=== PATIENT | female | born 1940 | race Caucasian/White ===

== ENCOUNTER 2018-08-09 01:42 | Outpatient (CLI) | payer MEDICARE, SELFPAY ==
--- NOTE | 2018-08-09 10:35 | DI.RAD_ITS ---
SYMPTOM/DIAGNOSIS: LT KNEE PAIN, M25.562, ? FX, DISLOCATION,SWELLING LEFT KNEE: Four views were obtained. There is narrowing of the medial tibiofemoral cartilaginous joint space. Mild hypertrophic spurring is noted at multiple sites involving the bones of the knee. No other focal bony abnormality is seen. No evidence of fracture. 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
== END 2018-08-09 02:02 ==
PROVIDERS: PCP Nurse Practitioner Family; Visit Provider Nurse Practitioner Family
DX: M25.562 Pain in left knee (principal); M17.12 Unilateral primary osteoarthritis, left knee
CPT/HCPCS: 73564

== ENCOUNTER 2019-09-04 13:58 | Outpatient (REF) | payer MEDICARE, SELFPAY | END 2019-09-04 14:18 | LOC: LBN 13:58 | PROVIDERS: PCP Nurse Practitioner Family; Visit Provider Family Medicine | DX: R30.0 Dysuria (principal) | CPT/HCPCS: 87086 ==

== ENCOUNTER 2019-10-31 15:31 | Outpatient (REF) | payer MEDICARE, SELFPAY | END 2019-10-31 15:51 | LOC: LBN 15:31 | PROVIDERS: PCP Nurse Practitioner Family; Visit Provider Family Medicine | DX: R30.0 Dysuria (principal) | CPT/HCPCS: 87086 ==

== ENCOUNTER 2020-08-08 03:14 | Outpatient (CLI) | payer MEDICARE, SELFPAY ==
[2020-08-08 09:53] LABS: ALT 22 U/L (14-59); AST 20 U/L (15-37); Albumin 3.7 g/dL (3.4-5.0); Alkaline Phosphatase 91 U/L (46-116); Anion Gap 5.8 mmol/L (3-11); BUN 20 mg/dL (7-18); Bilirubin, Total 0.4 mg/dL (0.2-1.0); CO2 31.2 mmol/L (21.0-32.0); CREATININE 0.8 mg/dL (0.55-1.02); Calcium 9.1 mg/dL (8.5-10.1); Chloride 107 mmol/L (98-107); Glucose 88 mg/dL (74-106); Potassium 4.3 mmol/L (3.5-5.1); Sodium 144 mmol/L (136-145); TSH (W/Ref FT4) 3.72 uIU/mL (0.36-3.74); Total Protein 6.9 g/dL (6.4-8.2)
== END 2020-08-08 03:15 | disposition home or self-care (01) ==
LOC: LBO 03:15
PROVIDERS: PCP Nurse Practitioner Family; Visit Provider Nurse Practitioner Family
DX: N18.9 Chronic kidney disease, unspecified (principal); Z13.1 Encounter for screening for diabetes mellitus; E03.9 Hypothyroidism, unspecified
CPT/HCPCS: 36415; 80053; 84443

== ENCOUNTER 2021-12-29 02:36 | Outpatient (CLI) | payer MEDICARE, SELFPAY ==
[2021-12-29 08:20] LABS: Anion Gap 6.3 mmol/L (3-11); BUN 26 mg/dL (7-18); CO2 28.7 mmol/L (21.0-32.0); CREATININE 0.7 mg/dL (0.55-1.02); Calcium 8.6 mg/dL (8.5-10.1); Chloride 107 mmol/L (98-107); Estimated GFR 86.83 (mL/min/1.73m2); Glucose 81 mg/dL (74-106); Potassium 3.9 mmol/L (3.5-5.1); Sodium 142 mmol/L (136-145); TSH (W/Ref FT4) 3.61 uIU/mL (0.36-3.74)
== END 2021-12-29 02:37 | disposition home or self-care (01) ==
LOC: LBO 02:36
PROVIDERS: Absent Provider Nurse Practitioner Family; PCP Nurse Practitioner Family; Visit Provider Nurse Practitioner Family
DX: E03.9 Hypothyroidism, unspecified (principal); E78.5 Hyperlipidemia, unspecified; Z13.1 Encounter for screening for diabetes mellitus; K21.9 Gastro-esophageal reflux disease without esophagitis
CPT/HCPCS: 36415; 80048; 84443

== ENCOUNTER 2022-07-30 12:36 | Outpatient (CLI) | payer MEDICARE, SELFPAY ==
[2022-07-30 12:38] LABS: Anion Gap 7.1 mmol/L (3-11); BUN 24 mg/dL (7-18); CO2 27.9 mmol/L (21.0-32.0); CREATININE 0.7 mg/dL (0.55-1.02); Calcium 8.8 mg/dL (8.5-10.1); Chloride 107 mmol/L (98-107); Estimated GFR 86.83 (mL/min/1.73m2); Glucose 148 mg/dL (74-106); Potassium 4.1 mmol/L (3.5-5.1); Sodium 142 mmol/L (136-145)
[2022-07-31 19:34] LABS: Lyme Ab w Rflx to Lyme Confirm Negative (Negative)
[2022-08-02 19:36] LABS: Anaplasma phagocytophilum Negative (Negative); B. miyamotoi PCR Negative (Negative); Babesia divergens/MO-1 Negative (Negative); Babesia duncani Negative (Negative); Babesia microti Negative (Negative); Ehrlichia chaffeensis Negative (Negative); Ehrlichia ewingii/canis Negative (Negative); Ehrlichia muris eauclairensis Negative (Negative)
== END 2022-07-30 12:37 | disposition home or self-care (01) ==
LOC: LBO 12:37
PROVIDERS: PCP Nurse Practitioner Family; Visit Provider Student in an Organized Health Care Education/Training Program
DX: A69.20 Lyme disease, unspecified (principal); E86.0 Dehydration; W57.XXXA Bitten or stung by nonvenomous insect and other nonvenomous arthropods, initial encounter
CPT/HCPCS: 36415; 80048; 87798; 86618

== ENCOUNTER 2022-09-23 11:00 | Outpatient (CLI) | payer MEDICARE, SELFPAY ==
--- NOTE | 2022-09-23 11:00 | RT.EKG_ITS ---
APPROVED REPORT Exam: Resting ECG Reason for Exam: LIMA x1 mo, new murmur Patient Location: O HR:75 bpm ECG Measurements Heart Rate 75 AXIS NH 168 P 50 QRSd 98 QRS -16 QT 398 T 49 QTc 445 Conclusion Sinus rhythm...normal P axis, V-rate 50- 99 Borderline left axis deviation...QRS axis (-15,-29) Low voltage, precordial leads...precordial leads <1.0mV Otherwise normal ECG
== END 2022-09-23 11:01 | disposition home or self-care (01) ==
LOC: DI.KIM 11:07
PROVIDERS: PCP Nurse Practitioner Family; Visit Provider Nurse Practitioner Family
DX: R06.09 Other forms of dyspnea (principal)
CPT/HCPCS: 93010

== ENCOUNTER 2022-09-23 12:54 | Outpatient (CLI) | payer MEDICARE, SELFPAY ==
[2022-09-23 12:25] LABS: Abs Immature Grans 0.01 10^3/uL (0.0-0.06); Absolute Basophil Count 0.06 10^3/uL (0.0-0.2); Absolute Eosinophil Count 0.26 10^3/uL (0.0-0.7); Absolute Lymphocyte Count 1.47 10^3/uL (1.2-3.4); Absolute Monocyte Count 0.48 10^3/uL (0.1-0.8); Absolute Neutrophil Count 3.92 10^3/uL (1.2-6.7); Eosinophils % 4.2; HCT 26.8 % (36.0-46.0); HGB 7.3 g/dL (11.2-15.7); Immature Grans % 0.2; Lymphocytes % 23.7; MCHC 27.2 % (32.0-36.0); MCV 66 fL (80-95); MPV 10.3 fL (8.0-11.0); Monocytes % 7.7; Neutrophils % 63.2; Platelet Count 389 10^3/uL (130-400); RBC 4.06 10^6/uL (3.93-5.22); RDW 16.7 % (11.7-14.6); RDW-SD 39.5 fL
[2022-09-23 13:05] LABS: Diff Comment RBC Morph Reviewed; Hypochromasia 2+; Microcytosis 2+
[2022-09-23 13:07] LABS: Ovalocytes 2+
[2022-09-23 13:34] LABS: ALT 23 U/L (14-59); AST 17 U/L (15-37); Albumin 3.7 g/dL (3.4-5.0); Alkaline Phosphatase 94 U/L (46-116); Anion Gap 7.2 mmol/L (3-11); BUN 22 mg/dL (7-18); Bilirubin, Total 0.3 mg/dL (0.2-1.0); CO2 27.8 mmol/L (21.0-32.0); CREATININE 0.7 mg/dL (0.55-1.02); Calcium 8.9 mg/dL (8.5-10.1); Chloride 107 mmol/L (98-107); Ferritin 3 ng/mL (8-252); Glucose 100 mg/dL (74-106); Potassium 4.5 mmol/L (3.5-5.1); Sodium 142 mmol/L (136-145); TSH (W/Ref FT4) 3.01 uIU/mL (0.36-3.74)
[2022-09-23 13:57] LABS: Iron 9 ug/dL (50-170); Total Iron Binding Capacity 488 ug/dL (250-450); Transferrin Sat 2 % (15-50)
== END 2022-09-23 12:55 | disposition home or self-care (01) ==
PROVIDERS: PCP Nurse Practitioner Family; Visit Provider Nurse Practitioner Family
DX: E61.1 Iron deficiency (principal); G25.81 Restless legs syndrome; E03.9 Hypothyroidism, unspecified; R06.00 Dyspnea, unspecified
CPT/HCPCS: 36415; 80053; 71046; 82728; 83540; 83550; 84443; 85025

== ENCOUNTER 2022-09-23 13:07 | Outpatient (CLI) | payer MEDICARE, SELFPAY ==
--- NOTE | 2022-09-23 12:30 | DI.RAD_ITS ---
Exam(s) XR CHEST 2V PA LATERAL EXAM: XR CHEST 2V PA LATERAL CLINICAL HISTORY: [id number] ON EXERTION TECHNIQUE: 2D digital imaging was performed. COMPARISON: CR CHEST 2 VIEWS PA,LAT from 02/01/2015 FINDINGS: HEART: Mildly enlarged.zzz Aorta: Tortuous PULMONARY VASCULATURE: Normal. LUNGS: Clear. PLEURAL SPACE: No pleural effusion or pneumothorax. BONE:Unremarkable for age. IMPRESSION: No acute abnormality. DATA REPOSITORY: RADIATION DOSE DELIVERED:
== END 2022-09-23 13:27 ==
LOC: DI 13:08
PROVIDERS: PCP Nurse Practitioner Family; Visit Provider Nurse Practitioner Family
DX: R06.09 Other forms of dyspnea (principal)
CPT/HCPCS: 71046

== ENCOUNTER 2022-09-25 13:19 | Emergency (ER) | payer MEDICARE, SELFPAY ==
[2022-09-25 13:25] VITALS: BP 129/70; PULSE 91; RESP 17; TEMP 36.6; O2SAT 100
[2022-09-25 13:58] LABS: Abs Immature Grans 0.03 10^3/uL (0.0-0.06); Absolute Basophil Count 0.06 10^3/uL (0.0-0.2); Absolute Eosinophil Count 0.18 10^3/uL (0.0-0.7); Absolute Neutrophil Count 5.04 10^3/uL (1.2-6.7); Basophils % 0.9; Eosinophils % 2.6; HCT 25.8 % (36.0-46.0); Immature Grans % 0.4; Lymphocytes % 17.4; MCH 17.8 pg (27.0-33.0); MCHC 27.1 % (32.0-36.0); MPV 10.2 fL (8.0-11.0); Monocytes % 5.8; Neutrophils % 72.9; Platelet Count 385 10^3/uL (130-400); RBC 3.94 10^6/uL (3.93-5.22); RDW 16.7 % (11.7-14.6); RDW-SD 38.6 fL; WBC 6.91 10^3/uL (4.4-10.8)
[2022-09-25 14:00] LABS: MCV 66 fL (80-95)
[2022-09-25 14:13] LABS: Anisocytosis 1+; Diff Comment RBC Morph Reviewed; Hypochromasia 2+; Microcytosis 2+
[2022-09-25 14:14] LABS: Poikilocytes 1+
[2022-09-25 14:16] LABS: ALT 19 U/L (14-59); AST 14 U/L (15-37); Albumin 3.4 g/dL (3.4-5.0); Alkaline Phosphatase 90 U/L (46-116); Anion Gap 5.1 mmol/L (3-11); BUN 20 mg/dL (7-18); Bilirubin, Total 0.2 mg/dL (0.2-1.0); CO2 27.9 mmol/L (21.0-32.0); CREATININE 0.7 mg/dL (0.55-1.02); Calcium 8.5 mg/dL (8.5-10.1); Chloride 108 mmol/L (98-107); Glucose 112 mg/dL (74-106); Magnesium 2.2 mg/dL (1.8-2.4); Potassium 3.9 mmol/L (3.5-5.1); Sodium 141 mmol/L (136-145); Total Protein 6.8 g/dL (6.4-8.2)
[2022-09-25 14:22] LABS: Bilirubin Negative (Negative); Blood Negative (Negative); Clarity Clear (Clear); Glucose Negative (Negative); Ketones Negative (Negative); Leukocyte Esterase Negative (Negative); Nitrite Negative (Negative); Specific Gravity 1.015 (1.005-1.025); Urobilinogen 0.2 mg/dL (Up to 0.2); pH 6.5 (5-8)
--- NOTE | 2022-09-25 15:06 | ED.GENADUL_ITS ---
Discharge Plan Disposition Patient Disposition: Home Discharge Details Clinical Impression: Anemia, GI bleed due to NSAIDs Primary Care Provider: Adeline Dee ED Provider: Aaron Oshea Home Meds and New Rx's Prescriptions: Continued loratadine [Claritin] 10 mg tablet 10 mg PO DAILY PRN acetaminophen 500 mg tablet 1,000 mg PO TID PRN pantoprazole 20 mg tablet,delayed release (DR/EC) 20 mg PO DAILY Qty: 90 0RF Rx Instructions: Take 20 mg daily once daily in the morning at least 30-60 minutes before first meal of the day Discharge Instructions Instructions: Gastrointestinal Bleeding (ED), Anemia (ED) Additional Instructions: At this time you do have severe anemia but you are right on the line of needing a blood transfusion. After our discussion we have decided to hold off on transfusing but we will have you return to the emergency department tomorrow for reassessment. Please return after 4 PM as I will be here and happy to reassess you and repeat blood work. In the meantime given that we are not transfusing you if you develop any chest pain, shortness of breath, lightheadedness or rapid heart rate return immediately to the emergency department. This also includes if you start having significant bloody or completely black stools. Referrals: Adeline Dee NP [Primary Care Provider] - 3 days Discharge Data Discharge Date/Time-TO BE ENTERED AT DEPARTURE: 09/25/22 16:39 Medical Decision Making Patient presenting to the emergency department for chief complaint of anemia and abnormal labs. Patient reports 1 month ago she was placed on Celebrex for her arthritis. Shortly thereafter she started having some mild shortness of breath with activity. Patient states that she is only noted some increased fatigue but denies any syncope, lightheadedness, chest pain, shortness of breath except with activity but has not stopped any of her normal activities and states that she is otherwise feeling fine. Did receive report from primary care provider in regards to this patient that they had noticed the anemia couple days ago and stopped her Celebrex and ordered a iron transfusion given some evidence of macrocytic anemia. Repeat hemoglobin was is 6.8 causing primary care provider to send patient to the emergency department. My assessment is unremarkable, patient has no tachycardia, no hypoxia, stable vital signs normal blood pressure. We will repeat labs and perform a type and screen. Reviewed patient's labs and hemoglobin is 7 otherwise shows similar findings as before. No thrombocytopenia is noted no leukocytosis. Chemistries show slightly elevated chloride, BUN of 20, glucose of 112 and AST of 14 otherwise nondiagnostic. Urine is negative. Patient is O+. Discussed findings with patient given that she is right on the line of needing blood transfusion with hemoglobin of 7. After discussion with patient she is hesitant to receiving blood products and states that she would prefer to see how well the iron transfusion helps given that she otherwise feels fine. Given that patient is mostly asymptomatic with stable vital signs I do feel that this is a region reasonable option. We will contact primary care provider to see if we can repeat hemoglobin in 24 to 48 hours with close follow-up on Wednesday. Spoke to primary care provider and attempted to have labs drawn tomorrow on an outpatient basis but I stated I would follow-up on given that I will be working tomorrow. Unfortunately labs were unable to be performed on an outpatient basis due to lab availability and being the weekend. Patient was agreeable to retu rning tomorrow when I am on shift for reassessment or returning emergently for any new or significant worsening of symptoms. Again patient is otherwise stable, no hypotension, no tachycardia no hypoxia and only symptoms with activity otherwise performing all activities without much other complaint. I do feel this is reasonable given that she has stopped her NSAID and started a PPI. After discussion of diagnosis and plan of care patient has no further needs, questions, or concerns and states clear understanding to return to the emergency department for any worsening symptoms. This documentation was generated using [employer] dictation system, please disregard any oddities of phrase or misspellings. Lab Data Lab results reviewed: Yes I reviewed the patient's lab results. HPI General Mode of arrival: ambulatory . Date/Time Provider Initiated Documentation: 09/25/22 13:39 . Limitations to Documentation: no limitations . Information obtained by: patient and RN notes reviewed . History of Present Illness 82 year old F presents to the emergency department with the chief complaint of Anemia, described as mild, Patient started experiencing this month(s) (1) Patient notes no other symptoms.. Patient did receive the following treatments prior to arrival, none Related Data Home Medications Medication Instructions Recorded Confirmed loratadine 10 mg tablet (Claritin) 10 mg PO DAILY PRN 03/12/21 09/26/22 acetaminophen 500 mg tablet 1,000 mg PO TID PRN 04/01/22 09/26/22 pantoprazole 20 mg tablet,delayed 20 mg PO DAILY #90 tab-caps 09/23/22 09/26/22 release Previous Rx's Medication Instructions Recorded pantoprazole 20 mg tablet,delayed 20 mg PO DAILY #90 tab-caps 09/23/22 release Allergies Allergy/AdvReac Type Severity Reaction Status Date / Time aspirin AdvReac ? Verified 09/25/22 13:27 INCREASED HR General Stated Complaint: GI Bleed DEDE: 2 Review of Systems Constitutional Constitutional: Denies chills, Reports fatigue (Only with activity), Denies fever(s), Denies malaise and Denies poor appetite Cardiovascular Cardiovascular: Denies chest pain, Denies syncope, Denies irregular heart rhythm, Denies leg edema, Denies lightheadedness, Denies palpitations, Denies dyspnea and Reports dyspnea on exertion Respiratory Respiratory: Denies cough, Denies dyspnea and Reports dyspnea on exertion Gastrointestinal Gastrointestinal: Reports as per HPI, Denies abdominal pain, Reports melena, Denies hematochezia, Denies change in bowel habits, Denies coffee ground emesis, Denies constipation, Denies fecal incontinence, Denies diarrhea, Denies nausea, Denies vomiting and Denies hematemesis Genitourinary Genitourinary: Denies hematuria, Denies urinary incontinence, Denies urinary hesitancy and Denies urinary urgency Integumentary/Breasts Skin/Breast: Denies rash Neurologic Neurologic: Denies syncope Endocrine Endocrine: Reports fatigue (Only with activity) and Denies palpitations PFSH All Active Problems (Updated 09/26/22 @ 17:32 by Aaron Oshea NP) Anemia (Chronic) GI bleed due to NSAIDs (Acute) Iron deficiency anemia (Acute) Heart murmur (Acute) Dyspnea on exertion (Acute) Restless leg syndrome (Acute) Generalized osteoarthritis (Acute) Erysipelas (Acute) Eczema (Chronic 02/16/13) Hands GERD (gastroesophageal reflux disease) (Chronic 05/07/14) Takes 2-week courses of omeprazole PRN with good relief for several months Other and unspecified hyperlipidemia (Chronic 03/05/15) Subclinical hypothyroidism (Chronic 02/04/11) Medical History BCC (basal cell carcinoma), face (06/11/16) and left medial ankle 10/2018 BPPV (benign paroxysmal positional vertigo) Erythema migrans (Lyme disease) 1 week post tick bite, short-term stay per pt report .. but Doxy x 10 days started, ik Lumbar radiculopathy, acute (06/12/14) Surgical History Biopsy of breast pt did not state date.HE Exc BBC rgt forehead (06/22/16) Open Carpal Tunnel release no date given by pt.HE Family History Father Alcohol abuse Social History Smoking/Tobacco Use Status: Never Smoking risk assessment performed?: Yes Alcohol Intake: current Alcohol Intake frequency: a few times a week Drug use: Never Substance use type: does not use Adopted: No Caregiver/Support person: No Foster care: No Household members: spouse Housing: house Number of Children: 0 number of grandchildren: 0 Communication Needs: Corrective Lenses Education Level: college 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 Pets and animals: No Sexually active: No Do you think of yourself as: straight/heterosexual Current gender identity: male What is your relationship status?: How often do you talk on the phone with friends or family?: three or more times per week How often do you get together with friends or relatives?: three or more times per week Do you belong to any clubs or organized social groups?: yes Panel score (0-1 are the most socially isolated patients): 3 What type of physical activity do you participate in: weight lifting and other Details: water aerobics Duration: < 15 minutes/day Frequency: 1-2 times per week Romi/Sabianism: Spiritism Special romi needs: No Seatbelt use: always Drive intox or ride w/intox 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 Do you feel safe at home: Yes Do you feel safe in your relationship?: Yes Exam Const General: cooperative Orientation: alert, awake and oriented x3 Resp Effort & Inspection: normal respiratory effort and able to speak in complete sentences Auscultation: clear to auscultation bilaterally Cardio Rate: regular rate Rhythm: regular rhythm Heart Sounds: S1 normal and S2 normal GI Inspection: normal to inspection Palpation: soft, not firm, no guarding, not rigid and nontender Auscultation: normal bowel sounds Rectal Exam - female: deferred Back/Spine/Pelvis Back: no CVA tenderness Neuro General: patient alert, patient awake, patient oriented x3, gait normal and moves all extremities Course Vital Signs Vital signs: Vital Signs Temperature 36.6 C 09/25/22 13:25 Pulse 91 H 09/25/22 13:25 Respiratory Rate 17 09/25/22 13:25 Blood Pressure 129/70 09/25/22 13:25 Pulse Oximetry 100 09/25/22 13:25 Temperature 36.6 C 09/25/22 13:25 Temperature Source Oral 09/25/22 13:25 Pulse 91 H 09/25/22 13:25 Respiratory Rate 17 09/25/22 13:25 Respiratory Effort Non-Labored 09/25/22 13:26 Blood Pressure 129/70 09/25/22 13:25 Blood Pressure Position Sitting 09/25/22 13:25 Pulse Oximetry 100 09/25/22 13:25 Oxygen Delivery Method Room Air 09/25/22 13:25 Oxygen Flow Rate 0 09/25/22 13:25 Pain Level 0 09/25/22 13:25 Lab/Test Results Lab/Test Results: Laboratory Tests Range/Units 09/25/22 09/25/22 09/25/22 13:45 13:45 13:45 WBC (4.4-10.8) 10^3/uL 6.91 RBC (3.93-5.22) 10^6/uL 3.94 Hgb (11.2-15.7) g/dL 7.0 L* Hct (36.0-46.0) % 25.8 L MCV (80-95) fL 66 L MCH (27.0-33.0) pg 17.8 L MCHC (32.0-36.0) % 27.1 L RDW (11.7-14.6) % 16.7 H Plt Count (130-400) 10^3/uL 385 MPV (8.0-11.0) fL 10.2 Immature Gran % 0.4 Neutrophils % 72.9 Lymphocytes % 17.4 Monocytes % 5.8 Eosinophils % 2.6 Basophils % 0.9 Nucleated RBC % (0.0-0.3) % 0.0 Absolute Neutrophils (1.2-6.7) 10^3/uL 5.04 Absolute Lymphocytes (1.2-3.4) 10^3/uL 1.20 Absolute Monocytes (0.1-0.8) 10^3/uL 0.40 Absolute Eosinophils (0.0-0.7) 10^3/uL 0.18 Absolute Basophils (0.0-0.2) 10^3/uL 0.06 RBC Morphology See Below Hypochromasia 2+ Poikilocytosis 1+ Anisocytosis 1+ Microcytosis 2+ Sodium (136-145) mmol/L 141 Potassium (3.5-5.1) mmol/L 3.9 Chloride (98-107) mmol/L 108 H Carbon Dioxide (21.0-32.0) mmol/L 27.9 Anion Gap (3-11) mmol/L 5.1 BUN (7-18) mg/dL 20 H Creatinine (0.55-1.02) mg/dL 0.7 Est GFR (CKD-EPI 2020) (mL/min/1.73m2) 86.30 Glucose (74-106) mg/dL 112 H Calcium (8.5-10.1) mg/dL 8.5 Magnesium (1.8-2.4) mg/dL 2.2 Total Bilirubin (0.2-1.0) mg/dL 0.2 AST (15-37) U/L 14 L ALT (14-59) U/L 19 Alkaline Phosphatase (46-116) U/L 90 Total Protein (6.4-8.2) g/dL 6.8 Albumin (3.4-5.0) g/dL 3.4 Urine Color (Yellow) Urine Clarity (Clear) Urine pH (5-8) Ur Specific [place] (1.005-1.025) Urine Protein (Negative) mg/dL Urine Ketones (Negative) mg/dL Urine Blood (Negative) Urine Nitrite (Negative) Urine Bilirubin (Negative) Urine Urobilinogen (Up to 0.2) mg/dL Ur Leukocyte Esterase (Negative) Urine Glucose (Negative) mg/dL Patient ABO/Rh O Positive Antibody Screen NEGATIVE Range/Units 09/25/22 14:11 WBC (4.4-10.8) 10^3/uL RBC (3.93-5.22) 10^6/uL Hgb (11.2-15.7) g/dL Hct (36.0-46.0) % MCV (80-95) fL MCH (27.0-33.0) pg MCHC (32.0-36.0) % RDW (11.7-14.6) % Plt Count (130-400) 10^3/uL MPV (8.0-11.0) fL Immature Gran % Neutrophils % Lymphocytes % Monocytes % Eosinophils % Basophils % Nucleated RBC % (0.0-0.3) % Absolute Neutrophils (1.2-6.7) 10^3/uL Absolute Lymphocytes (1.2-3.4) 10^3/uL Absolute Monocytes (0.1-0.8) 10^3/uL Absolute Eosinophils (0.0-0.7) 10^3/uL Absolute Basophils (0.0-0.2) 10^3/uL RBC Morphology Hypochromasia Poikilocytosis Anisocytosis Microcytosis Sodium (136-145) mmol/L Potassium (3.5-5.1) mmol/L Chloride (98-107) mmol/L Carbon Dioxide (21.0-32.0) mmol/L Anion Gap (3-11) mmol/L BUN (7-18) mg/dL Creatinine (0.55-1.02) mg/dL Est GFR (CKD-EPI 2020) (mL/min/1.73m2) Glucose (74-106) mg/dL Calcium (8.5-10.1) mg/dL Magnesium (1.8-2.4) mg/dL Total Bilirubin (0.2-1.0) mg/dL AST (15-37) U/L ALT (14-59) U/L Alkaline Phosphatase (46-116) U/L Total Protein (6.4-8.2) g/dL Albumin (3.4-5.0) g/dL Urine Color (Yellow) Yellow Urine Clarity (Clear) Clear Urine pH (5-8) 6.5 Ur Specific [place] (1.005-1.025) 1.015 Urine Protein (Negative) mg/dL Negative Urine Ketones (Negative) mg/dL Negative Urine Blood (Negative) Negative Urine Nitrite (Negative) Negative Urine Bilirubin (Negative) Negative Urine Urobilinogen (Up to 0.2) mg/dL 0.2 Ur Leukocyte Esterase (Negative) Negative Urine Glucose (Negative) mg/dL Negative Patient ABO/Rh Antibody Screen PAWSS Have you Been Recently Intoxicated or Drunk Within the Last 30 days?: No Have you Ever Experienced Previous Episodes of Alcohol Withdrawal?: No Have you ever Experienced Withdrawal Seizures?: No Have you ever Experienced Delirium Tremens(DT)s?: No Have you ever undergone Alcohol Rehabilitation Treatment (i.e, inpt ot outpatient treatment programs)?: No Have you ever Experienced Blackouts?: No Have you ever Combined Alcohol with other Downers within the last 90 days?: No Have you ever Combined Alcohol with any other Substance of Abuse during the last 90 days?: No Result: 0
--- NOTE | 2022-09-25 16:22 | NUR.NOTE ---
Nursing Note: PT needs follow up with PCP on Wednesday for Anemia. [facility], ED
[2022-09-25 16:31] VITALS: BP 139/45; PULSE 90; RESP 16; O2SAT 99
== END 2022-09-25 16:39 | disposition home or self-care (01) ==
PROVIDERS: Emergency Provider Nurse Practitioner Family; PCP Nurse Practitioner Family
DX: K92.2 Gastrointestinal hemorrhage, unspecified (principal); D50.0 Iron deficiency anemia secondary to blood loss (chronic)
CPT/HCPCS: 80053; 86850; 86900; 86901; 99283; 81003; 83735; 85025

== ENCOUNTER 2022-09-26 15:37 | Inpatient (IN) | payer MEDICARE, SELFPAY ==
[2022-09-26] VITALS (19 sets, daily range): BP systolic 128–151; BP diastolic 56–94; PULSE 67–99; RESP 13–24; TEMP 35.7–37.1; O2SAT 96–100
[2022-09-26 16:10] LABS: HCT 24.6 % (36.0-46.0)
[2022-09-26 16:12] LABS: HGB 6.6 g/dL (11.2-15.7)
[2022-09-26 16:56] LABS: Abs Immature Grans 0.09 10^3/uL (0.0-0.06); Absolute Basophil Count 0.07 10^3/uL (0.0-0.2); Absolute Lymphocyte Count 2.03 10^3/uL (1.2-3.4); Absolute Monocyte Count 0.49 10^3/uL (0.1-0.8); Absolute Neutrophil Count 4.24 10^3/uL (1.2-6.7); Eosinophils % 2.8; HCT 25.7 % (36.0-46.0); Immature Grans % 1.3; Lymphocytes % 28.5; MCHC 26.1 % (32.0-36.0); MCV 65 fL (80-95); MPV 10.2 fL (8.0-11.0); Monocytes % 6.9; Neutrophils % 59.5; Nucleated RBC 0.4 % (0.0-0.3); Platelet Count 399 10^3/uL (130-400); RBC 3.93 10^6/uL (3.93-5.22); RDW-SD 39.3 fL; WBC 7.12 10^3/uL (4.4-10.8)
[2022-09-26] MEDS: Sucralfate 1 GM TAB PO ×2 (16:59→20:25)
[2022-09-26] MEDS: Pantoprazole 40 MG VIAL 80 MG IVP (16:59)
[2022-09-26 17:09] LABS: PTT Activated 24.4 sec (21.5-31.9); Prothrombin Time 10.1 sec (9.3-11.0)
[2022-09-26 17:12] LABS: ALT 23 U/L (14-59); AST 18 U/L (15-37); Albumin 3.5 g/dL (3.4-5.0); Alkaline Phosphatase 88 U/L (46-116); Anion Gap 6.7 mmol/L (3-11); BUN 21 mg/dL (7-18); Bilirubin, Total 0.2 mg/dL (0.2-1.0); CO2 26.3 mmol/L (21.0-32.0); CREATININE 0.9 mg/dL (0.55-1.02); Calcium 8.8 mg/dL (8.5-10.1); Chloride 107 mmol/L (98-107); Estimated GFR 63.83 (mL/min/1.73m2); Glucose 93 mg/dL (74-106); Magnesium 2.2 mg/dL (1.8-2.4); Potassium 3.8 mmol/L (3.5-5.1); Sodium 140 mmol/L (136-145)
[2022-09-26 17:26] LABS: Anisocytosis 1+; Diff Comment RBC Morph Reviewed; HGB 6.7 g/dL (11.2-15.7)
[2022-09-26 17:27] LABS: Hypochromasia 2+; Microcytosis 2+; Poikilocytes 1+
--- NOTE | 2022-09-26 17:28 | ED.GENADUL_ITS ---
Discharge Plan Disposition Patient Disposition: Admit to [facility] Discharge Details Clinical Impression: GI bleed due to NSAIDs Admit Date/Time: 09/26/22 17:07 Admit Provider: Aydee Roblero Attending Provider: Aydee Roblero Primary Care Provider: Adeline Dee ED Provider: Aaron Oshea Discharge Data Discharge Date/Time-TO BE ENTERED AT DEPARTURE: 09/26/22 18:10 Medical Decision Making Patient presenting to the emergency department for chief complaint of recheck of GI bleed. Patient was seen by myself yesterday for GI bleed and had hemoglobin of 7. Patient had just received iron transfusion and shared decision-making was utilized and we decided for patient to go home monitor symptoms and return today for recheck of hemoglobin. Patient states actually today she feels more energetic and overall improved. Physical exam remains unremarkable with no hypotension, no tachycardia, no hypoxia and patient denying all other symptoms. We will recheck hemoglobin and establish plan of care after lab results Reviewed hemoglobin and report was received of following hemoglobin of 6.6. Given that this is continued to decline did discuss risk versus benefit of transfusion with patient and she was agreeable to receiving blood transfusion. Did also start Protonix IV push and octreotide. Contacted Dr. Roblero general surgeon for admission to further observe patient to ensure no acute or rapid decline of condition and for monitoring of hemoglobin. She agreed to admit patient. Lab Data Lab results reviewed: Yes I reviewed the patient's lab results. HPI General Mode of arrival: ambulatory . Date/Time Provider Initiated Documentation: 09/26/22 15:38 . Limitations to Documentation: no limitations . Information obtained by: patient and RN notes reviewed . History of Present Illness 82 year old F presents to the emergency department with the chief complaint of Recheck of GI bleed, described as mild, Patient started experiencing this month(s) (1) and it has been constant. Medication worsens symptoms (New medication of Celebrex) . Patient notes shortness of breath. Patient did receive the following treatments prior to arrival, other (Pantoprazole this morning) Related Data Home Medications Medication Instructions Recorded Confirmed loratadine 10 mg tablet (Claritin) 10 mg PO DAILY PRN 03/12/21 09/26/22 acetaminophen 500 mg tablet 1,000 mg PO TID PRN 04/01/22 09/26/22 pantoprazole 20 mg tablet,delayed 20 mg PO DAILY #90 tab-caps 09/23/22 09/26/22 release Previous Rx's Medication Instructions Recorded pantoprazole 20 mg tablet,delayed 20 mg PO DAILY #90 tab-caps 09/23/22 release Allergies Allergy/AdvReac Type Severity Reaction Status Date / Time aspirin AdvReac ? Verified 09/25/22 13:27 INCREASED HR General Stated Complaint: Recheck DEDE: 4 Review of Systems Constitutional Constitutional: Denies chills, Denies fatigue, Denies fever(s), Denies malaise and Denies poor appetite Cardiovascular Cardiovascular: Denies chest pain, Denies dyspnea and Reports dyspnea on exertion Respiratory Respiratory: Denies cough, Denies dyspnea and Reports dyspnea on exertion Gastrointestinal Gastrointestinal: Reports as per HPI, Denies abdominal pain, Reports melena (Intermittent), Denies change in bowel habits, Denies constipation, Denies diarrhea, Denies nausea and Denies vomiting Genitourinary Genitourinary: Denies hematuria Integumentary/Breasts Skin/Breast: Denies rash Endocrine Endocrine: Denies fatigue Hematologic/Lymphatic Hematologic/Lymphatic: Denies easy bruising PFSH All Active Problems (Updated 09/26/22 @ 17:32 by Aaron Oshea NP) Anemia (Chronic) GI bleed due to NSAIDs (Acute) Iron deficiency anemia (Acute) Heart murmur (Acute) Dyspnea on exertion (Acute) Restless leg syndrome (Acute) Generalized osteoarthritis (Acute) Erysipelas (Acute) Eczema (Chronic 02/16/13) Hands GERD (gastroesophageal reflux disease) (Chronic 05/07/14) Takes 2-week courses of omeprazole PRN with good relief for several months Other and unspecified hyperlipidemia (Chronic 03/05/15) Subclinical hypothyroidism (Chronic 02/04/11) Medical History BCC (basal cell carcinoma), face (06/11/16) and left medial ankle 10/2018 BPPV (benign paroxysmal positional vertigo) Erythema migrans (Lyme disease) 1 week post tick bite, short-term stay per pt report .. but Doxy x 10 days started, ik Lumbar radiculopathy, acute (06/12/14) Surgical History Biopsy of breast pt did not state date.HE Exc BBC rgt forehead (06/22/16) Open Carpal Tunnel release no date given by pt.HE Family History Father Alcohol abuse Social History Smoking/Tobacco Use Status: Never Smoking risk assessment performed?: Yes Alcohol Intake: current Alcohol Intake frequency: a few times a week Drug use: Never Substance use type: does not use Adopted: No Caregiver/Support person: No Foster care: No Household members: spouse Housing: house Number of Children: 0 number of grandchildren: 0 Communication Needs: Corrective Lenses Education Level: college 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 Pets and animals: No Sexually active: No Do you think of yourself as: straight/heterosexual Current gender identity: male What is your relationship status?: How often do you talk on the phone with friends or family?: three or more times per week How often do you get together with friends or relatives?: three or more times per week Do you belong to any clubs or organized social groups?: yes Panel score (0-1 are the most socially isolated patients): 3 What type of physical activity do you participate in: weight lifting and other Details: water aerobics Duration: < 15 minutes/day Frequency: 1-2 times per week Romi/Mandaeism: Evangelical Special romi needs: No Seatbelt use: always Drive intox or ride w/intox sprinkler driver: No Do you feel safe at home: Yes Do you feel safe in your relationship?: Yes Exam Const General: cooperative Orientation: alert, awake and oriented x3 Resp Effort & Inspection: normal respiratory effort and able to speak in complete sentences Auscultation: clear to auscultation bilaterally Cardio Rate: regular rate Rhythm: regular rhythm Heart Sounds: S1 normal and S2 normal GI Palpation: soft, no hepatosplenomegaly, not firm, no guarding, no masses, no pulsatile masses, not rigid, no splenomegaly and nontender Auscultation: normal bowel sounds Back/Spine/Pelvis Back: no CVA tenderness Neuro General: patient alert, patient awake, patient oriented x3, gait normal and moves all extremities Course Vital Signs Vital signs: Vital Signs Temperature 37.1 C 09/26/22 15:41 Pulse 85 09/26/22 15:41 Respiratory Rate 18 09/26/22 15:41 Blood Pressure 148/57 H 09/26/22 15:41 Pulse Oximetry 97 09/26/22 15:41 Temperature 37.1 C 09/26/22 15:41 Pulse 85 09/26/22 15:41 Respiratory Rate 18 09/26/22 15:41 Respiratory Effort Normal, Non-Labored 09/26/22 16:02 Blood Pressure 148/57 H 09/26/22 15:41 Blood Pressure Position Sitting 09/26/22 15:41 Pulse Oximetry 97 09/26/22 15:41 Oxygen Delivery Method Room Air 09/26/22 15:41 Oxygen Flow Rate 0 09/26/22 15:41 Lab/Test Results Lab/Test Results: Laboratory Tests Range/Units 09/26/22 09/26/22 09/26/22 16:01 16:47 16:47 WBC (4.4-10.8) 10^3/uL RBC (3.93-5.22) 10^6/uL Hgb (11.2-15.7) g/dL 6.6 L* Hct (36.0-46.0) % 24.6 L MCV (80-95) fL MCH (27.0-33.0) pg MCHC (32.0-36.0) % RDW (11.7-14.6) % Plt Count (130-400) 10^3/uL MPV (8.0-11.0) fL Immature Gran % Neutrophils % Lymphocytes % Monocytes % Eosinophils % Basophils % Nucleated RBC % (0.0-0.3) % Absolute Neutrophils (1.2-6.7) 10^3/uL Absolute Lymphocytes (1.2-3.4) 10^3/uL Absolute Monocytes (0.1-0.8) 10^3/uL Absolute Eosinophils (0.0-0.7) 10^3/uL Absolute Basophils (0.0-0.2) 10^3/uL RBC Morphology Hypochromasia Poikilocytosis Anisocytosis Microcytosis PT Cancelled INR Cancelled APTT (21.5-31.9) sec Sodium (136-145) mmol/L Potassium (3.5-5.1) mmol/L Chloride (98-107) mmol/L Carbon Dioxide (21.0-32.0) mmol/L Anion Gap (3-11) mmol/L BUN (7-18) mg/dL Creatinine (0.55-1.02) mg/dL Est GFR (CKD-EPI 2020) (mL/min/1.73m2) Glucose (74-106) mg/dL Calcium (8.5-10.1) mg/dL Magnesium (1.8-2.4) mg/dL Total Bilirubin (0.2-1.0) mg/dL AST (15-37) U/L ALT (14-59) U/L Alkaline Phosphatase (46-116) U/L Total Protein (6.4-8.2) g/dL Albumin (3.4-5.0) g/dL Crossmatch See Detail Range/Units 09/26/22 09/26/22 09/26/22 16:47 16:47 16:47 WBC (4.4-10.8) 10^3/uL 7.12 RBC (3.93-5.22) 10^6/uL 3.93 Hgb (11.2-15.7) g/dL 6.7 L* Hct (36.0-46.0) % 25.7 L MCV (80-95) fL 65 L MCH (27.0-33.0) pg 17.0 L MCHC (32.0-36.0) % 26.1 L RDW (11.7-14.6) % 17.0 H Plt Count (130-400) 10^3/uL 399 MPV (8.0-11.0) fL 10.2 Immature Gran % 1.3 Neutrophils % 59.5 Lymphocytes % 28.5 Monocytes % 6.9 Eosinophils % 2.8 Basophils % 1.0 Nucleated RBC % (0.0-0.3) % 0.4 H Absolute Neutrophils (1.2-6.7) 10^3/uL 4.24 Absolute Lymphocytes (1.2-3.4) 10^3/uL 2.03 Absolute Monocytes (0.1-0.8) 10^3/uL 0.49 Absolute Eosinophils (0.0-0.7) 10^3/uL 0.20 Absolute Basophils (0.0-0.2) 10^3/uL 0.07 RBC Morphology See Below Hypochromasia 2+ Poikilocytosis 1+ Anisocytosis 1+ Microcytosis 2+ PT 10.1 INR 1.0 APTT (21.5-31.9) sec 24.4 Sodium (136-145) mmol/L 140 Potassium (3.5-5.1) mmol/L 3.8 Chloride (98-107) mmol/L 107 Carbon Dioxide (21.0-32.0) mmol/L 26.3 Anion Gap (3-11) mmol/L 6.7 BUN (7-18) mg/dL 21 H Creatinine (0.55-1.02) mg/dL 0.9 Est GFR (CKD-EPI 2020) (mL/min/1.73m2) 63.83 Glucose (74-106) mg/dL 93 Calcium (8.5-10.1) mg/dL 8.8 Magnesium (1.8-2.4) mg/dL 2.2 Total Bilirubin (0.2-1.0) mg/dL 0.2 AST (15-37) U/L 18 ALT (14-59) U/L 23 Alkaline Phosphatase (46-116) U/L 88 Total Protein (6.4-8.2) g/dL 7.0 Albumin (3.4-5.0) g/dL 3.5 Crossmatch
[2022-09-26] MEDS: Pantoprazole 40 MG VIAL IVP (20:25)
[2022-09-27] MEDS: Sucralfate 1 GM TAB PO ×2 (05:41→10:54)
[2022-09-27 06:59] VITALS: PULSE 77
[2022-09-27] MEDS: Pantoprazole 40 MG VIAL IVP (07:36)
[2022-09-27 07:37] LABS: HCT 29.6 % (36.0-46.0); HGB 8.6 g/dL (11.2-15.7)
[2022-09-27] MEDS: Normal Saline Flush 10 ML SYR IVP (07:37)
[2022-09-27 08:22] LABS: Ferritin 158 ng/mL (8-252); Vitamin B12 502 pg/mL (193-986)
[2022-09-27 08:26] VITALS: BP 130/66; PULSE 70; RESP 18; TEMP 36.7; O2SAT 94
[2022-09-27 08:27] LABS: Folate > 20.0 ng/mL (8.6-20.0)
--- NOTE | 2022-09-27 10:50 | HPE_ITS ---
Date of service: 09/27/22 Time of Service: 10:50 Assessment and Plan Assessment and plan (1) Anemia: Status: Chronic Assessment and plan: Patient received 2 units of packed RBCs last night for symptomatic anemia of 6.6 No signs of active bleeding and hemodynamically stable She received IV PPI, As well as Carafate I discussed her options with her. Patient would prefer to have an EGD today. We discussed the procedure which she can expect during the procedure, post procedurally, recovery time and risks including but not limited to: Bleeding, infection, perforation, aspiration, other complications with anesthesia and other on for told complications. Disposition pending findings at the time of EGD. (2) GI bleed due to NSAIDs: Status: Acute (3) GERD (gastroesophageal reflux disease): Status: Chronic Qualifiers: Esophagitis presence: esophagitis presence not specified Qualified Code(s): K21.9 - Gastro-esophageal reflux disease without esophagitis (4) Subclinical hypothyroidism: Status: Chronic (5) Erysipelas: Status: Acute (6) Restless leg syndrome: Status: Acute History of Present Illness Narrative: ED NOtes 09/26 : atient presenting to the emergency department for chief complai nt of recheck of GI bleed.? Patient was seen by myself yesterday for GI bleed and had hemoglobin of 7.? Patient had just received iron transfusion and shared decision-making was utilized and we decided for patient to go home monitor symptoms and return today for recheck of hemoglobin.? Patient states actually today she feels more energetic and overall improved.? Physical exam remains unremarkable with no hypotension, no tachycardia, no hypoxia and patient denying all other symptoms.? Reviewed hemoglobin and report was received of following hemoglobin of 6.6.? Given that this is continued to decline did discuss risk versus benefit of transfusion with patient and she was agreeable to receiving blood transfusion.? Did also start Protonix IV push and octreotide.? .?History of Present Illness?82 year old? F presents to the emergency department with the chief complaint of Recheck of GI bleed,?described as mild,?Patient started experiencing this month(s) (1)?and it has been constant.?Medication worsens symptoms (New medication of Celebrex) .?Patient notes shortness of breath.?Patient did receive? the following treatments prior to arrival, other (Pantoprazole this morning) 09/27 Patient was admitted through the ED last night and received 2 units of blood. Today she feels good. She has no chest pain or shortness of breath. She has had no nausea or vomiting. She does feel cold. She has had no pain or difficulty swallowing. She is having no heartburn or indigestion. She did have a bowel movement this morning that was heme positive. She is hungry. She is having absolutely no abdominal pain. She has had no weight loss. She does have a history of GERD and has been on a PPI longstanding. She is currently on Protonix and Carafate. She had been on Celebrex. This was stopped several weeks ago. She is intolerant of aspirin as well. Repeat hemoglobin was 8.6 and then 9. She has not had any surgery other than a colonoscopy and had no problems with anesthesia. She is in excellent health for her age. Review of Systems All systems reviewed & are unremarkable except as noted in HPI and below PFSH All Active Problems Anemia (Chronic) GI bleed due to NSAIDs (Acute) Iron deficiency anemia (Acute) Heart murmur (Acute) Dyspnea on exertion (Acute) Restless leg syndrome (Acute) Generalized osteoarthritis (Acute) Erysipelas (Acute) Eczema (Chronic 02/16/13) Hands GERD (gastroesophageal reflux disease) (Chronic 05/07/14) Takes 2-week courses of omeprazole PRN with good relief for several months Other and unspecified hyperlipidemia (Chronic 03/05/15) Subclinical hypothyroidism (Chronic 02/04/11) Medical History BCC (basal cell carcinoma), face (06/11/16) and left medial ankle 10/2018 BPPV (benign paroxysmal positional vertigo) Erythema migrans (Lyme disease) 1 week post tick bite, short-term stay per pt report .. but Doxy x 10 days started, ik Lumbar radiculopathy, acute (06/12/14) Surgical History Biopsy of breast pt did not state date.HE Exc BBC rgt forehead (06/22/16) Open Carpal Tunnel release no date given by pt.HE Family History Father Alcohol abuse Social History Smoking/Tobacco Use Status: Never Smoking risk assessment performed?: Yes Alcohol Intake: current Alcohol Intake frequency: a few times a week Drug use: Never Substance use type: does not use Adopted: No Caregiver/Support person: No Foster care: No Household members: spouse Housing: house Number of Children: 0 number of grandchildren: 0 Communication Needs: Corrective Lenses Education Level: college 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 Pets and animals: No Sexually active: No Do you think of yourself as: straight/heterosexual Current gender identity: male What is your relationship status?: How often do you talk on the phone with friends or family?: three or more times per week How often do you get together with friends or relatives?: three or more times per week Do you belong to any clubs or organized social groups?: yes Panel score (0-1 are the most socially isolated patients): 3 What type of physical activity do you participate in: weight lifting and other Details: water aerobics Duration: < 15 minutes/day Frequency: 1-2 times per week Romi/Pentecostal: Protestant Special romi needs: No Seatbelt use: always Drive intox or ride w/intox oil transport driver: No Do you feel safe at home: Yes Do you feel safe in your relationship?: Yes Meds Allergies and Home Medications Allergies Allergy/AdvReac Type Severity Reaction Status Date / Time aspirin AdvReac ? Verified 09/25/22 13:27 INCREASED HR Home Medications Medication Instructions Recorded Confirmed Type loratadine 10 mg tablet (Claritin) 10 mg PO DAILY PRN 03/12/21 09/26/22 History acetaminophen 500 mg tablet 1,000 mg PO TID PRN 04/01/22 09/26/22 History pantoprazole 20 mg tablet,delayed 20 mg PO DAILY #90 tab-caps 09/23/22 09/26/22 Rx release Exam Const General: cooperative, healthy appearing, comfortable, no acute distress, well developed and well groomed Nutritional Appearance: average body habitus Orientation: alert, awake and oriented x3 Other: PHYSICAL EXAM GENERAL APPEARANCE: Alert, healthy appearance, oriented, x 3,? in no acute distress HYDRATION: Well hydrated HEAD, EYES, EARS, NECK, THROAT: Head is normocephalic, pupils equal, round, reactive to light and accommodation, ocular movement intact, sclera clear and no jaundice. ?Dentition intact. NECK: Neck supple.? No JVD LUNGS: normal respiration/normal chest excursion. ?Clear to auscultation bilaterally. ?No wheeze. ?HEART: Regular rate and rhythm. no murmurs EXTREMITY: No edema or cyanosis.? no leg pain, redness, swelling.? ABDOMEN: soft and non-tender to palpation.? Normal bowel sounds.? Results Labs 09/27/22 12:05 09/26/22 16:47 Labs: Laboratory Results - last 24 hr 09/26/22 09/26/22 09/26/22 16:01 16:47 16:47 WBC RBC Hgb 6.6 L* Hct 24.6 L MCV MCH MCHC RDW Plt Count MPV Immature Gran % Neutrophils % Lymphocytes % Monocytes % Eosinophils % Basophils % Nucleated RBC % Absolute Neutrophils Absolute Lymphocytes Absolute Monocytes Absolute Eosinophils Absolute Basophils RBC Morphology Hypochromasia Poikilocytosis Anisocytosis Microcytosis PT Cancelled INR Cancelled APTT Sodium Potassium Chloride Carbon Dioxide Anion Gap BUN Creatinine Est GFR (CKD-EPI 2020) Glucose Calcium Magnesium Ferritin Total Bilirubin AST ALT Alkaline Phosphatase Total Protein Albumin Vitamin B12 Folate Patient ABO/Rh O Positive Antibody Screen NEGATIVE Crossmatch See Detail 09/26/22 09/26/22 09/26/22 16:47 16:47 16:47 WBC 7.12 RBC 3.93 Hgb 6.7 L* Hct 25.7 L MCV 65 L MCH 17.0 L MCHC 26.1 L RDW 17.0 H Plt Count 399 MPV 10.2 Immature Gran % 1.3 Neutrophils % 59.5 Lymphocytes % 28.5 Monocytes % 6.9 Eosinophils % 2.8 Basophils % 1.0 Nucleated RBC % 0.4 H Absolute Neutrophils 4.24 Absolute Lymphocytes 2.03 Absolute Monocytes 0.49 Absolute Eosinophils 0.20 Absolute Basophils 0.07 RBC Morphology See Below Hypochromasia 2+ Poikilocytosis 1+ Anisocytosis 1+ Microcytosis 2+ PT 10.1 INR 1.0 APTT 24.4 Sodium 140 Potassium 3.8 Chloride 107 Carbon Dioxide 26.3 Anion Gap 6.7 BUN 21 H Creatinine 0.9 Est GFR (CKD-EPI 2020) 63.83 Glucose 93 Calcium 8.8 Magnesium 2.2 Ferritin Total Bilirubin 0.2 AST 18 ALT 23 Alkaline Phosphatase 88 Total Protein 7.0 Albumin 3.5 Vitamin B12 Folate Patient ABO/Rh Antibody Screen Crossmatch 09/27/22 09/27/22 06:37 07:00 WBC RBC Hgb 8.6 L Hct 29.6 L MCV MCH MCHC RDW Plt Count MPV Immature Gran % Neutrophils % Lymphocytes % Monocytes % Eosinophils % Basophils % Nucleated RBC % Absolute Neutrophils Absolute Lymphocytes Absolute Monocytes Absolute Eosinophils Absolute Basophils RBC Morphology Hypochromasia Poikilocytosis Anisocytosis Microcytosis PT INR APTT Sodium Potassium Chloride Carbon Dioxide Anion Gap BUN Creatinine Est GFR (CKD-EPI 2020) Glucose Calcium Magnesium Ferritin 158 Total Bilirubin AST ALT Alkaline Phosphatase Total Protein Albumin Vitamin B12 502 Folate > 20.0 H Patient ABO/Rh Antibody Screen Crossmatch Last Vital Signs Temp 36.7 C 09/27/22 08:26 Pulse 70 09/27/22 08:26 Resp 18 09/27/22 08:26 BP 130/66 09/27/22 08:26 Pulse Ox 94 09/27/22 08:26 Time Spent Time spent with Patient: 40-54 minutes Time was spent: preparing to see the patient(eg.review tests), obtaining and/or reviewing separately otained hiistory, ordering medications,tests, procedures, referring, communicating with other health attending ambulatory care, indepentently interpreting results, counseling the patient, care coordination and other
[2022-09-27 12:14] LABS: HCT 30.8 % (36.0-46.0)
[2022-09-27] MEDS: Lactated Ringers 1,000 ML 100 ML IV (12:48)
--- NOTE | 2022-09-27 13:03 | W.ANESPRE ---
General Info Date of Service Date Performed: 09/27/22 Height: 5 ft 2 in Weight: 67.6 kg Body Mass Index (BMI): 27.2 Surgical Procedure: Operation Date: 09/27/22 12:40 Proposed Procedure Side Surgeon p Gastroscopy Aydee Roblero DO Meds Allergies and Home Medications Allergies Allergy/AdvReac Type Severity Reaction Status Date / Time aspirin AdvReac ? Verified 09/25/22 13:27 INCREASED HR Home Medication Medication Instructions Recorded loratadine 10 mg tablet (Claritin) 10 mg PO DAILY PRN 03/12/21 acetaminophen 500 mg tablet 1,000 mg PO TID PRN 04/01/22 pantoprazole 20 mg tablet,delayed 20 mg PO DAILY #90 tab-caps 09/23/22 release Current Visit Medications: Current Medications Generic Name Dose Route Start Last Admin Trade Name Freq PRN Reason Stop Dose Admin Acetaminophen 650 mg 09/26/22 18:00 Acetaminophen 325 Mg Tab PO TODAY LYNDSEY Acetaminophen 1,000 mg 09/27/22 07:04 Acetaminophen 500 Mg Tab PO Q6H PRN PRN oa Diphenhydramine HCl 25 mg 09/26/22 17:15 Diphenhydramine 25 Mg Cap PO TODAY LYNDSEY Sodium Chloride 500 mls @ 0 mls/hr 09/26/22 17:06 Saline 500ml Bag IV PRN PRN As Directed Ringer's Solution 1,000 mls @ 100 mls/hr 09/27/22 12:45 09/27/22 12:48 IV 100 mls/hr INFUSION LYNDSEY Administration IV Miscellaneous Supplies 1 each 09/26/22 17:15 Iv Access IV DIRECTED LYNDSEY Morphine Sulfate 2 mg 09/26/22 17:06 Morphine 2 Mg/Ml Syr IVP Q1H PRN PRN Ondansetron HCl 4 mg 09/26/22 17:06 Ondansetron 4 Mg/2 Ml Vial IVP Q4H PRN PRN Pantoprazole Sodium 40 mg 09/26/22 17:15 09/27/22 07:36 Pantoprazole 40 Mg Vial IVP 40 mg BID LYNDSEY Administration Sodium Chloride 0 ml 09/26/22 17:13 09/27/22 07:37 Normal Saline Flush 10 Ml Syr IVP 10 ml PRN PRN Administration Sucralfate 1 gm 09/26/22 17:15 07/23/23 10:54 Sucralfate 1 Gm Tab PO 1 gm Q6H LYNDSEY Administration PFSH Active Problems Active Problems: Problem Status Onset Code Anemia D64.9 GI bleed due to NSAIDs K92.2, T39.395A Iron deficiency anemia D50.9 Heart murmur R01.1 Dyspnea on exertion R06.09 Restless leg syndrome G25.81 Generalized osteoarthritis M15.9 Erysipelas A46 Eczema 02/16/13 L30.9 GERD (gastroesophageal reflux disease) 05/07/14 K21.9 Other and unspecified hyperlipidemia 03/05/15 E78.5 Subclinical hypothyroidism 02/04/11 E03.9 Medical History Medical History BCC (basal cell carcinoma), face (06/11/16) and left medial ankle 10/2018 BPPV (benign paroxysmal positional vertigo) Erythema migrans (Lyme disease) 1 week post tick bite, short-term stay per pt report .. but Doxy x 10 days started, ik Lumbar radiculopathy, acute (06/12/14) Surgical History Surgical History Biopsy of breast pt did not state date.HE Exc BBC rgt forehead (06/22/16) Open Carpal Tunnel release no date given by pt.HE Tobacco Smoking/Tobacco Use Status: Never Alcohol Alcohol Intake: current Alcohol intake frequency: a few times a week Substance Use Substance use: Never Substance use type: does not use Vital Signs and Lab Results Vital Signs Most Recent Vital Signs in EMR: Most Recent Vital Signs Temp Pulse Resp BP Pulse Ox 36.7 C 70 18 130/66 94 09/27/22 08:26 09/27/22 08:26 09/27/22 08:26 09/27/22 08:26 09/27/22 08:26 Lab Results 09/27/22 12:05 09/26/22 16:47 Blood Type / Crossmatch: Patient ABO/Rh O Positive 09/26/22 Antibody Screen NEGATIVE 09/26/22 Crossmatch See Detail 09/26/22 Complete Blood Count: White Blood Count 7.12 10^3/uL (4.4-10.8) 09/26/22 16:47 Red Blood Count 3.93 10^6/uL (3.93-5.22) 09/26/22 16:47 Hemoglobin 9.0 g/dL (11.2-15.7) L 09/27/22 12:05 Hematocrit 30.8 % (36.0-46.0) L 09/27/22 12:05 Platelet Count 399 10^3/uL (130-400) 09/26/22 16:47 Complete Metabolic Panel: Sodium 140 mmol/L (136-145) 09/26/22 16:47 Potassium 3.8 mmol/L (3.5-5.1) 09/26/22 16:47 Chloride 107 mmol/L (98-107) 09/26/22 16:47 Carbon Dioxide 26.3 mmol/L (21.0-32.0) 09/26/22 16:47 BUN 21 mg/dL (7-18) H 09/26/22 16:47 Creatinine 0.9 mg/dL (0.55-1.02) 09/26/22 16:47 Est GFR (CKD-EPI 2020) 63.83 (mL/min/1.73m2) 09/26/22 16:47 Magnesium 2.2 mg/dL (1.8-2.4) 09/26/22 16:47 Calcium 8.8 mg/dL (8.5-10.1) 09/26/22 16:47 Albumin 3.5 g/dL (3.4-5.0) 09/26/22 16:47 Glucose 93 mg/dL (74-106) 09/26/22 16:47 Liver Function Panel: Alanine Aminotransferase (ALT/SGPT) 23 U/L (14-59) 09/26/22 16:47 Aspartate Amino Transf (AST/SGOT) 18 U/L (15-37) 09/26/22 16:47 Coagulation Panel: INR International Normalized Ratio 1.0 (0.9-1.1) 09/26/22 16:47 Prothrombin Time 10.1 sec (9.3-11.0) 09/26/22 16:47 Activated Partial Thromboplast Time 24.4 sec (21.5-31.9) 09/26/22 16:47 Cardiac Panel: No Data to Display Arterial Blood Gas: No Data to Display Venous Blood Gas: No Data to Display Pancreas Panel: No Data to Display Thyroid Panel: Thyroid Stimulating Hormone (TSH) 3.01 uIU/mL (0.36-3.74) 09/23/22 12:12 Infectious Disease: No Data to Display Blood Cultures: No Data to Display Toxicology Panel: No Data to Display Imaging and Studies Imaging and Studies Study information below may be from another EMR and interpreted by another provider. Please see original notes in EMR for more complete details. EKG Summary: Conclusion Sinus rhythm...normal P axis, V-rate 50- 99 Borderline left axis deviation...QRS axis (-15,-29) Low voltage, precordial leads...precordial leads <1.0mV Otherwise normal ECG 09/23/22 Stress Test Summary: Impressions: Normal study after maximal exercise. Summary: Stress: Exercise capacity is above normal for age. 02/22/15 Anesthesia Assessment and Plan Anesthesia History Personal History: No History of Anesthesia Complications Family History: No Family History of Anesthesia Complications Exercise Tolerance Exercise Tolerance: Metabolic Equivalents>4 Pertinent Negatives Pertinent Negatives: No Major Cardiovascular Symptoms or Complaints, No Major Pulmonary Symptoms or Complaints and No History of CVA/TIA Cardiac & Pulmonary Exam Cardiac Exam: Normal S1/S2 Heart Sounds Pulmonary Exam: Clear Bilateral Breath Sounds Implantable Cardiac Device Does patient have a Pacemaker or an ICD?: No Airway Exam Known Difficult Airway: No Mallampati Class: 3 Mouth Opening: Normal (> 3cm) Thyromental Distance: Less than 3 cm Neck Range of Motion: Full ROM Neck Circumference: Normal Teeth Condition: Normal Dentition ASA Classification ASA Score: ASA 2 Emergency Case?: Yes NPO Status NPO Status: NPO Clears >2 hours, Solids >8 hours Anesthesia Plan Resuscitation Status: Full Code Anesthesia Technique: General Anesthesia Airway Planned: Natural Airway Monitors Used: Standard Monitors
[2022-09-27 13:09] VITALS: BP 103/64; PULSE 85; TEMP 35.4; O2SAT 97
--- NOTE | 2022-09-27 13:29 | STOM_PTH ---
PATIENT: Elisha Chowdhury LOC: U#:[id number] AGE/SX: 82/F ROOM: RE09/26/[address]: Aydee Roblero : 1940 BED: A DIS: 09/27/2022 SPEC #: [id number] RECD: 09/28/22 12:13 STATUS: BLADIMIR RE #: [id number] ARTUR: 09/27/22 13:[address]: Aydee Roblero DEPT: Surgical Specimen RECD BY: Suellen Bee ENTERED: 09/28/22 12:15 SP TYPE: STOMACH OTHR DR: Adeline Dee, TOOL/DIE MAKER Tissues: 1 - BIOPSY BOWEL 2 - STOMACH BIOPSY 3 - ESOPHAGUS BIOPSY Procedures: GROSS AND MICRO LEVEL 4 IMMUNOPEROXIDASE STAIN Comments: [id number]
[2022-09-27 13:30] VITALS: BMI 27.2
--- NOTE | 2022-09-27 13:46 | W.ANESPOSTOP ---
Postoperative Evaluation Date, Time and Location Date Performed: 09/27/22 Time Performed: 13:46 Patient Location: Med/Surg Vital Signs Most Recent Imported Vital Signs: Most Recent Vital Signs Temp Pulse Resp BP Pulse Ox 35.4 C L 85 18 103/64 97 09/27/22 13:09 09/27/22 13:09 09/27/22 08:26 09/27/22 13:09 09/27/22 13:09 Pain Score Most Recent Pain Score: Most Recent Pain Score Pain Level 0 09/27/22 13:09 Assessment Mental Status: Awake (Alert & Oriented to Patient Baseline) Airway and Respiratory Function: Patent airway with normal (patient baseline) respiratory exam Cardiovascular Function: Hemodynamically Stable Hydration Status: Adequately Hydrated Nausea & Vomiting: No Nausea or Vomiting Pain: Pt. Denies Any Pain Peripheral Nerve Block: Patient did not receive a nerve block
--- NOTE | 2022-09-27 13:48 | ENDO_ITS ---
Date of service: 09/27/22 Time of Service: 13:48 Endoscopy Report DATE OF PROCEDURE: 09/27/22 PRE-OP DIAGNOSIS: Anemia/GI bleed POST-OP DIAGNOSIS: other (Mild esophagitis and gastritis/patulous hiatus) SURGEON: Aydee Roblero ANESTHESIA TYPE: General:No Airway ESTIMATED BLOOD LOSS: 1 PATHOLOGY: other COMPLICATIONS: None DISPOSITION: floor PROCEDURE DESCRIPTION: After informed consent was obtained the patient was take to the procedure room and placed in a supine position. Monitors were applied and a time out was done. The patients name, date of , procedure type, allergies to medications and metal in their body was reviewed. A bite block was placed and the patient was sedated. Once sedated and comfortable the gastroscope was advanced through the oropharynx which was grossly normal into the esophagus. The proximal and mid- esophagus were normal. The distal esophagus shows some mild esophagitis at the GE junction. There are no esophageal erosions/varices/diverticula/stricture apparent. The scope was passed into the body of the stomach and Through the pylorus. There is no signs of ulceration in the pylorus or the duodenal bulb. There is no signs of active or old bleeding within the stomach or the duodenum. The D1-D4 appear normal. Biopsy was taken of D1. There are no masses or lesions. There is some edema and swelling at the antrum. But there are no signs of any ulceration. There is some mild diffuse erythema the antrum and the lower one third of the stomach consistent with gastritis.. Biopsies taken of the antrum. Otherwise there is no signs of ulcers. The upper portion of the stomach appears normal. Diaphragmatic hiatus is patulous. But there is no signs of any hiatal hernia. The scope was retracted back into the esophagus and biopsies were done of the GE junction to rule out Hastings's. The Z line was regular. The GE junction was at 36 cm. The scope was removed and the patient was woken up and taken back to [facility] in stable condition.
[2022-09-27 13:52] VITALS: BP 110/64; PULSE 74; RESP 13; TEMP 36.5; O2SAT 95
--- NOTE | 2022-09-27 13:54 | W.PM.DS.N ---
Date of service: 09/27/22 Time of Service: 13:55 DS: Diagnosis Discharge Diagnosis (1) Anemia: Status: Chronic (2) GI bleed due to NSAIDs: Status: Acute (3) GERD (gastroesophageal reflux disease): Status: Chronic (4) Subclinical hypothyroidism: Status: Chronic (5) Erysipelas: Status: Acute (6) Restless leg syndrome: Status: Acute (7) Acute hemorrhagic gastritis: Status: Acute (8) Esophagitis: Status: Acute Discharge Plan Disposition Patient Disposition: Home Condition: Good Discharge Details Reason For Visit: Upper GI Bleed Admit Date/Time: 09/26/22 17:07 Admit Provider: Aydee Roblero Attending Provider: Aydee Roblero Primary Care Provider: Adeline Dee Hospital Course Hospital Course: Patient was admitted on admitted on 09/26 with a symptomatic anemia at 6.6. She was feeling fatigue & dyspnea on exertion. This is actually been going on for 2 to 3 weeks. She had been taking Celebrex for osteoarthritis pain. She has since stopped that and was started on a PPI. She received 2 units of blood on 09/26. Today her hemoglobin is 8.6. We did do an EGD which showed some mild edema and irritation at the antrum consistent with erosive gastritis that is in the process of healing. Patient tolerated the EGD well. We will continue her outpatient PPI and Carafate. She will receive Venofer today. She will follow-up in clinic next week. If she notices continuing black tarry stools/increased abdominal pain/vomiting blood/chest pain or shortness of breath return to the ER. Home Meds and New Rx's Prescriptions: New pantoprazole [Protonix] 40 mg tablet,delayed release (DR/EC) 40 mg PO DAILY Qty: 90 5RF sucralfate [Carafate] 1 gram tablet 1 g PO QACHS 42 Days Qty: 168 6RF Continued loratadine [Claritin] 10 mg tablet 10 mg PO DAILY PRN acetaminophen 500 mg tablet 1,000 mg PO TID PRN Discontinued pantoprazole 20 mg tablet,delayed release (DR/EC) 20 mg PO DAILY Qty: 90 0RF Rx Instructions: Take 20 mg daily once daily in the morning at least 30-60 minutes before first meal of the day Discharge Instructions Additional Instructions: Post EGD Instruction ?You had anesthesia for your EGD/stomach scope today.? For your safety, please do the following for the next twenty-four (24) hours: Do Not operate a motor vehicle (car, truck, motorcycle, etc.) Do Not drink alcoholic beverages or use any recreational drugs for the first 24 hours or while taking pain medications. The medications in your body may have a reaction that can be dangerous. Do Not make any important decisions or sign any important papers You have just had a gastroscopy (EGD) or upper GI tract examination. It is important for your smooth recovery that you carefully follow the recommendations below. Do not hesitate to call if any questions should arise about your anesthesia, condition, or care. -Symptoms you may experience during the next 24 hours: ?1. Mild abdominal pain or excessive gas or a bloated feeling which improves with rest, liquids, eating? slightly, and walking as tolerated. 2. Drowsiness and/or forgetfulness because of the medications you were given. ?3. Throat numbness for about 1 hour. 4. A sore throat which you can treat with throat lozenges or by gargling with salt water 4-5 times a day. 5. Redness at the site of your IV which you can treat with warm compresses. SPECIAL INSTRUCTIONS: 1. You may resume your previous diet in one hour. We recommend a light meal to start, then progress as tolerated. 2. Restart regular medications in one hour. 3. No aspirin or non-steroidal containing medication for three days. 4. No lifting over 20 pounds or strenuous activity for the first 24 hours after your procedure. After 24 hours there are no restrictions on your activity, but you may feel fatigued for a few days. Findings: mild gastritis Treatment: protonix 40mg daily x 12 weeks. You need to take this on an empty stomach and then eat within 30 to 60 minutes carafate 1gram take 30 minutes prior to meals and at bedtime. Do not take with other medications -[place] diet for 2 weeks. See below -Continue to follow lifestyle modifications: No alcohol, tobacco products, Aspirin or NSAID's (ibuprofen, Motrin, Naprosyn, aleve, etc).? Try to limit/avoid:? soda pop/any carbonated beverages, caffeine (including tea & chocolate), and acidic foods, (tomatoes, citrus, onions, peppermints) spicy or fried/fatty foods. Do not lie down for 30 minutes after eating, and do not eat 2 hours prior to bedtime. Avoid wearing tight fitting clothing/ belts. Follow up: With [facility] on Wednesday, as previously scheduled. And then follow-up with my office the week after. Call the office at [phone] (Office) or [phone] (Hospital), or go to the ER right away if you notice any of the followin. Vomiting blood and /or ?coffee ground? material. ?2. Worsening of abdominal pain or cramping. ?3. Trouble with breathing, cough, and/or fever (temperature above 101.5 F). 4. Increasing pain with swallowing. ?5. Chest pain. 6. Any new symptoms. 7. Worsening of the redness at the IV site Stand Alone Forms: Nursing Discharge Form Activity:: See above Equipment/Supplies:: No Equipment Needed Diet:: See above DS: Summary Time Spent with Patient providing and/or coordinating discharge services: Greater than 30 minutes Status at Discharge Functional status at discharge: independent ambulation Overall status at discharge: patient is progressing back to baseline Mental Status: mental status grossly normal Speech and Movement: speech and movement normal Mood: congruent mood Affect: normal affect Exam Psych Mental Status: mental status grossly normal Speech and Movement: speech and movement normal Mood: congruent mood Affect: normal affect DS: Data Vitals/I&O Vitals and I&O: Vital Signs Temperature 36.5 C 09/27/22 13:52 Temperature Source Tympanic 09/27/22 13:52 Pulse 74 09/27/22 13:52 Pulse Rhythm Regular 09/27/22 08:00 Pulse 80 09/26/22 17:50 Respiratory Rate 13 09/27/22 13:52 Respiratory Effort Normal, Non-Labored 09/27/22 08:00 Respiratory Depth Normal 09/27/22 08:00 Respiratory Pattern Normal 09/27/22 08:00 Blood Pressure 110/64 09/27/22 13:52 Blood Pressure Mean 72 09/26/22 17:48 Blood Pressure Position Sitting 09/26/22 15:41 Pulse Oximetry 95 09/27/22 13:52 Oxygen Delivery Method Room Air 09/27/22 13:52 Oxygen Flow Rate 0 09/27/22 13:52 Pain Level 0 09/27/22 13:52 Intake & Output 09/26/22 09/27/22 09/27/22 23:59 11:59 23:59 Intake Total 558 / 558 100 / 110 Output Total 450 / 450 Balance 108 / 108 100 / 110 Weight 67.6 kg 67.6 kg Intake: IV 100 / 110 Blood Product 558 / 558 Rbc Leuko Reduced Unit 275 / 275 [id number] Rbc Leuko Reduced Unit 283 / 283 [id number] Output: Urine 450 / 450 Other: Urine Color Yellow Yellow Urine Appearance Cloudy Clear Urine Odor Normal Normal Comment Pt voiding independently and frequently (baseline) in toilet. Hat removed; no measurement. Denies GI/ sx. Stool Occult Blood Positive Stool Size Moderate Stool Characteristics Soft Formed Brown Emesis Description None None Voiding Methods Toilet Toilet Data Completed and Pending Labs on day of discharge: Labs from last 24 hours 09/27/22 09/27/22 09/27/22 12:05 07:00 06:37 WBC RBC Hgb 9.0 L 8.6 L Hct 30.8 L 29.6 L MCV MCH MCHC RDW Plt Count MPV Immature Gran % Neutrophils % Lymphocytes % Monocytes % Eosinophils % Basophils % Nucleated RBC % Absolute Neutrophils Absolute Lymphocytes Absolute Monocytes Absolute Eosinophils Absolute Basophils RBC Morphology Hypochromasia Poikilocytosis Anisocytosis Microcytosis PT INR APTT Sodium Potassium Chloride Carbon Dioxide Anion Gap BUN Creatinine Est GFR (CKD-EPI 2020) Glucose Calcium Magnesium Ferritin 158 Total Bilirubin AST ALT Alkaline Phosphatase Total Protein Albumin Vitamin B12 502 Folate > 20.0 H Patient ABO/Rh Antibody Screen Crossmatch 09/26/22 09/26/22 09/26/22 16:47 16:47 16:47 WBC 7.12 RBC 3.93 Hgb 6.7 L* Hct 25.7 L MCV 65 L MCH 17.0 L MCHC 26.1 L RDW 17.0 H Plt Count 399 MPV 10.2 Immature Gran % 1.3 Neutrophils % 59.5 Lymphocytes % 28.5 Monocytes % 6.9 Eosinophils % 2.8 Basophils % 1.0 Nucleated RBC % 0.4 H Absolute Neutrophils 4.24 Absolute Lymphocytes 2.03 Absolute Monocytes 0.49 Absolute Eosinophils 0.20 Absolute Basophils 0.07 RBC Morphology See Below Hypochromasia 2+ Poikilocytosis 1+ Anisocytosis 1+ Microcytosis 2+ PT 10.1 INR 1.0 APTT 24.4 Sodium 140 Potassium 3.8 Chloride 107 Carbon Dioxide 26.3 Anion Gap 6.7 BUN 21 H Creatinine 0.9 Est GFR (CKD-EPI 2020) 63.83 Glucose 93 Calcium 8.8 Magnesium 2.2 Ferritin Total Bilirubin 0.2 AST 18 ALT 23 Alkaline Phosphatase 88 Total Protein 7.0 Albumin 3.5 Vitamin B12 Folate Patient ABO/Rh Antibody Screen Crossmatch 09/26/22 09/26/22 09/26/22 16:47 16:47 16:01 WBC RBC Hgb 6.6 L* Hct 24.6 L MCV MCH MCHC RDW Plt Count MPV Immature Gran % Neutrophils % Lymphocytes % Monocytes % Eosinophils % Basophils % Nucleated RBC % Absolute Neutrophils Absolute Lymphocytes Absolute Monocytes Absolute Eosinophils Absolute Basophils RBC Morphology Hypochromasia Poikilocytosis Anisocytosis Microcytosis PT Cancelled INR Cancelled APTT Sodium Potassium Chloride Carbon Dioxide Anion Gap BUN Creatinine Est GFR (CKD-EPI 2020) Glucose Calcium Magnesium Ferritin Total Bilirubin AST ALT Alkaline Phosphatase Total Protein Albumin Vitamin B12 Folate Patient ABO/Rh O Positive Antibody Screen NEGATIVE Crossmatch See Detail PFSH All Active Problems (Updated 09/27/22 @ 13:55 by Aydee Roblero DO) Esophagitis (Acute) Acute hemorrhagic gastritis (Acute) Anemia (Chronic) GI bleed due to NSAIDs (Acute) Iron deficiency anemia (Acute) Heart murmur (Acute) Dyspnea on exertion (Acute) Restless leg syndrome (Acute) Generalized osteoarthritis (Acute) Erysipelas (Acute) Eczema (Chronic 02/16/13) Hands GERD (gastroesophageal reflux disease) (Chronic 05/07/14) Takes 2-week courses of omeprazole PRN with good relief for several months Other and unspecified hyperlipidemia (Chronic 03/05/15) Subclinical hypothyroidism (Chronic 02/04/11) Medical History BCC (basal cell carcinoma), face (06/11/16) and left medial ankle 10/2018 BPPV (benign paroxysmal positional vertigo) Erythema migrans (Lyme disease) 1 week post tick bite, short-term stay per pt report .. but Doxy x 10 days started, ik Lumbar radiculopathy, acute (06/12/14) Surgical History Biopsy of breast pt did not state date.HE Exc BBC rgt forehead (06/22/16) Open Carpal Tunnel release no date given by pt.HE Family History Father Alcohol abuse Social History Smoking/Tobacco Use Status: Never Smoking risk assessment performed?: Yes Alcohol Intake: current Alcohol Intake frequency: a few times a week Drug use: Never Substance use type: does not use Adopted: No Caregiver/Support person: No Foster care: No Household members: spouse Housing: house Number of Children: 0 number of grandchildren: 0 Communication Needs: Corrective Lenses Education Level: college 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 Pets and animals: No Sexually active: No Do you think of yourself as: straight/heterosexual Current gender identity: male What is your relationship status?: How often do you talk on the phone with friends or family?: three or more times per week How often do you get together with friends or relatives?: three or more times per week Do you belong to any clubs or organized social groups?: yes Panel score (0-1 are the most socially isolated patients): 3 What type of physical activity do you participate in: weight lifting and other Details: water aerobics Duration: < 15 minutes/day Frequency: 1-2 times per week Romi/Samaritan: Gnosticist Special romi needs: No Seatbelt use: always Drive intox or ride w/intox otr company truck driver: No Do you feel safe at home: Yes Do you feel safe in your relationship?: Yes Time Spent with Patient Time Spent with Patient: <45 minutes Time was spent: preparing to see the patient(eg.review tests), obtaining and/or reviewing separately otained hiistory, ordering medications,tests, procedures, referring, communicating with other health manager medicare marketing, indepentently interpreting results, counseling the patient and care coordination
[2022-09-27] MEDS: IRON SUCROSE COMPLEX 200 MG in Normal Saline 100 ML 400 MG IVPB (14:51)
[2022-09-27] MEDS: Normal Saline 500 ML 100 ML IV (14:51)
[2022-09-27 15:00] VITALS: BP 128/70; PULSE 85; TEMP 36.1; O2SAT 95
--- NOTE | 2022-09-27 15:23 | PDOC.CMDIS ---
Date of service: 09/27/22 Time of Service: 15:23 LACE Index Scoring Tool Questions: Length of Stay (in days): 1 Was the patient admitted via the E.D.?: Yes E.D. Visits: 2 Answers: Total Score: 6 Risk of Readmission: Low Risk Care Management Discharge Plan Reason for Hospitalization: Upper GI Bleed Discharge Plan: Elisha is discharged home via private vehicle with family. Elisha will follow up with community providers and her discharge plan of care as instructed. No new services are ordered. She will follow up with her PCP on Wednesday, as previously scheduled and Surgical Office, as discussed. Patient/Family Education Needs: Review discharge instructions, limitations, medications and plan to follow up with community providers and discharge plan of care as instructed. Discuss ask me three.
== END 2022-09-27 15:46 | disposition home or self-care (01) | DRG 379 ==
LOC: ER 17:32 → MS 18:10
PROVIDERS: Admitting Provider Surgery; Emergency Provider Nurse Practitioner Family; PCP Nurse Practitioner Family; Visit Provider Surgery
PROC: 0DJ68ZZ Inspection of Stomach, Via Natural or Artificial Opening Endoscopic (ICD-10-PCS; CPT 43235; principal; 2022-09-27 12:40)
DX: K29.01 Acute gastritis with bleeding (principal); T39.395A Adverse effect of other nonsteroidal anti-inflammatory drugs [NSAID], initial encounter; K21.9 Gastro-esophageal reflux disease without esophagitis; E03.9 Hypothyroidism, unspecified; A46 Erysipelas; G25.81 Restless legs syndrome; D50.9 Iron deficiency anemia, unspecified; R01.1 Cardiac murmur, unspecified; R06.00 Dyspnea, unspecified; M15.9 Polyosteoarthritis, unspecified; L30.9 Dermatitis, unspecified; E78.5 Hyperlipidemia, unspecified; K29.70 Gastritis, unspecified, without bleeding; K22.89 Other specified disease of esophagus
CPT/HCPCS: 43239; 36415; 80053; 86850; 86900; 86901; 86920; 88305; 96374; 96375; 99222; 99285; 82607; 82728; 82746; 83735; 85014; 85018; 85025; 85610; 85730; 88361; J1756; J2001; J2354; J2405; J2704; P9016

== ENCOUNTER 2022-10-02 01:09 | Outpatient (RCR) | payer MEDICARE, SELFPAY ==
[2022-09-25] MEDS: IRON SUCROSE COMPLEX 300 MG in Normal Saline 250 ML 176.667 MG IVPB (11:31)
[2022-09-25 11:50] LABS: HGB 6.8 g/dL (11.2-15.7)
[2022-09-25] MEDS: Normal Saline Flush 10 ML SYR IVP (13:04)
[2022-10-02] MEDS: IRON SUCROSE COMPLEX 300 MG in Normal Saline 250 ML 176.667 MG IVPB (11:51)
== END 2022-10-05 23:59 | disposition home or self-care (01) ==
LOC: INF 01:09
PROVIDERS: PCP Nurse Practitioner Family; Visit Provider Nurse Practitioner Family
DX: D50.9 Iron deficiency anemia, unspecified (principal)
CPT/HCPCS: 36415; 80053; 86850; 86900; 86901; 96365; 96366; 99283; 81003; 83735; 85014; 85018; 85025; J1756

== ENCOUNTER → 2022-10-07 09:49 | Outpatient (BNVA) | payer MEDICARE, SELFPAY | PROVIDERS: PCP Nurse Practitioner Family; Referring Provider Nurse Practitioner Family; Visit Provider Surgery | DX: K29.70 Gastritis, unspecified, without bleeding (principal); T39.395A Adverse effect of other nonsteroidal anti-inflammatory drugs [NSAID], initial encounter; D50.9 Iron deficiency anemia, unspecified | CPT/HCPCS: 99213 ==

== ENCOUNTER 2022-10-09 01:00 | Outpatient (RCR) | payer MEDICARE, SELFPAY ==
[2022-10-09] MEDS: Normal Saline Flush 10 ML SYR IVP (11:28)
[2022-10-09] MEDS: IRON SUCROSE COMPLEX 200 MG in Normal Saline 100 ML 440 MG IVPB (11:45)
== END 2022-11-05 23:59 | disposition home or self-care (01) ==
LOC: INF 01:00
PROVIDERS: PCP Nurse Practitioner Family; Visit Provider Nurse Practitioner Family
DX: E61.1 Iron deficiency (principal); G25.81 Restless legs syndrome
CPT/HCPCS: J1756

== ENCOUNTER 2022-11-02 11:21 | Outpatient (REF) | payer MEDICARE, SELFPAY ==
[2022-11-02 22:28] LABS: Bilirubin Negative (Negative); Blood Negative (Negative); Clarity Clear (Clear); Glucose Negative (Negative); Ketones Negative (Negative); Leukocyte Esterase Negative (Negative); Nitrite Negative (Negative); Urobilinogen 0.2 mg/dL (Up to 0.2)
== END 2022-11-02 11:22 | disposition home or self-care (01) ==
LOC: LBN 11:21
PROVIDERS: PCP Nurse Practitioner Family; Visit Provider Nurse Practitioner Adult Health
DX: R30.0 Dysuria (principal)
CPT/HCPCS: 81003

== ENCOUNTER → 2022-11-18 09:48 | Outpatient (BNVA) | payer MEDICARE, SELFPAY | PROVIDERS: PCP Nurse Practitioner Family; Referring Provider Nurse Practitioner Family; Visit Provider Surgery | DX: K92.2 Gastrointestinal hemorrhage, unspecified (principal); T39.395A Adverse effect of other nonsteroidal anti-inflammatory drugs [NSAID], initial encounter | CPT/HCPCS: 99213 ==

== ENCOUNTER 2022-11-26 03:43 | Outpatient (CLI) | payer MEDICARE, SELFPAY | END 2022-11-26 03:44 | disposition home or self-care (01) | LOC: LBO 03:43 | PROVIDERS: PCP Nurse Practitioner Family; Visit Provider Surgery | DX: D50.9 Iron deficiency anemia, unspecified (principal); K92.2 Gastrointestinal hemorrhage, unspecified; T39.395A Adverse effect of other nonsteroidal anti-inflammatory drugs [NSAID], initial encounter; E03.9 Hypothyroidism, unspecified | CPT/HCPCS: 36415; 85018 ==

== ENCOUNTER 2022-12-20 08:47 | Emergency (ER) | payer MEDICARE, SELFPAY ==
[2022-12-20 08:56] VITALS: BP 166/77; PULSE 98; RESP 16; TEMP 36.6; O2SAT 96
--- NOTE | 2022-12-20 09:21 | W.ED.GENAD ---
Discharge Plan Disposition Patient Disposition: Home Condition: Good Discharge Details Clinical Impression: Anxiety, Rectal bleeding Primary Care Provider: Tiera Choudhury ED Provider: Paz Haynes Home Meds and New Rx's Prescriptions: Continued acetaminophen 650 mg tablet extended release 1,300 mg PO Q12H Discharge Instructions Instructions: Rectal Bleeding (ED) Additional Instructions: As we discussed, your blood counts are good today, no indication of anemia. You are overdue for a colonoscopy and a referral for this has been sent. This test will help determine the source of your bleeding. Please follow up with primary care in 2 weeks for reevaluation. If you develop increased bleeding, weakness, fevers/chills, abdominal pain or other new/worsening symptoms, please seek care urgently once again. Referrals: Tiera Choudhury, INSTRUCTOR WARPER [Primary Care Provider] - Medical Decision Making Patient is a 82 year old female, PMH signficant for recent GI bleed associated with NSAIDS use, BPPV, lumbar radiciulopathy, presenting today with c/c of bright red blood per rectum. States that she feels woozy like she did when she requiured a transfusion. She does state that this feels slightly better after eating breakfast this AM. States that yesterday she had a BM and noted blood in the stool, had another episode today. Just return from [place] where she had more frequent BM, unclear if blood at that time. Denies fevers/chills, no SOB/CP, no abdominal pain, no vaginal d/c. Denies easy bruising, bleeding gums, blood in urine. Has had not a colonoscopy in several years, last was 2008. No personal of familial hx of GI cancers although brother recently dx'ed with bladder cancer. No previous abdominal surgeries. Had EGD in September of this year. On exam, patient appears nontoxic, appears anxious. Slightly tachy, hypertensive. Lungs are clear, normal cardiac exam. Moist mucous membranes, conjunctiva slightly pale. Abdomen benign. Rectal exam preformed with nursing staff at bedside. She has non-thrombosed hemorrhoids without signs of active bleeding. Guiac positive. Small internal hemorrhoid palpated but no pain, no significant lesions noted. Stool was muddy red. Darci had noted right sided pain to nursing staff, none now. States that after long plan ride her chronic back pain along the right side had flared up but with movement, this has since subsided. Concerned for recurrent GI bleed, with color, thinking lower this time. Possibly bleeding diverticuli but no evidence of diverticulitis.Reviewed report from colonoscopy in 2008, no diverticuli but polyp was noted which was biopsied. This was benign, hyperplastic polyp. She does have hemorrhoids but bleeding is more brown than I would expect and I do not see evidence of bleeding or thrombosed hemorrhoid at this time. Considered GI malignancy, f/u with colonoscopy will be needed. Hgb 11.8. Discussed with patient. She states that she believes she had a panic attack this morning, associates with fatigue from travel as well as her brother's dx. She does need f/u colonoscopy but no inpatient admission or blood required at this time. As she has no pain, I do not see imaging being indicated at this visit. Remaining labs without signficant abnormality. Encouraged close f/u with PCP, referral for colonoscopy sent. Strict return precautions. All of her questions and concerns were addressed, she is in agreement with this plan. Vital improving. HPI General Date/Time Provider Initiated Documentation: 12/20/22 08:50. Limitations to Documentation: no limitations. Information obtained by: patient, RN notes reviewed and old records reviewed. History of Present Illness 82 year old F presents to the emergency department with the chief complaint of BRBPR, described as moderate, Quality is described as other (denies any pain), Patient started experiencing this day(s) (1) and it has been intermittent (once yesterday with otherwise normal BM, once this AM). No relieving factors improve symptom(s), No exacerbating factors reported . Patient notes no other symptoms.. Patient did receive the following treatments prior to arrival, none Related Data Home Medications Medication Instructions Recorded Confirmed acetaminophen 650 mg 1,300 mg PO Q12H 11/18/22 11/18/22 tablet,extended release Allergies Allergy/AdvReac Type Severity Reaction Status Date / Time NSAIDS (Non-Steroidal AdvReac Severe GI Bleeding Verified 11/18/22 09:51 Anti-Inflamma aspirin AdvReac ? Verified 11/18/22 09:51 INCREASED HR General Stated Complaint: GI Bleed DEDE: 3 Review of Systems Constitutional Constitutional: Reports as per HPI, Denies chills and Denies fever(s) Cardiovascular Cardiovascular: Reports as per HPI, Denies chest pain and Denies dyspnea Respiratory Respiratory: Reports as per HPI, Denies cough and Denies dyspnea Gastrointestinal Gastrointestinal: Reports as per HPI Musculoskeletal Musculoskeletal: Reports as per HPI and Denies back pain Integumentary/Breasts Skin/Breast: Reports as per HPI and Denies rash Neurologic Neurologic: Reports as per HPI Hematologic/Lymphatic Hematologic/Lymphatic: Denies easy bleeding and Denies easy bruising PFSH All Active Problems (Updated 12/20/22 @ 09:47 by JOAN Chavira) Rectal bleeding (Acute) Anxiety (Chronic) Esophagitis (Acute) Acute hemorrhagic gastritis (Acute) GI bleed due to NSAIDs (Acute) Iron deficiency anemia (Acute) Generalized osteoarthritis (Acute) Eczema (Chronic 02/16/13) Hands GERD (gastroesophageal reflux disease) (Chronic 05/07/14) Takes 2-week courses of omeprazole PRN with good relief for several months Other and unspecified hyperlipidemia (Chronic 03/05/15) Subclinical hypothyroidism (Chronic 02/04/11) Medical History BCC (basal cell carcinoma), face (06/11/16) and left medial ankle 10/2018 Right lower lateral neck - removed at 10/06/22 BPPV (benign paroxysmal positional vertigo) Erythema migrans (Lyme disease) 1 week post tick bite, short-term stay per pt report .. but Doxy x 10 days started, ik Lumbar radiculopathy, acute (06/12/14) Surgical History Biopsy of breast pt did not state date.HE Exc [facility] rgt forehead (06/22/16) Open Carpal Tunnel release no date given by pt.HE Family History Father Alcohol abuse Social History Smoking/Tobacco Use Status: Never Smoking risk assessment performed?: Yes Alcohol Intake: current Alcohol Intake frequency: a few times a week Drug use: Never Substance use type: does not use Adopted: No Caregiver/Support person: No Foster care: No Household members: spouse Housing: house Number of Children: 0 number of grandchildren: 0 Communication Needs: Corrective Lenses Education Level: college 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 Pets and animals: No Sexually active: No Do you think of yourself as: straight/heterosexual Current gender identity: male What is your relationship status?: How often do you talk on the phone with friends or family?: three or more times per week How often do you get together with friends or relatives?: three or more times per week Do you belong to any clubs or organized social groups?: yes Panel score (0-1 are the most socially isolated patients): 3 What type of physical activity do you participate in: weight lifting and other Details: water aerobics Duration: < 15 minutes/day Frequency: 1-2 times per week Romi/Jainism: Quaker Special romi needs: No Seatbelt use: always Drive intox or ride w/intox drivers' cash clerk: No Do you feel safe at home: Yes Do you feel safe in your relationship?: Yes Exam Const General: cooperative, healthy appearing, comfortable, no acute distress, well developed and anxious Nutritional Appearance: average body habitus and well nourished Orientation: alert and awake HENMT Head: normal to inspection Mouth: moist mucous membranes Eyes General: appearance normal, both eyes and all related structures Resp Effort & Inspection: normal respiratory effort, able to speak in complete sentences and no respiratory distress Auscultation: clear to auscultation bilaterally, no rales, no rhonchi and no wheezes Cardio Rate: regular rate Rhythm: regular rhythm Heart Sounds: S1 normal and S2 normal GI Inspection: normal to inspection Palpation: soft, no hepatosplenomegaly, no guarding, no hernias, no masses, no pulsatile masses, not rigid and nontender Percussion: normal to percussion Auscultation: normal bowel sounds Rectal Exam - female: normal sphincter tone, abnormal stool Rectal exam abnormal stool - female: maroon stool, heme positive stool and hemorrhoids Back/Spine/Pelvis Back: no CVA tenderness Skin General skin exam: no rashes or lesions noted Trauma: no lacerations or abrasions Neuro General: patient alert and patient awake Cognition: normal cognition Speech: speech normal Gait: normal gait Course Vital Signs Vital signs: Vital Signs Temperature 36.6 C 12/20/22 08:56 Pulse 98 H 12/20/22 08:56 Respiratory Rate 16 12/20/22 08:56 Blood Pressure 166/77 H 12/20/22 08:56 Pulse Oximetry 96 12/20/22 08:56 Temperature 36.6 C 12/20/22 08:56 Temperature Source Temporal Artery Scan 12/20/22 08:56 Pulse 98 H 12/20/22 08:56 Respiratory Rate 16 12/20/22 08:56 Respiratory Effort Normal 12/20/22 09:10 Blood Pressure 166/77 H 12/20/22 08:56 Pulse Oximetry 96 12/20/22 08:56 Oxygen Delivery Method Room Air 12/20/22 08:56 Oxygen Flow Rate 0 12/20/22 08:56 Pain Level 0 12/20/22 08:56
[2022-12-20 09:36] LABS: Abs Immature Grans 0.02 10^3/uL (0.0-0.06); Absolute Basophil Count 0.05 10^3/uL (0.0-0.2); Absolute Eosinophil Count 0.11 10^3/uL (0.0-0.7); Absolute Monocyte Count 0.31 10^3/uL (0.1-0.8); Absolute Neutrophil Count 4.22 10^3/uL (1.2-6.7); Basophils % 0.8; Eosinophils % 1.9; HCT 38.8 % (36.0-46.0); HGB 11.8 g/dL (11.2-15.7); Immature Grans % 0.3; Lymphocytes % 20.3; MCH 24.6 pg (27.0-33.0); MCHC 30.4 % (32.0-36.0); MCV 81 fL (80-95); MPV 9.8 fL (8.0-11.0); Monocytes % 5.2; Neutrophils % 71.5; Platelet Count 336 10^3/uL (130-400); RDW 14.6 % (11.7-14.6); RDW-SD 38.7 fL; WBC 5.91 10^3/uL (4.4-10.8)
--- NOTE | 2022-12-20 09:37 | NUR.NOTE ---
Nursing Note:general surgery- colonoscopy referral
[2022-12-20 09:50] LABS: ALT 20 U/L (14-59); AST 16 U/L (15-37); Albumin 3.5 g/dL (3.4-5.0); Alkaline Phosphatase 90 U/L (46-116); Anion Gap 8.4 mmol/L (3-11); BUN 17 mg/dL (7-18); Bilirubin, Total 0.3 mg/dL (0.2-1.0); CO2 26.6 mmol/L (21.0-32.0); CREATININE 0.8 mg/dL (0.55-1.02); Calcium 9.4 mg/dL (8.5-10.1); Chloride 104 mmol/L (98-107); Estimated GFR 73.52 (mL/min/1.73m2); Glucose 161 mg/dL (74-106); Magnesium 2.3 mg/dL (1.8-2.4); Sodium 139 mmol/L (136-145); Total Protein 7.5 g/dL (6.4-8.2)
[2022-12-20 09:51] VITALS: BP 143/58; PULSE 75; RESP 16; TEMP 36.8; O2SAT 95
== END 2022-12-20 10:24 | disposition home or self-care (01) ==
PROVIDERS: Emergency Provider Physician Assistant; PCP Nurse Practitioner Adult Health
DX: F41.9 Anxiety disorder, unspecified (principal); K62.5 Hemorrhage of anus and rectum; M25.551 Pain in right hip; R10.9 Unspecified abdominal pain
CPT/HCPCS: 36415; 80053; 99283; 83735; 85025

== ENCOUNTER 2023-03-04 00:58 | Outpatient (CLI) | payer MEDICARE, SELFPAY ==
[2023-03-04 08:25] LABS: HCT 32.4 % (36.0-46.0); HGB 9.3 g/dL (11.2-15.7); MCH 21.8 pg (27.0-33.0); MCHC 28.7 % (32.0-36.0); MCV 76 fL (80-95); Platelet Count 421 10^3/uL (130-400); RBC 4.27 10^6/uL (3.93-5.22); RDW 14.5 % (11.7-14.6); RDW-SD 39.3 fL; WBC 6.81 10^3/uL (4.4-10.8)
[2023-03-04 09:37] LABS: Ferritin 4 ng/mL (8-252)
[2023-03-04 09:52] LABS: Iron 11 ug/dL (50-170)
== END 2023-03-04 00:59 | disposition home or self-care (01) ==
LOC: LBO 00:58
PROVIDERS: Nurse Practitioner; Absent Provider Nurse Practitioner Adult Health; PCP Nurse Practitioner Adult Health; Referring Provider Nurse Practitioner Adult Health; Visit Provider Nurse Practitioner Adult Health
DX: D64.9 Anemia, unspecified (principal); G25.81 Restless legs syndrome
CPT/HCPCS: 36415; 85027; 82728; 83540

== ENCOUNTER → 2023-03-30 03:16 | Outpatient (CLI) | payer MEDICARE, SELFPAY ==
--- NOTE | 2023-03-30 07:15 | DI.RAD_ITS ---
Exam(s) XR CHEST 2V PA LATERAL EXAM: XR CHEST 2V PA LATERAL CLINICAL HISTORY: ? ACUTE PROCESS,EXPIRATORY WHEEZING,R06.2 TECHNIQUE: 2D digital imaging was performed of the chest. Two images were obtained. PA and lateral views were obtained. COMPARISON: CR XR CHEST 2V PA LATERAL from 09/23/2022 FINDINGS: MEDIASTINUM: Normal. HEART: Normal. PULMONARY VASCULATURE: Normal. LUNGS: Clear. PLEURAL SPACE: No pleural effusion or pneumothorax. BONE:Within normal limits for the patient's age. OTHER FINDINGS:Normal. IMPRESSION: No acute pulmonary findings. DATA REPOSITORY: RADIATION DOSE DELIVERED:
== END ==
PROVIDERS: PCP Nurse Practitioner Adult Health; Visit Provider Nurse Practitioner Adult Health
DX: R06.2 Wheezing (principal)
CPT/HCPCS: 71046

== ENCOUNTER → 2023-04-21 11:16 | Outpatient (BNVA) | payer MEDICARE, SELFPAY | PROVIDERS: PCP Nurse Practitioner Adult Health; Referring Provider Nurse Practitioner Adult Health; Visit Provider Surgery | DX: D50.9 Iron deficiency anemia, unspecified (principal) | CPT/HCPCS: 99214 ==

== ENCOUNTER 2023-04-21 14:06 | Outpatient (CLI) | payer MEDICARE, SELFPAY ==
[2023-04-21 13:14] LABS: Abs Immature Grans 0.03 10^3/uL (0.0-0.06); Absolute Basophil Count 0.05 10^3/uL (0.0-0.2); Absolute Eosinophil Count 0.11 10^3/uL (0.0-0.7); Absolute Lymphocyte Count 1.84 10^3/uL (1.2-3.4); Absolute Monocyte Count 0.51 10^3/uL (0.1-0.8); Absolute Neutrophil Count 6.56 10^3/uL (1.2-6.7); Basophils % 0.5; Eosinophils % 1.2; HCT 36.9 % (36.0-46.0); HGB 10.4 g/dL (11.2-15.7); Immature Grans % 0.3; Lymphocytes % 20.2; MCH 22.5 pg (27.0-33.0); MCHC 28.2 % (32.0-36.0); MCV 80 fL (80-95); MPV 10.5 fL (8.0-11.0); Monocytes % 5.6; Neutrophils % 72.2; Platelet Count 446 10^3/uL (130-400); RBC 4.62 10^6/uL (3.93-5.22); RDW 17.9 % (11.7-14.6); RDW-SD 51.9 fL
[2023-04-21 13:41] LABS: Ferritin 21 ng/mL (8-252)
[2023-04-21 13:53] LABS: Iron 66 ug/dL (50-170); Total Iron Binding Capacity 336 ug/dL (250-450)
== END 2023-04-21 14:07 | disposition home or self-care (01) ==
LOC: LBO 14:07
PROVIDERS: Absent Provider Nurse Practitioner Adult Health; PCP Nurse Practitioner Adult Health; Visit Provider Nurse Practitioner Adult Health
DX: D50.9 Iron deficiency anemia, unspecified (principal)
CPT/HCPCS: 36415; 99214; 82728; 83540; 83550; 85025

== ENCOUNTER 2023-04-29 06:07 | Day surgery (SDC) | payer MEDICARE, SELFPAY ==
--- NOTE | 2023-04-28 22:27 | PDOC.DSDIS_ITS ---
Date of service: 04/29/23 Time of Service: 09:00 Discharge Plan Disposition Patient Disposition: Home Discharge Details Reason For Visit: EGD and colonoscopy Attending Provider: Florentino Duenas Primary Care Provider: Tiera Choudhury Home Meds and New Rx's Prescriptions: Continued pantoprazole 40 mg tablet,delayed release (DR/EC) 40 mg PO DAILY Qty: 90 3RF ferrous sulfate 325 mg (65 mg iron) tablet 325 mg PO DAILY Qty: 90 3RF acetaminophen 650 mg tablet extended release 1,300 mg PO Q12H Discontinued polyethylene glycol 3350 17 gram/dose powder 238 g PO ONCE Qty: 238 0RF Rx Instructions: take per colonoscopy instructions bisacodyl [Dulcolax (bisacodyl)] 5 mg tablet,delayed release (DR/EC) 5 mg PO ONCE Qty: 4 0RF Rx Instructions: take per colonoscopy instructions Discharge Instructions Additional Instructions: Elisha, we were able to perform your upper and lower endoscopy today just like we talked about. The upper endoscopy was mostly normal, and I did not see anything concerning here. During your colonoscopy, I did find a large mass within the lining of the large intestine. I suspect this probably is a colon cancer. I did perform several biopsies of the area, and marked for future reference. I have taken the liberty of arranging a follow-up appointment in the office to discuss the results of the biopsies, and make a plan moving forward. If you have any questions in the meantime, please do not hesitate to call at any point. 1. If tolerated, consume a soft, low fiber diet for 1-2 days. [address] Do not drive, drink alcohol, operate machinery, make critical decisions, or do activities that require coordination or balance for 24 hours. 3. Because air was put into your colon during the procedure, expelling air from your rectum (passing gas or farting) is normal. 4. You may not have a bowel movement for 1-3 days because of the colonoscopy prep. This is normal. 5. You may experience a sore throat for 24 to 48 hours. You may use throat lozenges or gargle with warm salt water to relieve the discomfort. 6. Because air was put into your stomach during the procedure, you may experience some belching. 7. Go directly to the emergency room if you notice any of the following: Develop chills (warm to touch), or if you have a thermometer and your temperature is above 101 Difficulty breathing or difficultly swallowing Persistent vomiting Severe abdominal pain, other than gas cramps Severe chest pain Black, tarry stools Any bleeding ? exceeding one tablespoon 8. Call your physician if the site where your intravenous was started becomes red, swollen, painful, and warm to touch. 9. Your physician has reviewed your pre-procedure medications. Please continue to take those medications as previously ordered. You will be given specific information/education regarding any changes to your medications before leaving. Stand Alone Forms: Anesthesia Discharge Inst., Myesha Ramey ([facility]) Referrals: Florentino Duenas MD [ [facility] STAFF PHYSICIAN] - (May 11 at 11:15 AM) Activity:: Activity as Tolerated Diet:: As Tolerated Discharge Orders Discharge Orders: Discharge Order (Routine); Ordered 04/28/23 Ordered By: Florentino Duenas DS: Diagnosis Discharge Diagnosis (1) Iron deficiency anemia: Status: Acute Asessment and Plan: Outpatient follow-up for pathology review results
--- NOTE | 2023-04-28 22:28 | ENDO_ITS ---
Date of service: 04/29/23 Time of Service: 09:03 Endoscopy Report DATE OF PROCEDURE: 04/29/23 PRE-OP DIAGNOSIS: Iron deficiency anemia POST-OP DIAGNOSIS: other (Hiatal hernia, colon polyps, colon mass) PROCEDURE: EGD with biopsies and colonoscopy with polypectomy and biopsies SURGEON: Florentino Duenas ANESTHESIA TYPE: General:No Airway ESTIMATED BLOOD LOSS: 15 PATHOLOGY: other (Gastric polyp, random biopsies of gastric antrum and body; 0.5 cm colon polyp at 35 cm, 0.5 cm polyps at 75 cm x 4, colon mass at 110 cm from the anus) COMPLICATIONS: None DISPOSITION: same day INDICATIONS: Elisha is an 82-year-old woman with a previous history of hemorrhagic gastritis. She was treated with proton pump inhibitor therapy as well as sucralfate. She returns with ongoing anemia. PREP: Miralax/Dulcolax PROCEDURE START TIME: 07:43 PROCEDURE END TIME: 08:24 FINDINGS: Gastric fundic polyp, otherwise normal EGD with healthy appearing Z-line and GE junction at 35 cm from the incisors; 0.5 cm colon polyp at 35 cm from the anus, 0.5 cm polyps at 75 cm from the anus x 4, large mass at 110 cm from the anal verge around the area of the hepatic flexure. PROCEDURE DESCRIPTION: After the initiation of monitored anesthetic care, and with the assistance of a bite block, I advanced a standard gastroscope through the mouth past the hypopharynx and into the esophagus.? Z-line and GE junction were normal- appearing around 35 cm from the incisors. I advanced across the GE junction into the stomach. I insufflated the stomach. I performed retroflexion. There is a grade 3 hiatal hernia. I turned the camera back antegrade, I proceeded down along the greater curvature towards the incisura angularis. The distal portion of the gastric body was a 0.25 cm gastric polyp. This was removed with cold forceps without issue. I did not see any signs of active gastritis. The gastric antrum and pylorus were normal-appearing. I traversed the pylorus into the duodenum, which also appeared normal. Given the iron deficiency anemia, I did perform cold forceps biopsies of the duodenum, gastric antrum, gastric body. These were obtained with cold forceps without any issue. Next, I emptied the stomach and brought the camera back up to the GE junction before examining the esophagus 1 last time. Next, we assisted Elisha to the left lateral decubitus position. I began by performing an external anorectal exam.? Perineum and skin were normal, as was the anal verge.? There was evidence of external hemorrhoids.? Next, I performed a digital rectal exam.? I did not appreciate any abnormal findings.? Next, I advanced a colonoscope into the rectal vault.? I performed retroflexion.? This was normal.? Using insufflation, I then advanced the colonoscope beyond the rectal folds and into the sigmoid colon before advancing towards the cecum.? Around 110 cm from the anal verge was a partially occlusive fungating mass. Although I could see the lumen beyond it, I was not able to traverse it with the colonoscope. Clinical features were worrisome for cancer. I did perform multiple cold forcep biopsies of the area to confirm the tissue diagnosis. There was minimal bleeding. I then began withdrawing the colonoscope. Around 75 cm from the anus were 5 polyps. They were all quite flat. I would estimate the large of these to be about 0.75 cm. The other were about 0.5 cm. These were sampled with cold forceps. There was minimal bleeding here as well. I found another polyp at 35 cm from the anus. This was also about 0.5 cm and mostly flat. This was removed with cold forceps without any issue. Once the scope was withdrawn to the level of the rectum, great care was taken to examine portions of the rectal folds.? Finally, the scope was withdrawn and the patient was brought to the same-day surgery recovery unit as the anesthetic wore off. ?The findings and instructions were shared with the patient prior to discharge. Quality of the bowel prep was 3, 3, 3 from right to left.
[2023-04-29 06:32] VITALS: BP 134/65; PULSE 106; RESP 16; TEMP 36.6; O2SAT 98
[2023-04-29] MEDS: Lactated Ringers 1,000 ML 80 ML IV ×2 (06:34→08:25)
--- NOTE | 2023-04-29 07:04 | W.ANESPRE ---
General Info Date of Service Date Performed: 04/29/23 Height: 5 ft 2 in Weight: 63.503 kg Body Mass Index (BMI): 25.6 Surgical Procedure: Operation Date: 04/29/23 07:35 Proposed Procedure Side Surgeon p Colonoscopy/Gastroscopy Florentino Duenas MD Meds Allergies and Home Medications Allergies Allergy/AdvReac Type Severity Reaction Status Date / Time NSAIDS (Non-Steroidal AdvReac Severe GI Bleeding Verified 04/29/23 06:31 Anti-Inflamma aspirin AdvReac ? Verified 04/29/23 06:31 INCREASED HR Home Medication Medication Instructions Recorded acetaminophen 650 mg 1,300 mg PO Q12H 11/18/22 tablet,extended release ferrous sulfate 325 mg (65 mg 325 mg PO DAILY #90 tabs 03/25/23 iron) tablet pantoprazole 40 mg tablet,delayed 40 mg PO DAILY #90 tabs 03/25/23 release Current Visit Medications: Current Medications Generic Name Dose Route Start Last Admin Trade Name Freq PRN Reason Stop Dose Admin Hyoscyamine Sulfate 0.125 mg 04/28/23 22:29 Hyoscyamine 0.125 Mg Sl/Oral/Chew SL 05/28/23 22:28 DIRECTED PRN Ringer's Solution 1,000 mls @ 80 mls/hr 04/29/23 06:00 04/29/23 06:34 IV 04/29/23 23:59 80 mls/hr INFUSION LYNDSEY Administration IV Miscellaneous Supplies 1 each 04/29/23 06:00 Iv Access IV 04/29/23 23:59 DIRECTED LYNDSEY Ondansetron HCl 4 mg 04/28/23 22:29 Ondansetron 4 Mg/2 Ml Vial IVP 05/28/23 22:28 Q4H PRN PRN Nausea / Vomiting Sodium Chloride 0 ml 04/29/23 06:00 Normal Saline Flush 10 Ml Syr IV 04/29/23 23:59 PRN PRN Sodium Chloride 0 ml 04/29/23 06:00 Normal Saline 10 Ml Vial IJ 04/29/23 23:59 DIRECTED PRN Sterile Water 0 ml 04/29/23 06:00 Water,Injection,Sterile 10 Ml Vial IJ 04/29/23 23:59 DIRECTED PRN PFSH Active Problems Active Problems: Problem Status Onset Code Pre-diabetes ~03/2023 R73.03 Esophagitis K20.90 Acute hemorrhagic gastritis ~09/2022 K29.01 GI bleed due to NSAIDs ~09/2022 K92.2, T39.395A Iron deficiency anemia ~09/2022 D50.9 Generalized osteoarthritis M15.9 Subclinical hypothyroidism 02/04/11 E03.9 Lumbar radiculopathy, acute 06/12/14 M54.16 Other and unspecified hyperlipidemia 03/05/15 E78.5 GERD (gastroesophageal reflux disease) 05/07/14 K21.9 Eczema 02/16/13 L30.9 Medical History Medical History COVID Symptoms resolved 04/13/23 Erythema migrans (Lyme disease) 1 week post tick bite, short-term stay per pt report .. but Doxy x 10 days started, ik BPPV (benign paroxysmal positional vertigo) BCC (basal cell carcinoma), face (06/11/16) and left medial ankle 10/2018 Right lower lateral neck - removed at 10/06/22 Surgical History Surgical History Open Carpal Tunnel release no date given by pt.HE Exc [facility] rgt forehead (06/22/16) Biopsy of breast pt did not state date.HE Tobacco Smoking/Tobacco Use Status: Never Alcohol Alcohol Intake: current Alcohol intake frequency: a few times a week Substance Use Substance use: Never Substance use type: does not use Vital Signs and Lab Results Vital Signs Most Recent Vital Signs in EMR: Most Recent Vital Signs Temp Pulse Resp BP Pulse Ox 36.6 C 106 H 16 134/65 98 04/29/23 06:32 04/29/23 06:32 04/29/23 06:32 04/29/23 06:32 04/29/23 06:32 Lab Results Blood Type / Crossmatch: No Data to Display Complete Blood Count: White Blood Count 9.10 10^3/uL (4.4-10.8) 04/21/23 12:52 Red Blood Count 4.62 10^6/uL (3.93-5.22) 04/21/23 12:52 Hemoglobin 10.4 g/dL (11.2-15.7) L 04/21/23 12:52 Hematocrit 36.9 % (36.0-46.0) 04/21/23 12:52 Platelet Count 446 10^3/uL (130-400) H 04/21/23 12:52 Complete Metabolic Panel: No Data to Display Liver Function Panel: No Data to Display Coagulation Panel: No Data to Display Cardiac Panel: No Data to Display Arterial Blood Gas: No Data to Display Venous Blood Gas: No Data to Display Pancreas Panel: No Data to Display Thyroid Panel: No Data to Display Infectious Disease: No Data to Display Blood Cultures: No Data to Display Toxicology Panel: No Data to Display Imaging and Studies Imaging and Studies Study information below may be from another EMR and interpreted by another provider. Please see original notes in EMR for more complete details. EKG Summary: Conclusion Sinus rhythm...normal P axis, V-rate 50- 99 Borderline left axis deviation...QRS axis (-15,-29) Low voltage, precordial leads...precordial leads <1.0mV Otherwise normal ECG 09/23/22 Stress Test Summary: Impressions: Normal study after maximal exercise. Summary: Stress: Exercise capacity is above normal for age. 02/22/15 Anesthesia Assessment and Plan Anesthesia History Personal History: No History of Anesthesia Complications Family History: No Family History of Anesthesia Complications Exercise Tolerance Exercise Tolerance: Metabolic Equivalents>4 Pertinent Negatives Pertinent Negatives: No Symptoms of GERD Cardiac & Pulmonary Exam Cardiac Exam: Normal S1/S2 Heart Sounds Pulmonary Exam: Clear Bilateral Breath Sounds Implantable Cardiac Device Does patient have a Pacemaker or an ICD?: No Airway Exam Known Difficult Airway: No Mallampati Class: 3 Mouth Opening: Normal (> 3cm) Thyromental Distance: Less than 3 cm Neck Range of Motion: Full ROM Neck Circumference: Normal Teeth Condition: Normal Dentition ASA Classification ASA Score: ASA 2 Emergency Case?: No NPO Status NPO Status: NPO Clears >2 hours, Solids >8 hours Anesthesia Plan Resuscitation Status: Full Code Anesthesia Technique: General Anesthesia Airway Planned: Natural Airway Monitors Used: Standard Monitors
[2023-04-29 07:05] VITALS: BMI 25.6
[2023-04-29] MEDS: Endoscopic Tattoo 5 ML SYR IJ (08:12)
[2023-04-29 08:32] VITALS: BP 108/60; PULSE 73; RESP 16; TEMP 36.5; O2SAT 97
--- NOTE | 2023-04-29 08:39 | W.ANESPOSTOP ---
Postoperative Evaluation Date, Time and Location Date Performed: 04/29/23 Time Performed: 08:39 Patient Location: Day Surgery Unit Vital Signs Most Recent Imported Vital Signs: Most Recent Vital Signs Temp Pulse Resp BP Pulse Ox 36.5 C 73 16 108/60 97 04/29/23 08:32 04/29/23 08:32 04/29/23 08:32 04/29/23 08:32 04/29/23 08:32 Pain Score Most Recent Pain Score: Most Recent Pain Score Pain Level 0 04/29/23 08:32 Assessment Mental Status: Awake (Alert & Oriented to Patient Baseline) Airway and Respiratory Function: Patent airway with normal (patient baseline) respiratory exam Cardiovascular Function: Hemodynamically Stable Hydration Status: Adequately Hydrated Nausea & Vomiting: No Nausea or Vomiting Pain: Pt. Denies Any Pain Peripheral Nerve Block: Patient did not receive a nerve block
--- NOTE | 2023-04-29 08:46 | BOWEL_PTH ---
PATIENT: Elisha Chowdhury LOC: [facility] U#:[id number] AGE/SX: 82/F ROOM: RE04/29/[address]: Florentino Duenas MD : [id number] BED: DIS: 04/29/2023 SPEC #: [id number] RECD: 04/29/23 12:21 STATUS: [facility] #: [id number] ARTUR: 04/29/23 08:[address]: Florentino Duenas DEPT: Surgical Specimen RECD BY: Suellen Bee ENTERED: 04/29/23 12:25 SP TYPE: Bowel OTHR DR: Tiera Choudhury APRN Tissues: 1 - BIOPSY BOWEL 2 - STOMACH BIOPSY 3 - STOMACH BIOPSY 4 - STOMACH BIOPSY 5 - BIOPSY BOWEL 6 - BIOPSY BOWEL 7 - BIOPSY BOWEL Procedures: GROSS AND MICRO LEVEL 4 IMMUNOPEROXIDASE STAIN Comments: [id number]
[2023-04-29 09:02] VITALS: BP 133/61; PULSE 75; RESP 18; TEMP 36.6; O2SAT 98
== END 2023-04-29 09:30 | disposition home or self-care (01) ==
LOC: SUR 06:08
PROVIDERS: PCP Nurse Practitioner Adult Health; Visit Provider Surgery
PROC: (CPT 45380; principal; 2023-04-29 07:30)
DX: D50.9 Iron deficiency anemia, unspecified (principal); K21.9 Gastro-esophageal reflux disease without esophagitis; R73.03 Prediabetes; K44.9 Diaphragmatic hernia without obstruction or gangrene; D12.3 Benign neoplasm of transverse colon; K63.89 Other specified diseases of intestine; K31.7 Polyp of stomach and duodenum; D12.4 Benign neoplasm of descending colon; C18.4 Malignant neoplasm of transverse colon
CPT/HCPCS: 45380; 43239; 88305; 88361; J1100; J2001; J2250; J2405; J2704; J3010

== ENCOUNTER 2023-05-01 02:46 | Inpatient (IN) | payer MEDICARE, SELFPAY ==
[2023-05-01] VITALS (165 sets, daily range): BP systolic 106–176; BP diastolic 46–70; PULSE 79–116; RESP 11–33; TEMP 36.2–37.2; O2SAT 86–100; BMI 25.2
--- NOTE | 2023-05-01 | DI.RAD_ITS ---
Exam(s) XR PORTABLE CHEST AP EXAM: XR PORTABLE CHEST AP CLINICAL HISTORY: Central line placement. TECHNIQUE: 2D digital imaging was performed. COMPARISON: CR XR CHEST 2V PA LATERAL from 03/30/2023 FINDINGS: Single AP portable view. There is now an NG tube in the stomach and a right jugular central line in satisfactory position with distal tip at the lower SVC level. Heart size is upper normal. The mediastinum is not widened. There is now significant infiltrate in left lower lobe and small left pleural effusion. Right lung r emains relatively clear although there is possibly a small right pleural effusion. IMPRESSION: New left lower lobe infiltrate and small bilateral pleural effusions. Central line in good position. No pneumothorax evident. NG tube in stomach. DATA REPOSITORY: RADIATION DOSE DELIVERED:
--- NOTE | 2023-05-01 03:15 | DI.CT_ITS ---
Exam(s) CT ABDOMEN PELVIS W EXAM: CT ABDOMEN PELVIS W CLINICAL HISTORY: severe lower abdominal pain. TECHNIQUE: Imaging Protocol: Axial computed tomography images with coronal and sagittal reformatted images were created and reviewed CONTRAST MATERIAL: Intravenous: Omnipaque-350 100cc Oral: None COMPARISON: No exams were available for comparison FINDINGS: VISUALIZED LUNG BASES: Symmetrical fibrosis in the lung bases.. ABDOMEN: GI: There is inflammatory mass in the ascending colon a few cm above the cecum highly suspicious for perforated neoplasm or diverticulitis although there is minimal diverticular disease elsewhere in the colon, including the sigmoid. There are also some dilated and fecalized small bowel loops. The col on distal to this level is not collapsed. There is suspicion for perforation and abscess formation a t this region of the ascending colon. The appendix is seen and appears unremarkable. LIVER: There is some perihepatic ascites. There are 2 lesions in the right hepatic lobe which are pr obably defined on this study. The larger of these 2 measures approximately 1.5 x 1.5 cm. Suspicious for metastatic disease or abscess, or a combination there of. Minimally prominent intrahepatic duct s noted. GALLBLADDER/BILIARY: No obvious acute gallbladder pathology. CBD diameter upper normal. PANCREAS: No evidence of pancreatic mass nor dilatation of the pancreatic duct. SPLEEN: Spleen size normal. Calcified granuloma in the spleen noted. Splenic and portal veins are p atent. ADRENALS: There are no significant adrenal masses. KIDNEYS:No cysts evident. No solid renal masses. No calculi nor hydronephrosis.. ABDOMINAL AORTA: Abdominal aorta is not enlarged. LYMPH NODES:There are multiple calcified mesenteric lymph nodes. ABDOMINAL WALL: No evidence of significant anterior abdominal wall nor inguinal hernia. PELVIS: GI: No evidence of appendicitis.No evidence of sigmoid diverticulitis. LYMPH NODES: There are calcified lymph nodes in the central mesentery. REPRODUCTIVE: Uterus size age-appropriate. No ovarian masses seen. There is some free fluid in the dependent aspect of the pelvis which is most probably Atkinson/related to the above described right: Findings. URINARY BLADDER: Mildly distended. Otherwise unremarkable. OSSEOUS: No fractures and no significant osseous lesions. Mild degenerative anterolisthesis L4 upon L5. IMPRESSION: 1. There is a significant area of abnormal circumferential bowel wall thickening in the ascending rig ht colon with bowel wall edema and severe surrounding inflammatory change with adjacent right paracol ic abscess formation. There is adjacent free fluid as well as fluid in the right pericolic gutter, p erihepatic fluid, and fluid in the dependent aspect of the pelvis. Probably purulent related to the bowel perforation. 2. There are 2 ill-defined lesions within the liver which are either metastatic lesions or developing abscesses, or a combination thereof. 3. There are prominent diameter small bowel loops which are fecalized. Possible reactive I ileus. C annot exclude developing small-bowel obstruction related to the above pathology located in the ascend ing-right colon. 4. Bilateral lower lung field fibrosis incidentally noted. No pleural effusions. RADIATION DOSE DELIVERED: 704.11mGy.cm Total DLP DATA REPOSITORY: All CT scans at this facility are submitted to the National Radiology Data Registry (NRDR) Dose Index Registry (DIR) with the [employer] (ACR). RADIATION OPTIMIZATION: All CT scans at this facility use at least one of these dose optimization te chniques: automated exposure control; mA and/or kV adjustment per patient size (includes targeted exa ms where dose is matched to clinical indication); or iterative reconstruction.
[2023-05-01] MEDS: Normal Saline 1,000 ML 1000 ML IV (03:30)
[2023-05-01 03:41] LABS: Lactate 0.9 mmol/L (0.6-1.4)
[2023-05-01 03:43] LABS: Abs Immature Grans 0.04 10^3/uL (0.0-0.06); Absolute Basophil Count 0.04 10^3/uL (0.0-0.2); Absolute Eosinophil Count 0.14 10^3/uL (0.0-0.7); Absolute Lymphocyte Count 1.54 10^3/uL (1.2-3.4); Absolute Monocyte Count 0.57 10^3/uL (0.1-0.8); Absolute Neutrophil Count 7.48 10^3/uL (1.2-6.7); Basophils % 0.4; Eosinophils % 1.4; HGB 9.3 g/dL (11.2-15.7); Immature Grans % 0.4; Lymphocytes % 15.7; MCH 22.6 pg (27.0-33.0); MCHC 29.1 % (32.0-36.0); MCV 78 fL (80-95); MPV 9.6 fL (8.0-11.0); Monocytes % 5.8; Neutrophils % 76.3; Platelet Count 467 10^3/uL (130-400); RBC 4.12 10^6/uL (3.93-5.22); RDW 16.4 % (11.7-14.6); RDW-SD 46.8 fL; WBC 9.81 10^3/uL (4.4-10.8)
[2023-05-01] MEDS: MORPHine 4 MG/ML SYR IVP ×2 (03:46→06:30)
[2023-05-01] MEDS: Ondansetron 4 MG/2 ML VIAL IVP (03:46)
[2023-05-01 03:59] LABS: ALT 15 U/L (14-59); AST 12 U/L (15-37); Albumin 2.6 g/dL (3.4-5.0); Alkaline Phosphatase 93 U/L (46-116); Anion Gap 6.4 mmol/L (3-11); BUN 14 mg/dL (7-18); Bilirubin, Total 0.2 mg/dL (0.2-1.0); CO2 28.6 mmol/L (21.0-32.0); CREATININE 0.8 mg/dL (0.55-1.02); Chloride 104 mmol/L (98-107); Estimated GFR 73.52 (mL/min/1.73m2); Glucose 170 mg/dL (74-106); Lipase 24 U/L (16-77); Sodium 139 mmol/L (136-145); Total Protein 6.5 g/dL (6.4-8.2)
[2023-05-01] MEDS: Omnipaque 350 MG/ML 100 ML BTL IJ (04:35)
[2023-05-01] MEDS: Normal Saline Flush 10 ML SYR IVP ×2 (04:36→19:34)
[2023-05-01] MEDS: Normal Saline - Diluent 50 ML VIAL IJ (04:36)
--- NOTE | 2023-05-01 04:43 | W.ED.GENAD ---
Discharge Plan Discharge Details Chief Complaint: Abd Prob Clinical Impression: Paracolic abscess, Ileus, Bowel perforation, Malignancy Primary Care Provider: Tiera Choudhury ED Provider: Tuyet Merida Home Meds and New Rx's Prescriptions: No Action pantoprazole 40 mg tablet,delayed release (DR/EC) 40 mg PO DAILY Qty: 90 3RF ferrous sulfate 325 mg (65 mg iron) tablet 325 mg PO DAILY Qty: 90 3RF acetaminophen 650 mg tablet extended release 1,300 mg PO Q12H HPI General Mode of arrival: ambulatory. Date/Time Provider Initiated Documentation: 05/01/23 03:20. Limitations to Documentation: no limitations. Information obtained by: patient and old records reviewed. HPI Narrative: 82yo F with hx of GERD & gastritis, very recently diagnosed with colorectal cancer, presenting for persistent and worsening diffuse abdominal pain. Unclear onset of pain (weeks to months), had a colonsocopy for this earlier this week and was found to have colorectal cancer. No treatment plan yet, patient states next step is CT scan. Pain has continued and been worsening. Pain is diffuse, severe, non-radiating. Mild nausea, no vomiting, no constipation. Otherwise in her usual state of health with no fevers, chills, rash, dysuria, hematuria, chest pain, shortness of breath, or other concerns. Related Data Home Medications Medication Instructions Recorded Confirmed acetaminophen 650 mg 1,300 mg PO Q12H 11/18/22 05/01/23 tablet,extended release ferrous sulfate 325 mg (65 mg 325 mg PO DAILY #90 tabs 03/25/23 05/01/23 iron) tablet pantoprazole 40 mg tablet,delayed 40 mg PO DAILY #90 tabs 03/25/23 05/01/23 release Previous Rx's Medication Instructions Recorded ferrous sulfate 325 mg (65 mg 325 mg PO DAILY #90 tabs 03/25/23 iron) tablet pantoprazole 40 mg tablet,delayed 40 mg PO DAILY #90 tabs 03/25/23 release Allergies Allergy/AdvReac Type Severity Reaction Status Date / Time NSAIDS (Non-Steroidal AdvReac Severe GI Bleeding Verified 05/01/23 03:14 Anti-Inflamma aspirin AdvReac ? Verified 05/01/23 03:14 INCREASED HR General Stated Complaint: Abd Prob DEDE: 3 Review of Systems Narrative: see HPI Exam Narrative Exam Narrative: General: Alert, non-toxic, well nourished, in no acute distress. Head: Normocephalic, atraumatic Neck: Trachea midline, ?Neck supple. ENT: ?MMM.? Cardiac: ?RRR, no murmurs appreciated Resp: No respiratory distress. CTAB. Abd: ?Soft, non-distended, diffusely TTP, no guarding. : ?No suprapubic tenderness. . Extremities: ?No deformities.? No peripheral edema. Neurologic: GCS 15. ? Moves all extremities freely against gravity Course Vital Signs Vital signs: Vital Signs Temperature 36.2 C L 05/01/23 03:08 Pulse 88 05/01/23 03:08 Respiratory Rate 16 05/01/23 03:08 Pulse Oximetry 96 05/01/23 03:08 Temperature 36.8 C 05/01/23 04:41 Temperature Source Temporal Artery Scan 05/01/23 04:41 Pulse 104 H 05/01/23 04:41 Respiratory Rate 16 05/01/23 04:41 Respiratory Effort Normal 05/01/23 03:12 Blood Pressure 116/57 L 05/01/23 04:41 Pulse Oximetry 92 05/01/23 04:41 Oxygen Delivery Method Room Air 05/01/23 04:41 Oxygen Flow Rate 0 05/01/23 04:41 Pain Level 10 05/01/23 03:08 Lab/Test Results Lab/Test Results: Laboratory Tests Range/Units 05/01/23 03:38 WBC (4.4-10.8) 10^3/uL 9.81 RBC (3.93-5.22) 10^6/uL 4.12 Hgb (11.2-15.7) g/dL 9.3 L Hct (36.0-46.0) % 32.0 L MCV (80-95) fL 78 L MCH (27.0-33.0) pg 22.6 L MCHC (32.0-36.0) % 29.1 L RDW (11.7-14.6) % 16.4 H Plt Count (130-400) 10^3/uL 467 H MPV (8.0-11.0) fL 9.6 Immature Gran % 0.4 Neutrophils % 76.3 Lymphocytes % 15.7 Monocytes % 5.8 Eosinophils % 1.4 Basophils % 0.4 Nucleated RBC % (0.0-0.3) % 0.0 Absolute Neutrophils (1.2-6.7) 10^3/uL 7.48 H Absolute Lymphocytes (1.2-3.4) 10^3/uL 1.54 Absolute Monocytes (0.1-0.8) 10^3/uL 0.57 Absolute Eosinophils (0.0-0.7) 10^3/uL 0.14 Absolute Basophils (0.0-0.2) 10^3/uL 0.04 VBG Lactate (0.6-1.4) mmol/L 0.9 Sodium (136-145) mmol/L 139 Potassium (3.5-5.1) mmol/L 4.0 Chloride (98-107) mmol/L 104 Carbon Dioxide (21.0-32.0) mmol/L 28.6 Anion Gap (3-11) mmol/L 6.4 BUN (7-18) mg/dL 14 Creatinine (0.55-1.02) mg/dL 0.8 Est GFR (CKD-EPI 2020) (mL/min/1.73m2) 73.52 Glucose (74-106) mg/dL 170 H Calcium (8.5-10.1) mg/dL 9.0 Total Bilirubin (0.2-1.0) mg/dL 0.2 AST (15-37) U/L 12 L ALT (14-59) U/L 15 Alkaline Phosphatase (46-116) U/L 93 Total Protein (6.4-8.2) g/dL 6.5 Albumin (3.4-5.0) g/dL 2.6 L Lipase (16-77) U/L 24 Medical Decision Making 82yo F overall healthy previously, hx of GERD & gastritis, very recently diagnosed with colorectal cancer, presenting for persistent and worsening diffuse abdominal pain. [facility] records reviewed, colonoscopy on 04/28/23 showed partially occlusive fungating mass concerning for malignancy. Has not seen oncology yet, per pt next step is CT which has not been scheduled yet. Presents to the ED for worsening and persistent abdominal pain. Vital signs reassuring on arrival, diffuse abdominal tenderness on exam with no clear peritoneal signs. Not overtly septic. Labs reviewed as below, CBC with no leukocytosis, anemia to 9.3 (does have history of anemia on lab review at [facility]), CMP with no significant abnormalities, lipase not suggestive of pancreatitis, lactate reassuring at 0.9. Morphine & zofran for symptoms. CT abd/pelvis independently reviewed and discussed with [facility] radiologist, agree with radiology read below with right paracolic abscess, possible perforation, as well as likely ileus and hepatic lesions. Started on IV zosyn. Patient would likely benefit from oncology and colorectal surgery however would prefer to stay at [facility] for now if at all possible. Discussed with Dr. Ward from surgery who will review imaging, meet with patient. Signed out to oncoming physician, plan to followup surgery reccs, admit [facility] vs transfer to tertiary care. Medical Records Medical records reviewed: Yes I reviewed the patient's medical records. Imaging Data Radiologic Study: Imaging: CT Scan Radiologist's impression: IMPRESSION: 1. Short-segment circumferential colonic bowel wall thickening with severe surrounding inflammatory change, with associated right paracolic abscess formation. Suspicion of possible perforation within the right lateral aspect. No clear inflamed diverticula is noted, as such there is concern for underlying perforated neoplasm. Associated right para colonic, right hepatic, pelvic ascites. 2. Long segment prominent loops of small bowel, likely represents reactive/paralytic ileus. No sites of abrupt transition. 3. Ill-defined lesions within the liver, nonspecific and may represent additional sites of neoplasm versus evolving inflammatory collections. 4. Bilateral lower lung field fibrosis. Lab Data Lab results reviewed: Yes I reviewed the patient's lab results. Labs: Laboratory Tests Range/Units 05/01/23 03:38 WBC (4.4-10.8) 10^3/uL 9.81 RBC (3.93-5.22) 10^6/uL 4.12 Hgb (11.2-15.7) g/dL 9.3 L Hct (36.0-46.0) % 32.0 L MCV (80-95) fL 78 L MCH (27.0-33.0) pg 22.6 L MCHC (32.0-36.0) % 29.1 L RDW (11.7-14.6) % 16.4 H Plt Count (130-400) 10^3/uL 467 H MPV (8.0-11.0) fL 9.6 Immature Gran % 0.4 Neutrophils % 76.3 Lymphocytes % 15.7 Monocytes % 5.8 Eosinophils % 1.4 Basophils % 0.4 Nucleated RBC % (0.0-0.3) % 0.0 Absolute Neutrophils (1.2-6.7) 10^3/uL 7.48 H Absolute Lymphocytes (1.2-3.4) 10^3/uL 1.54 Absolute Monocytes (0.1-0.8) 10^3/uL 0.57 Absolute Eosinophils (0.0-0.7) 10^3/uL 0.14 Absolute Basophils (0.0-0.2) 10^3/uL 0.04 VBG Lactate (0.6-1.4) mmol/L 0.9 Sodium (136-145) mmol/L 139 Potassium (3.5-5.1) mmol/L 4.0 Chloride (98-107) mmol/L 104 Carbon Dioxide (21.0-32.0) mmol/L 28.6 Anion Gap (3-11) mmol/L 6.4 BUN (7-18) mg/dL 14 Creatinine (0.55-1.02) mg/dL 0.8 Est GFR (CKD-EPI 2020) (mL/min/1.73m2) 73.52 Glucose (74-106) mg/dL 170 H Calcium (8.5-10.1) mg/dL 9.0 Total Bilirubin (0.2-1.0) mg/dL 0.2 AST (15-37) U/L 12 L ALT (14-59) U/L 15 Alkaline Phosphatase (46-116) U/L 93 Total Protein (6.4-8.2) g/dL 6.5 Albumin (3.4-5.0) g/dL 2.6 L Lipase (16-77) U/L 24 Quality:SDOH Health Related Social Needs: No Data to Display PFSH All Active Problems (Updated 05/01/23 @ 07:23 by Tuyet Merida MD) Malignancy (Acute) Bowel perforation (Acute) Ileus (Acute) Paracolic abscess (Acute) Screen for colon cancer (Acute) Pre-diabetes (Acute ~03/2023) A1C 5.75% Esophagitis (Acute) Acute hemorrhagic gastritis (Acute ~09/2022) GI bleed due to NSAIDs (Acute ~09/2022) Iron deficiency anemia (Acute ~09/2022) Generalized osteoarthritis (Acute) Subclinical hypothyroidism (Chronic 02/04/11) Lumbar radiculopathy, acute (Acute 06/12/14) 12/2022 Other and unspecified hyperlipidemia (Chronic 03/05/15) GERD (gastroesophageal reflux disease) (Chronic 05/07/14) Takes 2-week courses of omeprazole PRN with good relief for several months Eczema (Chronic 02/16/13) Hands Medical History (Updated 05/01/23 @ 07:23 by Tuyet Merida MD) COVID Symptoms resolved 04/13/23 Erythema migrans (Lyme disease) 1 week post tick bite, short-term stay per pt report .. but Doxy x 10 days started, ik BPPV (benign paroxysmal positional vertigo) BCC (basal cell carcinoma), face (06/11/16) and left medial ankle 10/2018 Right lower lateral neck - removed at 10/06/22 Surgical History (Updated 04/29/23 @ 15:26 by Mackenzie Robert) History of colonoscopy (~04/2023) History of esophagogastroduodenoscopy (~04/2023) Open Carpal Tunnel release no date given by pt.HE Exc BBC rgt forehead (06/22/16) Biopsy of breast pt did not state date.HE Family History Father Alcohol abuse Brother Bladder cancer Social History Smoking/Tobacco Use Status: Never Smoking risk assessment performed?: Yes Alcohol Intake: current Alcohol Intake frequency: a few times a week Drug use: Never Substance use type: does not use Adopted: No Caregiver/Support person: No Foster care: No Household members: spouse Housing: house Number of Children: 0 number of grandchildren: 0 Communication Needs: Corrective Lenses Education Level: college 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 Pets and animals: No Sexually active: No Do you think of yourself as: straight/heterosexual Current gender identity: male What is your relationship status?: How often do you talk on the phone with friends or family?: three or more times per week How often do you get together with friends or relatives?: three or more times per week Do you belong to any clubs or organized social groups?: yes Panel score (0-1 are the most socially isolated patients): 3 What type of physical activity do you participate in: weight lifting and other Details: water aerobics Duration: < 15 minutes/day Frequency: 1-2 times per week Romi/Latter-Day: Voodoo Special romi needs: No Seatbelt use: always Drive intox or ride w/intox transport truck driver: No Do you feel safe at home: Yes Do you feel safe in your relationship?: Yes
--- NOTE | 2023-05-01 05:57 | DI.[facility]_ITS ---
Addendum created by Cesar Cadena DO on 05/01/2023 6:00:17 AM EST: The above findings and impression were discussed with Dr. Merida on 05/01/2023 at 5:00 a.m. Initial report created on 05/01/2023 5:56:56 AM EST: PROCEDURE INFORMATION: Exam: CT Abdomen And Pelvis With Contrast Exam date and time: 05/01/2023 4:24 AM Age: 82 years old Clinical indication: Other: Severe lower abdominal pain TECHNIQUE: Imaging protocol: Computed tomography of the abdomen and pelvis with contrast. Contrast material: OMNI 350; Contrast volume: 100 ml; Contrast route: INTRAVENOUS (IV); COMPARISON: CR XR CHEST 2V PA LATERAL 03/30/2023 10:06 AM FINDINGS: Lungs: See Pleural spaces finding. Pleural spaces: Prominent subpleural reticulation and architectural distortion of the bilateral costophrenic angles concerning for underlying fibrosis. Heart: Base of heart is unremarkable as visualized. Liver: Ill-defined hypodensity appreciated within the anterior right hepatic lobe (series 4, image 11) measures 11.2 x 14.2 mm. A similar-appearing lesion is appreciated within the superior posterior right hepatic lobe (series 4, image 12), measuring 9 x 9 mm. Prominence of the intrahepatic and extrahepatic biliary ductal collecting system Gallbladder and bile ducts: There is prominence of the intrahepatic and extrahepatic biliary ductal system. Extrahepatic common biliary duct measures up to 9 mm. Pancreas: Normal. No ductal dilation. Spleen: Splenic granulomas noted. Adrenal glands: Normal. No mass. Kidneys and ureters: See Liver finding. Stomach and bowel: There is short-segment colonic wall thickening with significant surrounding inflammatory change of the distal ascending colon, measuring a proximally 5.6 cm (series 6, image 39). There is an adjacent rim enhancing fluid collection in the right colonic gutter measuring a proximally 3.1 x 1.7 x 1.8 cm (series 4, image 39; series 6 image 44). There is suggestion of possible wall discontinuity best appreciated on series 6 image 44). There is long segment prominent loops of small bowel appreciated in the left lower quadrant and left upper quadrant without focal transition point, additional finding of fecalization of loops of small bowel. Small sliding-type hiatal hernia is present. Appendix: No evidence of appendicitis. Intraperitoneal space: Pelvic ascites is noted with simple water attenuation. Perihepatic and right paracolic gutter ascites is present. Multiple calcifications are present throughout the mesentery likely sequela of granulomatous disease given splenic finding. Vasculature: Moderate calcified atherosclerotic disease of the visualized aorta and its major branches. Lymph nodes: Unremarkable. No enlarged lymph nodes. Urinary bladder: Bladder is distended without focal wall abnormality. Reproductive: Unremarkable as visualized. Bones/joints: Diffuse degenerative changes of the visualized osseous structures, [id number]. Soft tissues: Unremarkable. IMPRESSION: 1. Short-segment circumferential colonic bowel wall thickening with severe surrounding inflammatory change, with associated right paracolic abscess formation. Suspicion of possible perforation within the right lateral aspect. No clear inflamed diverticula is noted, as such there is concern for underlying perforated neoplasm. Associated right para colonic, right hepatic, pelvic ascites. 2. Long segment prominent loops of small bowel, likely represents reactive/paralytic ileus. No sites of abrupt transition. 3. Ill-defined lesions within the liver, nonspecific and may represent additional sites of neoplasm versus evolving inflammatory collections. 4. Bilateral lower lung field fibrosis. Dictated and Authenticated by: Cesar Cadena MD. Ordering:JAIME Benz MD
[2023-05-01] MEDS: PIPERACILLIN/TAZO 3.375 GM in Normal Saline 50 ML IVPB (06:17)
--- NOTE | 2023-05-01 08:55 | ED.PROG_ITS ---
Date of service: 05/01/23 Time of Service: 08:55 Medical Decision Making I received signout on this 82-year-old female with concerns for colonic abscess status post new colonic mass diagnosis and 5 days status post colonoscopy. Patient has a negative lactate and has received piperacillin/tazobactam. General surgery has evaluated the patient. 9:07 AM I spoke with Dr. Ward from general surgery and she will take the patient to the OR. Quality:[facility] Health Related Social Needs: No Data to Display Sign Out Sign Out Data: Sign Out Comment: 82 F newly diagnosed colon cancer presenting with abdominal pain. Labs reassuring (anemia, Hg ~9), CT with perforation and paracolic abscess. Surgery to see. Admit here vs transfer. Last updated by Tuyet Merida MD at 05/01/23 08:13 Discharge Plan Disposition Patient Disposition: Admit to [facility] Discharge Details Chief Complaint: Abd Prob Clinical Impression: Paracolic abscess, Ileus, Bowel perforation, Malignancy Primary Care Provider: Tiera Choudhury ED Provider: Roger Alcantar [place] Meds and New Rx's Prescriptions: No Action pantoprazole 40 mg tablet,delayed release (DR/EC) 40 mg PO DAILY Qty: 90 3RF ferrous sulfate 325 mg (65 mg iron) tablet 325 mg PO DAILY Qty: 90 3RF acetaminophen 650 mg tablet extended release 1,300 mg PO Q12H
--- NOTE | 2023-05-01 09:32 | W.PM.HP.N ---
Date of service: 05/01/23 Time of Service: 09:32 Assessment and Plan Assessment and plan (1) Bowel perforation: Status: Acute Assessment and plan: the patient is hemodynamically stable. she is exquisitely tender on exam. I do not think she would be able to tolerate a bowel prep. The recommendation was made for exploratory laparotomy with right hemicolectomy for presumed right colon cancer with perforation. the risk and the benefits of the procedure were explained to the patient. the patient indicated that she understood. - to OR today - IVF resuscitation - Type and screen, PT, INR. discussed case with blood bank. - preop antibiotics - dvt prophylaxis - admit to ICU postop (2) Paracolic abscess: Status: Acute Assessment and plan: same as above History of Present Illness History of Present Illness Chief Complaint: abdominal pain Narrative: This patient is a pleasant 82 yo female present to the emergency department with complaints of acute onset of abdominal pain overnight. On 04/29/23 the patient had a colonoscopy which demonstrated a fungating mass in the ascending colon. In the emergency department the patient had a CT scan that demonstrated abscess in the right colon associated with right colon mass. There is also suspicion for liver metastasis. The patient was hemodynamically stable. On exam the patient was exquisitely tender. WBC 9.4K, hgb 9.3/32.0. Review of Systems All systems reviewed & are unremarkable except as noted in HPI and below PFSH All Active Problems (Updated 05/01/23 @ 07:23 by Tuyet Merida MD) Malignancy (Acute) Bowel perforation (Acute) Ileus (Acute) Paracolic abscess (Acute) Screen for colon cancer (Acute) Pre-diabetes (Acute ~03/2023) A1C 5.75% Esophagitis (Acute) Acute hemorrhagic gastritis (Acute ~09/2022) GI bleed due to NSAIDs (Acute ~09/2022) Iron deficiency anemia (Acute ~09/2022) Generalized osteoarthritis (Acute) Subclinical hypothyroidism (Chronic 02/04/11) Lumbar radiculopathy, acute (Acute 06/12/14) 12/2022 Other and unspecified hyperlipidemia (Chronic 03/05/15) GERD (gastroesophageal reflux disease) (Chronic 05/07/14) Takes 2-week courses of omeprazole PRN with good relief for several months Eczema (Chronic 02/16/13) Hands Medical History (Updated 05/01/23 @ 07:23 by Tuyet Merida MD) COVID Symptoms resolved 04/13/23 Erythema migrans (Lyme disease) 1 week post tick bite, short-term stay per pt report .. but Doxy x 10 days started, ik BPPV (benign paroxysmal positional vertigo) BCC (basal cell carcinoma), face (06/11/16) and left medial ankle 10/2018 Right lower lateral neck - removed at 10/06/22 Surgical History (Updated 04/29/23 @ 15:26 by Mackenzie Robert) History of colonoscopy (~04/2023) History of esophagogastroduodenoscopy (~04/2023) Open Carpal Tunnel release no date given by pt.HE Exc BBC rgt forehead (06/22/16) Biopsy of breast pt did not state date.HE Family History Father Alcohol abuse Brother Bladder cancer Social History Smoking/Tobacco Use Status: Never Smoking risk assessment performed?: Yes Alcohol Intake: current Alcohol Intake frequency: a few times a week Drug use: Never Substance use type: does not use Adopted: No Caregiver/Support person: No Foster care: No Household members: spouse Housing: house Number of Children: 0 number of grandchildren: 0 Communication Needs: Corrective Lenses Education Level: college 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 Pets and animals: No Sexually active: No Do you think of yourself as: straight/heterosexual Current gender identity: male What is your relationship status?: How often do you talk on the phone with friends or family?: three or more times per week How often do you get together with friends or relatives?: three or more times per week Do you belong to any clubs or organized social groups?: yes Panel score (0-1 are the most socially isolated patients): 3 What type of physical activity do you participate in: weight lifting and other Details: water aerobics Duration: < 15 minutes/day Frequency: 1-2 times per week Romi/Adventist: Jainism Special romi needs: No Seatbelt use: always Drive intox or ride w/intox public transit bus driver: No Do you feel safe at home: Yes Do you feel safe in your relationship?: Yes Meds Allergies and Home Medications Allergies Allergy/AdvReac Type Severity Reaction Status Date / Time NSAIDS (Non-Steroidal AdvReac Severe GI Bleeding Verified 05/01/23 03:14 Anti-Inflamma aspirin AdvReac ? Verified 05/01/23 03:14 INCREASED HR Home Medications Medication Instructions Recorded Confirmed Type acetaminophen 650 mg 1,300 mg PO Q12H 11/18/22 05/01/23 History tablet,extended release ferrous sulfate 325 mg (65 mg 325 mg PO DAILY #90 tabs 03/25/23 05/01/23 Rx iron) tablet pantoprazole 40 mg tablet,delayed 40 mg PO DAILY #90 tabs 03/25/23 05/01/23 Rx release Exam Eyes General: appearance normal, both eyes and all related structures Alignment and Position: alignment normal and position normal Sclera: sclerae normal Chest Chest: normal inspection of the chest Resp Effort & Inspection: normal respiratory effort and able to speak in complete sentences Auscultation: clear to auscultation bilaterally Cardio Jugular venous pressure: no JVD Rate: regular rate Rhythm: regular rhythm GI Inspection: normal to inspection Palpation: soft Other: abdomen rotound. exquisitely tender to rebound and percussion.no surgical scars Skin General skin exam: no rashes or lesions noted Lesions: no lesions Psych Appearance: grossly normal Speech and Movement: speech and movement normal Affect: normal affect Results Labs 05/01/23 03:38 05/01/23 03:38 Labs: Laboratory Results - last 24 hr 05/01/23 03:38 WBC 9.81 RBC 4.12 Hgb 9.3 L Hct 32.0 L MCV 78 L MCH 22.6 L MCHC 29.1 L RDW 16.4 H Plt Count 467 H MPV 9.6 Immature Gran % 0.4 Neutrophils % 76.3 Lymphocytes % 15.7 Monocytes % 5.8 Eosinophils % 1.4 Basophils % 0.4 Nucleated RBC % 0.0 Absolute Neutrophils 7.48 H Absolute Lymphocytes 1.54 Absolute Monocytes 0.57 Absolute Eosinophils 0.14 Absolute Basophils 0.04 VBG Lactate 0.9 Sodium 139 Potassium 4.0 Chloride 104 Carbon Dioxide 28.6 Anion Gap 6.4 BUN 14 Creatinine 0.8 Est GFR (CKD-EPI 2020) 73.52 Glucose 170 H Calcium 9.0 Total Bilirubin 0.2 AST 12 L ALT 15 Alkaline Phosphatase 93 Total Protein 6.5 Albumin 2.6 L Lipase 24 Last Vital Signs Temp 98.3 F 05/01/23 04:41 Pulse 100 H 05/01/23 07:16 Resp 16 05/01/23 04:41 BP 110/52 L 05/01/23 07:16 Pulse Ox 95 05/01/23 07:26 Time Spent Time spent with Patient: >75 minutes Time was spent: preparing to see the patient(eg.review tests), obtaining and/or reviewing separately otained hiistory, ordering medications,tests, procedures, referring, communicating with other health careers counsellor, indepentently interpreting results, counseling the patient and care coordination
[2023-05-01 09:33] LABS: INR 1.1 (0.9-1.1); Prothrombin Time 11.3 sec (9.1-11.1)
[2023-05-01] MEDS: Normal Saline 1,000 ML 75 ML IV (10:10)
[2023-05-01] MEDS: HYDROmorphone 2 MG/ML SYR 1 MG IVP ×2 (10:14→17:10)
--- NOTE | 2023-05-01 10:25 | ANES.PREOP_ITS ---
General Info Date of Service Date Performed: 05/01/23 Weight: 64.7 kg Surgical Procedure: Operation Date: 05/01/23 10:20 Proposed Procedure Side Surgeon p Exploratory Laparotomy Not Applicable Tiera Ward DO Meds Allergies and Home Medications Allergies Allergy/AdvReac Type Severity Reaction Status Date / Time NSAIDS (Non-Steroidal AdvReac Severe GI Bleeding Verified 05/01/23 03:14 Anti-Inflamma aspirin AdvReac ? Verified 05/01/23 03:14 INCREASED HR Home Medication Medication Instructions Recorded acetaminophen 650 mg 1,300 mg PO Q12H 11/18/22 tablet,extended release ferrous sulfate 325 mg (65 mg 325 mg PO DAILY #90 tabs 03/25/23 iron) tablet pantoprazole 40 mg tablet,delayed 40 mg PO DAILY #90 tabs 03/25/23 release Current Visit Medications: Current Medications Generic Name Dose Route Start Last Admin Trade Name Freq PRN Reason Stop Dose Admin Sodium Chloride 1,000 mls @ 75 mls/hr 05/01/23 09:30 05/01/23 10:10 Saline 1000ml Bag IV 75 mls/hr INFUSION LYNDSEY Administration Cefoxitin Sodium 2 gm/ Sodium 50 mls @ 100 mls/hr 05/01/23 10:00 Chloride IV PREOP LYNDSEY IV Miscellaneous Supplies 1 each 05/01/23 09:30 Iv Access IV DIRECTED LYNDSEY Iohexol 100 ml 05/01/23 04:45 05/01/23 04:35 Omnipaque 350 Mg/Ml 100 Ml Btl IJ 05/31/23 23:59 100 ml DIRECTED LYNDSEY Administration Morphine Sulfate 4 mg 05/01/23 06:23 05/01/23 06:30 Morphine 4 Mg/Ml Syr IVP 4 mg Q1H PRN PRN Administration Sodium Chloride 50 ml 05/01/23 04:45 05/01/23 04:36 Normal Saline - Diluent 50 Ml Vial IJ 50 ml .FOR DI USE LYNDSEY Administration Sodium Chloride 0 ml 05/01/23 04:36 05/01/23 04:36 Normal Saline Flush 10 Ml Syr IVP 10 ml PRN PRN Administration Sodium Chloride 0 ml 05/01/23 09:16 Normal Saline Flush 10 Ml Syr IVP PRN PRN Sodium Chloride 0 ml 05/01/23 20:00 Normal Saline Flush 10 Ml Syr IVP BID LYNDSEY Sodium Chloride 0 ml 05/01/23 09:16 Normal Saline 10 Ml Vial IJ DIRECTED PRN PFSH Active Problems Active Problems: Problem Status Onset Code Malignancy C80.1 Bowel perforation K63.1 Ileus K56.7 Paracolic abscess K63.0 Screen for colon cancer Z12.11 Pre-diabetes ~03/2023 R73.03 Esophagitis K20.90 Acute hemorrhagic gastritis ~09/2022 K29.01 GI bleed due to NSAIDs ~09/2022 K92.2, T39.395A Iron deficiency anemia ~09/2022 D50.9 Generalized osteoarthritis M15.9 Subclinical hypothyroidism 02/04/11 E03.9 Lumbar radiculopathy, acute 06/12/14 M54.16 Other and unspecified hyperlipidemia 03/05/15 E78.5 GERD (gastroesophageal reflux disease) 05/07/14 K21.9 Eczema 02/16/13 L30.9 Medical History Medical History (Updated 05/01/23 @ 07:23 by Tuyet Merida MD) COVID Symptoms resolved 04/13/23 Erythema migrans (Lyme disease) 1 week post tick bite, short-term stay per pt report .. but Doxy x 10 days started, ik BPPV (benign paroxysmal positional vertigo) BCC (basal cell carcinoma), face (06/11/16) and left medial ankle 10/2018 Right lower lateral neck - removed at 10/06/22 Surgical History Surgical History (Updated 04/29/23 @ 15:26 by Mackenzie Robert) History of colonoscopy (~04/2023) History of esophagogastroduodenoscopy (~04/2023) Open Carpal Tunnel release no date given by pt.HE Exc BBC rgt forehead (06/22/16) Biopsy of breast pt did not state date.HE Tobacco Smoking/Tobacco Use Status: Never Alcohol Alcohol Intake: current Alcohol intake frequency: a few times a week Substance Use Substance use: Never Substance use type: does not use Vital Signs and Lab Results Vital Signs Most Recent Vital Signs in EMR: Most Recent Vital Signs Temp Pulse Resp BP Pulse Ox 36.8 C 100 H 16 110/52 L 95 05/01/23 04:41 05/01/23 07:16 05/01/23 04:41 05/01/23 07:16 05/01/23 07:26 Lab Results 05/01/23 03:38 05/01/23 03:38 Blood Type / Crossmatch: 2 Patient ABO/Rh O Positive 05/01/23 Antibody Screen NEGATIVE 05/01/23 Complete Blood Count: 2 White Blood Count 9.81 10^3/uL (4.4-10.8) 05/01/23 03:38 Red Blood Count 4.12 10^6/uL (3.93-5.22) 05/01/23 03:38 Hemoglobin 9.3 g/dL (11.2-15.7) L 05/01/23 03:38 Hematocrit 32.0 % (36.0-46.0) L 05/01/23 03:38 Platelet Count 467 10^3/uL (130-400) H 05/01/23 03:38 Venous Blood Lactate 0.9 mmol/L (0.6-1.4) 05/01/23 03:38 Complete Metabolic Panel: 2 Sodium 139 mmol/L (136-145) 05/01/23 03:38 Potassium 4.0 mmol/L (3.5-5.1) 05/01/23 03:38 Chloride 104 mmol/L (98-107) 05/01/23 03:38 Carbon Dioxide 28.6 mmol/L (21.0-32.0) 05/01/23 03:38 BUN 14 mg/dL (7-18) 05/01/23 03:38 Creatinine 0.8 mg/dL (0.55-1.02) 05/01/23 03:38 Est GFR (CKD-EPI 2020) 73.52 (mL/min/1.73m2) 05/01/23 03:38 Calcium 9.0 mg/dL (8.5-10.1) 05/01/23 03:38 Albumin 2.6 g/dL (3.4-5.0) L 05/01/23 03:38 Glucose 170 mg/dL (74-106) H 05/01/23 03:38 Liver Function Panel: 2 Alanine Aminotransferase (ALT/SGPT) 15 U/L (14-59) 05/01/23 03: 38 Aspartate Amino Transf (AST/SGOT) 12 U/L (15-37) L 05/01/23 03: 38 Coagulation Panel: 2 INR International Normalized Ratio 1.1 (0.9-1.1) 05/01/23 09:1 5 Prothrombin Time 11.3 sec (9.1-11.1) H 05/01/23 09:15 Cardiac Panel: 2 No Data to Display Arterial Blood Gas: 2 No Data to Display Venous Blood Gas: 2 No Data to Display Pancreas Panel: 2 Lipase 24 U/L (16-77) 05/01/23 03:38 Thyroid Panel: 2 No Data to Display Infectious Disease: 2 No Data to Display Blood Cultures: 2 No Data to Display Toxicology Panel: 2 No Data to Display Imaging and Studies Imaging and Studies Study information below may be from another EMR and interpreted by another provider. Please see original notes in EMR for more complete details. EKG Summary: Conclusion Sinus rhythm...normal P axis, V-rate 50- 99 Borderline left axis deviation...QRS axis (-15,-29) Low voltage, precordial leads...precordial leads <1.0mV Otherwise normal ECG 09/23/22 Stress Test Summary: Impressions: Normal study after maximal exercise. Summary: Stress: Exercise capacity is above normal for age. 02/22/15 Anesthesia Assessment and Plan Anesthesia History Personal History: No History of Anesthesia Complications Family History: No Family History of Anesthesia Complications Exercise Tolerance Exercise Tolerance: Metabolic Equivalents>4 Implantable Cardiac Device Does patient have a Pacemaker or an ICD?: No Airway Exam Known Difficult Airway: No Mallampati Class: 3 Mouth Opening: Normal (> 3cm) Thyromental Distance: Less than 3 cm Neck Range of Motion: Full ROM Neck Circumference: Normal Teeth Condition: Normal Dentition
--- NOTE | 2023-05-01 10:40 | ANES.PREOP_ITS ---
General Info Date of Service Date Performed: 05/01/23 Height: 5 ft 3 in Weight: 64.7 kg Body Mass Index (BMI): 25.2 Surgical Procedure: Operation Date: 05/01/23 10:20 Proposed Procedure Side Surgeon p Exploratory Laparotomy Not Applicable Tiera Ward, Meds Allergies and Home Medications Allergies Allergy/AdvReac Type Severity Reaction Status Date / Time NSAIDS (Non-Steroidal AdvReac Severe GI Bleeding Verified 05/01/23 03:14 Anti-Inflamma aspirin AdvReac ? Verified 05/01/23 03:14 INCREASED HR Home Medication Medication Instructions Recorded acetaminophen 650 mg 1,300 mg PO Q12H 11/18/22 tablet,extended release ferrous sulfate 325 mg (65 mg 325 mg PO DAILY #90 tabs 03/25/23 iron) tablet pantoprazole 40 mg tablet,delayed 40 mg PO DAILY #90 tabs 03/25/23 release Current Visit Medications: Current Medications Generic Name Dose Route Start Last Admin Trade Name Freq PRN Reason Stop Dose Admin Sodium Chloride 1,000 mls @ 75 mls/hr 05/01/23 09:30 05/01/23 10:10 Saline 1000ml Bag IV 75 mls/hr INFUSION LYNDSEY Administration Cefoxitin Sodium 2 gm/ Sodium 50 mls @ 100 mls/hr 05/01/23 10:00 Chloride IV PREOP LYNDSEY IV Miscellaneous Supplies 1 each 05/01/23 09:30 Iv Access IV DIRECTED LYNDSEY Iohexol 100 ml 05/01/23 04:45 05/01/23 04:35 Omnipaque 350 Mg/Ml 100 Ml Btl IJ 05/31/23 23:59 100 ml DIRECTED LYNDSEY Administration Morphine Sulfate 4 mg 05/01/23 06:23 05/01/23 06:30 Morphine 4 Mg/Ml Syr IVP 4 mg Q1H PRN PRN Administration Sodium Chloride 50 ml 05/01/23 04:45 05/01/23 04:36 Normal Saline - Diluent 50 Ml Vial IJ 50 ml .FOR DI USE LYNDSEY Administration Sodium Chloride 0 ml 05/01/23 04:36 05/01/23 04:36 Normal Saline Flush 10 Ml Syr IVP 10 ml PRN PRN Administration Sodium Chloride 0 ml 05/01/23 09:16 Normal Saline Flush 10 Ml Syr IVP PRN PRN Sodium Chloride 0 ml 05/01/23 20:00 Normal Saline Flush 10 Ml Syr IVP BID LYNDSEY Sodium Chloride 0 ml 05/01/23 09:16 Normal Saline 10 Ml Vial IJ DIRECTED PRN PFSH Active Problems Active Problems: Problem Status Onset Code Malignancy C80.1 Bowel perforation K63.1 Ileus K56.7 Paracolic abscess K63.0 Screen for colon cancer Z12.11 Pre-diabetes ~03/2023 R73.03 Esophagitis K20.90 Acute hemorrhagic gastritis ~09/2022 K29.01 GI bleed due to NSAIDs ~09/2022 K92.2, T39.395A Iron deficiency anemia ~09/2022 D50.9 Generalized osteoarthritis M15.9 Subclinical hypothyroidism 02/04/11 E03.9 Lumbar radiculopathy, acute 06/12/14 M54.16 Other and unspecified hyperlipidemia 03/05/15 E78.5 GERD (gastroesophageal reflux disease) 05/07/14 K21.9 Eczema 02/16/13 L30.9 Medical History Medical History (Updated 05/01/23 @ 07:23 by Tuyet Merida MD) COVID Symptoms resolved 04/13/23 Erythema migrans (Lyme disease) 1 week post tick bite, short-term stay per pt report .. but Doxy x 10 days started, ik BPPV (benign paroxysmal positional vertigo) BCC (basal cell carcinoma), face (06/11/16) and left medial ankle 10/2018 Right lower lateral neck - removed at 10/06/22 Surgical History Surgical History (Updated 04/29/23 @ 15:26 by Mackenzie Robert) History of colonoscopy (~04/2023) History of esophagogastroduodenoscopy (~04/2023) Open Carpal Tunnel release no date given by pt.HE Exc BBC rgt forehead (06/22/16) Biopsy of breast pt did not state date.HE Tobacco Smoking/Tobacco Use Status: Never Alcohol Alcohol Intake: current Alcohol intake frequency: a few times a week Substance Use Substance use: Never Substance use type: does not use Vital Signs and Lab Results Vital Signs Most Recent Vital Signs in EMR: Most Recent Vital Signs Temp Pulse Resp BP Pulse Ox 36.8 C 115 H 32 H 128/54 L 97 05/01/23 04:41 05/01/23 10:31 05/01/23 10:31 05/01/23 10:31 05/01/23 10:31 Lab Results 05/01/23 03:38 05/01/23 03:38 Blood Type / Crossmatch: 2 Patient ABO/Rh O Positive 05/01/23 Antibody Screen NEGATIVE 05/01/23 Complete Blood Count: 2 White Blood Count 9.81 10^3/uL (4.4-10.8) 05/01/23 03:38 Red Blood Count 4.12 10^6/uL (3.93-5.22) 05/01/23 03:38 Hemoglobin 9.3 g/dL (11.2-15.7) L 05/01/23 03:38 Hematocrit 32.0 % (36.0-46.0) L 05/01/23 03:38 Platelet Count 467 10^3/uL (130-400) H 05/01/23 03:38 Venous Blood Lactate 0.9 mmol/L (0.6-1.4) 05/01/23 03:38 Complete Metabolic Panel: 2 Sodium 139 mmol/L (136-145) 05/01/23 03:38 Potassium 4.0 mmol/L (3.5-5.1) 05/01/23 03:38 Chloride 104 mmol/L (98-107) 05/01/23 03:38 Carbon Dioxide 28.6 mmol/L (21.0-32.0) 05/01/23 03:38 BUN 14 mg/dL (7-18) 05/01/23 03:38 Creatinine 0.8 mg/dL (0.55-1.02) 05/01/23 03:38 Est GFR (CKD-EPI 2020) 73.52 (mL/min/1.73m2) 05/01/23 03:38 Calcium 9.0 mg/dL (8.5-10.1) 05/01/23 03:38 Albumin 2.6 g/dL (3.4-5.0) L 05/01/23 03:38 Glucose 170 mg/dL (74-106) H 05/01/23 03:38 Liver Function Panel: 2 Alanine Aminotransferase (ALT/SGPT) 15 U/L (14-59) 05/01/23 03: 38 Aspartate Amino Transf (AST/SGOT) 12 U/L (15-37) L 05/01/23 03: 38 Coagulation Panel: 2 INR International Normalized Ratio 1.1 (0.9-1.1) 05/01/23 09:1 5 Prothrombin Time 11.3 sec (9.1-11.1) H 05/01/23 09:15 Cardiac Panel: 2 No Data to Display Arterial Blood Gas: 2 No Data to Display Venous Blood Gas: 2 No Data to Display Pancreas Panel: 2 Lipase 24 U/L (16-77) 05/01/23 03:38 Thyroid Panel: 2 No Data to Display Infectious Disease: 2 No Data to Display Blood Cultures: 2 No Data to Display Toxicology Panel: 2 No Data to Display Imaging and Studies Imaging and Studies Study information below may be from another EMR and interpreted by another provider. Please see original notes in EMR for more complete details. EKG Summary: Conclusion Sinus rhythm...normal P axis, V-rate 50- 99 Borderline left axis deviation...QRS axis (-15,-29) Low voltage, precordial leads...precordial leads <1.0mV Otherwise normal ECG 09/23/22 Stress Test Summary: Impressions: Normal study after maximal exercise. Summary: Stress: Exercise capacity is above normal for age. 02/22/15 Anesthesia Assessment and Plan Anesthesia History Personal History: No History of Anesthesia Complications Family History: No Family History of Anesthesia Complications Exercise Tolerance Exercise Tolerance: Metabolic Equivalents>4 Pertinent Negatives Pertinent Negatives: No Symptoms of GERD Cardiac & Pulmonary Exam Cardiac Exam: Normal S1/S2 Heart Sounds Pulmonary Exam: Clear Bilateral Breath Sounds Implantable Cardiac Device Does patient have a Pacemaker or an ICD?: No Airway Exam Known Difficult Airway: No Mallampati Class: 3 Mouth Opening: Normal (> 3cm) Thyromental Distance: Less than 3 cm Neck Range of Motion: Full ROM Neck Circumference: Normal Teeth Condition: Normal Dentition ASA Classification ASA Score: ASA 3 Emergency Case?: Yes NPO Status NPO Status: NPO Clears >2 hours, Solids >8 hours Anesthesia Plan Resuscitation Status: Full Code Anesthesia Technique: General Anesthesia Airway Planned: Endotracheal Tube Monitors Used: Standard Monitors, Arterial Line, Central Line and SedLine
[2023-05-01] MEDS: Lactated Ringers 1,000 ML 100 ML IV (11:48)
[2023-05-01] MEDS: cefOXitin 2 GM in Normal Saline 50 ML IV (11:48)
--- NOTE | 2023-05-01 13:23 | ANES.PREOP_ITS ---
General Info Date of Service Date Performed: 05/01/23 Height: 5 ft 3 in Weight: 64.7 kg Body Mass Index (BMI): 25.2 Surgical Procedure: Operation Date: 05/01/23 10:20 Proposed Procedure Side Surgeon p Exploratory Laparotomy Not Applicable Tiera Ward, Meds Allergies and Home Medications Allergies Allergy/AdvReac Type Severity Reaction Status Date / Time NSAIDS (Non-Steroidal AdvReac Severe GI Bleeding Verified 05/01/23 03:14 Anti-Inflamma aspirin AdvReac ? Verified 05/01/23 03:14 INCREASED HR Home Medication Medication Instructions Recorded acetaminophen 650 mg 1,300 mg PO Q12H 11/18/22 tablet,extended release ferrous sulfate 325 mg (65 mg 325 mg PO DAILY #90 tabs 03/25/23 iron) tablet pantoprazole 40 mg tablet,delayed 40 mg PO DAILY #90 tabs 03/25/23 release Current Visit Medications: Current Medications Generic Name Dose Route Start Last Admin Trade Name Freq PRN Reason Stop Dose Admin Sodium Chloride 1,000 mls @ 75 mls/hr 05/01/23 09:30 05/01/23 10:10 Saline 1000ml Bag IV 75 mls/hr INFUSION LYNDSEY Administration Cefoxitin Sodium 2 gm/ Sodium 50 mls @ 100 mls/hr 05/01/23 10:00 05/01/23 11:58 Chloride IV 100 mls/hr PREOP LYNDSEY Titration IV Miscellaneous Supplies 1 each 05/01/23 09:30 Iv Access IV DIRECTED LYNDSEY Morphine Sulfate 4 mg 05/01/23 06:23 05/01/23 06:30 Morphine 4 Mg/Ml Syr IVP 4 mg Q1H PRN PRN Administration Sodium Chloride 0 ml 05/01/23 09:16 Normal Saline Flush 10 Ml Syr IVP PRN PRN Sodium Chloride 0 ml 05/01/23 20:00 Normal Saline Flush 10 Ml Syr IVP BID LYNDSEY Sodium Chloride 0 ml 05/01/23 09:16 Normal Saline 10 Ml Vial IJ DIRECTED PRN PFSH Active Problems Active Problems: Problem Status Onset Code Malignancy C80.1 Bowel perforation K63.1 Ileus K56.7 Paracolic abscess K63.0 Screen for colon cancer Z12.11 Pre-diabetes ~03/2023 R73.03 Esophagitis K20.90 Acute hemorrhagic gastritis ~09/2022 K29.01 GI bleed due to NSAIDs ~09/2022 K92.2, T39.395A Iron deficiency anemia ~09/2022 D50.9 Generalized osteoarthritis M15.9 Subclinical hypothyroidism 02/04/11 E03.9 Lumbar radiculopathy, acute 06/12/14 M54.16 Other and unspecified hyperlipidemia 03/05/15 E78.5 GERD (gastroesophageal reflux disease) 05/07/14 K21.9 Eczema 02/16/13 L30.9 Medical History Medical History (Updated 05/01/23 @ 07:23 by Tuyet Merida MD) COVID Symptoms resolved 04/13/23 Erythema migrans (Lyme disease) 1 week post tick bite, short-term stay per pt report .. but Doxy x 10 days started, ik BPPV (benign paroxysmal positional vertigo) BCC (basal cell carcinoma), face (06/11/16) and left medial ankle 10/2018 Right lower lateral neck - removed at 10/06/22 Surgical History Surgical History (Updated 04/29/23 @ 15:26 by Mackenzie Robert) History of colonoscopy (~04/2023) History of esophagogastroduodenoscopy (~04/2023) Open Carpal Tunnel release no date given by pt.HE Exc BBC rgt forehead (06/22/16) Biopsy of breast pt did not state date.HE Tobacco Smoking/Tobacco Use Status: Never Alcohol Alcohol Intake: current Alcohol intake frequency: a few times a week Substance Use Substance use: Never Substance use type: does not use Vital Signs and Lab Results Vital Signs Most Recent Vital Signs in EMR: Most Recent Vital Signs Temp Pulse Resp BP Pulse Ox 37.2 C 115 H 24 128/54 L 97 05/01/23 10:57 05/01/23 10:57 05/01/23 10:57 05/01/23 10:57 05/01/23 10:57 Lab Results 05/01/23 03:38 05/01/23 03:38 Blood Type / Crossmatch: 2 Patient ABO/Rh O Positive 05/01/23 Antibody Screen NEGATIVE 05/01/23 Complete Blood Count: 2 White Blood Count 9.81 10^3/uL (4.4-10.8) 05/01/23 03:38 Red Blood Count 4.12 10^6/uL (3.93-5.22) 05/01/23 03:38 Hemoglobin 9.3 g/dL (11.2-15.7) L 05/01/23 03:38 Hematocrit 32.0 % (36.0-46.0) L 05/01/23 03:38 Platelet Count 467 10^3/uL (130-400) H 05/01/23 03:38 Venous Blood Lactate 0.9 mmol/L (0.6-1.4) 05/01/23 03:38 Complete Metabolic Panel: 2 Sodium 139 mmol/L (136-145) 05/01/23 03:38 Potassium 4.0 mmol/L (3.5-5.1) 05/01/23 03:38 Chloride 104 mmol/L (98-107) 05/01/23 03:38 Carbon Dioxide 28.6 mmol/L (21.0-32.0) 05/01/23 03:38 BUN 14 mg/dL (7-18) 05/01/23 03:38 Creatinine 0.8 mg/dL (0.55-1.02) 05/01/23 03:38 Est GFR (CKD-EPI 2020) 73.52 (mL/min/1.73m2) 05/01/23 03:38 Calcium 9.0 mg/dL (8.5-10.1) 05/01/23 03:38 Albumin 2.6 g/dL (3.4-5.0) L 05/01/23 03:38 Glucose 170 mg/dL (74-106) H 05/01/23 03:38 Liver Function Panel: 2 Alanine Aminotransferase (ALT/SGPT) 15 U/L (14-59) 05/01/23 03: 38 Aspartate Amino Transf (AST/SGOT) 12 U/L (15-37) L 05/01/23 03: 38 Coagulation Panel: 2 INR International Normalized Ratio 1.1 (0.9-1.1) 05/01/23 09:1 5 Prothrombin Time 11.3 sec (9.1-11.1) H 05/01/23 09:15 Cardiac Panel: 2 No Data to Display Arterial Blood Gas: 2 No Data to Display Venous Blood Gas: 2 No Data to Display Pancreas Panel: 2 Lipase 24 U/L (16-77) 05/01/23 03:38 Thyroid Panel: 2 No Data to Display Infectious Disease: 2 No Data to Display Blood Cultures: 2 No Data to Display Toxicology Panel: 2 No Data to Display Imaging and Studies Imaging and Studies Study information below may be from another EMR and interpreted by another provider. Please see original notes in EMR for more complete details. EKG Summary: Conclusion Sinus rhythm...normal P axis, V-rate 50- 99 Borderline left axis deviation...QRS axis (-15,-29) Low voltage, precordial leads...precordial leads <1.0mV Otherwise normal ECG 09/23/22 Stress Test Summary: Impressions: Normal study after maximal exercise. Summary: Stress: Exercise capacity is above normal for age. 02/22/15 Anesthesia Assessment and Plan Anesthesia History Personal History: No History of Anesthesia Complications Family History: No Family History of Anesthesia Complications Exercise Tolerance Exercise Tolerance: Metabolic Equivalents>4 Pertinent Negatives Pertinent Negatives: No Symptoms of GERD Cardiac & Pulmonary Exam Cardiac Exam: Normal S1/S2 Heart Sounds Pulmonary Exam: Clear Bilateral Breath Sounds Implantable Cardiac Device Does patient have a Pacemaker or an ICD?: No Airway Exam Known Difficult Airway: No Mallampati Class: 3 Mouth Opening: Normal (> 3cm) Thyromental Distance: Less than 3 cm Neck Range of Motion: Full ROM Neck Circumference: Normal Teeth Condition: Normal Dentition ASA Classification ASA Score: ASA 3 Emergency Case?: Yes NPO Status NPO Status: NPO Clears >2 hours, Solids >8 hours (Bowel perforation) Anesthesia Plan Resuscitation Status: Full Code Anesthesia Technique: General Anesthesia Airway Planned: Endotracheal Tube Monitors Used: Standard Monitors, Arterial Line, Central Line, SedLine and POCUS
--- NOTE | 2023-05-01 13:27 | W.ANESVAS ---
Arterial Line Placement Date Performed: 05/01/23 Procedure Time: 12:00 Procedure Location: Operating Room Requesting Provider: Tiera Ward Timeout Performed: Yes Sedation Given (Indicate Dose Given): Other: Medication/Route/Dose:: GA Patient Mental Status: Performed under general anesthesia Sterility: Hand Hygiene, Surgical Cap, Surgical Mask, Sterile Gloves, Sterile Drape/Sheet, Eye Protection and Chlorhexidine Laterality: Right Insertion Site: Radial Arterial Line Catheter: 20G Arrow Arterial Line Procedure: Vessel accessed with catheter over needle, Guidewire placed with ease, Catheter placed without resistance and Guidewire removed Dressing: Tegaderm Applied and Mastisol Used Ultrasound: Sterile probe cover and gel used Ultrasound Image Saved?: No Number of Attempts (See previous attempts in note section): 1 Procedure Tolerated: No Complications Procedure Outcome: Successful Performed By: Je Elena
--- NOTE | 2023-05-01 13:30 | W.ANESVAS ---
Central Venous Line Placement Date Performed: 05/01/23 Procedure Time: 12:50 Procedure Location: Operating Room Requesting Provider: Tiera Ward Standard Monitors Applied: ECG, Blood Pressure, SpO2 and ETCO2 Pt. Position: Supine Timeout Performed: Yes Sedation Given (Indicate Dose Given): Other: Medication/Route/Dose:: GA Patient Mental Status: Performed under general anesthesia Sterility: Hand Hygiene, Surgical Cap, Surgical Mask, Sterile Gloves, Sterile Drape/Sheet, Sterile Gown, Eye Protection and Chlorhexidine Laterality: Right Insertion Site: Internal Jugular (IJ) Central Line Type: Triple Lumen Catheter (20cm) Insertion Procedure: Vessel accessed with needle, Guidewire placed with ease, Extension tubing fills with blood, then empties easily with gravity, Dilator placed without resistance, Introducer/Catheter placed without resistance, Guidewire removed and Claves placed, blood withdrawn, ports flushed and clamped Dressing: Tegaderm Applied and BioPatch Catheter Depth at Skin (cm): 15 Placement Confirmation: Other (Ultrasound confirmation, will follow up with CXR post-op) Ultrasound: Sterile probe cover and gel used Ultrasound Image Saved?: No Number of Attempts (See previous attempts in note section): 1 Procedure Tolerated: No Complications and Patient tolerated well Procedure Outcome: Successful Performed By: Je Elena
[2023-05-01] MEDS: Bupivacaine 0.25% Pres-Free 30 ML VIAL (13:46)
--- NOTE | 2023-05-01 14:23 | W.ANESNERVE ---
Nerve Block Single Injection Procedure Date and Time Date Performed: 05/01/23 Procedure Start: 14:00 Location Where Procedure Performed Procedure Location: Operating Room Procedure Stop: 14:20 Reason Performed: Postoperative Analgesia Requesting Provider: Tiera Ward Timeout Performed Timeout Performed: Yes Monitoring Used ECG, Blood Pressure, SpO2, ETCO2 and See EMR for corresponding vital signs Sterility Sterility: Hand Hygiene, Surgical Cap, Surgical Mask, Sterile Gloves and Chlorhexidine Sedation Given During Procedure Sedation Given (Indicate Dose Given): Other: Medication/Route/Dose:: GA Patient Mental Status Patient Mental Status: Performed under general anesthesia Nerve Block 1st Nerve Block: Laterality: Bilateral Block Type: TAP Bilateral Ultrasound Image Saved?: Yes Needle / Catheter Used: 100mm SonoPlex II Local Anesthetic Bolus (Indicate Dose Given): Injected in 3-5ml increments after negative blood aspiration, Half of Total block solution given into each side, Bupivacaine 0.25% Dose:: 0.25%/30cc (75mg) and Exparel Dose:: 1.33%/10cc (133mg) Additives (Indicate Dose Given): None Ultrasound: Sterile probe cover and gel used Nerve Stimulator: Not Used Paresthesia: None Procedure Tolerated: No Complications and Patient tolerated well Procedure Outcome: Successful Performed By: Je Elena
--- NOTE | 2023-05-01 14:38 | ROE_ITS ---
Date of service: 05/01/23 Time of Service: 14:38 Operative Note Operative Note DATE OF PROCEDURE: 05/01/23 PRE-OP DIAGNOSIS: Right colon mass with abscess POST-OP DIAGNOSIS: same Perforated right colon mass with abscess and purulent peritonitis PROCEDURE: Exploratory laparotomy with right hemicolectomy with primary stapled anastomosis, peritoneal lavage SURGEON: Tiera Ward ANESTHESIA TYPE: MAC Refer to Anesthesia Record ESTIMATED BLOOD LOSS: 25 PATHOLOGY: other (1. Terminal ileum, right colon mid transverse colon 2. Portion of right colon wall with mass) Patient was transported to: ICU Patient's condition: stable Indications: This patient is a pleasant 82-year-old female with a history of iron deficiency anemia. She underwent colonoscopy on 04/29/2023 and was found to have a mass in the right colon. Plan was for outpatient workup. Patient presents emergency department with complaints of abdominal pain. CT scan of the abdomen d emonstrated right colon mass with abscess. On physical examination the patient's abdomen was exquisitely tender. The recommendation was made for exploratory laparotomy with right hemicolectomy possible ostomy. The risk and benefits of procedure were explained to the patient. Informed consent was obtained and placed on the chart. Findings: Perforated right colon mass in the region of the hepatic flexure. Apparently the colon mass extended outside the wall of the colon to the soft tissue. A portion of the colon mass that extended to the soft tissue was sharply resected and sent as a separate specimen from the colon. Procedure Description: The patient was brought to the operating room where she was placed on the operating room table in the supine position. After adequate general endotracheal anesthesia was administered by department of anesthesia preoperative antibiotics were administered, Lowry catheter was placed, and the abdomen was prepped and draped in standard sterile fashion. A timeout was performed to confirm site of surgery. A number 10. Blade scalpel was used to make a midline abdominal skin incision. Bovie electrocautery was used to dissect down to subcutaneous tissue. The fascia was entered in the superior portion of the incision using sharp dissection. Surgeons index finger was placed in the abdomen just underneath the fascia. The fascia was opened with Bovie electrocautery over the surgeon's finger. Immediately upon opening the fascia there was evidence of purulent peritonitis in the right upper quadrant of the abdomen and pelvis. Peritoneal cultures were obtained. The abdomen was then copiously irrigated with saline solution. The Bookwalter was then used to retract the abdominal wall and small bowel. Bovie electrocautery was then used to dissect along the white line of Toldt in the right paracolic gutter. In the region of the hepatic flexure dense adhesions were taken down. The colon mass was palpated. There was also evidence of ink from the recent colonoscopy. Upon mobilizing the colon it was evident that the mass was stuck down to soft tissue posteriorly. Care was used to visualize the stomach first and second portion of the duodenum. These were pushed down in the operative field to avoid injury. Blunt dissection was then used to carefully peel the colon and the mass off of the soft tissue. Upon doing this a small segment of the colon and tumor were left behind stuck to the soft tissue. Later in the procedure sharp dissection was used to resect the remnant of colon and tumor.. It was sent as a separate section. Finally the colon and tumor were dissected free from any surrounding tissue. The greater omentum was dissected off of the transverse colon. A EMMETT stapler was then used to divide the terminal ileum at least 10 cm proximal to the ileocolic junction. A segment in the mid transverse colon at least 10 cm proximal to the tumor was divided using EMMETT stapler. The hand-held LigaSure was then used to divide the mesentery. The blood supply to the transverse colon was preserved. The specimen was then passed off of the operative field. The abdomen was then copiously irrigated with 5 L of normal saline solution. The surface of the liver was palpated. There were no obvious metastasis visualized or palpated. The remainder of the small bowel and colon were inspected. There is no evidence of any additional masses. Care was taken to perform primary stapled anastomosis. The antimesenteric borde r of the small bowel and colon were lined up. There was no twisting of the bowel. A 3-0 Vicryl stitch was used to anchor the bowel segments. An enterotomy was made in the small bowel. A Samantha was used to grasp all layers of the small bowel. A small arm of the EMMETT stapler was placed into the lumen of the small bowel. An enterotomy was made into the colon. A Wiggins was placed on the colonic caceres and the large arm of the EMMETT stapler was placed into the lumen of the colon. The distal and proximal small portion of the bowel were brought in to apposition. The stapler was fired. There was a widely patent anastomosis created. The edges of the bowel were then grasped with Wiggins's. And a TA stapler was then used to close the anastomosis. The anastomosis was then oversewn with 3-0 Vicryl simple interrupted stitches. The mesentery defect was closed using 3-0 Vicryl with a running stitch. The abdomen was irrigated again. Excess irrigation was suctioned. A Orion- Levine drain was placed in the right upper quadrant of the abdomen and brought out through a right lower quadrant stab incision. The fascia was reapproximated with 2 sutures of looped 1 PDS. Subcutaneous tissue was irrigated. The skin edges were anesthetized with local anesthetic. The skin edges were reapproximated using skin mando. A drain stitch was placed using 2-0 nylon. The abdomen was then cleaned and dried. Sterile dressings were applied and the patient tolerated the procedure well. At the end of the procedure the needle sponge and instrument counts were all correct.
--- NOTE | 2023-05-01 15:15 | NUR.NOTE ---
Patient arrives in ICU at 14:50.Nursing Note:
--- NOTE | 2023-05-01 15:33 | NUR.NOTE ---
At 14:50 patient is placed on ICU telemetry monitoring. RN sets up low intermittent suction for NG tube. Anesthesiologist is present with PUBLIC SAFETY TEACHER. Anesthesiologist gives bedside report. Nursing Note:
--- NOTE | 2023-05-01 15:38 | NUR.NOTE ---
Chest x-ray is taken to check placement of NG tube and Right IJ triple lumen central line.Nursing Note:
--- NOTE | 2023-05-01 15:44 | DI.VRAD_ITS ---
PROCEDURE INFORMATION: Exam: XR Chest Exam date and time: 05/01/2023 3:28 PM Age: 82 years old Clinical indication: Device placement; Other: Central line placement TECHNIQUE: Imaging protocol: Radiologic exam of the chest. Views: 1 view. COMPARISON: CR XR CHEST 2V PA LATERAL 03/30/2023 10:06 AM FINDINGS: Tubes, catheters and devices: Right internal jugular central venous catheter with tip in the superior vena cava. Nasogastric tube tip courses off the bottom margin of the image. Lungs: Left retrocardiac consolidation. Pleural spaces: Blunting of the bilateral costophrenic angles. No pneumothorax Heart/Mediastinum: Unremarkable Vasculature: Calcifications of the aortic arch. Bones/joints: No significant abnormality IMPRESSION: 1. Tubes and lines as described. 2. Left retrocardiac consolidation and can be due to atelectasis versus pneumonia in the proper clinical setting. 3. Probable small bilateral pleural effusions Dictated and Authenticated by: Iban Bailey MD. Ordering:JAILENE Wooten MD
--- NOTE | 2023-05-01 15:49 | W.ANESPOSTOP ---
Postoperative Evaluation Date, Time and Location Date Performed: 05/01/23 Time Performed: 15:50 Patient Location: Intensive Care Unit Vital Signs Most Recent Imported Vital Signs: Most Recent Vital Signs Temp Pulse Resp BP Pulse Ox 36.4 C L 84 16 139/70 96 05/01/23 15:44 05/01/23 15:44 05/01/23 15:44 05/01/23 15:44 05/01/23 15:44 Pain Score Most Recent Pain Score: Most Recent Pain Score Pain Level 3 05/01/23 10:57 Assessment Mental Status: Arousable with meaningful communication Airway and Respiratory Function: Patent airway with normal (patient baseline) respiratory exam Cardiovascular Function: Hemodynamically Stable Hydration Status: Adequately Hydrated Nausea & Vomiting: No Nausea or Vomiting Pain: Pt. Denies Any Pain Peripheral Nerve Block: Regional nerve block not resolved at time of post operative discharge
--- NOTE | 2023-05-01 16:19 | W.PC.ACHO ---
Registration Status: ADM IN Primary Language: Preferred Language: Tamazight ED Information & Data Chief Complaint Abd Prob 05/01/23 04:43 Triage Note Pt arrives with abdominal 05/01/23 03:08 pain. [facility] and endo 2 days ago that showed a colon mass . Pain is the same ust worse Medical / Surgical History (Last Reviewed 04/29/23 @ 06:33 by Stefanie Irving RN) COVID Erythema migrans (Lyme disease) BPPV (benign paroxysmal positional vertigo) BCC (basal cell carcinoma), face (06/11/16) (Last Updated 04/29/23 @ 15:26 by Mackenzie Robert) History of colonoscopy (~04/2023) History of esophagogastroduodenoscopy (~04/2023) Open Carpal Tunnel release Exc BBC rgt forehead (06/22/16) Biopsy of breast Most Recent Vital Signs Temperature 36.4 C L 05/01/23 15:44 Temperature Source Tympanic 05/01/23 15:44 Pulse 84 05/01/23 15:44 Pulse 115 H 05/01/23 10:31 Respiratory Rate 16 05/01/23 15:44 Respiratory Effort Normal 05/01/23 03:12 Blood Pressure 139/70 05/01/23 15:44 Blood Pressure Mean 76 05/01/23 10:31 Pulse Oximetry 96 05/01/23 15:44 Oxygen Delivery Method Nasal Cannula 05/01/23 15:44 Oxygen Flow Rate 2 05/01/23 15:44 Pain Level 3 05/01/23 10:57 Comment 7 liters via face mask. 05/01/23 14:50 Allergies NSAIDS (Non-Steroidal Anti-Inflamma Adverse Reaction (Severe, Verified 05/01/23 03:14) GI Bleeding aspirin Adverse Reaction (Verified 05/01/23 03:14) ? INCREASED HR Active Medications Generic Name Dose Route Start Last Admin Trade Name Freq PRN Reason Stop Dose Admin Sodium Chloride 1,000 mls @ 75 mls/hr 05/01/23 09:30 05/01/23 13:52 Saline 1000ml Bag IV 75 mls/hr INFUSION LYNDSEY Infusion IV IV Catheter Type [Left Hand] Triple Lumen Subclavian IV Catheter Type [Left Peripheral IV Antecubital] IV Catheter Gauge [Right 20 Radial] IV Catheter Gauge [Left Hand] 18 IV Catheter Gauge [Left 20 Antecubital] Diagnostics 05/01/23 05/01/23 Range/Units 09:15 03:38 WBC 9.81 (4.4-10.8) 10^3/uL RBC 4.12 (3.93-5.22) 10^6/uL Hgb 9.3 L (11.2-15.7) g/dL Hct 32.0 L (36.0-46.0) % MCV 78 L (80-95) fL MCH 22.6 L (27.0-33.0) pg MCHC 29.1 L (32.0-36.0) % RDW 16.4 H (11.7-14.6) % Plt Count 467 H (130-400) 10^3/uL MPV 9.6 (8.0-11.0) fL Immature Gran % 0.4 Neutrophils % 76.3 Lymphocytes % 15.7 Monocytes % 5.8 Eosinophils % 1.4 Basophils % 0.4 Nucleated RBC % 0.0 (0.0-0.3) % Absolute Neutrophils 7.48 H (1.2-6.7) 10^3/uL Absolute Lymphocytes 1.54 (1.2-3.4) 10^3/uL Absolute Monocytes 0.57 (0.1-0.8) 10^3/uL Absolute Eosinophils 0.14 (0.0-0.7) 10^3/uL Absolute Basophils 0.04 (0.0-0.2) 10^3/uL PT 11.3 H (9.1-11.1) sec INR 1.1 (0.9-1.1) VBG Lactate 0.9 (0.6-1.4) mmol/L Sodium 139 (136-145) mmol/L Potassium 4.0 (3.5-5.1) mmol/L Chloride 104 (98-107) mmol/L Carbon Dioxide 28.6 (21.0-32.0) mmol/L Anion Gap 6.4 (3-11) mmol/L BUN 14 (7-18) mg/dL Creatinine 0.8 (0.55-1.02) mg/dL Est GFR (CKD-EPI 2020) 73.52 (mL/min/1.73m2) Glucose 170 H (74-106) mg/dL Calcium 9.0 (8.5-10.1) mg/dL Total Bilirubin 0.2 (0.2-1.0) mg/dL AST 12 L (15-37) U/L ALT 15 (14-59) U/L Alkaline Phosphatase 93 (46-116) U/L Total Protein 6.5 (6.4-8.2) g/dL Albumin 2.6 L (3.4-5.0) g/dL Lipase 24 (16-77) U/L Patient ABO/Rh O Positive Antibody Screen NEGATIVE 05/01/23 12:00 Surgical Culture - Pending Abdomen Gram Stain - Final 05/01/23 12:00 Anaerobic Culture - Pending Abdomen Intake and Output - 24 Hour Total 05/01/23 02:46 thru 05/01/23 13:59 Intake Total 1900 Output Total 225 Balance 1675 Weight 64.7 kg Intake: IV 1900 Output: Urine 200 Estimated Blood Loss 25 Other: Urine Color Pale Yellow Urine Appearance Clear Urinary Catheter Urinary Catheter Date of 05/01/23 Insertion [Uretheral (Lowry)] Time of insertion [Uretheral ( 11:30 Lowry)] Falls Risk Assessment History of Falls No History 05/01/23 03:12 Fall Total Score 0 05/01/23 03:12 Level of Risk Standard/Low Risk 05/01/23 03:12 Problems (Last Reviewed 04/29/23 @ 06:33 by Stefanie Irving RN) Malignancy (Acute) Bowel perforation (Acute) Ileus (Acute) Paracolic abscess (Acute) Notes 05/01/23 15:38 Nursing Notes by Roger Muniz Chest x-ray is taken to check placement of NG tube and Right IJ triple lumen central line.Nursing Note: Initialized on 05/01/23 15:38 - END OF NOTE 05/01/23 15:33 Nursing Notes by Roger Muniz At 14:50 patient is placed on ICU telemetry monitoring. RN sets up low intermittent suction for NG tube. Anesthesiologist is present with BOOKKEEPING CLERK. Anesthesiologist gives bedside report. Nursing Note: Initialized on 05/01/23 15:33 - END OF NOTE 05/01/23 15:15 Nursing Notes by Roger Muniz Patient arrives in ICU at 14:50.Nursing Note: Initialized on 05/01/23 15:15 - END OF NOTE v v v v v v v v v Sending and/or Receiving Nurses: Please use comment section below to note any information pertinent to the patient hand-off not included above. Information / Comments:Patient arrives in a stable condition on 7 liters of 02 via face mask. Report received from: Nelsy Martinez RN
--- NOTE | 2023-05-01 16:24 | MCONE_ITS ---
Date of service: 05/01/23 Time of Service: 18:06 Assessment and Plan Assessment and plan (1) Bowel perforation: Status: Acute Assessment and plan: s/p right hemicolectomy/primary anastomosis. Postop day 0. Has an NG tube. Does have evidence of purulent peritonitis, so she is on ertapenem. I did order blood cultures, and the cultures that were obtained intraoperatively will also be monitored. Continue IV fluids. She is on IV PPI while NPO. Defer postoperative management to the primary team (2) Purulent peritonitis: Status: Acute Assessment and plan: Continue ertapenem. (3) Colonic mass: Status: Acute Assessment and plan: As above. (4) Paracolic abscess: Status: Acute Assessment and plan: As above (5) Iron deficiency anemia: Status: Acute Assessment and plan: The patient did have recent iron studies and was supposed to be on oral iron, though the patient does not admit to actually taking it. I think it might be worth said to give her intravenous iron while she is in the hospital. I will recheck the iron studies tomorrow. Qualifiers: Iron deficiency anemia type: unspecified iron deficiency Qualified Code(s): D50.9 - Iron deficiency anemia, unspecified (6) Ileus: Status: Acute Assessment and plan: Seen on CT scan of the abdomen and pelvis, which questioned an ileus versus a small bowel obstruction due to the colonic findings. The patient has an NG tube. Defer management to primary team. (7) DVT prophylaxis: Status: Acute Assessment and plan: Subcutaneous enoxaparin Thank you for this consult. The hospitalist will continue to follow with you. History of Present Illness History of Present Illness Chief Complaint: Abdominal pain Narrative: Ms Chowdhury is an 82 year old female with no PMHx that the patient admits to, but per chart review GERD, prediabetes, iron deficiency anemia w/ h/o GI bleed due to NSAIDS, who had undergone an EGD and colonoscopy with polypectomy and biopsies on 04/29/[address] Duenas, who presented to [facility] ED with abdominal pain, was found to have a perforated right colon mass with evidence of purulent peritonitis. There were also two hepatic lesions which were either metastatic or abscesses, question of an ileus vs SBO, and incidentally found bilateral lower lung fibrosis. The patient went to the OR for exploratory laparotomy with right hemicolectomy with primary anastamosis and peritoneal lavage. The patient did well postoperatively and was transferred to the ICU. She is on ertapenem for an antibiotic, following one dose of zosyn in the ED. A hospitalist consultation was requested for help with general medical management. The patient is waking up in the ICU post-operatively. She states she does not have any medical conditions and does not take any medications at home. Her complaints at the time of my interview were a sore abdomen and an itchy nose. Review of Systems All systems reviewed & are unremarkable except as noted in HPI and below PFSH All Active Problems (Updated 05/01/23 @ 18:36 by Amber Bush MD) DVT prophylaxis (Acute) Purulent peritonitis (Acute) Colonic mass (Acute) Malignancy (Acute) Bowel perforation (Acute) Ileus (Acute) Paracolic abscess (Acute) Screen for colon cancer (Acute) Pre-diabetes (Acute ~03/2023) A1C 5.75% Esophagitis (Acute) Acute hemorrhagic gastritis (Acute ~09/2022) GI bleed due to NSAIDs (Acute ~09/2022) Iron deficiency anemia (Acute ~09/2022) Generalized osteoarthritis (Acute) Subclinical hypothyroidism (Chronic 02/04/11) Lumbar radiculopathy, acute (Acute 06/12/14) 12/2022 Other and unspecified hyperlipidemia (Chronic 03/05/15) GERD (gastroesophageal reflux disease) (Chronic 05/07/14) Takes 2-week courses of omeprazole PRN with good relief for several months Eczema (Chronic 02/16/13) Hands Medical History (Updated 05/01/23 @ 18:36 by Amber Bush MD) COVID Symptoms resolved 04/13/23 Erythema migrans (Lyme disease) 1 week post tick bite, short-term stay per pt report .. but Doxy x 10 days started, ik BPPV (benign paroxysmal positional vertigo) BCC (basal cell carcinoma), face (06/11/16) and left medial ankle 10/2018 Right lower lateral neck - removed at 10/06/22 Surgical History (Updated 04/29/23 @ 15:26 by Mackenzie Robert) History of colonoscopy (~04/2023) History of esophagogastroduodenoscopy (~04/2023) Open Carpal Tunnel release no date given by pt.HE Exc BBC rgt forehead (06/22/16) Biopsy of breast pt did not state date.HE Family History Father Alcohol abuse Brother Bladder cancer Social History Smoking/Tobacco Use Status: Never Smoking risk assessment performed?: Yes Alcohol Intake: current Alcohol Intake frequency: a few times a week Drug use: Never Substance use type: does not use Adopted: No Caregiver/Support person: No Foster care: No Household members: spouse Housing: house Number of Children: 0 number of grandchildren: 0 Communication Needs: Corrective Lenses Education Level: college 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 Pets and animals: No Sexually active: No Do you think of yourself as: straight/heterosexual Current gender identity: male What is your relationship status?: How often do you talk on the phone with friends or family?: three or more times per week How often do you get together with friends or relatives?: three or more times per week Do you belong to any clubs or organized social groups?: yes Panel score (0-1 are the most socially isolated patients): 3 What type of physical activity do you participate in: weight lifting and other Details: water aerobics Duration: < 15 minutes/day Frequency: 1-2 times per week Romi/Samaritan: Latter-Day Special romi needs: No Seatbelt use: always Drive intox or ride w/intox route driver salesperson: No Do you feel safe at home: Yes Do you feel safe in your relationship?: Yes Exam Narrative Exam Narrative: General: a pleasant elderly female who is resting comfortably in bed; NGT and R IJ CVL in place Neurological: A&Ox3, no focal deficits Psychiatric: Appropriate speech pattern/content Skin: Visible skin intact; midline abdominal incision is dressed - c/d/i HEENT: Atraumatic, normocephalic, EOMI, dry MM, clear oropharynx, has an NGT, no submandibular or cervical lymphadenopathy, no goiter or JVD, has a R IJ CVL Cardiovascular: RRR, no m/r/g Lungs: CTAB anteriorly Gastrointestinal: distended, midline incision is c/d/i Genitourinary: Extremities: no edema BLEs, wearing TEDs and SCDs Results Last Vital Signs Temp 36.4 C L 05/01/23 15:44 Pulse 84 05/01/23 15:44 Resp 16 05/01/23 15:44 BP 139/70 05/01/23 15:44 Pulse Ox 96 05/01/23 15:44 Labs 05/01/23 03:38 05/01/23 03:38 Labs: Laboratory Results - last 24 hr 05/01/23 05/01/23 03:38 09:15 WBC 9.81 RBC 4.12 Hgb 9.3 L Hct 32.0 L MCV 78 L MCH 22.6 L MCHC 29.1 L RDW 16.4 H Plt Count 467 H MPV 9.6 Immature Gran % 0.4 Neutrophils % 76.3 Lymphocytes % 15.7 Monocytes % 5.8 Eosinophils % 1.4 Basophils % 0.4 Nucleated RBC % 0.0 Absolute Neutrophils 7.48 H Absolute Lymphocytes 1.54 Absolute Monocytes 0.57 Absolute Eosinophils 0.14 Absolute Basophils 0.04 PT 11.3 H INR 1.1 VBG Lactate 0.9 Sodium 139 Potassium 4.0 Chloride 104 Carbon Dioxide 28.6 Anion Gap 6.4 BUN 14 Creatinine 0.8 Est GFR (CKD-EPI 2020) 73.52 Glucose 170 H Calcium 9.0 Total Bilirubin 0.2 AST 12 L ALT 15 Alkaline Phosphatase 93 Total Protein 6.5 Albumin 2.6 L Lipase 24 Patient ABO/Rh O Positive Antibody Screen NEGATIVE Imaging Additional studies: CXR: New left lower lobe infiltrate and small bilateral pleural effusions. Central line in good position. No pneumothorax evident. NG tube in stomach. CT abdomen/pelvis: 1. There is a significant area of abnormal circumferential bowel wall thickening in the ascending right colon with bowel wall edema and severe surrounding inflammatory change with adjacent right paracolic abscess formation. There is adjacent free fluid as well as fluid in the right pericolic gutter, perihepatic fluid, and fluid in the dependent aspect of the pelvis. Probably purulent related to the bowel perforation. 2. There are 2 ill-defined lesions within the liver which are either metastatic lesions or developing abscesses, or a combination thereof. 3. There are prominent diameter small bowel loops which are fecalized. Possible reactive I ileus. Cannot exclude developing small-bowel obstruction related to the above pathology located in the ascending-right colon. 4. Bilateral lower lung field fibrosis incidentally noted. No pleural effusions Procedures Abscess I/D Site: face
[2023-05-01] MEDS: Pantoprazole 40 MG VIAL IVP (16:35)
[2023-05-01] MEDS: Enoxaparin 40 MG/0.4 ML SYR SC (16:35)
[2023-05-01] MEDS: ERTAPENEM 1 GM in Normal Saline 50 ML IVPB (19:37)
[2023-05-01] MEDS: ACETAMINOPHEN 1,000 MG/100 ML BTL 400 MG IVPB (19:37)
[2023-05-02] VITALS (41 sets, daily range): BP systolic 115–139; BP diastolic 47–70; PULSE 79–108; RESP 12–26; TEMP 36.4–37.2; O2SAT 86–98
[2023-05-02 06:11] LABS: Abs Immature Grans 0.05 10^3/uL (0.0-0.06); Absolute Basophil Count 0.03 10^3/uL (0.0-0.2); Absolute Lymphocyte Count 0.83 10^3/uL (1.2-3.4); Absolute Neutrophil Count 13.39 10^3/uL (1.2-6.7); Basophils % 0.2; HCT 28.3 % (36.0-46.0); HGB 8.2 g/dL (11.2-15.7); Immature Grans % 0.3; Lymphocytes % 5.5; MCV 80 fL (80-95); MPV 10.4 fL (8.0-11.0); Monocytes % 5.3; Neutrophils % 88.7; Platelet Count 400 10^3/uL (130-400); RBC 3.56 10^6/uL (3.93-5.22); RDW 16.6 % (11.7-14.6); RDW-SD 47.8 fL
[2023-05-02] MEDS: Normal Saline 1,000 ML 75 ML IV ×2 (06:22→21:00)
[2023-05-02] MEDS: HYDROmorphone 2 MG/ML SYR 1 MG IVP ×3 (06:22→21:14)
[2023-05-02 06:37] LABS: Iron 5 ug/dL (50-170); Total Iron Binding Capacity 187 ug/dL (250-450); Transferrin Sat 3 % (15-50)
[2023-05-02 06:44] LABS: ALT 18 U/L (14-59); AST 18 U/L (15-37); Albumin 1.8 g/dL (3.4-5.0); Alkaline Phosphatase 69 U/L (46-116); Anion Gap 8.2 mmol/L (3-11); BUN 11 mg/dL (7-18); Bilirubin, Total 0.3 mg/dL (0.2-1.0); CO2 26.8 mmol/L (21.0-32.0); CREATININE 0.7 mg/dL (0.55-1.02); Calcium 8.6 mg/dL (8.5-10.1); Chloride 108 mmol/L (98-107); Ferritin 50 ng/mL (8-252); Glucose 123 mg/dL (74-106); Potassium 3.8 mmol/L (3.5-5.1); Sodium 143 mmol/L (136-145); Total Protein 5.3 g/dL (6.4-8.2)
[2023-05-02 07:02] LABS: Folate 19.4 ng/mL (8.6-20.0); Vitamin B12 1206 pg/mL (193-986)
[2023-05-02 07:12] LABS: Hemoglobin A1C 5.1 % (<5.7)
[2023-05-02] MEDS: IRON SUCROSE COMPLEX 200 MG in Normal Saline 100 ML 400 MG IVPB (08:58)
[2023-05-02] MEDS: Normal Saline Flush 10 ML SYR IVP ×4 (08:59→23:50)
--- NOTE | 2023-05-02 09:28 | W.PM.PROGNOT ---
Date of Service Date of service: 05/02/23 Time of Service: 09:28 Assessment and Plan Assessment and plan (1) Colonic mass: Status: Acute Assessment and plan: patient is doing well POD#1 s/p ex lap, right hemicolectomy - d/c merrill - d/c arterial line - maintain NGT - consult PT -continue IV invanz - await pathology - await return of bowel function (2) Bowel perforation: Status: Acute Assessment and plan: see above (3) Paracolic abscess: Status: Acute Assessment and plan: see above (4) Purulent peritonitis: Status: Acute Assessment and plan: see above Subjective Subjective Patient reports: no new complaints and feels better Interval history since last seen: patient sitting in the chair. states she feels better today just some soreness. no cp, sob, n/v. no acute events overnight Exam Const General: cooperative and comfortable Orientation: alert, awake and oriented x3 Resp Effort & Inspection: normal respiratory effort and able to speak in complete sentences Auscultation: clear to auscultation bilaterally GI Inspection: normal to inspection Palpation: soft Auscultation: absent bowel sounds Other: KVNG drain with seosanginous drainage Skin General skin exam: no rashes or lesions noted and ecchymosis (right forearm) Objective Last Vital Signs Temp 98.8 F 05/02/23 07:55 Pulse 90 05/02/23 07:55 Resp 21 05/02/23 07:55 BP 130/47 L 05/02/23 07:55 Pulse Ox 91 L 05/02/23 07:55 Laboratory Results - last 24 hr 05/01/23 05/02/23 09:15 05:31 WBC 15.10 H RBC 3.56 L Hgb 8.2 L Hct 28.3 L MCV 80 MCH 23.0 L MCHC 29.0 L RDW 16.6 H Plt Count 400 MPV 10.4 Immature Gran % 0.3 Neutrophils % 88.7 Lymphocytes % 5.5 Monocytes % 5.3 Eosinophils % 0.0 Basophils % 0.2 Nucleated RBC % 0.0 Absolute Neutrophils 13.39 H Absolute Lymphocytes 0.83 L Absolute Monocytes 0.80 Absolute Eosinophils 0.00 Absolute Basophils 0.03 PT 11.3 H INR 1.1 Sodium 143 Potassium 3.8 Chloride 108 H Carbon Dioxide 26.8 Anion Gap 8.2 BUN 11 Creatinine 0.7 Est GFR (CKD-EPI 2020) 86.30 Glucose 123 H Hemoglobin A1c 5.1 Calcium 8.6 Magnesium 2.0 Iron 5 L TIBC 187 L Transferrin % Sat 3 L Ferritin 50 Total Bilirubin 0.3 AST 18 ALT 18 Alkaline Phosphatase 69 Total Protein 5.3 L Albumin 1.8 L Vitamin B12 1206 H Folate 19.4 Patient ABO/Rh O Positive Antibody Screen NEGATIVE Time Spent with Patient Time Spent with Patient: 25-34 minutes Time was spent: preparing to see the patient(eg.review tests), obtaining and/or reviewing separately otained hiistory and ordering medications,tests, procedures
--- NOTE | 2023-05-02 09:55 | PDOC.CMIN ---
Date of service: 05/02/23 Time of Service: 09:55 Care Management Initial Assmt Initial Assessment REASON FOR HOSPITALIZATION:: Bowel perforation, abdominal pain PREVIOUS FUNCTIONAL STATUS/SOCIAL/FAMILY SUPPORTS:: Elisha resides in [facility] with her , Endy. She shares that the couple has been for 22 years, and they have five sons and thirteen grandchildren from Endy's previous marriage. She reports that Endy is becoming more forgetful especially with short term memory issues and his oldest son provided her a new cell phone to call with any needs. Elisha reports growing up in [place] and shares that she likes living in [place]. Elisha remains independent at baseline. CURRENT FUNCTIONAL STATUS:: Elisha is sitting up in her chair, NG tube in place-she notes that it is uncomfortable but manageable. Elisha shares that her pain is well managed and compliments her care. She reports anticipating remaining at [facility] for a least a few more days. ADVANCE DIRECTIVES:: COLST Has patient been provided with info about the portal/API?: Yes Did the patient sign up for the portal?: Yes CODE STATUS:: Full Code INSURANCE COVERAGE / FINANCIAL ISSUES:: MCR A&B CURRENT HOME/COMMUNITY SERVICES/EQUIPMENT:: None, currently. PRIMARY CARE PHYSICIAN:: Tiera Choudhury POTENTIAL DISCHARGE NEEDS:: Update AD per Elisha's request PATIENT/FAMILY EDUCATION NEEDS:: Review discharge instructions, discuss Ask Me Three. ANTICIPATED BARRIERS TO DISCHARGE:: None identified. TRANSPORTATION:: Via private vehicle with her . PLAN:: Anticipate Elisha will return home when ready per MD, she will be evaluated for additional needs prior to discharge. She will follow up with her PCP and plan of care as prescribed. Endy will transport Elisha home via private vehicle. [facility] All Active Problems (Updated 05/02/23 @ 12:35 by Amber Bush MD) Pulmonary fibrosis (Acute) DVT prophylaxis (Acute) Purulent peritonitis (Acute) Colonic mass (Acute) Malignancy (Acute) Bowel perforation (Acute) Ileus (Acute) Paracolic abscess (Acute) Screen for colon cancer (Acute) Pre-diabetes (Acute ~03/2023) A1C 5.75% Esophagitis (Acute) Acute hemorrhagic gastritis (Acute ~09/2022) GI bleed due to NSAIDs (Acute ~09/2022) Iron deficiency anemia (Acute ~09/2022) Generalized osteoarthritis (Acute) Subclinical hypothyroidism (Chronic 02/04/11) Lumbar radiculopathy, acute (Acute 06/12/14) 12/2022 Other and unspecified hyperlipidemia (Chronic 03/05/15) GERD (gastroesophageal reflux disease) (Chronic 05/07/14) Takes 2-week courses of omeprazole PRN with good relief for several months Eczema (Chronic 02/16/13) Hands Medical History (Updated 05/02/23 @ 12:35 by Amber Bush MD) COVID Symptoms resolved 04/13/23 Erythema migrans (Lyme disease) 1 week post tick bite, short-term stay per pt report .. but Doxy x 10 days started, ik BPPV (benign paroxysmal positional vertigo) BCC (basal cell carcinoma), face (06/11/16) and left medial ankle 10/2018 Right lower lateral neck - removed at 10/06/22 Surgical History (Updated 04/29/23 @ 15:26 by Mackenzie Robert) History of colonoscopy (~04/2023) History of esophagogastroduodenoscopy (~04/2023) Open Carpal Tunnel release no date given by pt.HE Exc BBC rgt forehead (06/22/16) Biopsy of breast pt did not state date.HE Family History Father Alcohol abuse Brother Bladder cancer Social History Smoking/Tobacco Use Status: Never Smoking risk assessment performed?: Yes Alcohol Intake: current Alcohol Intake frequency: a few times a week Drug use: Never Substance use type: does not use Adopted: No Caregiver/Support person: No Foster care: No Household members: spouse Housing: house Number of Children: 0 number of grandchildren: 0 Communication Needs: Corrective Lenses Education Level: college 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 Pets and animals: No Sexually active: No Do you think of yourself as: straight/heterosexual Current gender identity: male What is your relationship status?: How often do you talk on the phone with friends or family?: three or more times per week How often do you get together with friends or relatives?: three or more times per week Do you belong to any clubs or organized social groups?: yes Panel score (0-1 are the most socially isolated patients): 3 What type of physical activity do you participate in: weight lifting and other Details: water aerobics Duration: < 15 minutes/day Frequency: 1-2 times per week Romi/Religious: Jain Special romi needs: No Seatbelt use: always Drive intox or ride w/intox dedicated local truck driver: No Do you feel safe at home: Yes Do you feel safe in your relationship?: Yes SDOH(Care Management) Screening Will the Patient Participate in the Screening?: Yes Do you worry about having a steady place to live?: no In the past 12 months, have you had to go without electric, gas, oil or water in your home?: no Have you or anyone in your house had to go without enough food to eat?: no Has lack of transportation kept you from medical appointments or from doing things needed for daily living?: no Has anyone in your support network made you feel unsafe for any reason?: no
--- NOTE | 2023-05-02 12:25 | PGE_ITS ---
Date of Service Date of service: 05/02/23 Time of Service: 12:25 Assessment and Plan Assessment and plan (1) Bowel perforation: Status: Acute Assessment and plan: Perforated colon mass s/p right hemicolectomy/primary anastomosis. Pathology pending. Postop day 1. Has an NG tube. Continue ertapenem. Await intraoperative as well as blood cultures. Defer post-op care to the primary team. Encourage pulmonary toilet. (2) Purulent peritonitis: Status: Acute Assessment and plan: Continue ertapenem. Await cultures as above. (3) Colonic mass: Status: Acute Assessment and plan: As above. (4) Paracolic abscess: Status: Acute Assessment and plan: As above (5) Iron deficiency anemia: Status: Acute Assessment and plan: The patient did have recent iron studies and was supposed to be on oral iron, though the patient does not admit to actually taking it. S/p venofer today. H/H did drop from 9.3 yesterday to 8.2 today - this is likely dilutional, post- op, and due to blood draws. No evidence of active bleeding now. Continue monitoring H/H. Qualifiers: Iron deficiency anemia type: unspecified iron deficiency Qualified Code(s): D50.9 - Iron deficiency anemia, unspecified (6) Ileus: Status: Acute Assessment and plan: Seen on CT scan of the abdomen and pelvis, which questioned an ileus versus a small bowel obstruction due to the colonic findings. The patient has an NG tube. Defer management to primary team. (7) Pulmonary fibrosis: Status: Acute Assessment and plan: incidentally seen on CT abdomen/pelvis. This does not appear to be symptomatic at this time. Should be followed by PCP. (8) DVT prophylaxis: Status: Acute Assessment and plan: Subcutaneous enoxaparin Discussed briefly with Dr Ward. Subjective Subjective Interval history since last seen: Ms Chowdhury is doing well. Her pain is controlled at the time of my exam. She denies dizziness, CP, SOB, n/v. She still has an NGT, CVL, RUE Arterial line. She is receiving NS@ 75 cc/hr. No pressors. UOP 550 cc yesterday + 525 cc so far today. 250 cc out of NGT today so far. 125 cc out of the RLQ KVNG drain today so far. Exam Narrative Exam Narrative: General: a pleasant elderly female who is sitting up in a chair; A&Ox3, NGT and R IJ CVL in place as is a R radial A line. HEENT: Atraumatic, normocephalic, EOMI, MMM Cardiovascular: RRR, no m/r/g Lungs: Diminished at B bases. Gastrointestinal: distended, midline incision is c/d/i; RLQ KVNG drain with serosanguenous drainage Genitourinary: has a merrill Extremities: no edema BLEs Objective Last Vital Signs Temp 37.2 C 05/02/23 12:04 Pulse 96 H 05/02/23 11:38 Resp 18 05/02/23 11:38 BP 115/51 L 05/02/23 11:38 Pulse Ox 92 05/02/23 11:38 Laboratory Results - last 24 hr 05/02/23 05:31 WBC 15.10 H RBC 3.56 L Hgb 8.2 L Hct 28.3 L MCV 80 MCH 23.0 L MCHC 29.0 L RDW 16.6 H Plt Count 400 MPV 10.4 Immature Gran % 0.3 Neutrophils % 88.7 Lymphocytes % 5.5 Monocytes % 5.3 Eosinophils % 0.0 Basophils % 0.2 Nucleated RBC % 0.0 Absolute Neutrophils 13.39 H Absolute Lymphocytes 0.83 L Absolute Monocytes 0.80 Absolute Eosinophils 0.00 Absolute Basophils 0.03 Sodium 143 Potassium 3.8 Chloride 108 H Carbon Dioxide 26.8 Anion Gap 8.2 BUN 11 Creatinine 0.7 Est GFR (CKD-EPI 2020) 86.30 Glucose 123 H Hemoglobin A1c 5.1 Calcium 8.6 Magnesium 2.0 Iron 5 L TIBC 187 L Transferrin % Sat 3 L Ferritin 50 Total Bilirubin 0.3 AST 18 ALT 18 Alkaline Phosphatase 69 Total Protein 5.3 L Albumin 1.8 L Vitamin B12 1206 H Folate 19.4 Time Spent with Patient Time Spent with Patient: 35-49 minutes Time was spent: preparing to see the patient(eg.review tests), obtaining and/or reviewing separately otained hiistory, ordering medications,tests, procedures, referring, communicating with other health home care associate, indepentently interpreting results, counseling the patient and care coordination
[2023-05-02] MEDS: ACETAMINOPHEN 1,000 MG/100 ML BTL 400 MG IVPB ×2 (15:55→23:50)
[2023-05-02] MEDS: Enoxaparin 40 MG/0.4 ML SYR SC (16:00)
[2023-05-02] MEDS: Pantoprazole 40 MG VIAL IVP (16:24)
[2023-05-02] MEDS: ERTAPENEM 1 GM in Normal Saline 50 ML IVPB (18:10)
[2023-05-02] MEDS: Lactated Ringers 1,000 ML 1000 ML IV (22:34)
[2023-05-03] VITALS (32 sets, daily range): BP systolic 129–142; BP diastolic 54–69; PULSE 79–101; RESP 11–22; TEMP 36.6–37; O2SAT 90–96
[2023-05-03] MEDS: ACETAMINOPHEN 1,000 MG/100 ML BTL 400 MG IVPB ×3 (06:28→23:00)
[2023-05-03 07:58] LABS: Abs Immature Grans 0.08 10^3/uL (0.0-0.06); Absolute Basophil Count 0.04 10^3/uL (0.0-0.2); Absolute Eosinophil Count 0.13 10^3/uL (0.0-0.7); Absolute Lymphocyte Count 1.18 10^3/uL (1.2-3.4); Absolute Monocyte Count 0.66 10^3/uL (0.1-0.8); Absolute Neutrophil Count 10.05 10^3/uL (1.2-6.7); Basophils % 0.3; Eosinophils % 1.1; HCT 27.5 % (36.0-46.0); HGB 7.8 g/dL (11.2-15.7); Immature Grans % 0.7; Lymphocytes % 9.7; MCH 22.4 pg (27.0-33.0); MCHC 28.4 % (32.0-36.0); MCV 79 fL (80-95); MPV 10.1 fL (8.0-11.0); Monocytes % 5.4; Neutrophils % 82.8; Platelet Count 417 10^3/uL (130-400); RBC 3.48 10^6/uL (3.93-5.22); WBC 12.14 10^3/uL (4.4-10.8)
[2023-05-03 08:13] LABS: Anion Gap 7.1 mmol/L (3-11); BUN 12 mg/dL (7-18); CO2 26.9 mmol/L (21.0-32.0); CREATININE 0.6 mg/dL (0.55-1.02); Calcium 8.5 mg/dL (8.5-10.1); Chloride 107 mmol/L (98-107); Estimated GFR 89.56 (mL/min/1.73m2); Glucose 83 mg/dL (74-106); Potassium 3.4 mmol/L (3.5-5.1); Sodium 141 mmol/L (136-145)
[2023-05-03 09:55] LABS: Lab Add On Test DONE
[2023-05-03 10:05] LABS: Magnesium 2.1 mg/dL (1.8-2.4)
[2023-05-03] MEDS: Normal Saline Flush 10 ML SYR IVP ×2 (10:10→21:05)
[2023-05-03] MEDS: POTASSIUM CHLORIDE 10 MEQ/100 ML BAG 100 MEQ IVPB ×2 (10:10→11:43)
[2023-05-03] MEDS: Normal Saline 1,000 ML 75 ML IV ×2 (10:24→21:14)
--- NOTE | 2023-05-03 10:42 | PGE_ITS ---
Date of Service Date of service: 05/03/23 Time of Service: 09:00 Assessment and Plan Assessment and plan (1) Bowel perforation: Status: Acute Assessment and plan: POD#2 s/p EX Lap, right hemicolectomy - patient doing well - maintain NGT due to increase output and absent bowel sounds --- await return of bowel function - noted decrease in H/H --- most likely hemodilution. no evidence of active bleeding - marginal urine output --- give 500cc bolus of NSS - replace K+ - consult PT (2) Colonic mass: Status: Acute Assessment and plan: await path consult oncology (3) Purulent peritonitis: Status: Acute Assessment and plan: on IV invanz drains in place Subjective Subjective Patient reports: no new complaints, feels better, voiding w/o difficulty and no flatus; denies no bowel movement or shortness of breath Interval history since last seen: patient seen and examined. no new complaints. per nursing, patient received 1 liter fluid bolus overnight for marginal urine output. pain is controlled. patient denies CP, SOB, N/V Exam Const General: cooperative, comfortable and no acute distress Nutritional Appearance: average body habitus Orientation: alert, awake and oriented x3 Resp Effort & Inspection: normal respiratory effort and able to speak in complete sentences Auscultation: clear to auscultation bilaterally Cardio Rate: regular rate Rhythm: regular rhythm Heart Sounds: S1 normal and S2 normal GI Palpation: soft Other: incision with peco dressing intact. minimal drainage on dresssing. KVNG with serosanginous output Extrem General: no clubbing, cyanosis or edema and no pedal edema Objective Last Vital Signs Temp 98.6 F 05/03/23 10:00 Pulse 101 H 05/03/23 09:01 Resp 17 05/03/23 10:00 BP 135/63 05/03/23 09:01 Pulse Ox 93 05/03/23 10:00 Laboratory Results - last 24 hr 05/03/23 05/03/23 06:45 09:54 WBC 12.14 H RBC 3.48 L Hgb 7.8 L Hct 27.5 L MCV 79 L MCH 22.4 L MCHC 28.4 L RDW 17.0 H Plt Count 417 H MPV 10.1 Immature Gran % 0.7 Neutrophils % 82.8 Lymphocytes % 9.7 Monocytes % 5.4 Eosinophils % 1.1 Basophils % 0.3 Nucleated RBC % 0.0 Absolute Neutrophils 10.05 H Absolute Lymphocytes 1.18 L Absolute Monocytes 0.66 Absolute Eosinophils 0.13 Absolute Basophils 0.04 Sodium 141 Potassium 3.4 L Chloride 107 Carbon Dioxide 26.9 Anion Gap 7.1 BUN 12 Creatinine 0.6 Est GFR (CKD-EPI 2020) 89.56 Glucose 83 Calcium 8.5 Magnesium 2.1 Add-On Test Request DONE Time Spent with Patient Time Spent with Patient: 35-49 minutes Time was spent: preparing to see the patient(eg.review tests), obtaining and/or reviewing separately otained hiistory, ordering medications,tests, procedures, referring, communicating with other health career development facilitator, indepentently interpreting results and counseling the patient
--- NOTE | 2023-05-03 11:37 | PT.INIE ---
PT Notes Visit Reasons: Severe lower abd pain Inpatient Physical Therapy Evaluation Date: 05/03/23 Referring Doctor: Tiera Ward PT Orders: PT CONSULT: limited ability to ambulate Precautions: standard Patient Profile/Admitting Diagnosis: Patient admitted for medical management of bowel perforation. She is 2 days s/p exploratory laparotomy with right hemicolectomy. Social History/Home Situation: Elisha lives with her in a multi-level home in [facility]. 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 She ambulates without a device at baseline. Equipment Owned/DME: none Subjective: Elisha states that she is very tired, but looking forward to walking. She was able to walk a bit with nursing yesterday and felt that it went well. Objective: General Observation: Resting in chair at initiation of session. NG tube, telemetry, pulse oximetry, abdominal drain and IV in RUE all in place. Mental Status: A&Ox3. Very pleasant and cooperative. Pain: soreness Vital Signs: monitored throughout ROM: Right Upper Extremity: WFL Left Upper Extremity: WFL Right Lower Extremity: WFL Left Lower Extremity: WFL Strength: Right Upper Extremity: Shoulder flexion 3/5 or greater. Biceps and triceps 3/5 or greater. [employer] is strong and equal. Left Upper Extremity: Shoulder flexion 3/5 or greater. Biceps and triceps 3/5 or greater. Super[employer] is strong and equal. Right Lower Extremity: Hip flexion 3/5 or greater. Quads 4+/5. Ankle DF 5/5. Left Lower Extremity: Hip flexion 3/5 or greater. Quads 4+/5. Ankle DF 5/5. Bed Mobility/Transfers: sit-stand: supervision stand-sit: supervision Gait: Ambulates 250' with FWW, SBA and cues for pacing. Additional assistance from nursing for management of multiple lines. Balance: Static Sitting: normal Dynamic Sitting: normal Static Standing: good Dynamic Standing: fair 4-Position Balance Test: 3/4 Small OJ: 10 seconds Partial Tandem: 10 seconds Full Tandem: 10 seconds Single Leg Stance: unable Special Tests: Mobility Limitations Standardized Measure [facility] AM-PAC 6 clicks Basic Mobility Inpatient Short Form: Raw Score: 22 CMS Score: 21% impairment Informed Consent/Education: Patient instructed in purpose of PT consult and plan of care. Treatment: Initial Evaluation (89887) Therapeutic Exercise ([id number]): Ambulation for improved activity tolerance, ambulating 250' with FWW and SBA, cues for pacing Requires standing rest x 2 for recovery of LIMA and abdominal soreness sit-stand x 3, cues for technique to reduce abdominal strain Assessment: Patient is an 82 year old female referred to physical therapy services with the diagnosis of bowel perforation 2 days s/p exploratory laparotomy with right hemicolectomy. She presents with clinical signs and symptoms consistent with post-op status. She is normally very active and independent, and requires skilled PT intervention to allow for safe return home once medically stable. She demonstrates good static balance today, however, anticipate she will require FWW at discharge due to limitations in activity tolerance and pain associated with recent surgery. She currently demonstrates the following impairment level findings: 1. decreased activity tolerance 2. unable to ambulate without assistive device Impairments are contributing to the following functional limitations: 1. decreased activity tolerance 2. unable to ambulate household distances independently 3. post-operative pain Patient is assessed as Moderate 55881 complexity based on the following: History: as above. Complicating factor of acute post-op status and advanced age Examination: functional limitations as noted above Presentation: evolving Decision Making: moderate complexity Goals: Goals X1 week 1. Supine-Sit : independent 2. Sit-Supine : independent 3. Sit-Stand : independent 4. Stand-Sit : independent 5. Bed-Chair : independent with FWW 6. Chair-Bed : independent with FWW 7. Gait : supervision with FWW x 300' 8. Stairs : able to ascend and descend 3 steps with bilat UE support to rails Plan of Care/Treatment Plan: 1-2x/day, 7 days/week x 1 week. Plan of care has been reviewed with the MINING AND QUARRYING MACHINERY REPAIRER providing the service under Physical Therapy direction. Initiate Physical Therapy intervention for strengthening, bed mobility, transfers, gait, stairs, balance training, use of assistive device. DISCHARGE RECOMMENDATIONS: Home with no services TREATMENT CODE/TIME: 7116-0345 (97184, 18647) Randi Carpenter, PT, DPT [facility] Please sign an return this page within 30 days if you agree with the above POC. Thank you! Physician Signature Date [facility] All Active Problems (Updated 05/02/23 @ 12:35 by Amber Bush MD) Pulmonary fibrosis (Acute) DVT prophylaxis (Acute) Purulent peritonitis (Acute) Colonic mass (Acute) Malignancy (Acute) Bowel perforation (Acute) Ileus (Acute) Paracolic abscess (Acute) Screen for colon cancer (Acute) Pre-diabetes (Acute ~03/2023) A1C 5.75% Esophagitis (Acute) Acute hemorrhagic gastritis (Acute ~09/2022) GI bleed due to NSAIDs (Acute ~09/2022) Iron deficiency anemia (Acute ~09/2022) Generalized osteoarthritis (Acute) Subclinical hypothyroidism (Chronic 02/04/11) Lumbar radiculopathy, acute (Acute 06/12/14) 12/2022 Other and unspecified hyperlipidemia (Chronic 03/05/15) GERD (gastroesophageal reflux disease) (Chronic 05/07/14) Takes 2-week courses of omeprazole PRN with good relief for several months Eczema (Chronic 02/16/13) Hands Medical History (Updated 05/02/23 @ 12:35 by Amber Bush MD) COVID Symptoms resolved 04/13/23 Erythema migrans (Lyme disease) 1 week post tick bite, short-term stay per pt report .. but Doxy x 10 days started, ik BPPV (benign paroxysmal positional vertigo) BCC (basal cell carcinoma), face (06/11/16) and left medial ankle 10/2018 Right lower lateral neck - removed at 10/06/22 Surgical History (Updated 04/29/23 @ 15:26 by Mackenzie Robert) History of colonoscopy (~04/2023) History of esophagogastroduodenoscopy (~04/2023) Open Carpal Tunnel release no date given by pt.HE Exc BBC rgt forehead (06/22/16) Biopsy of breast pt did not state date.HE
[2023-05-03] MEDS: Normal Saline 250 ML 500 ML IV (11:54)
--- NOTE | 2023-05-03 12:32 | PGE_ITS ---
Date of Service Date of service: 05/03/23 Time of Service: 12:32 Assessment and Plan Assessment and plan (1) Bowel perforation: Status: Acute Assessment and plan: Perforated colon mass s/p right hemicolectomy/primary anastomosis. Pathology pending. Postop day 2. Has an NG tube, drained 450 mL yesterday, 150 mL so far today (as of noon) Continue ertapenem. Await intraoperative as well as blood cultures. Defer post-op care to the primary team. Encourage pulmonary toilet. (2) Purulent peritonitis: Status: Acute Assessment and plan: Continue ertapenem. Await cultures as above. (3) Colonic mass: Status: Acute Assessment and plan: As above. (4) Paracolic abscess: Status: Acute Assessment and plan: As above (5) Iron deficiency anemia: Status: Acute Assessment and plan: Hb 10.4 gm preop > 9.3>8.2> 7.8, no evidence of active bleeding, some of this is likely dilutional. patient remains on protonix; patient had prior iron studies w/ mixed picture w/ low serum iron, low normal ferritin, low TIBC and low transferrin saturation. She previously had been on oral iron supplements. I think this was a partially treated iron deficiency d/t her colon mass and chronic GI bleeding. She received venofer 200 mg yesterday, I will give her additional dose today and tomorrow for total of 1000 mg over three days. Qualifiers: Iron deficiency anemia type: unspecified iron deficiency Qualified Code(s): D50.9 - Iron deficiency anemia, unspecified (6) Ileus: Status: Acute Assessment and plan: Seen on CT scan of the abdomen and pelvis, which questioned an ileus versus a small bowel obstruction due to the colonic findings. The patient has an NG tube. Defer management to primary team. (7) Pulmonary fibrosis: Status: Acute Assessment and plan: incidentally seen on CT abdomen/pelvis. This does not appear to be symptomatic at this time. Should be followed by PCP. (8) DVT prophylaxis: Status: Acute Assessment and plan: Subcutaneous enoxaparin Subjective Subjective Interval history since last seen: Patient denies any dyspnea or CP but complains of diffuse abdominal pains. Tylenol helps but does not last long enough and the hydromorphone nocks her out such that she has to go back to bed. No flatus or BM yet. NG still in place, Exam Narrative Exam Narrative: Elderly white female sitting up in her chair no acute distress alert and orient x 3 Lungs are clear to auscultation Heart is regular rate and rhythm without murmur rub Abdomen soft but diffusely tender with hypoactive bowel sounds Extremities without peripheral cyanosis or edema Objective Last Vital Signs Temp 37.0 C 05/03/23 10:00 Pulse 101 H 05/03/23 09:01 Resp 17 05/03/23 10:00 BP 135/63 05/03/23 09:01 Pulse Ox 93 05/03/23 10:00 Laboratory Results - last 24 hr 05/03/23 05/03/23 06:45 09:54 WBC 12.14 H RBC 3.48 L Hgb 7.8 L Hct 27.5 L MCV 79 L MCH 22.4 L MCHC 28.4 L RDW 17.0 H Plt Count 417 H MPV 10.1 Immature Gran % 0.7 Neutrophils % 82.8 Lymphocytes % 9.7 Monocytes % 5.4 Eosinophils % 1.1 Basophils % 0.3 Nucleated RBC % 0.0 Absolute Neutrophils 10.05 H Absolute Lymphocytes 1.18 L Absolute Monocytes 0.66 Absolute Eosinophils 0.13 Absolute Basophils 0.04 Sodium 141 Potassium 3.4 L Chloride 107 Carbon Dioxide 26.9 Anion Gap 7.1 BUN 12 Creatinine 0.6 Est GFR (CKD-EPI 2020) 89.56 Glucose 83 Calcium 8.5 Magnesium 2.1 Add-On Test Request DONE Time Spent with Patient Time Spent with Patient: 35-49 minutes Time was spent: preparing to see the patient(eg.review tests), obtaining and/or reviewing separately otained hiistory, ordering medications,tests, procedures, referring, communicating with other health college and career counselor (ICU nursing staff, team meeting w/ CM, RT), indepentently interpreting results, counseling the patient and care coordination
[2023-05-03] MEDS: IRON SUCROSE COMPLEX 400 MG in Normal Saline 250 ML 100 MG IVPB (13:23)
[2023-05-03] MEDS: Ketorolac 15 MG/ML VIAL IVP (13:24)
--- NOTE | 2023-05-03 15:40 | PT.INNT ---
PT Notes Visit Reasons: Severe lower abd pain Attempted second session, but patient sleeping on attempt. Will resume PT in am.
--- NOTE | 2023-05-03 15:50 | PDOC.CMPRO ---
Date of service: 05/03/23 Time of Service: 15:50 Care Management Progress Note Progress Note Text Progress Note Text: S/O: Elisha was sitting up in her chair, NG tube remains in place, she remains pleasant in interaction and verbalizes understanding of treatment plan. CM following. A: 82 year old female admitted to [facility] 05/01/23 for lower abdominal pain, bowel perforation P: Anticipate Elisha will return home when ready per MD, she will be evaluated for additional needs prior to discharge though no new services are anticipated at this time. She will follow up with her PCP and plan of care as prescribed. Endy will transport Elisha home via private vehicle. SDOH(Care Management) Screening Will the Patient Participate in the Screening?: Yes Do you worry about having a steady place to live?: no In the past 12 months, have you had to go without electric, gas, oil or water in your home?: no Have you or anyone in your house had to go without enough food to eat?: no Has lack of transportation kept you from medical appointments or from doing things needed for daily living?: no Has anyone in your support network made you feel unsafe for any reason?: no
[2023-05-03] MEDS: Enoxaparin 40 MG/0.4 ML SYR SC (16:17)
[2023-05-03] MEDS: Pantoprazole 40 MG VIAL IVP (16:18)
[2023-05-03] MEDS: ERTAPENEM 1 GM in Normal Saline 50 ML IVPB (18:00)
--- NOTE | 2023-05-03 19:02 | W.PM.PROGNOT ---
Date of Service Date of service: 05/03/23 Time of Service: 19:02 Assessment and Plan Assessment and plan (1) Bowel perforation: Status: Acute Assessment and plan: I explained to Elisha that the pathology results from the colonoscopy came back today, and showed invasive moderately differentiated adenocarcinoma. I explained that the operation that she underwent the other night would be the appropriate next step for staging of the colon cancer to help inform prognosis and treatment recommendations. We talked a little bit about the natural history of this tumor and the role that the diagnostic colonoscopy may have played in the perforation of the tumor. I also spoke to her over the telephone. Endy asked if it is possible to estimate the age of this tumor, and for how long it has been present. I explained to him that it is impossible to say how long the tumor has been present. However, the size of the tumor and the clinical features of it during laparotomy suggest that it is most likely T4, but definitive staging will be more accurately characterized by the node status. I also explained that the CT scan that she had the other day raised concerns for liver metastases. For now, however, I explained the most important thing is to focus on her surgical recovery. Hopefully, we will be able to get the nasogastric tube out in the next day or 2 and probably downgrade her from the ICU. Endy has some concerns about the features of their house, and her ability to get up and down steps. I explained that she will be seen by physical therapy here, and will have a better sense of what she is capable of in the days to come. I left my cell phone number with Elisha if she has any questions in the days to follow. Subjective Subjective Interval history since last seen: I came to see Elisha just as soon as I could after hearing about her readmission and laparotomy. She is sleeping, but easily arousable. She says her pain is controlled. She tells me she was up out of bed and walking around a little bit today, and overall feels pretty good. Exam GI Other: Her abdomen is soft and nondistended. She is got appropriate tenderness after surgery. Objective Last Vital Signs Temp 98.6 F 05/03/23 10:00 Pulse 90 05/03/23 15:01 Resp 18 05/03/23 15:01 BP 133/67 05/03/23 15:01 Pulse Ox 93 05/03/23 15:01 Laboratory Results - last 24 hr 05/03/23 05/03/23 06:45 09:54 WBC 12.14 H RBC 3.48 L Hgb 7.8 L Hct 27.5 L MCV 79 L MCH 22.4 L MCHC 28.4 L RDW 17.0 H Plt Count 417 H MPV 10.1 Immature Gran % 0.7 Neutrophils % 82.8 Lymphocytes % 9.7 Monocytes % 5.4 Eosinophils % 1.1 Basophils % 0.3 Nucleated RBC % 0.0 Absolute Neutrophils 10.05 H Absolute Lymphocytes 1.18 L Absolute Monocytes 0.66 Absolute Eosinophils 0.13 Absolute Basophils 0.04 Sodium 141 Potassium 3.4 L Chloride 107 Carbon Dioxide 26.9 Anion Gap 7.1 BUN 12 Creatinine 0.6 Est GFR (CKD-EPI 2020) 89.56 Glucose 83 Calcium 8.5 Magnesium 2.1 Add-On Test Request DONE Time Spent with Patient Time Spent with Patient: 35-49 minutes Time was spent: preparing to see the patient(eg.review tests), referring, communicating with other health palliative care specialist, indepentently interpreting results and counseling the patient
[2023-05-04] VITALS (20 sets, daily range): BP systolic 120–149; BP diastolic 55–66; PULSE 70–107; RESP 15–25; TEMP 36.7; O2SAT 92–97
[2023-05-04] MEDS: ACETAMINOPHEN 1,000 MG/100 ML BTL 400 MG IVPB ×3 (06:19→22:17)
[2023-05-04 07:08] LABS: Abs Immature Grans 0.12 10^3/uL (0.0-0.06); Absolute Basophil Count 0.05 10^3/uL (0.0-0.2); Absolute Eosinophil Count 0.19 10^3/uL (0.0-0.7); Absolute Lymphocyte Count 1.32 10^3/uL (1.2-3.4); Absolute Monocyte Count 0.61 10^3/uL (0.1-0.8); Absolute Neutrophil Count 8.09 10^3/uL (1.2-6.7); Basophils % 0.5; Eosinophils % 1.8; HCT 29.3 % (36.0-46.0); HGB 8.5 g/dL (11.2-15.7); Immature Grans % 1.2; Lymphocytes % 12.7; MCH 22.8 pg (27.0-33.0); MCV 79 fL (80-95); MPV 10.1 fL (8.0-11.0); Monocytes % 5.9; Neutrophils % 77.9; Platelet Count 448 10^3/uL (130-400); RBC 3.73 10^6/uL (3.93-5.22); RDW 16.8 % (11.7-14.6); WBC 10.38 10^3/uL (4.4-10.8)
[2023-05-04 07:23] LABS: ALT 16 U/L (14-59); AST 17 U/L (15-37); Albumin 1.9 g/dL (3.4-5.0); Alkaline Phosphatase 78 U/L (46-116); Anion Gap 15.2 mmol/L (3-11); BUN 8 mg/dL (7-18); Bilirubin, Total 0.3 mg/dL (0.2-1.0); CO2 23.8 mmol/L (21.0-32.0); CREATININE 0.6 mg/dL (0.55-1.02); Chloride 107 mmol/L (98-107); Estimated GFR 89.56 (mL/min/1.73m2); Glucose 54 mg/dL (74-106); Potassium 3.1 mmol/L (3.5-5.1); Sodium 146 mmol/L (136-145); Total Protein 5.7 g/dL (6.4-8.2)
[2023-05-04] MEDS: Normal Saline Flush 10 ML SYR IVP ×2 (07:23→22:22)
[2023-05-04] MEDS: IRON SUCROSE COMPLEX 400 MG in Normal Saline 250 ML 100 MG IVPB (08:11)
[2023-05-04] MEDS: POTASSIUM CHLORIDE 10 MEQ/100 ML BAG 100 MEQ IVPB ×4 (08:11→13:16)
[2023-05-04] MEDS: POTASSIUM CHLORIDE/0.45% NACL 1,000 ML 75 MEQ IV (08:12)
--- NOTE | 2023-05-04 09:18 | PDOC.CMPRO ---
Date of service: 05/04/23 Time of Service: 09:18 Care Management Progress Note Progress Note Text Progress Note Text: S/O:Elisha was sitting up in a chair when CM met with her. She was very pleasant and engaged easily in conversation. Elisha shared that she is feeling much better than she had been. She explained that she is unsure what her treatment course will look like but anticipates that she may need chemotherapy. 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 Elisha met her later in life and she for the first time at age 60. Clinically, Elisha is doing well. She is afebrile, her vital signs are stable and her WBC has normalized. Elisha has been downgraded to med-surg status. A: Elisha is an 82 year old woman admitted on 05/01/23 with a bowel perforation. P:Anticipate Elisha will return home when ready per provider. She will follow up with her PCP and plan of care as prescribed. Endy will transport Elisha home via private vehicle. ELAINA will follow and continue to assess for discharge concerns. SDOH(Care Management) Screening Will the Patient Participate in the Screening?: Yes Do you worry about having a steady place to live?: no In the past 12 months, have you had to go without electric, gas, oil or water in your home?: no Have you or anyone in your house had to go without enough food to eat?: no Has lack of transportation kept you from medical appointments or from doing things needed for daily living?: no Has anyone in your support network made you feel unsafe for any reason?: no
--- NOTE | 2023-05-04 11:26 | W.PM.PROGNOT ---
Date of Service Date of service: 05/04/23 Time of Service: 11: Assessment and Plan Assessment and plan (1) Bowel perforation: Status: Acute Assessment and plan: Perforated colon mass s/p right hemicolectomy/primary anastomosis 05/01 Pathology pending. Postop day 3. Has an NG tube, drained 500 mL yesterday, 200 mL so far today (as of noon) Continue ertapenem. Await intraoperative as well as blood cultures. Defer post-op care to the primary team. Encourage pulmonary toilet. (2) Purulent peritonitis: Status: Acute Assessment and plan: Continue ertapenem. Blood cultures no growth to date. Peritoneal fluid with mixed anaerobic growth and gram-positive johana Await cultures as above. (3) Colonic mass: Status: Acute Assessment and plan: As above. (4) Paracolic abscess: Status: Acute Assessment and plan: As above (5) Iron deficiency anemia: Status: Acute Assessment and plan: Hb 10.4 gm preop > 9.3>8.2> 7.8 > 8.5, no evidence of active bleeding, some of this is likely dilutional. patient remains on protonix; patient had prior iron studies w/ mixed picture w/ low serum iron, low normal ferritin, low TIBC and low transferrin saturation. She previously had been on oral iron supplements. I think this was a partially treated iron deficiency d/t her colon mass and chronic GI bleeding. Continue Venofer Qualifiers: Iron deficiency anemia type: unspecified iron deficiency Qualified Code(s): D50.9 - Iron deficiency anemia, unspecified (6) Ileus: Status: Acute Assessment and plan: Seen on CT scan of the abdomen and pelvis, which questioned an ileus versus a small bowel obstruction due to the colonic findings. The patient has an NG tube. Defer management to primary team. (7) Pulmonary fibrosis: Status: Acute Assessment and plan: incidentally seen on CT abdomen/pelvis. This does not appear to be symptomatic at this time. Should be followed by PCP. (8) DVT prophylaxis: Status: Acute Assessment and plan: Subcutaneous enoxaparin Subjective Subjective Interval history since last seen: Patient states that she has passed a little flatus but no BM yet. NG still w/ significant drainage (500 mL yesterday and 200 mL since midnight). Abdominal pain is improved today, just a little sore. Exam Narrative Exam Narrative: Elderly white female sitting up in a chair no acute distress. NG still draining fair amount of greenish fluid. Patient denies any chest pain or pressure or dyspnea. Lungs are clear to auscultation Heart regular rate and rhythm Abdomen nondistended soft with a few faint distant bowel sounds Extremities without peripheral cyanosis or edema Objective Last Vital Signs Temp 36.7 C 05/04/23 06:05 Pulse 84 05/04/23 06:05 Resp 21 05/04/23 06:05 BP 131/60 05/04/23 06:05 Pulse Ox 95 05/04/23 06:05 Laboratory Results - last 24 hr 05/04/23 05/04/23 05:35 05:50 WBC 10.38 RBC 3.73 L Hgb 8.5 L Hct 29.3 L MCV 79 L MCH 22.8 L MCHC 29.0 L RDW 16.8 H Plt Count 448 H MPV 10.1 Immature Gran % 1.2 Neutrophils % 77.9 Lymphocytes % 12.7 Monocytes % 5.9 Eosinophils % 1.8 Basophils % 0.5 Nucleated RBC % 0.0 Absolute Neutrophils 8.09 H Absolute Lymphocytes 1.32 Absolute Monocytes 0.61 Absolute Eosinophils 0.19 Absolute Basophils 0.05 Sodium Cancelled 146 H Potassium Cancelled 3.1 L Chloride Cancelled 107 Carbon Dioxide Cancelled 23.8 Anion Gap Cancelled 15.2 H BUN Cancelled 8 Creatinine Cancelled 0.6 Est GFR (CKD-EPI 2020) Cancelled 89.56 Glucose Cancelled 54 L Calcium Cancelled 9.0 Total Bilirubin 0.3 AST 17 ALT 16 Alkaline Phosphatase 78 Total Protein 5.7 L Albumin 1.9 L Time Spent with Patient Time Spent with Patient: 25-34 minutes Time was spent: preparing to see the patient(eg.review tests), ordering medications,tests, procedures, referring, communicating with other health aged or disabled care worker, indepentently interpreting results, counseling the patient and care coordination
--- NOTE | 2023-05-04 12:57 | PTTR_ITS ---
Date of service: 05/04/23 Time of Service: 09:01 PT Notes Visit Reasons: Severe lower abd pain Inpatient Physical Therapy Treatment Note [facility] Date: 05/04/23 PRECAUTIONS: Fall, standard, activity as tolerated. SUBJECTIVE: Patient reports feeling marginally stronger today, very motivated to participate in therapy. Does not use AD at baseline. Reports feeling weak, unlike herself. AFTERNOON: Patient's NG tube has been clamped off as a trial before d/c, patient reports increased gut discomfort. Noticeable but tolerable, per patient report. States that it feels like a little step forward, which is good. OBJECTIVE: sitting up in bedside chair. NG tube, KVNG drain, telemetry, oximetry, and multiple IV lines all connected. Agreeable to therapy. AFTERNOON: Sitting up in bedside chair, eager to participate in therapy. NG tube in place but clamped. KVNG drain in place, to be d/ata today per provider. Telemetry, oximetry in place. IV in place, but MARILU Merino temporarily disconnects it for convenience during t herapy. ? PAIN: Patient reports feeling sore and uncomfortable throughout her abdomen. VITALS: WFL throughout therapy, continuously monitored via telemetry. ? BED MOBILITY/TRANSFERS? Rolling L/R: not assessed Supine-sit: not assessed ? Sit-supine: not assessed ? Sit-stand: SBA ? Stand-sit: SBA? Bed-Chair: SBA ? Chair-bed: SBA ? Therapeutic Exercises ([id number]): Direct one-on-one instruction in therapeutic exercises to develop strength, endurance, range of motion and flexibility. Ambulation ? Assistive Device: FWW ? Weight bearing: full Assist: SBA, wheelchair follow? Distance:? 250 feet, ascends and descends 2 six inch and 3 four inch stairs. AFTERNOON: 250 feet, rest, stairs & 250 additional feet before returning to sit in bedside chair. ? Deviation: Gait largely unremarkable. Patient reports that she does not use AD at baseline, but appreciates the support it gives at this moment in time. ? Provided skilled instruction in proper exercise performance Provided skilled manual cues to facilitate proper muscle recruitment and/or form. ASSESSMENT:? Patient tolerates therapy well, is exceptionally motivated to regain her strength. States that this is the worst health issue she has ever had in her life. PLAN: Continue global strengthening per plan of care until patient is medically cleared for discharge. TREATMENT CODE/TIME: 31 minutes beginning at 9:01 and 18 minutes beginning at 15:37 for a total of 49 minutes today.
[2023-05-04 14:48] LABS: Potassium 3.9 mmol/L (3.5-5.1)
--- NOTE | 2023-05-04 15:08 | PGE_ITS ---
Date of Service Date of service: 05/04/23 Time of Service: 15:08 Assessment and Plan Assessment and plan (1) Bowel perforation: Status: Acute Assessment and plan: POD#3 s/p Ex Lap, Right hemicolectomy for perforated colon mass patient clinically improving - urine output is good. - leukocytosis has resolved - will clamp NGT and see if patient tolerates - transfer to [facility] surg floor - await surgical pathology report Subjective Subjective Patient reports: no new complaints and feels better Interval history since last seen: patient sitting in chair today. passed small flatus. no new complaints. no acute events overnight Exam Resp Effort & Inspection: normal respiratory effort and able to speak in complete sentences Auscultation: clear to auscultation bilaterally Cardio Rate: regular rate Rhythm: regular rhythm Heart Sounds: S1 normal and S2 normal GI Inspection: normal to inspection Other: incision intake with pecos in place. KVNG drain with serous drainage. few hypoactive bowel sounds Skin General skin exam: no rashes or lesions noted Objective Last Vital Signs Temp 98.1 F 05/04/23 06:05 Pulse 82 05/04/23 14:01 Resp 21 05/04/23 14:01 BP 149/65 H 05/04/23 14:01 Pulse Ox 96 05/04/23 14:01 Laboratory Results - last 24 hr 05/04/23 05/04/23 05/04/23 05:35 05:50 14:30 WBC 10.38 RBC 3.73 L Hgb 8.5 L Hct 29.3 L MCV 79 L MCH 22.8 L MCHC 29.0 L RDW 16.8 H Plt Count 448 H MPV 10.1 Immature Gran % 1.2 Neutrophils % 77.9 Lymphocytes % 12.7 Monocytes % 5.9 Eosinophils % 1.8 Basophils % 0.5 Nucleated RBC % 0.0 Absolute Neutrophils 8.09 H Absolute Lymphocytes 1.32 Absolute Monocytes 0.61 Absolute Eosinophils 0.19 Absolute Basophils 0.05 Sodium Cancelled 146 H Potassium Cancelled 3.1 L 3.9 Chloride Cancelled 107 Carbon Dioxide Cancelled 23.8 Anion Gap Cancelled 15.2 H BUN Cancelled 8 Creatinine Cancelled 0.6 Est GFR (CKD-EPI 2020) Cancelled 89.56 Glucose Cancelled 54 L Calcium Cancelled 9.0 Total Bilirubin 0.3 AST 17 ALT 16 Alkaline Phosphatase 78 Total Protein 5.7 L Albumin 1.9 L Time Spent with Patient Time Spent with Patient: 25-34 minutes Time was spent: preparing to see the patient(eg.review tests), obtaining and/or reviewing separately otained hiistory and counseling the patient
--- NOTE | 2023-05-04 15:23 | CHAPLAIN ---
Elisha and I know each other from the community. She is an active member of [facility] and her home fire alarm installer, Rev. Lolita Aguilar, has been visiting. This morning Elisha was waiting to meet with someone from Palliative Care, and hoping that her would arrive to be here for the meeting. She shared some personal history telling me about her move from [place] to [place] as a young girls to work for a [employer]. She moved from there to [place], met her , and moved back to [place] with him. Her has five sons from a previous marriage. Elisha said she was tired from PT and hoping to rest before the Palliative Care consult so I didn't stay a lot longer. She said she was given some very good information last night from Laurita Barrios RN, her night nurse about palliative care. Although she has an NG tube, Elisha said she is relatively comfortable. She's been staying in touch with friend through Facebook. I will continue to visit.
--- NOTE | 2023-05-04 16:09 | W.PALLCONSUL ---
Date of service: 05/04/23 Time of Service: 16:09 History of Present Illness Narrative: Mrs. Chowdhury is an 82-year-old woman from [facility] who was diagnosed with colon cancer on colonoscopy within the last 2 weeks. Then she developed large bowel obstruction with perforation and needed emergent right hemicolectomy 3 days ago. Patient requested to meet with palliative care team to discuss goals of care and advance care planning based on the new diagnosis of colon cancer. Patient has had iron deficiency anemia since September 2022. Initial workup with EGD last summer revealed erosive gastritis and this was felt to be source of GI bleeding. However iron deficiency has persisted and she underwent colonoscopy within the last 2 weeks. Also of note, she was noted to have 2 liver masses, larger one 1.56 x 1.5 cm. Care Team: Primary Care physician:Tiera Wade NP Surgeon: Florentino Duenas Social HX: Born in [place] Marital Status: First marriage age 60. to Endy (mild cognitive impairment) for last 22 years. She has noted memory issues over the last year, trouble remembering things. He is still driving safely, not getting lost. 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 Children: five step-sons and thirteen grandchildren from Endy's previous marriage. Aishwarya ([facility], Blanca ( [place], [place]), Ernesto ([facility]) Hobbies: Water Aerobics, Voice and piano for restorationist. 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 Two half brothers ( and [place]) Additional Services: None Impression of currents health status: Feel like I am in good shape for my age. Need to heal incision. What bothers you the most: Answers with I am worried about... See below What worries you the most: Worried about how things are going to go when she gets home (she handles everything (cooking and cleaning, etc.) at home except firewood). She will not be able to do heavy lifting. And she volunteers that she expects to need chemo. 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 Current information preferences: Function: Ambulation: No aids ADLs:Totally independent iADLs: Independent, she pays the bills. Hearing: Pretty good , no hearing aids. Vision: Good Cognition: No concerns Falls: None Driving: Yes. Palliative Performance Scale % Ambulation Activity and Evidence of Disease Self Care Intake Level of Consciousness 100 Full Normal activity, no evidence of disease Full Normal Full 90 Full Normal activity, some evidence of disease Full Normal Full 80 Full Normal activity with effort, some evidence of disease Full Normal or reduced Full 70 Reduced Unable to do normal work, some evidence of disease Full Normal or reduced Full 60 Reduced Unable to do hobby or some housework, significant disease Occasional assist necessary Normal or reduced Full or confusion 50 Mainly sit/lie Unable to do any work, extensive disease Considerable assistance required Normal or reduced Full or confusion 40 Mainly in bed Unable to do any work, extensive disease Mainly assistance Normal or reduced Full, drowsy, or confusion 30 Totally bed bound Unable to do any work, extensive disease Total care Reduced Full, drowsy, or confusion 20 Totally bed bound Unable to do any work, extensive disease Total care Minimal sips Full, drowsy, or confusion 10 Totally bed bound Unable to do any work, extensive disease Total care Mouth care only Drowsy or coma 0 - - - - Patient Score: 90 prior to admission Spiritual history: [employer] restorationist [facility]. Prayer very important Palliative review of systems: Pain:POst-op Dyspnea: GI symptoms: See HPI Appetite: NPO Depression: No Anxiety: None Emotional Distress: Dewnies Spiritual/Existential Distress: Advanced Care Planning: Advanced Directive: Health Care Agent: Endy, alternate is Aishwarya Chowdhury,, 2nd alternate is Ernesto Chowdhury. She would like to change to Aishwarya as HCA and son Blanca as alternate, and Ernesto and Endy to participate in decisions. SHe wishes to talk with them all about this first before completing form. COLST: 2020 COLST: DNR/DNI: +transfer, +treat Limitations: Assessment and Plan Assessment and plan (1) Palliative care patient: Status: Acute Assessment and plan: Mrs. Chowdhury is an 82-year-old previously quite healthy woman with a history of iron deficiency anemia felt to be secondary to erosive gastritis who just in the last 2 weeks had colonoscopy because of persistent iron deficiency and was found to have colonic mass, found to be adenocarcinoma of the colon. She then emergently presented with bowel obstruction and perforation with peritonitis and several days ago underwent emergency right hemicolectomy. She is also noticed to have 2 suspicious lesions in her liver. She does have calcified lymph nodes in the abdominal region. Pathology from tumor resection is pending and no further staging workup done. This is today at the request of patient to discuss advance care planning. #CODE STATUS: We reviewed her COLST from 2020. We discussed the procedure of CPaR, actual mechanical process, rate of success in restoring heartbeat, short and long-term side effects in survivors (including likely decreased physical and cognitive functioning). Questions were answered. Patient is very clear that she would not normally want CPR or to be intubated in the situation of cardiac arrest. However she would be willing to consider a temporary reversal to full CODE STATUS if required to undergo additional surgery or procedure. She would be willing to add this statement to her revised COLST form. Reviewing further her delineation, she checked that she would want to be transferred, treated, receive IV antibiotics. However she checked off that she would not want IV hydration or parenteral nutrition. She is happy that she is getting IV fluids and would like to continue to get them if indicated. She would be willing to get short-term parenteral nutrition if needed during this hospitalizatio (i.e. if she has prolonged ileus and parenteral nutrition is recommended by surgeon/hospitalist). In summary: Patient wishes to be DNR/DNI overall but is willing to entertain temporary reversal of no CODE STATUS in the perioperative period. I have updated her CODE STATUS to DNR/DNI at this time. Of note, she declines to sign revised COLST form at this time. She tells me she is too tired and really wants her to be present when she signs anything. #Healthcare agent: Patient reports that someone in the hospital advised her that her advanced directive needed to be updated. Regarding healthcare agent, her Endy is listed as healthcare agent with meet Means being alternate and meet Orozco being second alternate. Elisha is concerned that her has become quite forgetful in the last year and feels he no longer is the best person to be her healthcare agent. She would like meet Chowdhury to be her healthcare agent with meet Chowdhury being first alternate and meet Orozco being second alternate. However she feels she cannot fill out and sign updated healthcare agent form today. She wants to talk it over with both her and her stepson's. I documented her wishes here. I also suggested that we add her 's name to list of people who can be involved in medical decisions and the updated form. # New diagnosis colon cancer: Patient seems to have realistic view of what is ahead of her. We can discuss this further at future visits as she is very tired today. We will schedule follow-up visit with her present in 2 days. (2) Advanced care planning/counseling discussion: Status: Acute (3) Adenocarcinoma, colon: Status: Acute (4) Bowel perforation: Status: Acute (5) Purulent peritonitis: Status: Acute (6) DNR (do not resuscitate): Status: Acute PFSH All Active Problems (Updated 05/04/23 @ 17:18 by Leonora Hillman MD) DNR (do not resuscitate) (Acute) 2020 COLST: DNR/DNI,+ transfer, +treat with IV fluids and abx. Confirmed, see 05/04/23 Palliative Care Note. Adenocarcinoma, colon (Acute) Advanced care planning/counseling discussion (Acute) Palliative care patient (Acute) Pulmonary fibrosis (Acute) DVT prophylaxis (Acute) Purulent peritonitis (Acute) Colonic mass (Acute) Malignancy (Acute) Bowel perforation (Acute) Ileus (Acute) Paracolic abscess (Acute) Screen for colon cancer (Acute) Pre-diabetes (Acute ~03/2023) A1C 5.75% Esophagitis (Acute) Acute hemorrhagic gastritis (Acute ~09/2022) GI bleed due to NSAIDs (Acute ~09/2022) Iron deficiency anemia (Acute ~09/2022) Generalized osteoarthritis (Acute) Subclinical hypothyroidism (Chronic 02/04/11) Lumbar radiculopathy, acute (Acute 06/12/14) 12/2022 Other and unspecified hyperlipidemia (Chronic 03/05/15) GERD (gastroesophageal reflux disease) (Chronic 05/07/14) Takes 2-week courses of omeprazole PRN with good relief for several months Eczema (Chronic 02/16/13) Hands Medical History (Updated 05/04/23 @ 17:18 by Leonora Hillman MD) COVID Symptoms resolved 04/13/23 Erythema migrans (Lyme disease) 1 week post tick bite, short-term stay per pt report .. but Doxy x 10 days started, ik BPPV (benign paroxysmal positional vertigo) BCC (basal cell carcinoma), face (06/11/16) and left medial ankle 10/2018 Right lower lateral neck - removed at 10/06/22 Surgical History (Updated 04/29/23 @ 15:26 by Mackenzie Robert) History of colonoscopy (~04/2023) History of esophagogastroduodenoscopy (~04/2023) Open Carpal Tunnel release no date given by pt.HE Exc BBC rgt forehead (06/22/16) Biopsy of breast pt did not state date.HE Family History Father Alcohol abuse Brother Bladder cancer Social History Smoking/Tobacco Use Status: Never Smoking risk assessment performed?: Yes Alcohol Intake: current Alcohol Intake frequency: a few times a week Drug use: Never Substance use type: does not use Adopted: No Caregiver/Support person: No Foster care: No Household members: spouse Housing: house Number of Children: 0 number of grandchildren: 0 Communication Needs: Corrective Lenses Education Level: college 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 Pets and animals: No Sexually active: No Do you think of yourself as: straight/heterosexual Current gender identity: male What is your relationship status?: How often do you talk on the phone with friends or family?: three or more times per week How often do you get together with friends or relatives?: three or more times per week Do you belong to any clubs or organized social groups?: yes Panel score (0-1 are the most socially isolated patients): 3 What type of physical activity do you participate in: weight lifting and other Details: water aerobics Duration: < 15 minutes/day Frequency: 1-2 times per week Romi/Sabianist: Presybeterian Special romi needs: No Seatbelt use: always Drive intox or ride w/intox 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 Color is good. Does not appear to be in any distress. In fact, so comfortable I forget she has an NG tube coming out of her nose. Results Last Vital Signs Temp 36.7 C 05/04/23 06:05 Pulse 82 05/04/23 14:01 Resp 21 05/04/23 14:01 BP 149/65 H 05/04/23 14:01 Pulse Ox 96 05/04/23 14:01 Labs 05/04/23 05:50 05/04/23 14:30 Labs: Laboratory Results - last 24 hr 05/04/23 05/04/23 05/04/23 05:35 05:50 14:30 WBC 10.38 RBC 3.73 L Hgb 8.5 L Hct 29.3 L MCV 79 L MCH 22.8 L MCHC 29.0 L RDW 16.8 H Plt Count 448 H MPV 10.1 Immature Gran % 1.2 Neutrophils % 77.9 Lymphocytes % 12.7 Monocytes % 5.9 Eosinophils % 1.8 Basophils % 0.5 Nucleated RBC % 0.0 Absolute Neutrophils 8.09 H Absolute Lymphocytes 1.32 Absolute Monocytes 0.61 Absolute Eosinophils 0.19 Absolute Basophils 0.05 Sodium Cancelled 146 H Potassium Cancelled 3.1 L 3.9 Chloride Cancelled 107 Carbon Dioxide Cancelled 23.8 Anion Gap Cancelled 15.2 H BUN Cancelled 8 Creatinine Cancelled 0.6 Est GFR (CKD-EPI 2020) Cancelled 89.56 Glucose Cancelled 54 L Calcium Cancelled 9.0 Total Bilirubin 0.3 AST 17 ALT 16 Alkaline Phosphatase 78 Total Protein 5.7 L Albumin 1.9 L
[2023-05-04] MEDS: Enoxaparin 40 MG/0.4 ML SYR SC (16:33)
[2023-05-04] MEDS: Pantoprazole 40 MG VIAL IVP (16:34)
[2023-05-04] MEDS: ERTAPENEM 1 GM in Normal Saline 50 ML IVPB (18:39)
[2023-05-05] VITALS (21 sets, daily range): BP systolic 124–156; BP diastolic 50–81; PULSE 61–103; RESP 13–23; TEMP 36.2–36.6; O2SAT 91–97
[2023-05-05] MEDS: Normal Saline Flush 10 ML SYR IVP ×6 (05:22→22:37)
[2023-05-05] MEDS: ACETAMINOPHEN 1,000 MG/100 ML BTL 400 MG IVPB ×3 (05:23→22:36)
[2023-05-05 05:41] LABS: Abs Immature Grans 0.29 10^3/uL (0.0-0.06); Absolute Basophil Count 0.04 10^3/uL (0.0-0.2); Absolute Eosinophil Count 0.26 10^3/uL (0.0-0.7); Absolute Lymphocyte Count 1.47 10^3/uL (1.2-3.4); Absolute Monocyte Count 0.63 10^3/uL (0.1-0.8); Absolute Neutrophil Count 4.85 10^3/uL (1.2-6.7); Basophils % 0.5; Eosinophils % 3.4; HCT 26.9 % (36.0-46.0); HGB 7.9 g/dL (11.2-15.7); Immature Grans % 3.8; Lymphocytes % 19.5; MCH 22.6 pg (27.0-33.0); MCHC 29.4 % (32.0-36.0); MCV 77 fL (80-95); MPV 9.5 fL (8.0-11.0); Monocytes % 8.4; Neutrophils % 64.4; Nucleated RBC 0.4 % (0.0-0.3); Platelet Count 438 10^3/uL (130-400); RBC 3.49 10^6/uL (3.93-5.22); RDW 16.8 % (11.7-14.6); RDW-SD 46.4 fL; WBC 7.54 10^3/uL (4.4-10.8)
[2023-05-05 06:04] LABS: ALT 17 U/L (14-59); AST 15 U/L (15-37); Albumin 1.7 g/dL (3.4-5.0); Alkaline Phosphatase 67 U/L (46-116); Anion Gap 9.1 mmol/L (3-11); BUN 5 mg/dL (7-18); Bilirubin, Total 0.3 mg/dL (0.2-1.0); CO2 26.9 mmol/L (21.0-32.0); CREATININE 0.6 mg/dL (0.55-1.02); Calcium 8.6 mg/dL (8.5-10.1); Chloride 104 mmol/L (98-107); Estimated GFR 89.56 (mL/min/1.73m2); Glucose 107 mg/dL (74-106); Potassium 3.2 mmol/L (3.5-5.1); Sodium 140 mmol/L (136-145); Total Protein 5.1 g/dL (6.4-8.2)
--- NOTE | 2023-05-05 09:20 | PDOC.CMPRO ---
Date of service: 05/05/23 Time of Service: 09:20 Care Management Progress Note Progress Note Text Progress Note Text: S/O: Elisha was sitting up in a chair when CM met with her. She was very pleasant and engaged easily in conversation. Elisha shared that she is feeling much better than she had been. She explained that she is unsure what her treatment course will look like but anticipates that she may need chemotherapy. Elisha met with Palliative care yesterday, Dr. Hillman. Please refer to documentation. A: Elisha is an 82 year old woman admitted on 05/01/23 with a bowel perforation. P:Anticipate Elisha will return home when ready per provider. She will follow up with her PCP and plan of care as prescribed. Endy will transport Elisha home via private vehicle. CM will follow and continue to assess for discharge concerns. SDOH(Care Management) Screening Will the Patient Participate in the Screening?: Yes Do you worry about having a steady place to live?: no In the past 12 months, have you had to go without electric, gas, oil or water in your home?: no Have you or anyone in your house had to go without enough food to eat?: no Has lack of transportation kept you from medical appointments or from doing things needed for daily living?: no Has anyone in your support network made you feel unsafe for any reason?: no
--- NOTE | 2023-05-05 10:03 | PTTR_ITS ---
PT Notes Visit Reasons: Severe lower abd pain Inpatient Physical Therapy Treatment Note [facility] Date: 05/05/23 PRECAUTIONS: Fall. Standard. Activity as tolerated. SUBJECTIVE: Surgical incision soreness diminished compared to yesterday. Needed intermittent rests to minimize fatigue and surgical incision soreness. Did not feel much discomfort walking without her FWW for about 250 feet. OBJECTIVE: Was trying to use bedside commode when PT came in. Telemetry monitorin in place. ? PAIN: As above VITALS: No value deviation beyond normal limits throughout session ? ? ? BED MOBILITY/TRANSFERS: Minimal cueing provided for use of B hands as needed for support, movement sequence, AD management, and posture to reduce fall risk and minimize pain report?Sit-stand: stand by assist with walker ? Stand-sit: stand by assist with walker ? Bed-Chair: stand by assist with walker ? Chair-bed: stand by assist with walker ? GAIT: ? Assistive Device: FWW and without AD? Weight bearing: FWB Assist: stand by assist without wheelchair follow? Distance:? 350 feet with FWW; 300 without AD ? Deviation: Cheryl decreased without AD, otherwise gait is unremarkable THERA EX: Facilitated safe and correct performance of exercises below. HEP provided. Access Code: [email or web address] URL: [email or web address] Date: 05/05/2023 Prepared by: Mar Woodruff Exercises - Seated March - 1 x daily - 7 x weekly - 1 sets - 10 reps - 5 hold - Seated Long Arc Quad - 1 x daily - 7 x weekly - 1 sets - 10 reps - 5 hold - Seated Toe Raise - 1 x daily - 7 x weekly - 1 sets - 10 reps - 5 hold - Seated Heel Raise - 1 x daily - 7 x weekly - 1 sets - 10 reps - 5 hold? ASSESSMENT:? Pain tolerance improving. Activity tolerance increasing. Has good ability to execute HEP after training. Patient will continue to benefit from services to progress functional mobility level and facilitate postoperative recovery. PLAN: Facilitate achievement of highest mobility and strength levels in anticipation of discharge to home when medically cleared. HH PT upon discharge for continued rehabilitation. TREATMENT CODE/TIME: 18970 x 20 minutes for 1 unit, 68557 x 11 minutes for 1 unit (10:07-10:38)
--- NOTE | 2023-05-05 12:01 | W.PM.PROGNOT ---
Date of Service Date of service: 05/05/23 Time of Service: 12:30 Assessment and Plan Assessment and plan (1) Adenocarcinoma, colon: Status: Acute Assessment and plan: 82-year-old woman postop day 4 from exploratory laparotomy and right hemicolectomy for perforated right colon cancer. She had an ileus that seems to be resolving. She is hemodynamically stable and has a benign abdominal exam. She is having good bowel function at this point and I removed her NG tube. She is not nauseated. Her lab work is grossly unremarkable except for a low potassium That is secondary to GI losses from the NG tube most likely. Overall plan: Clear liquid diet Remove central line (I asked the ICU nurse at the bedside to remove it after confirming good peripheral IV) Out of bed and ambulate Nonnarcotic analgesia only Maintenance IV fluid with 40 of potassium for 24 hours. DVT prophylaxis Out of ICU - should be able to be discharged home in the next day or 2. Subjective Subjective Interval history since last seen: Patient has no complaints at the bedside. Her NG tube has not put out very much overnight. We clamped this morning for 4 hours. We put it back to suction and there was almost no output. She has passed gas and had a small bowel movement this morning. She has no significant abdominal pain. Exam Narrative Exam Narrative: General: Nontoxic, comfortable and interactive Neuro: Alert and oriented x 3 Psych: Good mood and affect, good insight and understanding into her condition Chest: Nonlabored breathing Heart: Regular Abdomen: Soft, nondistended and not tender. Her negative suction dressing is intact. There is no erythema visible. The KVNG drain has 15-20 cc of serous output in it. Nothing is purulent. NG tube at the bedside has scant bilious output in the canister but when placed back to suction has 10-15 cc of gastric output only. Objective Last Vital Signs Temp 97.2 F L 05/05/23 09:30 Pulse 75 05/05/23 09:26 Resp 13 05/05/23 09:26 BP 138/61 05/05/23 09:26 Pulse Ox 94 05/05/23 09:26 Laboratory Results - last 24 hr 05/04/23 05/05/23 14:30 05:29 WBC 7.54 RBC 3.49 L Hgb 7.9 L Hct 26.9 L MCV 77 L MCH 22.6 L MCHC 29.4 L RDW 16.8 H Plt Count 438 H MPV 9.5 Immature Gran % 3.8 Neutrophils % 64.4 Lymphocytes % 19.5 Monocytes % 8.4 Eosinophils % 3.4 Basophils % 0.5 Nucleated RBC % 0.4 H Absolute Neutrophils 4.85 Absolute Lymphocytes 1.47 Absolute Monocytes 0.63 Absolute Eosinophils 0.26 Absolute Basophils 0.04 Sodium 140 Potassium 3.9 3.2 L Chloride 104 Carbon Dioxide 26.9 Anion Gap 9.1 BUN 5 L Creatinine 0.6 Est GFR (CKD-EPI 2020) 89.56 Glucose 107 H Calcium 8.6 Total Bilirubin 0.3 AST 15 ALT 17 Alkaline Phosphatase 67 Total Protein 5.1 L Albumin 1.7 L Time Spent with Patient Time Spent with Patient: <25 minutes Time was spent: ordering medications,tests, procedures, indepentently interpreting results, counseling the patient and care coordination
--- NOTE | 2023-05-05 13:19 | PHA.REVIEW2 ---
Pharmacy Admission Review Admission Clinical Review Admission Pharmacy Review: DNR (do not resuscitate) (Acute) Adenocarcinoma, colon (Acute) Advanced care planning/counseling discussion (Acute) Palliative care patient (Acute) Pulmonary fibrosis (Acute) DVT prophylaxis (Acute) Purulent peritonitis (Acute) Colonic mass (Acute) Malignancy (Acute) Bowel perforation (Acute) Ileus (Acute) Paracolic abscess (Acute) Iron deficiency anemia (Acute ~09/2022) NSAIDS (Non-Steroidal Anti-Inflamma Adverse Reaction (Severe, Verified 05/01/23 03:14) GI Bleeding aspirin Adverse Reaction (Verified 05/01/23 03:14) ? INCREASED HR Resuscitation Status DNR/DNI Height 5 ft 3 in Weight 65.6 kg Comments Comments/Follow Ups: POD#4 Pharmacy Admission Review Renal Dosing Renal Dosing: BUN 5 mg/dL (7-18) L 05/05/23 05:29 Creatinine 0.6 mg/dL (0.55-1.02) 05/05/23 05:29 Medications needing adjustments: Reviewed (CrCl 39.49 mL/min) List of meds needing interventions: Current medications okay Anticoagulation Anticoagulation: Hgb 7.9 g/dL (11.2-15.7) L 05/05/23 05:29 Hct 26.9 % (36.0-46.0) L 05/05/23 05:29 Plt Count 438 10^3/uL (130-400) H 05/05/23 05:29 INR 1.1 (0.9-1.1) 05/01/23 09:15 Creatinine 0.6 mg/dL (0.55-1.02) 05/05/23 05:29 DVT Prophylaxis: Reviewed Medications: Enoxaparin (40mg q24h) Relevant Labs Relevant Labs: Sodium 140 mmol/L (136-145) 05/05/23 05:29 Potassium 3.2 mmol/L (3.5-5.1) L 05/05/23 05:29 Chloride 104 mmol/L (98-107) 05/05/23 05:29 Magnesium 2.1 mg/dL (1.8-2.4) 05/03/23 06:45 Electrolytes, C-Reactive P, ESR: Reviewed (K 3.2 - has potassium infusion, Hgb decreased from 8.5 to 7.9) Cardiac Review BP, HR, EF%: Reviewed (HR/BP WNL) QTc Review QTc: Reviewed (Last EKG was from 09/27 and QTc was 445) IV to PO Switch IV Medications: Reviewed (IV acetaminophen and pantoprazole) Home Meds Home Med List reviewed: Reviewed Relevent Home Meds Not ordered & why?: Ferrous sulfate Current Meds Current Medication Order Review: Reviewed Pharmacy Antibiotic Review Pharmacy Antibiotic Activity: C/S review and Reviewed, no change Comments: Patient continues on ertapenem 1g q24h, day 5 (tonight's dose). Blood cultures showing no growth at 72 hours, abdomen culture grew gram positive johana Comments Comments/Follow Ups: POD#4
--- NOTE | 2023-05-05 13:34 | PT.INTREAT ---
Date of service: 05/05/23 Time of Service: 13:02 PT Notes Visit Reasons: Severe lower abd pain Inpatient Physical Therapy Treatment Note [facility] Date: 05/05/23 PRECAUTIONS: Fall, standard, activity as tolerated. SUBJECTIVE: Per conversation with DPT Maralan Woodruff, patient walked this morining without AD, does not use AD at [facility], therefore OK to walk without AD between now and discharge. Patient reports progress generally - NG tube out, was able to move bowels this morning. Feels one the mend. This afternoon reports feeling more tired than she was this morning. OBJECTIVE: Sitting up in bedside chair. Telemetry and oximetry in place. Agreeable to therapy. ? PAIN: reports discomfort, feels sore. VITALS: closely and continuously monitored by nursing staff via telemetry. ? BED MOBILITY/TRANSFERS? Rolling L/R: not assessed Supine-sit: not assessed? Sit-supine: not assessed ? Sit-stand: SBA ? Stand-sit: SBA? Therapeutic Exercises ([id number]): Direct one-on-one instruction in therapeutic exercises to develop strength, endurance, range of motion and flexibility. Ambulation ? Assistive Device: Wishes to use FWW initially, as she reports feeling a little unsteady. Discontinues use of walker after ~75 feet, continues without AD?Weight bearing: Full Assist: Wheelchair follow? Distance:? 250 feet? Deviation: Patient drifts from side to side within the hallway, unable to walk a straight line. Reports that this morning she was able to walk a straight line, however she feels her fatigue has increased significantly. No LOB. Diminished arm swing. ? Provided skilled instruction in proper exercise performance Provided skilled manual cues to facilitate proper muscle recruitment and/or form. ASSESSMENT:? Patient tolerates therapy well, vitals stay well within normal limits. Reports fatigue, and feeling like that was enough. PLAN: Continue global strengthening per plan of care until patient is medically cleared for discahrge. TREATMENT CODE/TIME: 27 minutes beginning at 13:02
[2023-05-05] MEDS: POTASSIUM CHLORIDE/D5-0.45NACL 1,000 ML 100 MEQ IV (13:52)
[2023-05-05] MEDS: Enoxaparin 40 MG/0.4 ML SYR SC (16:40)
[2023-05-05] MEDS: Normal Saline 10 ML VIAL IJ (16:40)
[2023-05-05] MEDS: Pantoprazole 40 MG VIAL IVP (16:41)
[2023-05-05] MEDS: ERTAPENEM 1 GM in Normal Saline 50 ML IVPB (18:19)
--- NOTE | 2023-05-05 21:06 | W.PM.PROGNOT ---
Date of Service Date of service: 05/05/23 Time of Service: 21:06 Assessment and Plan Assessment and plan (1) Adenocarcinoma, colon: Status: Acute Assessment and plan: Perforated colon mass s/p right hemicolectomy/primary anastomosis 05/01 Pathology pending. Postop day 4. remains on ertapenem, much improved having bowel movements now and NG has been removed and she is tolerating clear liquid diet; still w/ low potassium problems but getting iv replacement. At this point the hospital service will sign off her case but remain available if any acute medical needs arise which surgeon would like addressed. Case discussed w/ Dr. Jose Enrique Rios. Subjective Subjective Interval history since last seen: Patient's NG has removed and she is now tolerating a diet. She denies any nausea or abdominal pain. I told her and her that I will be signing off her case per my discussion with Dr. Jose Enrique Rios as his surgeon has been handling her case and did not need my medical assistance at this point. She and her thanked me for visiting them. I told him that I would remain available if the surgeon needs my assistance. Objective Last Vital Signs Temp 36.2 C L 05/05/23 09:30 Pulse 86 05/05/23 19:13 Resp 23 05/05/23 14:02 BP 147/81 H 05/05/23 19:13 Pulse Ox 97 05/05/23 19:13 Laboratory Results - last 24 hr 05/05/23 05:29 WBC 7.54 RBC 3.49 L Hgb 7.9 L Hct 26.9 L MCV 77 L MCH 22.6 L MCHC 29.4 L RDW 16.8 H Plt Count 438 H MPV 9.5 Immature Gran % 3.8 Neutrophils % 64.4 Lymphocytes % 19.5 Monocytes % 8.4 Eosinophils % 3.4 Basophils % 0.5 Nucleated RBC % 0.4 H Absolute Neutrophils 4.85 Absolute Lymphocytes 1.47 Absolute Monocytes 0.63 Absolute Eosinophils 0.26 Absolute Basophils 0.04 Sodium 140 Potassium 3.2 L Chloride 104 Carbon Dioxide 26.9 Anion Gap 9.1 BUN 5 L Creatinine 0.6 Est GFR (CKD-EPI 2020) 89.56 Glucose 107 H Calcium 8.6 Total Bilirubin 0.3 AST 15 ALT 17 Alkaline Phosphatase 67 Total Protein 5.1 L Albumin 1.7 L Time Spent with Patient Time Spent with Patient: <25 minutes Time was spent: referring, communicating with other health day care teacher and counseling the patient
[2023-05-06] MEDS: POTASSIUM CHLORIDE/D5-0.45NACL 1,000 ML 100 MEQ IV (00:57)
[2023-05-06] MEDS: ACETAMINOPHEN 1,000 MG/100 ML BTL 400 MG IVPB (06:20)
[2023-05-06 07:44] VITALS: BP 127/64; PULSE 75; RESP 18; TEMP 36; O2SAT 96
--- NOTE | 2023-05-06 10:08 | W.PM.PROGNOT ---
Date of Service Date of service: 05/06/23 Time of Service: 10:08 Assessment and Plan Assessment and plan (1) Adenocarcinoma, colon: Status: Acute Assessment and plan: 82-year-old woman postop from a right hemicolectomy for a perforated colon tumor. She is postop day 5 and doing great. Having excellent bowel function, her abdominal exam is benign, her incision looks perfect. She is hemodynamically stable and ready for discharge home. I removed the drain. The incision does not need to be covered. Overall plan: Regular diet Discharge home Stop antibiotics Outpatient/office follow-up in a week for staple removal Subjective Subjective Interval history since last seen: No complaints or events overnight. The patient says she feels fantastic and is ready to go home. She has had a couple of bowel movements. She is tolerating diet. She feels great and has no complaints at all. She has no pain. Exam Narrative Exam Narrative: General: Nontoxic, comfortable and interactive Neuro: Alert and oriented x 3 Psych: Good mood and affect, good insight and understanding into her condition Chest: Nonlabored breathing Heart: Regular Abdomen: Soft, nondistended and grossly nontender anywhere. Her incision looks perfect. The mando are intact. I removed her drain which had scant serous output in it. Objective Last Vital Signs Temp 96.8 F L 05/06/23 07:44 Pulse 75 05/06/23 07:44 Resp 18 05/06/23 07:44 BP 127/64 05/06/23 07:44 Pulse Ox 96 05/06/23 07:44 Time Spent with Patient Time Spent with Patient: <25 minutes Time was spent: preparing to see the patient(eg.review tests), ordering medications,tests, procedures, counseling the patient and care coordination
--- NOTE | 2023-05-06 10:10 | PTTR_ITS ---
Date of service: 05/06/23 Time of Service: 09:35 PT Notes Visit Reasons: Severe lower abd pain Inpatient Physical Therapy Treatment Note [facility] Date: 05/06/23 PRECAUTIONS: Fall, standard, activity as tolerated SUBJECTIVE: Patient reports feeling much better today. Surgical drain was removed yesterday. Surgical dressing was removed, incision is exposed in all its glory. Patient reports that she will be going home this afternoon, is very excited. Does report that her legs feel weird, heavy, and like they don't belong to me. OBJECTIVE: Sitting up in bedside chair, agreeable to therapy. ? PAIN: none reported. VITALS: monitored by nursing staff? ? BED MOBILITY/TRANSFERS? Rolling L/R: not assessed Supine-sit: not assessed ? Sit-supine: not assessed ? Sit-stand: SBA ? Stand-sit: SBA ? Gait Training ([id number]): Direct one-on-one instruction and skilled i nstruction in: [x] employing an assistive device [] modified weight-bearing status [x] movement sequencing [x] turning and movement with proper form [x] Provided verbal cues for equipment management and technique [x] Provided instruction in gait pattern [x] Patient education regarding pacing and breathing techniques to maximize activity tolerance? GAIT? Assistive Device: none, SPC ? Weight bearing: full Assist: SBA to min assist ? Distance:? 200 feet, rest, 400 feet without AD, 100 feet with SPC ? Deviation: Patient continues to drift side to side in hallway without AD, expresses frustration that she cannot make herself maintain a straight trajectory. LOB x1 where this clinician had to assist patient to regain balance. Reports that her legs feel disconnected. After conversation with DPT Mar Woodruff, this clinician trials patient with SPC. Verbal cues for gait sequence, cornering with AD. Patient immediately reports increased comfort, increased confidence. Demonstrates ability to maintain straight trajectory with no LOB. ? Neuromuscular Re-education ([id number]): Activities that facilitate re-education of movement balance, posture, coordination, and proprioception or kinesthetic sense, requiring skilled tactile and verbal cues ? Exercises/techniques: * static standing balance challenges including normal OJ, narrow OJ. Narrow stance proves challenging for patient. Patient reports that at baseline under 1 year ago she was able to maintain SLS for 30 seconds. * Dynamic standing balance challenges including side stepping, stepping backwards. ASSESSMENT:? Patient tolerates therapy well, no report of pain nor dyspnea PLAN: Patient would like to pursue, and would benefit from, outpatient therapy for continued strengthening, balance training, functional activity tolerance. TREATMENT CODE/TIME: 40 minutes beginning at 9:35
--- NOTE | 2023-05-06 12:10 | W.PM.DSUDISC ---
Date of service: 05/06/23 Time of Service: 12:10 Discharge Plan Disposition Patient Disposition: Home Condition: Improving Discharge Details Reason For Visit: Severe lower abd pain Admit Date/Time: 05/01/23 09:19 Admit Provider: Tiera Ward Attending Provider: Tiera Ward Primary Care Provider: Tiera Choudhury Hospital Course Hospital Course: Patient is an 82-year-old woman who presented with perforated colon mass. She was taken emergently for a open right hemicolectomy. She did well but had an expected ileus for a few days after the surgery. Finally, on postoperative day 4, she started having bowel function and her distention went away and her NG tube stopped having significant output. She was put on a clear diet and on postoperative day 5 she was tolerating her diet, having regular/normal bowel function, having no abdominal pain and asking to go home. Her KVNG drain was removed and she will have follow-up in the office next week to have her mando removed. During the office visit we will go over pathology results and next steps in staging and other referrals and adjuvant care as needed. Home Meds and New Rx's Prescriptions: No Action pantoprazole 40 mg tablet,delayed release (DR/EC) 40 mg PO DAILY Qty: 90 3RF ferrous sulfate 325 mg (65 mg iron) tablet 325 mg PO DAILY Qty: 90 3RF acetaminophen 650 mg tablet extended release 1,300 mg PO Q12H Discharge Instructions Additional Instructions: Incision: Keep clean and dry but they do not need to be covered. It is okay to shower but no tub bathing for 1 week. Mando will get removed next week. Activity: As tolerated. There are no restrictions. Return to work, as tolerated in the next few days. If you need a work note call the surgery office. Diet: Regular diet as tolerated Medications: Resume all of your usual/regular home medications Follow-up: Call and schedule follow-up appointment to be seen in the middle or end of next week for staple removal and to go over pathology results in the next steps. Pain control: Take Tylenol, 1000 mg, every 6 hours on a schedule for the next 3 days. You can use ibuprofen in addition to Tylenol and use the narcotic medication only as necessary for pain preventing you from sleeping. Overall: Symptoms should not be worsening. If you have any difficulty breathing or you have return of symptoms of brought you to the hospital or your pain is otherwise worsening each day and you should call the doctor's office or come into the hospital to be checked out. Activity:: Activity as Tolerated Equipment/Supplies:: No Equipment Needed Diet:: As Tolerated DS: Diagnosis Discharge Diagnosis (1) Adenocarcinoma, colon: Status: Acute Asessment and Plan: Patient is stable, having good bowel function and having no abdominal pain. She is ready to be discharged home.
--- NOTE | 2023-05-06 13:53 | CHAPLAIN ---
Elisha was happy to tell me that she is being discharged today. She looks, and feels much better. She said she will work to be careful not to do much when she gets home and focus on healing, resting and PT. Elisha lives with her , Endy, who has some memory issues. Elisha is very involved in the [facility] [employer] and her potable water treatment operator, Rev. Lolita Aguilar has been visiting her here.
--- NOTE | 2023-05-06 17:02 | PDOC.CMDIS ---
Date of service: 05/06/23 Time of Service: 17:02 LACE Index Scoring Tool Questions: Length of Stay (in days): 4 - 6 Was the patient admitted via the E.D.?: Yes Comorbidities: Any Tumor E.D. Visits: 1 Answers: Total Score: 10 Risk of Readmission: High Risk Care Management Discharge Plan Reason for Hospitalization: Bowel perforation, abdominal pain Discharge Plan: Elisha will return home when ready per MD, no additional services needed for discharge. She will follow up with her Surgical services, her PCP, Palliative Care and her plan of care as prescribed. Endy will transport Elisha home via private vehicle. Patient/Family Education Needs: Review discharge instructions, discuss Ask Me Three. SDOH Health Related Social Needs: No Data to Display
--- NOTE | 2023-05-12 08:46 | W.PM.DS.N ---
Date of service: 05/12/23 Time of Service: 08:46 DS: Diagnosis Discharge Diagnosis (1) Adenocarcinoma, colon: Status: Acute Discharge Plan Disposition Patient Disposition: Home Condition: Improving Discharge Details Reason For Visit: Severe lower abd pain Admit Date/Time: 05/01/23 09:19 Admit Provider: Tiera Ward Attending Provider: Tiera Ward Primary Care Provider: Tiera Choudhury Hospital Course Hospital Course: Patient is an 82-year-old woman who presented with perforated colon mass. She was taken emergently for a open right hemicolectomy. She did well but had an expected ileus for a few days after the surgery. Finally, on postoperative day 4, she started having bowel function and her distention went away and her NG tube stopped having significant output. She was put on a clear diet and on postoperative day 5 she was tolerating her diet, having regular/normal bowel function, having no abdominal pain and asking to go home. Her KVNG drain was removed and she will have follow-up in the office next week to have her mando removed. During the office visit we will go over pathology results and next steps in staging and other referrals and adjuvant care as needed. Home Meds and New Rx's Prescriptions: No Action pantoprazole 40 mg tablet,delayed release (DR/EC) 40 mg PO DAILY Qty: 90 3RF ferrous sulfate 325 mg (65 mg iron) tablet 325 mg PO DAILY Qty: 90 3RF acetaminophen 650 mg tablet extended release 1,300 mg PO Q12H Discharge Instructions Additional Instructions: Incision: Keep clean and dry but they do not need to be covered. It is okay to shower but no tub bathing for 1 week. [place] will get removed next week. Activity: As tolerated. There are no restrictions. Return to work, as tolerated in the next few days. If you need a work note call the surgery office. Diet: Regular diet as tolerated Medications: Resume all of your usual/regular home medications Follow-up: Call and schedule follow-up appointment to be seen in the middle or end of next week for staple removal and to go over pathology results in the next steps. Pain control: Take Tylenol, 1000 mg, every 6 hours on a schedule for the next 3 days. You can use ibuprofen in addition to Tylenol and use the narcotic medication only as necessary for pain preventing you from sleeping. Overall: Symptoms should not be worsening. If you have any difficulty breathing or you have return of symptoms of brought you to the hospital or your pain is otherwise worsening each day and you should call the doctor's office or come into the hospital to be checked out. Stand Alone Forms: Nursing Discharge Form Referrals: Tiera Choudhury NP [Primary Care Provider] - 05/12/23 2:30 pm Tiera Ward DO [MD CONSULTING PHYSICIAN] - 05/12/23 8:15 am Activity:: Activity as Tolerated Equipment/Supplies:: No Equipment Needed Diet:: As Tolerated Discharge Orders Discharge Orders: Discharge Order (Routine); Ordered 05/06/23 Ordered By: Yuri Rios Discharge Data Discharge Date/Time-TO BE ENTERED AT DEPARTURE: 05/06/23 14:58 DS: Summary Time Spent with Patient providing and/or coordinating discharge services: Less than 30 minutes Status at Discharge Functional status at discharge: independent ambulation Overall status at discharge: patient is progressing back to baseline Mental Status: mental status grossly normal Speech and Movement: speech and movement normal Mood: congruent mood Affect: normal affect Quality:SDOH Health Related Social Needs: No Data to Display Exam Psych Mental Status: mental status grossly normal Speech and Movement: speech and movement normal Mood: congruent mood Affect: normal affect DS: Data Vitals/I&O Vitals and I&O: Vital Signs Temperature 96.8 F L 05/06/23 07:44 Temperature Source Tympanic 05/06/23 07:44 Pulse 75 05/06/23 07:44 Pulse Rhythm Regular 05/06/23 08:15 Pulse 82 05/05/23 14:02 Respiratory Rate 18 05/06/23 07:44 Respiratory Effort Normal 05/06/23 08:15 Respiratory Depth Normal 05/06/23 08:15 Respiratory Pattern Normal 05/06/23 08:15 Blood Pressure 127/64 05/06/23 07:44 Blood Pressure Mean 98 05/05/23 19:13 Blood Pressure Position Sitting 05/04/23 13:00 Pulse Oximetry 96 05/06/23 07:44 Oxygen Delivery Method Room Air 05/06/23 07:44 Oxygen Flow Rate 0 05/06/23 07:44 Pain Level 0 05/06/23 14:21 Comment 7 liters via face mask. 05/01/23 14:50 Comment ra 05/03/23 20:01 Arterial Systolic 73 05/02/23 10:00 Arterial Diastolic 44 05/02/23 10:00 Arterial Mean 60 05/02/23 10:00 PFSH All Active Problems (Updated 05/07/23 @ 00:02 by DANI CHÁVEZ) DNR (do not resuscitate) (Acute) 2020 COLST: DNR/DNI,+ transfer, +treat with IV fluids and abx. Confirmed, see 05/04/23 Palliative Care Note. Adenocarcinoma, colon (Acute) Advanced care planning/counseling discussion (Acute) Palliative care patient (Acute) Pulmonary fibrosis (Acute) DVT prophylaxis (Acute) Colonic mass (Acute) Malignancy (Acute) Ileus (Acute) Paracolic abscess (Acute) Screen for colon cancer (Acute) Pre-diabetes (Acute ~03/2023) A1C 5.75% Esophagitis (Acute) Acute hemorrhagic gastritis (Acute ~09/2022) GI bleed due to NSAIDs (Acute ~09/2022) Iron deficiency anemia (Acute ~09/2022) Generalized osteoarthritis (Acute) Subclinical hypothyroidism (Chronic 02/04/11) Lumbar radiculopathy, acute (Acute 06/12/14) 12/2022 Other and unspecified hyperlipidemia (Chronic 03/05/15) GERD (gastroesophageal reflux disease) (Chronic 05/07/14) Takes 2-week courses of omeprazole PRN with good relief for several months Eczema (Chronic 02/16/13) Hands Medical History (Updated 05/07/23 @ 00:02 by DANI CHÁVEZ) COVID Symptoms resolved 04/13/23 Erythema migrans (Lyme disease) 1 week post tick bite, short-term stay per pt report .. but Doxy x 10 days started, ik BPPV (benign paroxysmal positional vertigo) BCC (basal cell carcinoma), face (06/11/16) and left medial ankle 10/2018 Right lower lateral neck - removed at 10/06/22 Surgical History (Updated 05/07/23 @ 15:59 by Sharda Cadet RN) H/O right hemicolectomy (05/01/23) perforated colon mass History of colonoscopy (~04/2023) History of esophagogastroduodenoscopy (~04/2023) Open Carpal Tunnel release no date given by pt.HE Exc BBC rgt forehead (06/22/16) Biopsy of breast pt did not state date.HE Family History Father Alcohol abuse Brother Bladder cancer Social History Smoking/Tobacco Use Status: Never Smoking risk assessment performed?: Yes Alcohol Intake: current Alcohol Intake frequency: a few times a week Drug use: Never Substance use type: does not use Adopted: No Caregiver/Support person: No Foster care: No Household members: spouse Housing: house Number of Children: 0 number of grandchildren: 0 Communication Needs: Corrective Lenses Education Level: college 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 Pets and animals: No Sexually active: No Do you think of yourself as: straight/heterosexual Current gender identity: male What is your relationship status?: How often do you talk on the phone with friends or family?: three or more times per week How often do you get together with friends or relatives?: three or more times per week Do you belong to any clubs or organized social groups?: yes Panel score (0-1 are the most socially isolated patients): 3 What type of physical activity do you participate in: weight lifting and other Details: water aerobics Duration: < 15 minutes/day Frequency: 1-2 times per week Romi/Yazdanism: Sabianism Special romi needs: No Seatbelt use: always Drive intox or ride w/intox pick up and delivery driver: No Do you feel safe at home: Yes Do you feel safe in your relationship?: Yes Time Spent with Patient Time Spent with Patient: <45 minutes Time was spent: counseling the patient and care coordination
== END 2023-05-06 14:58 | disposition home or self-care (01) | DRG 329 ==
LOC: ER 09:07 → SUR 10:53 → ICU 15:03 → MS 05-06 11:18 → ICU 05-06 11:20
PROVIDERS: Emergency Medicine; Internal Medicine; Student in an Organized Health Care Education/Training Program; Admitting Provider Surgery; Emergency Provider Emergency Medicine; PCP Nurse Practitioner Adult Health; Visit Provider Surgery
PROC: 0DTF0ZZ Resection of Right Large Intestine, Open Approach (ICD-10-PCS; CPT 49000; principal; 2023-05-01 10:20)
DX: C18.3 Malignant neoplasm of hepatic flexure (principal); K63.1 Perforation of intestine (nontraumatic); K65.0 Generalized (acute) peritonitis; K56.7 Ileus, unspecified; K63.0 Abscess of intestine; D50.9 Iron deficiency anemia, unspecified; J84.10 Pulmonary fibrosis, unspecified; Z66 Do not resuscitate; R73.03 Prediabetes; M15.9 Polyosteoarthritis, unspecified; E03.9 Hypothyroidism, unspecified; K21.00 Gastro-esophageal reflux disease with esophagitis, without bleeding; E78.5 Hyperlipidemia, unspecified; M54.16 Radiculopathy, lumbar region; H81.10 Benign paroxysmal vertigo, unspecified ear
CPT/HCPCS: 44140; 00123; 36415; 36556; 36592; 80048; 80053; 83690; 86850; 86900; 86901; 87040; 87077; 88305; 96361; 96365; 96375; 96376; 97110; 97112; 97116; 97162; 97530; 99223; 99285; J1650; 71045; 74177; 82607; 82728; 82746; 83036; 83540; 83550; 83605; 83735; 84132; 85025; 85610; 87070; 87075; 87186; 87205; 88307; 88309; 88311; 94760; 99232; C9290; J0131; J0665; J1170; J1335; J1756; J1885; J2270; J2405; J2470; J2543; J3480; J3490

== ENCOUNTER → 2023-05-12 11:02 | Outpatient (BNVA) | payer MEDICARE, SELFPAY | PROVIDERS: PCP Nurse Practitioner Adult Health; Referring Provider Nurse Practitioner Adult Health; Visit Provider Surgery | DX: Z48.815 Encounter for surgical aftercare following surgery on the digestive system (principal) ==

== ENCOUNTER → 2023-05-19 11:18 | Outpatient (BNVA) | payer MEDICARE, SELFPAY | PROVIDERS: PCP Nurse Practitioner Adult Health; Visit Provider Surgery | DX: Z48.815 Encounter for surgical aftercare following surgery on the digestive system (principal); C18.9 Malignant neoplasm of colon, unspecified ==

== ENCOUNTER 2023-05-20 03:15 | Outpatient (CLI) | payer MEDICARE, SELFPAY ==
[2023-05-20 12:19] LABS: ALT 18 U/L (14-59); AST 27 U/L (15-37); Alkaline Phosphatase 125 U/L (46-116); Anion Gap 9.4 mmol/L (3-11); BUN 19 mg/dL (7-18); Bilirubin, Total 0.2 mg/dL (0.2-1.0); CO2 25.6 mmol/L (21.0-32.0); CREATININE 0.7 mg/dL (0.55-1.02); Calcium 9.7 mg/dL (8.5-10.1); Chloride 105 mmol/L (98-107); Glucose 72 mg/dL (74-106); Potassium 4.1 mmol/L (3.5-5.1); Sodium 140 mmol/L (136-145); Total Protein 7.2 g/dL (6.4-8.2)
[2023-05-20 19:10] LABS: CEA 1.4 ng/mL (See Note)
== END 2023-05-20 03:16 | disposition home or self-care (01) ==
LOC: LBO 03:16
PROVIDERS: PCP Nurse Practitioner Adult Health; Visit Provider Surgery
DX: C18.9 Malignant neoplasm of colon, unspecified (principal)
CPT/HCPCS: 36415; 80053; 82378

== ENCOUNTER → 2023-05-24 04:15 | Outpatient (CLI) | payer MEDICARE, SELFPAY ==
--- NOTE | 2023-05-24 06:30 | DI.CT_ITS ---
Exam(s) CT CHEST/ABD/PEL W EXAM: CT CHEST/ABD/PEL W CLINICAL HISTORY: colon cancer staging,c18.9. TECHNIQUE: Imaging Protocol: Axial computed tomography images with coronal and sagittal reformatted images were created and reviewed CONTRAST MATERIAL: Intravenous: Omnipaque 350 Contrast volume:100 ml Oral: Yes. Oral contrast was also administered for bowel opacification COMPARISON: CR XR CHEST 2V PA LATERAL from 03/30/[address] ABDOMEN PELVIS W from 05/01/2023 FINDINGS: CHEST: LUNGS: There is a 2-3 millimeter nodule in the right upper lobe. No other pulmonary nodules identifi ed. No confluent infiltrates nor pleural effusions. No findings in the trachea and mainstem bronchi .. MEDIASTINUM: There is no hilar nor mediastinal adenopathy. Visualized thyroid unremarkable. CARDIAC: Heart size is normal. There is no pericardial effusion.Caliber of the thoracic aorta is wit hin normal limits. OSSEOUS: No significant osseous lesions.No fractures.. ABDOMEN: There has been interval sub total colectomy. There is no evidence of bowel obstruction, free air, no r abscess. No free fluid. LIVER: In the right hepatic lobe there is again noted two unchanged appearing hypodense lesions, 1 me asuring approximately 1.7 x 1.2 cm and the other measuring approximately 1.0 x 1.0 cm. These lesions are poorly defined by this single run study but appear unchanged from the prior 05/01/2023 study. T here are not simple cysts and may represent metastatic lesions but possibility of these representing benign hemangiomas is also a consideration but would require further imaging for differentiation. Th ere are no dilated intrahepatic ducts. GALLBLADDER/BILIARY: No calcified gallstones. There is some mild streaking around the gallbladder no jarod, similar to previous. The CBD is not dilated. PANCREAS: No evidence of pancreatic mass nor dilatation of the pancreatic duct. SPLEEN: Spleen is not enlarged. There are no intrasplenic lesions. Splenic and portal veins are valdez nt. ADRENALS: There are no significant adrenal masses. KIDNEYS: No calculi nor hydronephrosis. No solid renal masses. No cysts evident. ABDOMINAL AORTA: Abdominal aorta is not enlarged. LYMPH NODES: There is no retroperitoneal nor paraaortic adenopathy. ABDOMINAL WALL: No evidence of significant anterior abdominal wall nor inguinal hernia. GI: There is no evidence of bowel obstruction.Mild increased markings in the anterior mesentery are m ost probably postsurgical. PELVIS: LYMPH NODES: There is no intrapelvic nor inguinal adenopathy. GI: No evidence of appendicitis.No evidence of sigmoid diverticulitis. URINARY BLADDER: No calculi nor masses evident REPRODUCTIVE: Uterus and adnexal regions are age-appropriate. OSSEOUS: No significant osseous lesions. No fractures. IMPRESSION: 1. Compared to prior CT scan of 05/01/2023 there has been interval right angelo- colectomy with removal of the previously described large right-sided colon mass. There is presently no mass at this locati on and there is no abnormality evident at the small bowel-large bowel anastomosis which is relatively midline. There is no evidence of small-bowel obstruction, free air, nor abscess. 2. There are 2 lesions again noted in the right hepatic lobe which appear unchanged from previous. T hese are not simple cysts. However it is difficult to differentiate these as metastatic lesions from hemangiomas and this would require further imaging. There is a possibly that this could be differen tiated with ultrasound although MRI would probably be more specific. 3. There is no obvious lymphadenopathy evident. No significant ascites. The previously present asci denilson seen on the CT scan of 05/01/2023 has resolved. 4. Solitary small 3 millimeter nodule in the right lung which is probably benign. No pleural effusio ns, infiltrates, nor intrathoracic adenopathy. 5. There are no lytic nor blastic appearing bone lesions. RADIATION DOSE DELIVERED: Total DLP DATA REPOSITORY: All CT scans at this facility are submitted to the National Radiology Data Registry (NRDR) Dose Index Registry (DIR) with the [employer] (ACR). RADIATION OPTIMIZATION: All CT scans at this facility use at least one of these dose optimization te chniques: automated exposure control; mA and/or kV adjustment per patient size (includes targeted exa ms where dose is matched to clinical indication); or iterative reconstruction.
[2023-05-24] MEDS: Omnipaque 350 MG/ML 50 ML BTL PO (07:17)
[2023-05-24] MEDS: Breeza Beverage 473 ML BTL PO ×2 (07:17→07:18)
[2023-05-24] MEDS: Omnipaque 350 MG/ML 100 ML BTL IJ (09:21)
[2023-05-24] MEDS: Normal Saline - Diluent 50 ML VIAL IJ (09:22)
== END ==
PROVIDERS: PCP Nurse Practitioner Adult Health; Visit Provider Surgery
DX: C18.9 Malignant neoplasm of colon, unspecified (principal); R91.1 Solitary pulmonary nodule; K76.89 Other specified diseases of liver
CPT/HCPCS: 74177; 71260; J3490; Q9967

== ENCOUNTER → 2023-05-26 10:02 | Outpatient (BNVA) | payer MEDICARE, SELFPAY | PROVIDERS: PCP Nurse Practitioner Adult Health; Referring Provider Nurse Practitioner Adult Health; Visit Provider Physical Therapy Assistant | DX: Z48.815 Encounter for surgical aftercare following surgery on the digestive system (principal); K91.872 Postprocedural seroma of a digestive system organ or structure following a digestive system procedure ==

== ENCOUNTER → 2023-06-02 08:01 | Outpatient (BNVA) | payer MEDICARE, SELFPAY | PROVIDERS: PCP Nurse Practitioner Adult Health; Referring Provider Nurse Practitioner Adult Health; Visit Provider Surgery | DX: Z48.815 Encounter for surgical aftercare following surgery on the digestive system (principal); K91.872 Postprocedural seroma of a digestive system organ or structure following a digestive system procedure ==

== ENCOUNTER 2023-06-04 07:34 | Day surgery (SDC) | payer MEDICARE, SELFPAY ==
--- NOTE | 2023-06-03 18:44 | W.PM.DSUDISC ---
Date of service: 06/04/23 Time of Service: 10:46 Discharge Plan Disposition Patient Disposition: Home Condition: Good Discharge Details Reason For Visit: Mediport Placement Attending Provider: Florentino Duenas Primary Care Provider: Tiera Choudhury Home Meds and New Rx's Prescriptions: Continued pantoprazole 40 mg tablet,delayed release (DR/EC) 40 mg PO DAILY Qty: 90 3RF ferrous sulfate 325 mg (65 mg iron) tablet 325 mg PO DAILY Qty: 90 3RF Discharge Instructions Instructions: Implanted Venous Access Port (DC) Additional Instructions: Elisha, we were able to insert the Mediport catheter for your chemotherapy today without any difficulty. Like we talked about beforehand, you have some skin glue over the incision sites. You will notice that there are actually 2 spots. One is a line across the upper portion of your breast. This is where the port itself is implanted. There is a small hole just above this which was used to access the blood vessel. The skin glue over these incisions will turn slightly purple, and eventually will flake off over the next few weeks. Please feel free to take a shower just as you normally would within the next 24 hours. You may notice that the area will bruise a bit. That is extremely common and nothing to be worried about. If the skin starts turning red, or becoming increasingly painful, please let me know. Technically, the port could be used within the next 48 hours. It is flushed with a medication called heparin to help make sure that it stays open until the time that you needed. Ports are usually flushed every 4 weeks if not actively being used. Obviously, I will be seeing you in the office to check on your abdominal wound, and I look forward to seeing you then. 1. Resume all of your medications. 2. Use heating pads and ice packs to help with pain. 3. Okay to use tylenol and ibuprofen over the counter as needed. 4. Call the office (or go directly to the emergency room after hours) if you notice any of the following: Develop chills (warm to touch), or if you have a thermometer and your temperature is above 101 Difficulty breathing or difficultly swallowing Persistent vomiting Any bleeding ? exceeding one tablespoon 5. Call your physician if the site where your intravenous was started becomes red, swollen, painful, and warm to touch. Activity:: Activity as Tolerated Shower/Bathe:: 24 hours Diet:: As Tolerated Discharge Orders Discharge Orders: Discharge Order (Routine); Ordered 06/03/23 Ordered By: Florentino Duenas DS: Diagnosis Discharge Diagnosis (1) Colon cancer: Status: Chronic Asessment and Plan: Uncomplicated insertion of left subclavian Mediport catheter. Okay to use in the next 24 hours
--- NOTE | 2023-06-03 18:46 | W.PM.OP ---
Date of service: 06/04/23 Time of Service: 10:49 Operative Note Operative Note DATE OF PROCEDURE: 06/04/23 PRE-OP DIAGNOSIS: Colon cancer POST-OP DIAGNOSIS: same PROCEDURE: Insertion of left subclavian Mediport SURGEON: Florentino Duenas ANESTHESIA TYPE: Local By Surgeon and MAC Refer to Anesthesia Record ESTIMATED BLOOD LOSS: 5 PATHOLOGY: none sent COMPLICATIONS: None Patient was transported to: same day Patient's condition: stable Implants: Bard 6 Citizen [place] subcutaneous PowerPort Indications: Elisha is an 82-year-old woman with a new diagnosis of colon cancer who needs chemotherapy. Procedure Description: After the induction of monitored anesthetic care, I prepped and draped the left chest wall and neck in the usual fashion. Next, I established a generous field block using local anesthetic. Then, under real-time ultrasound guidance, I cannulated the left subclavian vein at the axilla subclavian junction. The guidewire was advanced in appropriate position was confirmed with fluoroscopy. Next, a few centimeters below the access site, I made a longitudinal incision and developed a subcutaneous pocket. I then advanced the catheter using a tunneling device from the pocket up to the guidewire site. Then, over the guidewire I advanced the peel-away introducer sheath. I removed to the tunneling device from the catheter, and estimated the appropriate catheter length. I advanced the catheter through the peel-away pack into towards the atriocaval junction. Once this was complete, I cut the catheter and attached the subcutaneous port. I then accessed the port with a Staley needle. Blood drawl was less than ideal. Fluoroscopy was used to analyze the length of the catheter. It was obvious at that point that the catheter was actually too far. I then backed it out to about 28 cm at the pocket site. Fluoroscopy was used to confirm the appropriate position of the catheter at the atriocaval junction the catheter was then trimmed again, and attached back to the port. It was laid within the pocket. It was accessed with a Staley needle and withdrew blood easily. Catheter was flushed with injectable saline. Was then affixed to the subcutaneous tissues, and withdrawn and flushed once again. Finally, the port and catheter were flushed with heparin. The skin was then closed with interrupted Monocryl stitches, and skin affix was used on the top layer. Elisha was then allowed awaken from the anesthetic, and transferred back to the day surgery unit.
[2023-06-04 07:50] VITALS: BP 156/64; PULSE 75; RESP 16; TEMP 36.5; O2SAT 98
--- NOTE | 2023-06-04 08:36 | ANES.PREOP_ITS ---
General Info Date of Service Date Performed: 06/04/23 Height: 5 ft 2 in Weight: 62.1 kg Body Mass Index (BMI): 25.0 Surgical Procedure: Operation Date: 06/04/23 09:25 Proposed Procedure Side Surgeon p Port-A-Cath Placement Florentino Duenas MD Meds Allergies and Home Medications Allergies Allergy/AdvReac Type Severity Reaction Status Date / Time NSAIDS (Non-Steroidal AdvReac Severe GI Bleeding Verified 06/04/23 07:47 Anti-Inflamma aspirin AdvReac ? Verified 06/04/23 07:47 INCREASED HR Home Medication Medication Instructions Recorded ferrous sulfate 325 mg (65 mg 325 mg PO DAILY #90 tabs 03/25/23 iron) tablet pantoprazole 40 mg tablet,delayed 40 mg PO DAILY #90 tabs 03/25/23 release Current Visit Medications: Current Medications Generic Name Dose Route Start Last Admin Trade Name Freq PRN Reason Stop Dose Admin Ringer's Solution 1,000 mls @ 80 mls/hr 06/04/23 06:00 IV 06/04/23 23:59 INFUSION LYNDSEY Cefazolin Sodium/Dextrose 2 gm in 50 mls @ 100 mls/hr 06/04/23 06:00 Ancef Duplex IVPB 06/04/23 23:59 PREOP LYNDSEY IV Miscellaneous Supplies 1 each 06/04/23 06:00 Iv Access IV 06/04/23 23:59 DIRECTED LYNDSEY Sodium Chloride 0 ml 06/04/23 06:00 Normal Saline Flush 10 Ml Syr IV 06/04/23 23:59 PRN PRN Sodium Chloride 0 ml 06/04/23 06:00 Normal Saline 10 Ml Vial IJ 06/04/23 23:59 DIRECTED PRN Sterile Water 0 ml 06/04/23 06:00 Water,Injection,Sterile 10 Ml Vial IJ 06/04/23 23:59 DIRECTED PRN Tramadol HCl 50 mg 06/03/23 18:47 Tramadol 50 Mg Tab PO 07/03/23 18:46 Q6H PRN PRN Pain PFSH Active Problems Active Problems: Problem Status Onset Code Colon cancer C18.9 Liver lesion ~04/2023 K76.9 Postoperative seroma involving digestive system after digestive system procedure K91.872 DNR (do not resuscitate) Z66 Adenocarcinoma, colon C18.9 Advanced care planning/counseling discussion Z71.89 Pulmonary fibrosis J84.10 DVT prophylaxis Z29.9 Malignancy C80.1 Ileus K56.7 Pre-diabetes ~03/2023 R73.03 Esophagitis K20.90 Acute hemorrhagic gastritis ~09/2022 K29.01 GI bleed due to NSAIDs ~09/2022 K92.2, T39.395A Iron deficiency anemia ~09/2022 D50.9 Generalized osteoarthritis M15.9 Subclinical hypothyroidism 02/04/11 E03.9 Lumbar radiculopathy, acute 06/12/14 M54.16 Other and unspecified hyperlipidemia 03/05/15 E78.5 GERD (gastroesophageal reflux disease) 05/07/14 K21.9 Eczema 02/16/13 L30.9 Medical History Medical History (Updated 06/03/23 @ 18:44 by Florentino Duenas MD) Palliative care patient Colonic mass Paracolic abscess COVID Symptoms resolved 04/13/23 Erythema migrans (Lyme disease) 1 week post tick bite, short-term stay per pt report .. but Doxy x 10 days started, ik BPPV (benign paroxysmal positional vertigo) BCC (basal cell carcinoma), face (06/11/16) and left medial ankle 10/2018 Right lower lateral neck - removed at 10/06/22 Surgical History Surgical History H/O right hemicolectomy (05/01/23) perforated colon mass History of colonoscopy (~04/2023) History of esophagogastroduodenoscopy (~04/2023) Open Carpal Tunnel release no date given by pt.HE Exc BBC rgt forehead (06/22/16) Biopsy of breast pt did not state date.HE Tobacco Smoking/Tobacco Use Status: Never Alcohol Alcohol Intake: current Alcohol intake frequency: 0-2 drinks per day Substance Use Substance use: Never Substance use type: does not use Vital Signs and Lab Results Vital Signs Most Recent Vital Signs in EMR: Most Recent Vital Signs Temp Pulse Resp BP Pulse Ox 36.5 C 75 16 156/64 H 98 06/04/23 07:50 06/04/23 07:50 06/04/23 07:50 06/04/23 07:50 06/04/23 07:50 Lab Results Blood Type / Crossmatch: No Data to Display Complete Blood Count: No Data to Display Complete Metabolic Panel: Sodium 140 mmol/L (136-145) 05/20/23 11:15 Potassium 4.1 mmol/L (3.5-5.1) 05/20/23 11:15 Chloride 105 mmol/L (98-107) 05/20/23 11:15 Carbon Dioxide 25.6 mmol/L (21.0-32.0) 05/20/23 11:15 BUN 19 mg/dL (7-18) H 05/20/23 11:15 Creatinine 0.7 mg/dL (0.55-1.02) 05/20/23 11:15 Est GFR (CKD-EPI 2020) 86.30 (mL/min/1.73m2) 05/20/23 11:15 Calcium 9.7 mg/dL (8.5-10.1) 05/20/23 11:15 Albumin 3.0 g/dL (3.4-5.0) L 05/20/23 11:15 Glucose 72 mg/dL (74-106) L 05/20/23 11:15 Liver Function Panel: Alanine Aminotransferase (ALT/SGPT) 18 U/L (14-59) 05/20/23 11: 15 Aspartate Amino Transf (AST/SGOT) 27 U/L (15-37) 05/20/23 11:15 Coagulation Panel: No Data to Display Cardiac Panel: No Data to Display Arterial Blood Gas: No Data to Display Venous Blood Gas: No Data to Display Pancreas Panel: No Data to Display Thyroid Panel: No Data to Display Infectious Disease: No Data to Display Blood Cultures: No Data to Display Toxicology Panel: No Data to Display Imaging and Studies Imaging and Studies Study information below may be from another EMR and interpreted by another provider. Please see original notes in EMR for more complete details. EKG Summary: Conclusion Sinus rhythm...normal P axis, V-rate 50- 99 Borderline left axis deviation...QRS axis (-15,-29) Low voltage, precordial leads...precordial leads <1.0mV Otherwise normal ECG 09/23/22 Stress Test Summary: Impressions: Normal study after maximal exercise. Summary: Stress: Exercise capacity is above normal for age. 02/22/15 Anesthesia Assessment and Plan Anesthesia History Personal History: No History of Anesthesia Complications Family History: No Family History of Anesthesia Complications Exercise Tolerance Exercise Tolerance: Metabolic Equivalents>4 Pertinent Negatives Pertinent Negatives: No Major Cardiovascular Symptoms or Complaints Cardiac & Pulmonary Exam Cardiac Exam: Normal S1/S2 Heart Sounds Pulmonary Exam: Clear Bilateral Breath Sounds Implantable Cardiac Device Does patient have a Pacemaker or an ICD?: No Airway Exam Known Difficult Airway: No Mallampati Class: 3 Mouth Opening: Normal (> 3cm) Thyromental Distance: Less than 3 cm Neck Range of Motion: Full ROM Neck Circumference: Normal Teeth Condition: Normal Dentition ASA Classification ASA Score: ASA 3 Emergency Case?: No NPO Status NPO Status: NPO Clears >2 hours, Solids >8 hours Anesthesia Plan Resuscitation Status: Full Code Anesthesia Technique: General Anesthesia Airway Planned: Natural Airway Monitors Used: Standard Monitors
[2023-06-04] MEDS: Lactated Ringers 1,000 ML 80 ML IV (08:40)
[2023-06-04 09:16] VITALS: BMI 25.0
--- NOTE | 2023-06-04 09:21 | HPE_ITS ---
Date of service: 06/04/23 Time of Service: 09:21 Assessment and Plan Assessment and plan (1) Colon cancer: Status: Chronic Assessment and plan: We reviewed the plan for implantation of a left-sided port in the subclavicular position. I explained the risks and the benefits of the procedure, and what to expect in terms of recovery and long-term maintenance. I think she has a very good understanding of all this. She was able to provide consent today, and we can proceed to the operating room as planned. History of Present Illness History of Present Illness Chief Complaint: Colon cancer Narrative: Elisha is 82 years old, was recently diagnosed with colon adenocarcinoma involving the lymph nodes. She is planning for chemotherapy. She needs implantation of a Mediport for those treatments. Since her last visit, she is had no other significant interval changes with regards to the history or physical exam. PFSH All Active Problems (Updated 06/03/23 @ 18:44 by Florentino Duenas MD) Colon cancer (Chronic) Liver lesion (Acute ~04/2023) 06/02/23 Hem/Onc Postoperative seroma involving digestive system after digestive system procedure (Acute) DNR (do not resuscitate) (Acute) 2020 COLST: DNR/DNI,+ transfer, +treat with IV fluids and abx. Confirmed, see 05/04/23 Palliative Care Note. Adenocarcinoma, colon (Acute) metastatic 05/04/23 Hem/Onc Advanced care planning/counseling discussion (Acute) Pulmonary fibrosis (Acute) DVT prophylaxis (Acute) Malignancy (Acute) Ileus (Acute) Pre-diabetes (Acute ~03/2023) A1C 5.75% Esophagitis (Acute) Acute hemorrhagic gastritis (Acute ~09/2022) GI bleed due to NSAIDs (Acute ~09/2022) Iron deficiency anemia (Acute ~09/2022) Generalized osteoarthritis (Acute) Subclinical hypothyroidism (Chronic 02/04/11) Lumbar radiculopathy, acute (Acute 06/12/14) 12/2022 Other and unspecified hyperlipidemia (Chronic 03/05/15) GERD (gastroesophageal reflux disease) (Chronic 05/07/14) Takes 2-week courses of omeprazole PRN with good relief for several months Eczema (Chronic 02/16/13) Hands Medical History (Updated 06/03/23 @ 18:44 by Florentino Duenas MD) Palliative care patient Colonic mass Paracolic abscess COVID Symptoms resolved 04/13/23 Erythema migrans (Lyme disease) 1 week post tick bite, short-term stay per pt report .. but Doxy x 10 days started, ik BPPV (benign paroxysmal positional vertigo) BCC (basal cell carcinoma), face (06/11/16) and left medial ankle 10/2018 Right lower lateral neck - removed at 10/06/22 Surgical History H/O right hemicolectomy (05/01/23) perforated colon mass History of colonoscopy (~04/2023) History of esophagogastroduodenoscopy (~04/2023) Open Carpal Tunnel release no date given by pt.HE Exc BBC rgt forehead (06/22/16) Biopsy of breast pt did not state date.HE Family History Father Alcohol abuse Brother Bladder cancer Social History Smoking/Tobacco Use Status: Never Smoking risk assessment performed?: Yes Alcohol Intake: current Alcohol Intake frequency: 0-2 drinks per day Drug use: Never Substance use type: does not use Adopted: No Caregiver/Support person: No Foster care: No Household members: spouse Housing: house Number of Children: 0 number of grandchildren: 0 Communication Needs: Corrective Lenses Education Level: college 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 Pets and animals: No Sexually active: No Do you think of yourself as: straight/heterosexual Current gender identity: male What is your relationship status?: How often do you talk on the phone with friends or family?: three or more times per week How often do you get together with friends or relatives?: three or more times per week Do you belong to any clubs or organized social groups?: yes Panel score (0-1 are the most socially isolated patients): 3 What type of physical activity do you participate in: weight lifting and other Details: water aerobics Duration: < 15 minutes/day Frequency: 1-2 times per week Romi/Lutheran: Holiness Special romi needs: No Seatbelt use: always Drive intox or ride w/intox lease purchase driver: No Do you feel safe at home: Yes Do you feel safe in your relationship?: Yes Meds Allergies and Home Medications Allergies Allergy/AdvReac Type Severity Reaction Status Date / Time NSAIDS (Non-Steroidal AdvReac Severe GI Bleeding Verified 06/04/23 07:47 Anti-Inflamma aspirin AdvReac ? Verified 06/04/23 07:47 INCREASED HR Home Medications Medication Instructions Recorded Confirmed Type ferrous sulfate 325 mg (65 mg 325 mg PO DAILY #90 tabs 03/25/23 06/04/23 Rx iron) tablet pantoprazole 40 mg tablet,delayed 40 mg PO DAILY #90 tabs 03/25/23 06/04/23 Rx release Exam Const General: cooperative, healthy appearing and not in acute distress Neck Neck: normal visual inspection, no lymphadenopathy and supple Resp Effort & Inspection: normal respiratory effort Auscultation: clear to auscultation bilaterally Cardio Jugular venous pressure: no JVD Rate: regular rate Rhythm: regular rhythm Heart Sounds: S1 normal and S2 normal GI Inspection: normal to inspection Palpation: soft, no guarding, no hernias and nontender Percussion: normal to percussion Auscultation: normal bowel sounds Other: Mild skin dehiscence of her surgical incision. It is clean with no active signs of infection. Neuro General: patient alert, patient awake and patient oriented x3 Psych Appearance: grossly normal Results Last Vital Signs Temp 97.7 F 06/04/23 07:50 Pulse 75 06/04/23 07:50 Resp 16 06/04/23 07:50 BP 156/64 H 06/04/23 07:50 Pulse Ox 98 06/04/23 07:50 Time Spent Time spent with Patient: 40-54 minutes Time was spent: counseling the patient
[2023-06-04] MEDS: ceFAZolin 2 GM/50 ML BAG IVPB (09:58)
[2023-06-04] MEDS: Normal Saline 50 ML 7 ML (10:31)
[2023-06-04] MEDS: Heparin 500 UNITS/5 ML SYRINGE (10:33)
--- NOTE | 2023-06-04 10:39 | DI.RAD_ITS ---
Exam(s) XR FLOURO OR C-ARM <1 HR EXAM: XR FLOURO OR C-ARM <1 HR CLINICAL HISTORY: ADENOCARCINOMA COLON. TECHNIQUE: 2D and realtime digital imaging was performed. CONTRAST MATERIAL: None COMPARISON: No exams were available for comparison FINDINGS: Fluoroscopy was provided for Dr. Duenas for guidance with placing a port. A port is seen over the left chest via the left subclavian. The tip is not well seen appears to be i n the right atrium. Plain see procedure note for details. RADIATION DOSE DELIVERED: tomas Smalls=0.65 mGy
[2023-06-04 10:43] VITALS: BP 140/53; PULSE 74; RESP 16; TEMP 36.7; O2SAT 97
[2023-06-04 11:17] VITALS: BP 147/60; PULSE 66; RESP 16; TEMP 36.5; O2SAT 98
--- NOTE | 2023-06-04 11:26 | W.ANESPOSTOP ---
Postoperative Evaluation Date, Time and Location Date Performed: 06/04/23 Time Performed: 11:26 Patient Location: Day Surgery Unit Vital Signs Most Recent Imported Vital Signs: Most Recent Vital Signs Temp Pulse Resp BP Pulse Ox 36.5 C 66 16 147/60 H 98 06/04/23 11:17 06/04/23 11:17 06/04/23 11:17 06/04/23 11:17 06/04/23 11:17 Pain Score Most Recent Pain Score: Most Recent Pain Score Pain Level 0 06/04/23 11:17 Assessment Mental Status: Awake (Alert & Oriented to Patient Baseline) Airway and Respiratory Function: Patent airway with normal (patient baseline) respiratory exam Cardiovascular Function: Hemodynamically Stable Hydration Status: Adequately Hydrated Nausea & Vomiting: No Nausea or Vomiting Pain: Pt. Denies Any Pain Peripheral Nerve Block: Patient did not receive a nerve block
== END 2023-06-04 11:39 | disposition home or self-care (01) ==
LOC: SUR 07:35
PROVIDERS: PCP Nurse Practitioner Adult Health; Visit Provider Surgery
PROC: (CPT 36561; principal; 2023-06-04 09:15)
DX: C18.9 Malignant neoplasm of colon, unspecified (principal)
CPT/HCPCS: 36561; 76000; 76937; 77001; C1788; J0690; J1100; J1642; J1885; J2001; J2371; J2405; J2704

== ENCOUNTER → 2023-06-09 12:53 | Outpatient (BNVA) | payer MEDICARE, SELFPAY | PROVIDERS: PCP Nurse Practitioner Adult Health; Referring Provider Nurse Practitioner Adult Health; Visit Provider Physical Therapy Assistant | DX: Z51.89 Encounter for other specified aftercare (principal) ==

== ENCOUNTER → 2023-06-16 10:04 | Outpatient (BNVA) | payer MEDICARE, SELFPAY | PROVIDERS: PCP Nurse Practitioner Adult Health; Visit Provider Surgery | DX: Z48.815 Encounter for surgical aftercare following surgery on the digestive system (principal) ==

== ENCOUNTER → 2023-06-17 04:28 | Outpatient (CLI) | payer MEDICARE, SELFPAY ==
--- NOTE | 2023-06-17 | DI.MRI_ITS ---
Exam(s) MR ABDOMEN WO/W EXAM: MR ABDOMEN WO/W CLINICAL HISTORY: ASCENDING COLON CA,C18.2,LIVER LESION,K76.9,S/P RESECTION,F/U ABNL CT TECHNIQUE: Multiplanar multisequence MRI of the Abdomen was performed. CONTRAST MATERIAL: IV Contrast: 12 mL of Dotarem contrast administered. COMPARISON: CT CT ABDOMEN PELVIS W from 05/01/[address] CHEST/ABD/PEL W from 05/24/2023 FINDINGS: The examination is limited due to patient motion artifact. Liver: There are 5 hepatic lesions. The largest is in the right lobe measures 2.0 x 1.5 cm (series 5 001, image 12). There is a lesion in the left lobe which measures 1.9 x 1.7 cm. (Series 5001 image 10). There is a 1.4 cm lesion in the right lobe ( series 5001, image 11). There is a 7 mm lesion in the periphery of the right lobe of the liver (series 5001, image 14). There is a lesion in the caud al liver which measures 1.0 cm (series 5001, image 26). There are hyperintense on T2 weighted images and hypointense on T1 weighted images. They all show enhancement following contrast administration. The findings are most suspicious for hepatic metastases. Pancreas: Unremarkable. Gallbladder and Bile Ducts: The gallbladder is contracted but no stones are seen. No biliary ductal dilatation is present. Adrenals: Unremarkable. Kidneys: Unremarkable. Spleen: Unremarkable. Bowel: No evidence of bowel obstruction. Aorta: Unremarkable. Soft Tissues: Unremarkable. Bone: Unremarkable. Lymph Nodes: Unremarkable. IMPRESSION: 1. Multiple hepatic enhancing lesions suspicious for metastatic disease. 2. Otherwise unremarkable abdominal MRI. DATA REPOSITORY:
[2023-06-17] MEDS: Normal Saline - Diluent 50 ML VIAL 25 ML IJ (08:45)
[2023-06-17] MEDS: Gadoterate meglumine 20 ML VIAL 12 ML IVP (08:45)
== END ==
PROVIDERS: PCP Nurse Practitioner Adult Health; Visit Provider Internal Medicine Hematology & Oncology
DX: C18.2 Malignant neoplasm of ascending colon (principal); K76.89 Other specified diseases of liver
CPT/HCPCS: 36591; 74183; 80053; 82378; 85025

== ENCOUNTER 2023-06-26 | Outpatient (RCR) | payer MEDICARE, SELFPAY ==
[2023-06-17 08:01] LABS: Abs Immature Grans 0.01 10^3/uL (0.0-0.06); Absolute Basophil Count 0.06 10^3/uL (0.0-0.2); Absolute Eosinophil Count 0.22 10^3/uL (0.0-0.7); Absolute Monocyte Count 0.37 10^3/uL (0.1-0.8); Absolute Neutrophil Count 3.35 10^3/uL (1.2-6.7); Eosinophils % 3.7; HCT 43.1 % (36.0-46.0); HGB 13.4 g/dL (11.2-15.7); Immature Grans % 0.2; Lymphocytes % 32.1; MCH 26.7 pg (27.0-33.0); MCHC 31.1 % (32.0-36.0); MCV 86 fL (80-95); MPV 10.2 fL (8.0-11.0); Monocytes % 6.3; Neutrophils % 56.7; Platelet Count 298 10^3/uL (130-400); RBC 5.02 10^6/uL (3.93-5.22); RDW 19.1 % (11.7-14.6); RDW-SD 60.3 fL; WBC 5.91 10^3/uL (4.4-10.8)
[2023-06-17 08:21] LABS: ALT 24 U/L (14-59); AST 22 U/L (15-37); Albumin 3.4 g/dL (3.4-5.0); Alkaline Phosphatase 127 U/L (46-116); BUN 21 mg/dL (7-18); Bilirubin, Total 0.2 mg/dL (0.2-1.0); CREATININE 0.7 mg/dL (0.55-1.02); Calcium 9.4 mg/dL (8.5-10.1); Chloride 106 mmol/L (98-107); Glucose 103 mg/dL (74-106); Potassium 3.9 mmol/L (3.5-5.1); Sodium 142 mmol/L (136-145); Total Protein 7.1 g/dL (6.4-8.2)
[2023-06-17 18:27] LABS: CEA 1.1 ng/mL (See Note)
[2023-06-24] MEDS: Normal Saline Flush 10 ML SYR IVP (07:29)
[2023-06-24 08:10] LABS: Abs Immature Grans 0.01 10^3/uL (0.0-0.06); Absolute Basophil Count 0.05 10^3/uL (0.0-0.2); Absolute Eosinophil Count 0.19 10^3/uL (0.0-0.7); Absolute Lymphocyte Count 1.89 10^3/uL (1.2-3.4); Absolute Monocyte Count 0.36 10^3/uL (0.1-0.8); Absolute Neutrophil Count 3.51 10^3/uL (1.2-6.7); Basophils % 0.8; Eosinophils % 3.2; HCT 43.6 % (36.0-46.0); HGB 13.7 g/dL (11.2-15.7); Immature Grans % 0.2; Lymphocytes % 31.4; MCH 26.7 pg (27.0-33.0); MCHC 31.4 % (32.0-36.0); MCV 85 fL (80-95); MPV 10.9 fL (8.0-11.0); Neutrophils % 58.4; Platelet Count 307 10^3/uL (130-400); RBC 5.13 10^6/uL (3.93-5.22); RDW 17.8 % (11.7-14.6); RDW-SD 54.9 fL; WBC 6.01 10^3/uL (4.4-10.8)
[2023-06-24 08:28] LABS: ALT 25 U/L (14-59); AST 18 U/L (15-37); Albumin 3.3 g/dL (3.4-5.0); Alkaline Phosphatase 123 U/L (46-116); Anion Gap 8.9 mmol/L (3-11); BUN 18 mg/dL (7-18); Bilirubin, Total 0.3 mg/dL (0.2-1.0); CO2 28.1 mmol/L (21.0-32.0); CREATININE 0.7 mg/dL (0.55-1.02); Calcium 9.3 mg/dL (8.5-10.1); Chloride 106 mmol/L (98-107); Glucose 152 mg/dL (74-106); Potassium 3.9 mmol/L (3.5-5.1); Sodium 143 mmol/L (136-145)
[2023-06-24 19:12] LABS: CEA 1.1 ng/mL (See Note)
[2023-06-26 10:06] VITALS: BP 114/72; PULSE 86; RESP 14; TEMP 36.6; O2SAT 99
[2023-06-26] MEDS: Normal Saline Flush 10 ML SYR IVP (10:08)
== END 2023-07-06 23:59 | disposition home or self-care (01) ==
LOC: INF
PROVIDERS: PCP Nurse Practitioner Adult Health; Visit Provider Internal Medicine Hematology & Oncology
DX: C18.2 Malignant neoplasm of ascending colon (principal); Z45.2 Encounter for adjustment and management of vascular access device
CPT/HCPCS: 36591; 80053; 96523; 82378; 85025

== ENCOUNTER 2023-08-06 00:32 | Outpatient (RCR) | payer MEDICARE, SELFPAY ==
[2023-07-07 00:18] VITALS: BP 114/72; PULSE 86; RESP 14; TEMP 36.6
[2023-07-09] MEDS: Normal Saline Flush 10 ML SYR IVP (08:15)
[2023-07-09 08:27] LABS: Bilirubin Negative (Negative); Blood Negative (Negative); Clarity Clear (Clear); Glucose Negative (Negative); Ketones Negative (Negative); Leukocyte Esterase Trace (Negative); Nitrite Negative (Negative); Specific Gravity 1.025 (1.005-1.025); Urobilinogen 0.2 mg/dL (Up to 0.2)
[2023-07-09 08:27] LABS: Abs Immature Grans 0.02 10^3/uL (0.0-0.06); Absolute Basophil Count 0.04 10^3/uL (0.0-0.2); Absolute Eosinophil Count 0.17 10^3/uL (0.0-0.7); Absolute Lymphocyte Count 1.44 10^3/uL (1.2-3.4); Absolute Monocyte Count 0.31 10^3/uL (0.1-0.8); Basophils % 1.3 %; Eosinophils % 5.5 %; HCT 40.9 % (36.0-46.0); HGB 13.2 g/dL (11.2-15.7); Immature Grans % 0.6 %; Lymphocytes % 46.8 %; MCH 27.3 pg (27.0-33.0); MCHC 32.3 % (32.0-36.0); MCV 85 fL (80-95); MPV 10.8 fL (8.0-11.0); Monocytes % 10.1 %; Neutrophils % 35.7 %; Platelet Count 216 10^3/uL (130-400); RBC 4.84 10^6/uL (3.93-5.22); RDW 16.9 % (11.7-14.6); RDW-SD 52.1 fL; WBC 3.08 10^3/uL (4.4-10.8)
[2023-07-09 08:34] LABS: ALT 21 U/L (14-59); AST 16 U/L (15-37); Albumin 3.3 g/dL (3.4-5.0); Alkaline Phosphatase 103 U/L (46-116); BUN 25 mg/dL (7-18); Bilirubin, Total 0.3 mg/dL (0.2-1.0); CREATININE 0.7 mg/dL (0.55-1.02); Calcium 9.1 mg/dL (8.5-10.1); Chloride 107 mmol/L (98-107); Glucose 116 mg/dL (74-106); Sodium 143 mmol/L (136-145); Total Protein 6.7 g/dL (6.4-8.2)
[2023-07-09 19:09] LABS: CEA 1.6 ng/mL (See Note)
[2023-07-23] MEDS: Normal Saline Flush 10 ML SYR IVP (07:10)
[2023-07-23 07:50] LABS: Absolute Basophil Count 0.04 10^3/uL (0.0-0.2); Absolute Eosinophil Count 0.19 10^3/uL (0.0-0.7); Absolute Lymphocyte Count 1.54 10^3/uL (1.2-3.4); Absolute Monocyte Count 0.39 10^3/uL (0.1-0.8); Absolute Neutrophil Count 1.43 10^3/uL (1.2-6.7); Basophils % 1.1 %; Eosinophils % 5.3 %; HCT 42.4 % (36.0-46.0); HGB 13.5 g/dL (11.2-15.7); Lymphocytes % 42.9 %; MCH 27.6 pg (27.0-33.0); MCHC 31.8 % (32.0-36.0); MCV 87 fL (80-95); MPV 10.4 fL (8.0-11.0); Monocytes % 10.9 %; Neutrophils % 39.8 %; Platelet Count 161 10^3/uL (130-400); RDW 17.9 % (11.7-14.6); RDW-SD 56.2 fL; WBC 3.59 10^3/uL (4.4-10.8)
[2023-07-23 07:53] LABS: Bilirubin Negative (Negative); Blood Negative (Negative); Clarity Clear (Clear); Glucose Negative (Negative); Ketones Negative (Negative); Leukocyte Esterase Moderate (Negative); Nitrite Negative (Negative); Specific Gravity 1.015 (1.005-1.025); Urobilinogen 0.2 mg/dL (Up to 0.2)
[2023-07-23 08:05] LABS: ALT 23 U/L (14-59); AST 14 U/L (15-37); Albumin 3.2 g/dL (3.4-5.0); Alkaline Phosphatase 105 U/L (46-116); Anion Gap 7.3 mmol/L (3-11); BUN 23 mg/dL (7-18); Bilirubin, Total 0.3 mg/dL (0.2-1.0); CO2 28.7 mmol/L (21.0-32.0); CREATININE 0.7 mg/dL (0.55-1.02); Calcium 8.7 mg/dL (8.5-10.1); Chloride 106 mmol/L (98-107); Glucose 117 mg/dL (74-106); Potassium 3.9 mmol/L (3.5-5.1); Sodium 142 mmol/L (136-145); Total Protein 6.4 g/dL (6.4-8.2)
[2023-07-25 09:26] VITALS: BP 128/74; PULSE 73; RESP 16; TEMP 36.8; O2SAT 99
[2023-07-25] MEDS: Normal Saline Flush 10 ML SYR IVP (09:28)
[2023-08-06] MEDS: Normal Saline Flush 10 ML SYR IVP (07:50)
[2023-08-06 08:18] LABS: Absolute Basophil Count 0.06 10^3/uL (0.0-0.2); Absolute Eosinophil Count 0.17 10^3/uL (0.0-0.7); Absolute Monocyte Count 0.41 10^3/uL (0.1-0.8); Absolute Neutrophil Count 2.07 10^3/uL (1.2-6.7); Basophils % 1.5 %; Eosinophils % 4.1 %; HCT 42.5 % (36.0-46.0); HGB 14.1 g/dL (11.2-15.7); Lymphocytes % 34.1 %; MCH 28.4 pg (27.0-33.0); MCHC 33.2 % (32.0-36.0); MCV 86 fL (80-95); Neutrophils % 50.3 %; Platelet Count 165 10^3/uL (130-400); RBC 4.97 10^6/uL (3.93-5.22); RDW 18.2 % (11.7-14.6); RDW-SD 56.1 fL; WBC 4.11 10^3/uL (4.4-10.8)
[2023-08-06 08:21] LABS: Bilirubin Negative (Negative); Blood Negative (Negative); Clarity Clear (Clear); Glucose Negative (Negative); Ketones Negative (Negative); Leukocyte Esterase Small (Negative); Nitrite Negative (Negative); Specific Gravity 1.015 (1.005-1.025); Urobilinogen 0.2 mg/dL (Up to 0.2)
[2023-08-06 08:39] LABS: ALT 23 U/L (14-59); AST 17 U/L (15-37); Albumin 3.4 g/dL (3.4-5.0); Alkaline Phosphatase 98 U/L (46-116); Anion Gap 7.2 mmol/L (3-11); BUN 15 mg/dL (7-18); Bilirubin, Total 0.4 mg/dL (0.2-1.0); CO2 28.8 mmol/L (21.0-32.0); CREATININE 0.8 mg/dL (0.55-1.02); Calcium 9.1 mg/dL (8.5-10.1); Chloride 107 mmol/L (98-107); Estimated GFR 73.52 (mL/min/1.73m2); Glucose 119 mg/dL (74-106); Potassium 3.9 mmol/L (3.5-5.1); Sodium 143 mmol/L (136-145); Total Protein 6.8 g/dL (6.4-8.2)
[2023-08-06 18:27] LABS: CEA 1.6 ng/mL (See Note)
== END 2023-08-06 23:59 | disposition home or self-care (01) ==
LOC: INF 00:32
PROVIDERS: PCP Nurse Practitioner Adult Health; Visit Provider Internal Medicine Hematology & Oncology
DX: C18.2 Malignant neoplasm of ascending colon (principal); C78.7 Secondary malignant neoplasm of liver and intrahepatic bile duct; D50.9 Iron deficiency anemia, unspecified; Z45.2 Encounter for adjustment and management of vascular access device
CPT/HCPCS: 36591; 80053; 96523; 81003; 82378; 85025

== ENCOUNTER → 2023-08-19 00:08 | Outpatient (CLI) | payer MEDICARE, SELFPAY ==
[2023-08-19] MEDS: Omnipaque 350 MG/ML 100 ML BTL 70 ML IJ (14:38)
[2023-08-19] MEDS: Normal Saline - Diluent 50 ML VIAL IJ (14:39)
--- NOTE | 2023-08-19 14:39 | DI.CT_ITS ---
Exam(s) CT CHEST W EXAM: CT CHEST W CLINICAL HISTORY: COLON CANCER METS TO LIVER C18.9 C79.7 TECHNIQUE: Imaging Protocol: Axial computed tomography images with coronal and sagittal reformatted images were created and reviewed CONTRAST MATERIAL: Intravenous: Omnipaque 350Contrast volume:70 mL. COMPARISON: CT CT ABDOMEN PELVIS W from 05/01/[address] CHEST/ABD/PEL W from 05/24/2023 FINDINGS: Tracheobronchial tree: Patent where visualized. Pulmonary parenchyma: There is a stable 3 mm nodule in the anterolateral aspect of the right upper lo be (series 3, image 279). No new pulmonary nodules are present. No focal consolidating infiltrates are seen. Atelectatic changes are seen in the lung bases. Mediastinum and Elizabeth: No dominant adenopathy or fluid collection. The esophagus is unremarkable. Thyroid gland: Unremarkable. Pleura: No effusion or pneumothorax. Heart: Cardiomegaly. Coronary artery calcifications are present. No pericardial effusion. Aorta: Thoracic aorta non-dilated. Atherosclerotic calcifications are present. Pulmonary arteries: Due to the timing of the bolus, the pulmonary arteries are not adequately opacifi ed for evaluation of pulmonary emboli. Upper abdomen: There again seen 2 hypodense lesions in the right lobe of the liver. Lymph nodes: Within normal limits. Bones: Within normal limits for the patient's age. Soft tissues: There is a left-sided power port. The patient is status post abdominal surgery with sc arring in the midline of the anterior abdominal wall. IMPRESSION: 1. Stable 3 mm nonspecific nodule in the right upper lobe. No new pulmonary nodules. 2. No acute pulmonary process. RADIATION DOSE DELIVERED: Total DLP DATA REPOSITORY: All CT scans at this facility are submitted to the National Radiology Data Registry (NRDR) Dose Index Registry (DIR) with the [employer] (ACR). RADIATION OPTIMIZATION: All CT scans at this facility use at least one of these dose optimization te chniques: automated exposure control; mA and/or kV adjustment per patient size (includes targeted exa ms where dose is matched to clinical indication); or iterative reconstruction.
== END ==
PROVIDERS: PCP Nurse Practitioner Adult Health; Visit Provider Internal Medicine Hematology & Oncology
DX: C18.9 Malignant neoplasm of colon, unspecified (principal); C79.71 Secondary malignant neoplasm of right adrenal gland; R91.8 Other nonspecific abnormal finding of lung field
CPT/HCPCS: 36591; 80053; 71260; 82378; 85025; J3490

== ENCOUNTER → 2023-08-25 03:27 | Outpatient (CLI) | payer MEDICARE, SELFPAY ==
[2023-08-25] MEDS: Gadoterate meglumine 20 ML VIAL 12 ML IVP (10:03)
--- NOTE | 2023-08-25 10:20 | DI.MRI_ITS ---
Exam(s) MR ABDOMEN WO/W EXAM: MR ABDOMEN WO/W CLINICAL HISTORY: Colon CA, mets to liver, C18.9, C78.7 TECHNIQUE: Multiplanar multisequence MRI of the Abdomen was performed. CONTRAST MATERIAL: IV Contrast: 12 mL of Dotarem contrast administered. COMPARISON: MR MR ABDOMEN WO/W from 06/17/[address] CHEST W from 08/19/2023 FINDINGS: Exam limited Liver: Normal size. Significant interval decrease in size of previously noted metastatic lesions, no w barely perceptible and unable to be discrete measured. A tiny focus of restricted diffusion in the is visible in the most inferior lesion in the right lobe. Pancreas: Unremarkable. Gallbladder and Bile Ducts: Unremarkable. Adrenals: Unremarkable. Kidneys: Unremarkable. Spleen: Unremarkable. Aorta: Unremarkable. Soft Tissues: Unremarkable. Bone: Unremarkable. Lymph Nodes: Unremarkable. IMPRESSION: Significant decrease in the size of liver metastases, now barely perceptible. DATA REPOSITORY:
== END ==
PROVIDERS: PCP Nurse Practitioner Adult Health; Visit Provider Internal Medicine Hematology & Oncology
DX: C78.7 Secondary malignant neoplasm of liver and intrahepatic bile duct (principal); C18.9 Malignant neoplasm of colon, unspecified
CPT/HCPCS: 74183; 96523

== ENCOUNTER 2023-09-05 01:13 | Outpatient (RCR) | payer MEDICARE, SELFPAY ==
[2023-08-07 00:24] VITALS: BP 114/72; PULSE 86; RESP 14; TEMP 36.6
[2023-08-08] MEDS: Normal Saline Flush 10 ML SYR IVP (12:26)
[2023-08-08 13:01] VITALS: BP 178/78; PULSE 106; RESP 18; O2SAT 95
[2023-08-19] MEDS: Normal Saline Flush 10 ML SYR IVP (13:30)
[2023-08-19 14:11] LABS: Abs Immature Grans 0.01 10^3/uL (0.0-0.06); Absolute Basophil Count 0.05 10^3/uL (0.0-0.2); Absolute Eosinophil Count 0.15 10^3/uL (0.0-0.7); Absolute Lymphocyte Count 1.68 10^3/uL (1.2-3.4); Absolute Monocyte Count 0.42 10^3/uL (0.1-0.8); Absolute Neutrophil Count 2.99 10^3/uL (1.2-6.7); Basophils % 0.9 %; Eosinophils % 2.8 %; HCT 41.5 % (36.0-46.0); Immature Grans % 0.2 %; Lymphocytes % 31.7 %; MCH 29.1 pg (27.0-33.0); MCHC 33.7 % (32.0-36.0); MCV 86 fL (80-95); MPV 9.6 fL (8.0-11.0); Monocytes % 7.9 %; Neutrophils % 56.5 %; Platelet Count 182 10^3/uL (130-400); RBC 4.81 10^6/uL (3.93-5.22); RDW 18.4 % (11.7-14.6); RDW-SD 56.8 fL
[2023-08-19 14:27] LABS: ALT 22 U/L (14-59); AST 18 U/L (15-37); Albumin 3.5 g/dL (3.4-5.0); Alkaline Phosphatase 101 U/L (46-116); Anion Gap 9.4 mmol/L (3-11); BUN 18 mg/dL (7-18); Bilirubin, Total 0.3 mg/dL (0.2-1.0); CO2 28.6 mmol/L (21.0-32.0); CREATININE 0.7 mg/dL (0.55-1.02); Calcium 9.5 mg/dL (8.5-10.1); Chloride 105 mmol/L (98-107); Glucose 101 mg/dL (74-106); Potassium 3.9 mmol/L (3.5-5.1); Sodium 143 mmol/L (136-145)
[2023-08-19 16:20] VITALS: BP 178/78; PULSE 106; RESP 18; O2SAT 95
[2023-08-19 22:53] LABS: CEA 1.9 ng/mL (See Note)
[2023-08-25] MEDS: Normal Saline Flush 10 ML SYR IVP (10:20)
[2023-09-03] MEDS: Normal Saline Flush 10 ML SYR IVP (07:12)
[2023-09-03 07:30] LABS: Abs Immature Grans 0.01 10^3/uL (0.0-0.06); Absolute Basophil Count 0.06 10^3/uL (0.0-0.2); Absolute Eosinophil Count 0.34 10^3/uL (0.0-0.7); Absolute Lymphocyte Count 1.44 10^3/uL (1.2-3.4); Absolute Monocyte Count 0.46 10^3/uL (0.1-0.8); Absolute Neutrophil Count 2.63 10^3/uL (1.2-6.7); Basophils % 1.2 %; Eosinophils % 6.9 %; HCT 41.1 % (36.0-46.0); HGB 13.9 g/dL (11.2-15.7); Immature Grans % 0.2 %; Lymphocytes % 29.1 %; MCH 30.3 pg (27.0-33.0); MCHC 33.8 % (32.0-36.0); MCV 90 fL (80-95); MPV 10.2 fL (8.0-11.0); Monocytes % 9.3 %; Neutrophils % 53.3 %; Platelet Count 144 10^3/uL (130-400); RBC 4.58 10^6/uL (3.93-5.22); RDW 18.7 % (11.7-14.6); RDW-SD 59.1 fL; WBC 4.94 10^3/uL (4.4-10.8)
[2023-09-03 07:47] LABS: ALT 24 U/L (14-59); AST 22 U/L (15-37); Albumin 3.3 g/dL (3.4-5.0); Alkaline Phosphatase 101 U/L (46-116); Anion Gap 7.1 mmol/L (3-11); BUN 22 mg/dL (7-18); Bilirubin, Total 0.44 mg/dL (0.2-1.0); CO2 26.9 mmol/L (21.0-32.0); CREATININE 0.7 mg/dL (0.55-1.02); Calcium 9.1 mg/dL (8.5-10.1); Chloride 107 mmol/L (98-107); Estimated GFR 85.76 (mL/min/1.73m2); Glucose 134 mg/dL (74-106); Potassium 3.8 mmol/L (3.5-5.1); Sodium 141 mmol/L (136-145); Total Protein 6.9 g/dL (6.4-8.2)
[2023-09-03 08:00] LABS: Bilirubin Negative (Negative); Blood Small (Negative); Clarity Sl Cloudy (Clear); Glucose Negative (Negative); Ketones Negative (Negative); Leukocyte Esterase Small (Negative); Nitrite Negative (Negative); Urobilinogen 0.2 mg/dL (Up to 0.2); pH 5.5 (5-8)
[2023-09-03 19:42] LABS: CEA 1.8 ng/mL (See Note)
[2023-09-05] MEDS: Normal Saline Flush 10 ML SYR IVP (09:16)
== END 2023-09-05 23:59 | disposition home or self-care (01) ==
LOC: INF 01:13
PROVIDERS: PCP Nurse Practitioner Adult Health; Visit Provider Internal Medicine Hematology & Oncology
DX: C18.2 Malignant neoplasm of ascending colon (principal); C78.7 Secondary malignant neoplasm of liver and intrahepatic bile duct; Z45.2 Encounter for adjustment and management of vascular access device
CPT/HCPCS: 36591; 80053; 96523; 81003; 82378; 85025

== ENCOUNTER 2023-10-01 00:41 | Outpatient (RCR) | payer MEDICARE, SELFPAY ==
[2023-09-06 00:08] VITALS: BP 114/72; PULSE 86; RESP 14; TEMP 36.6
[2023-09-17 07:31] LABS: Absolute Basophil Count 0.05 10^3/uL (0.0-0.2); Absolute Eosinophil Count 0.21 10^3/uL (0.0-0.7); Absolute Monocyte Count 0.43 10^3/uL (0.1-0.8); Absolute Neutrophil Count 2.49 10^3/uL (1.2-6.7); Basophils % 1.1 %; Eosinophils % 4.6 %; HCT 41.3 % (36.0-46.0); HGB 13.8 g/dL (11.2-15.7); Lymphocytes % 30.6 %; MCH 30.8 pg (27.0-33.0); MCHC 33.4 % (32.0-36.0); MCV 92 fL (80-95); MPV 10.2 fL (8.0-11.0); Monocytes % 9.4 %; Neutrophils % 54.3 %; Platelet Count 163 10^3/uL (130-400); RBC 4.48 10^6/uL (3.93-5.22); RDW 19.2 % (11.7-14.6); RDW-SD 63.9 fL; WBC 4.58 10^3/uL (4.4-10.8)
[2023-09-17 07:38] LABS: Bilirubin Negative (Negative); Blood Negative (Negative); Clarity Clear (Clear); Glucose Negative (Negative); Ketones Negative (Negative); Leukocyte Esterase Trace (Negative); Nitrite Negative (Negative); Specific Gravity 1.015 (1.005-1.025); Urobilinogen 0.2 mg/dL (Up to 0.2); pH 5.5 (5-8)
[2023-09-17 07:44] LABS: ALT 22 U/L (14-59); AST 19 U/L (15-37); Albumin 3.3 g/dL (3.4-5.0); Alkaline Phosphatase 100 U/L (46-116); BUN 16 mg/dL (7-18); Bilirubin, Total 0.59 mg/dL (0.2-1.0); CREATININE 0.7 mg/dL (0.55-1.02); Calcium 9.2 mg/dL (8.5-10.1); Chloride 107 mmol/L (98-107); Estimated GFR 85.76 (mL/min/1.73m2); Glucose 133 mg/dL (74-106); Sodium 143 mmol/L (136-145); Total Protein 6.7 g/dL (6.4-8.2)
[2023-09-17 08:03] LABS: C & S Indicated? No; Epithelial Cells Few HPF (Negative); Mucus Trace (Negative)
[2023-09-17] MEDS: Normal Saline Flush 10 ML SYR IVP (08:50)
[2023-09-17 20:40] LABS: CEA 1.8 ng/mL (See Note)
== END 2023-10-06 23:59 | disposition home or self-care (01) ==
LOC: INF 00:41
PROVIDERS: PCP Nurse Practitioner Adult Health; Visit Provider Internal Medicine Hematology & Oncology
DX: C18.2 Malignant neoplasm of ascending colon (principal); Z45.2 Encounter for adjustment and management of vascular access device
CPT/HCPCS: 36591; 80053; 96523; 81003; 81015; 82378; 85025

== ENCOUNTER 2023-10-01 01:59 | Outpatient (CLI) | payer MEDICARE, SELFPAY ==
[2023-10-01 13:13] LABS: HGB 13.6 g/dL (11.2-15.7)
[2023-10-01 13:23] LABS: Anion Gap 6.8 mmol/L (3-11); BUN 25 mg/dL (7-18); CO2 28.2 mmol/L (21.0-32.0); Calcium 9.3 mg/dL (8.5-10.1); Chloride 105 mmol/L (98-107); Glucose 118 mg/dL (74-106); Magnesium 2.3 mg/dL (1.8-2.4); Potassium 3.9 mmol/L (3.5-5.1); Sodium 140 mmol/L (136-145)
[2023-10-01 15:34] LABS: Hemoglobin A1C 5.4 % (<5.7)
== END 2023-10-01 02:00 | disposition home or self-care (01) ==
LOC: LBO 01:59
PROVIDERS: PCP Nurse Practitioner Adult Health; Visit Provider Student in an Organized Health Care Education/Training Program
DX: Z91.89 Other specified personal risk factors, not elsewhere classified (principal); B34.9 Viral infection, unspecified; R73.09 Other abnormal glucose; E86.0 Dehydration
CPT/HCPCS: 36415; 80048; 83036; 83735; 85018

== ENCOUNTER 2023-10-20 01:41 | Outpatient (CLI) | payer MEDICARE, SELFPAY ==
--- NOTE | 2023-10-20 | DI.MRI_ITS ---
Exam(s) MR ABDOMEN WO/W EXAM: MR ABDOMEN WO/W CLINICAL HISTORY: Colon CA metastasized to liver, C18.9, C78.7 TECHNIQUE: Multiplanar multisequence MRI was performed with both pre and post contrast infused seque nces. Contrast injected sequences were performed following IV injection of 12 cc of Dotarem. COMPARISON: MR MR ABDOMEN WO/W from 06/17/[address] CHEST W from 08/19/2023 MR MR ABDOMEN WO/W from 08/25/2023 FINDINGS: VISUALIZED LUNG BASES: No pleural effusions evident. There is no ascites evident. LIVER: Liver size is normal. There are again no truly discernible lesions in the left hepatic lobe. In the right lobe there is a small focus of restricted diffusion in the inferior aspect of the right lobe again noted and higher up in the right hepatic lobe there is a small subcapsular focus restrict ed diffusion evident which was not evident on the 08/25/2023 scan. Contrast infused sequences are somewhat blurred by respiratory motion artifact. However, there do no t appear to be enhancing lesions following contrast injection out to 15 minutes BILIARY: There is no obvious gallbladder pathology. The CBD is not dilated. PANCREAS: There is no evidence of pancreatic mass nor dilatation of the pancreatic duct. SPLEEN: Spleen is not enlarged and there are no significant intrasplenic lesions.Splenic and portal v eins are patent ADRENALS: There are no significant adrenal masses. KIDNEYS: No solid renal masses. No hydronephrosis.No cysts evident. ABDOMINAL AORTA: Not enlarged and there is no significant para-aortic adenopathy. ANTERIOR ABDOMINAL WALL/GI: There is no evidence of significant anterior abdominal wall hernia in the field of view of this study.Is no evidence of obvious bowel obstruction. OSSEOUS: There are no lytic osseous lesions in the field of view of this study. IMPRESSION: 1. There is continued significant improvement when compared to the MRI scan of 06/17/2023. There are no remaining T1 hypointense/T2 hyperintense nor obvious enhancing lesions. There is again noted and unchanged small focus of restricted diffusion in the inferior aspect of the right hepatic lobe which is unchanged from the study of 08/25/2023 and was the site of prior larger lesion on 06/17/2023. The re is also a small focus of subcapsular restricted diffusion slightly higher up in the right hepatic lobe which was not previously evident. Continued follow-up recommended 2. No other findings in the upper abdomen. Also no ascites and no pleural effusions. DATA REPOSITORY:
[2023-10-20] MEDS: Normal Saline - Diluent 50 ML VIAL 25 ML IJ (14:30)
[2023-10-20] MEDS: Gadoterate meglumine 20 ML VIAL 12 ML IVP (14:31)
== END 2023-10-20 02:01 ==
LOC: DI 01:42
PROVIDERS: PCP Nurse Practitioner Adult Health; Visit Provider Internal Medicine Hematology & Oncology
DX: C78.7 Secondary malignant neoplasm of liver and intrahepatic bile duct (principal); D12.4 Benign neoplasm of descending colon
CPT/HCPCS: 74183; 96523

== ENCOUNTER 2023-10-28 02:45 | Outpatient (CLI) | payer MEDICARE, SELFPAY ==
[2023-10-28] MEDS: Omnipaque 350 MG/ML 100 ML BTL 70 ML IJ (11:11)
[2023-10-28] MEDS: Normal Saline - Diluent 50 ML VIAL IJ (11:20)
--- NOTE | 2023-10-28 11:20 | DI.CT_ITS ---
Exam(s) CT CHEST W EXAM: CT CHEST W CLINICAL HISTORY: COLON CA METS TO LIVER, C18.9, C78.7, ON CHEMO, RESTAGING TECHNIQUE: Imaging Protocol: Axial computed tomography images with coronal and sagittal reformatted images were created and reviewed CONTRAST MATERIAL: Intravenous: Omnipaque 350 Contrast volume:100 ml. COMPARISON: CT CT CHEST W from 08/19/2023 FINDINGS: Pulmonary parenchyma: No consolidation. No dominant measurable mass. Stable tiny nodule anterior rig ht upper lobe. Tracheobronchial tree: No bronchiectasis or mucous plugging. Mediastinum and Elizabeth: No dominant adenopathy or fluid collection. Pleura: No effusion. No pneumothorax. Heart: The heart is not dilated. Mild coronary artery calcifications are seen. Mitral annular calci fications. Aorta: Thoracic aorta non-dilated. Mild atherosclerotic changes. Pulmonary arteries: No gross evidence of emboli. Upper abdomen: No acute findings. Bones: Degenerative changes in the spine. Soft tissues: Port over left upper chest. IMPRESSION: Stable tiny nodule right upper lobe. No new findings. RADIATION DOSE DELIVERED: Total DLP DATA REPOSITORY: All CT scans at this facility are submitted to the National Radiology Data Registry (NRDR) Dose Index Registry (DIR) with the [employer] (ACR). RADIATION OPTIMIZATION: All CT scans at this facility use at least one of these dose optimization te chniques: automated exposure control; mA and/or kV adjustment per patient size (includes targeted exa ms where dose is matched to clinical indication); or iterative reconstruction.
== END 2023-10-28 03:05 ==
LOC: DI 02:46
PROVIDERS: PCP Nurse Practitioner Adult Health; Visit Provider Internal Medicine Hematology & Oncology
DX: C18.9 Malignant neoplasm of colon, unspecified (principal); C78.7 Secondary malignant neoplasm of liver and intrahepatic bile duct; R91.8 Other nonspecific abnormal finding of lung field
CPT/HCPCS: 36591; 80053; 71260; 82378; 85025; J3490

== ENCOUNTER 2023-10-28 03:22 | Outpatient (RCR) | payer MEDICARE, SELFPAY ==
[2023-10-07 00:27] VITALS: BP 114/72; PULSE 86; RESP 14; TEMP 36.6
[2023-10-15] MEDS: Normal Saline Flush 10 ML SYR IVP (07:10)
[2023-10-15 08:15] LABS: Abs Immature Grans 0.01 10^3/uL (0.0-0.06); Absolute Basophil Count 0.07 10^3/uL (0.0-0.2); Absolute Eosinophil Count 0.13 10^3/uL (0.0-0.7); Absolute Lymphocyte Count 1.84 10^3/uL (1.2-3.4); Absolute Monocyte Count 0.46 10^3/uL (0.1-0.8); Absolute Neutrophil Count 3.03 10^3/uL (1.2-6.7); Basophils % 1.3 %; Eosinophils % 2.3 %; HCT 41.6 % (36.0-46.0); HGB 13.5 g/dL (11.2-15.7); Immature Grans % 0.2 %; Lymphocytes % 33.2 %; MCH 31.7 pg (27.0-33.0); MCHC 32.5 % (32.0-36.0); MCV 98 fL (80-95); MPV 10.7 fL (8.0-11.0); Monocytes % 8.3 %; Neutrophils % 54.7 %; Platelet Count 240 10^3/uL (130-400); RBC 4.26 10^6/uL (3.93-5.22); RDW 15.7 % (11.7-14.6); RDW-SD 56.3 fL; WBC 5.54 10^3/uL (4.4-10.8)
[2023-10-15 08:18] LABS: Bilirubin Negative (Negative); Blood Negative (Negative); Clarity Clear (Clear); Glucose Negative (Negative); Ketones Negative (Negative); Leukocyte Esterase Small (Negative); Nitrite Negative (Negative); Specific Gravity 1.015 (1.005-1.025); Urobilinogen 0.2 mg/dL (Up to 0.2)
[2023-10-15 08:35] LABS: ALT 23 U/L (14-59); AST 22 U/L (15-37); Albumin 3.2 g/dL (3.4-5.0); Alkaline Phosphatase 98 U/L (46-116); Anion Gap 5.7 mmol/L (3-11); BUN 22 mg/dL (7-18); Bilirubin, Total 0.39 mg/dL (0.2-1.0); CO2 29.3 mmol/L (21.0-32.0); CREATININE 0.7 mg/dL (0.55-1.02); Calcium 9.5 mg/dL (8.5-10.1); Chloride 106 mmol/L (98-107); Estimated GFR 85.76 (mL/min/1.73m2); Glucose 122 mg/dL (74-106); Potassium 3.8 mmol/L (3.5-5.1); Sodium 141 mmol/L (136-145)
[2023-10-15 18:51] LABS: CEA 1.1 ng/mL (See Note)
[2023-10-17] MEDS: Normal Saline Flush 10 ML SYR IVP (09:06)
[2023-10-20] MEDS: Normal Saline Flush 10 ML SYR IVP (13:51)
[2023-10-28 10:03] VITALS: BP 114/72; PULSE 86; RESP 14; TEMP 36.6
[2023-10-28] MEDS: Normal Saline Flush 10 ML SYR IVP (10:05)
[2023-10-28 10:18] LABS: HCT 40.9 % (36.0-46.0); HGB 13.7 g/dL (11.2-15.7); MCH 31.9 pg (27.0-33.0); MCHC 33.5 % (32.0-36.0); MCV 95 fL (80-95); Platelet Count 190 10^3/uL (130-400); RBC 4.29 10^6/uL (3.93-5.22); RDW 14.8 % (11.7-14.6); RDW-SD 51.6 fL; WBC 4.81 10^3/uL (4.4-10.8)
[2023-10-28 10:32] LABS: ALT 42 U/L (14-59); AST 27 U/L (15-37); Albumin 3.5 g/dL (3.4-5.0); Alkaline Phosphatase 102 U/L (46-116); Anion Gap 7.8 mmol/L (3-11); BUN 18 mg/dL (7-18); Bilirubin, Total 0.47 mg/dL (0.2-1.0); CO2 27.2 mmol/L (21.0-32.0); CREATININE 0.8 mg/dL (0.55-1.02); Calcium 9.7 mg/dL (8.5-10.1); Chloride 105 mmol/L (98-107); Estimated GFR 73.06 (mL/min/1.73m2); Glucose 105 mg/dL (74-106); Potassium 4.4 mmol/L (3.5-5.1); Sodium 140 mmol/L (136-145); Total Protein 7.2 g/dL (6.4-8.2)
[2023-10-28 11:16] LABS: Absolute Basophil Count 0.05 10^3/uL (0.0-0.2); Absolute Eosinophil Count 0.29 10^3/uL (0.0-0.7); Absolute Lymphocyte Count 2.02 10^3/uL (1.2-3.4); Absolute Monocyte Count 0.34 10^3/uL (0.1-0.8); Absolute Neutrophil Count 2.12 10^3/uL (1.2-6.7); Atypical Lymphocytes % 1 %
[2023-10-28 11:17] LABS: Diff Comment Manual Differential; RBC Morphology Normal
[2023-10-28 20:35] LABS: CEA 1.4 ng/mL (See Note)
== END 2023-11-06 23:59 | disposition home or self-care (01) ==
LOC: INF 03:22
PROVIDERS: PCP Nurse Practitioner Adult Health; Visit Provider Internal Medicine Hematology & Oncology
DX: C18.2 Malignant neoplasm of ascending colon (principal); K76.9 Liver disease, unspecified; C78.7 Secondary malignant neoplasm of liver and intrahepatic bile duct; Z45.2 Encounter for adjustment and management of vascular access device
CPT/HCPCS: 36591; 80053; 96523; 81003; 82378; 85025

== ENCOUNTER 2023-12-05 00:21 | Outpatient (RCR) | payer MEDICARE, SELFPAY ==
[2023-11-07 00:28] VITALS: BP 114/72; PULSE 86; RESP 14; TEMP 36.6
[2023-11-11] MEDS: Normal Saline Flush 10 ML SYR IVP (07:11)
[2023-11-11 07:34] LABS: HCT 42.7 % (36.0-46.0); Lymphocytes % 43.8 %; MCH 32.2 pg (27.0-33.0); MCHC 32.8 % (32.0-36.0); MCV 98 fL (80-95); MPV 10.5 fL (8.0-11.0); Monocytes % 7.6 %; Neutrophils % 44.5 %; Platelet Count 219 10^3/uL (130-400); RBC 4.35 10^6/uL (3.93-5.22); RDW 13.2 % (11.7-14.6); RDW-SD 47.5 fL; WBC 4.89 10^3/uL (4.4-10.8)
[2023-11-11 07:35] LABS: Abs Immature Grans 0.01 10^3/uL (0.0-0.06); Absolute Basophil Count 0.05 10^3/uL (0.0-0.2); Absolute Eosinophil Count 0.14 10^3/uL (0.0-0.7); Absolute Lymphocyte Count 2.14 10^3/uL (1.2-3.4); Absolute Monocyte Count 0.37 10^3/uL (0.1-0.8); Absolute Neutrophil Count 2.18 10^3/uL (1.2-6.7); Eosinophils % 2.9 %; Immature Grans % 0.2 %
[2023-11-11 07:58] LABS: ALT 41 U/L (14-59); AST 34 U/L (15-37); Albumin 3.4 g/dL (3.4-5.0); Alkaline Phosphatase 110 U/L (46-116); Anion Gap 8.2 mmol/L (3-11); BUN 26 mg/dL (7-18); CO2 27.8 mmol/L (21.0-32.0); CREATININE 0.9 mg/dL (0.55-1.02); Calcium 9.3 mg/dL (8.5-10.1); Chloride 102 mmol/L (98-107); Estimated GFR 63.43 (mL/min/1.73m2); Glucose 131 mg/dL (74-106); Potassium 4.2 mmol/L (3.5-5.1); Sodium 138 mmol/L (136-145); Total Protein 7.1 g/dL (6.4-8.2)
[2023-11-11 22:06] LABS: CEA 1.2 ng/mL (See Note)
[2023-11-13] MEDS: Normal Saline Flush 10 ML SYR IVP (08:00)
[2023-12-03] MEDS: Normal Saline Flush 10 ML SYR IVP (07:27)
[2023-12-03 08:24] LABS: Absolute Basophil Count 0.04 10^3/uL (0.0-0.2); Absolute Eosinophil Count 0.25 10^3/uL (0.0-0.7); Absolute Lymphocyte Count 1.79 10^3/uL (1.2-3.4); Absolute Monocyte Count 0.38 10^3/uL (0.1-0.8); Absolute Neutrophil Count 1.22 10^3/uL (1.2-6.7); Basophils % 1.1 %; Eosinophils % 6.8 %; HCT 45.1 % (36.0-46.0); HGB 14.7 g/dL (11.2-15.7); Lymphocytes % 48.6 %; MCH 31.5 pg (27.0-33.0); MCHC 32.6 % (32.0-36.0); MCV 97 fL (80-95); MPV 10.4 fL (8.0-11.0); Monocytes % 10.3 %; Neutrophils % 33.2 %; Platelet Count 276 10^3/uL (130-400); RBC 4.67 10^6/uL (3.93-5.22); RDW 12.9 % (11.7-14.6); RDW-SD 45.9 fL; WBC 3.68 10^3/uL (4.4-10.8)
[2023-12-03 08:30] LABS: Bilirubin Negative (Negative); Blood Negative (Negative); Clarity Clear (Clear); Glucose Negative (Negative); Ketones Negative (Negative); Leukocyte Esterase Trace (Negative); Nitrite Negative (Negative); Specific Gravity 1.015 (1.005-1.025); Urobilinogen 0.2 mg/dL (Up to 0.2)
[2023-12-03 08:41] LABS: ALT 22 U/L (14-59); AST 21 U/L (15-37); Albumin 3.5 g/dL (3.4-5.0); Alkaline Phosphatase 92 U/L (46-116); Anion Gap 7.5 mmol/L (3-11); BUN 20 mg/dL (7-18); CO2 27.5 mmol/L (21.0-32.0); CREATININE 0.8 mg/dL (0.55-1.02); Calcium 9.5 mg/dL (8.5-10.1); Chloride 106 mmol/L (98-107); Estimated GFR 73.06 (mL/min/1.73m2); Glucose 102 mg/dL (74-106); Sodium 141 mmol/L (136-145); Total Protein 7.3 g/dL (6.4-8.2)
[2023-12-05] MEDS: Normal Saline Flush 10 ML SYR IVP (11:51)
== END 2023-12-06 23:59 | disposition home or self-care (01) ==
LOC: INF 00:21
PROVIDERS: PCP Nurse Practitioner Adult Health; Visit Provider Internal Medicine Hematology & Oncology
DX: C78.7 Secondary malignant neoplasm of liver and intrahepatic bile duct; K76.9 Liver disease, unspecified; C18.2 Malignant neoplasm of ascending colon
CPT/HCPCS: 36415; 36591; 80053; 96523; 81003; 82378; 85025

== ENCOUNTER 2024-01-05 00:51 | Outpatient (CLI) | payer MEDICARE, SELFPAY ==
--- NOTE | 2024-01-05 | DI.CT_ITS ---
Exam(s) CT CHEST W EXAM: CT CHEST W CLINICAL HISTORY: COLON CA METS TO LIVER,C18.9,C78.7,C18.2,RESTAGING EXAM TECHNIQUE: Imaging Protocol: Axial computed tomography images with coronal and sagittal reformatted images were created and reviewed. Computer aided detection (CAD) was utilized. CONTRAST MATERIAL: Intravenous: Omnipaque 350 Contrast volume:70 ml. COMPARISON: CT CT CHEST W from 10/28/2023 FINDINGS: Pulmonary parenchyma: No consolidation. No dominant measurable mass. Stable tiny nodule noted righ t upper lobe. Stable small nodule right lower lobe. Scattered calcified granulomas. No suspicious pulmonary nodules. Tracheobronchial tree: No bronchiectasis or mucous plugging. Mediastinum and Elizabeth: No dominant adenopathy or fluid collection. Pleura: No effusion. No pneumothorax. Heart: The heart is not dilated. Mild coronary artery calcifications are seen. Mitral annular calci fications. Aorta: Thoracic aorta non-dilated. Mild atherosclerotic changes. Pulmonary arteries: No gross evidence of emboli. Upper abdomen: No acute findings. Bones: Degenerative changes in the spine. Soft tissues: Port again noted over left upper chest. IMPRESSION: Stable small pulmonary nodules. No new abnormalities. RADIATION DOSE DELIVERED: 84.96mGy.cm Total DLP DATA REPOSITORY: All CT scans at this facility are submitted to the National Radiology Data Registry (NRDR) Dose Index Registry (DIR) with the [employer] (ACR). RADIATION OPTIMIZATION: All CT scans at this facility use at least one of these dose optimization te chniques: automated exposure control; mA and/or kV adjustment per patient size (includes targeted exa ms where dose is matched to clinical indication); or iterative reconstruction.
[2024-01-05] MEDS: Gadoterate meglumine 20 ML VIAL 13 ML IVP (08:16)
[2024-01-05] MEDS: Omnipaque 350 MG/ML 100 ML BTL 70 ML IJ (08:44)
--- NOTE | 2024-01-05 08:45 | DI.MRI_ITS ---
Exam(s) MR ABDOMEN WO/W EXAM: MR ABDOMEN WO/W CLINICAL HISTORY: COLON CA WITH LIVER METS,C18.2,C78.7,C18.9 TECHNIQUE: Multiplanar multisequence MRI of the Abdomen was performed. CONTRAST MATERIAL: IV Contrast: 13 mL of Dotarem contrast administered. COMPARISON: MR MR ABDOMEN WO/W from 10/20/2023 FINDINGS: The exam is mildly limited by motion. Lung bases: Clear. Liver: Tiny focus of restricted diffusion is again noted in the inferior right lobe of the liver whic h appears smaller than on the prior exam. Tiny subcapsular lesion seen posteriorly on the prior exam is not visible on today's study. The lesion is not discretely full on the other sequences in part due to small size. Pancreas: Unremarkable. Gallbladder and Bile Ducts: Unremarkable. Adrenals: Unremarkable. Kidneys: Unremarkable. Spleen: Unremarkable. Aorta: Unremarkable. Soft Tissues: Unremarkable. Bone: Unremarkable. Lymph Nodes: Unremarkable. Stomach and bowel: Unremarkable. Peritoneal cavity: Unremarkable. No evidence of ascites. IMPRESSION: Interval decrease in conspicuity of the tiny area of restricted diffusion at the inferior right lobe of the liver. Previously noted focal subcapsular focus the posterior right lobe is not visible on tod ay's exam. No new abnormalities. DATA REPOSITORY:
== END 2024-01-05 01:11 ==
LOC: DI 00:51
PROVIDERS: PCP Nurse Practitioner Adult Health; Visit Provider Nurse Practitioner Family
DX: C18.2 Malignant neoplasm of ascending colon (principal); R91.1 Solitary pulmonary nodule; R93.2 Abnormal findings on diagnostic imaging of liver and biliary tract
CPT/HCPCS: 74183; 96523; 71260; J3490

== ENCOUNTER 2024-01-05 01:10 | Outpatient (RCR) | payer MEDICARE, SELFPAY ==
[2023-12-07 00:13] VITALS: BP 114/72; PULSE 86; RESP 14; TEMP 36.6
[2023-12-17] MEDS: Normal Saline Flush 10 ML SYR IVP (07:19)
[2023-12-17 07:22] LABS: Bilirubin Negative (Negative); Blood Negative (Negative); Clarity Clear (Clear); Glucose Negative (Negative); Ketones Negative (Negative); Leukocyte Esterase Trace (Negative); Nitrite Negative (Negative); Specific Gravity 1.025 (1.005-1.025); Urobilinogen 0.2 mg/dL (Up to 0.2)
[2023-12-17 07:23] LABS: Abs Immature Grans 0.01 10^3/uL (0.0-0.06); Absolute Basophil Count 0.04 10^3/uL (0.0-0.2); Absolute Eosinophil Count 0.28 10^3/uL (0.0-0.7); Absolute Lymphocyte Count 1.55 10^3/uL (1.2-3.4); Absolute Monocyte Count 0.35 10^3/uL (0.1-0.8); Absolute Neutrophil Count 2.61 10^3/uL (1.2-6.7); Basophils % 0.8 %; Eosinophils % 5.8 %; HCT 42.6 % (36.0-46.0); Immature Grans % 0.2 %; MCH 31.7 pg (27.0-33.0); MCHC 32.9 % (32.0-36.0); MCV 97 fL (80-95); MPV 10.2 fL (8.0-11.0); Monocytes % 7.2 %; Platelet Count 160 10^3/uL (130-400); RBC 4.41 10^6/uL (3.93-5.22); RDW 13.1 % (11.7-14.6); WBC 4.84 10^3/uL (4.4-10.8)
[2023-12-17 07:46] LABS: ALT 21 U/L (14-59); AST 20 U/L (15-37); Albumin 3.3 g/dL (3.4-5.0); Alkaline Phosphatase 107 U/L (46-116); Anion Gap 9.6 mmol/L (3-11); BUN 25 mg/dL (7-18); Bilirubin, Total 0.36 mg/dL (0.2-1.0); CO2 26.4 mmol/L (21.0-32.0); CREATININE 0.7 mg/dL (0.55-1.02); Calcium 9.1 mg/dL (8.5-10.1); Chloride 110 mmol/L (98-107); Estimated GFR 85.76 (mL/min/1.73m2); Glucose 128 mg/dL (74-106); Sodium 146 mmol/L (136-145); Total Protein 6.8 g/dL (6.4-8.2)
[2023-12-17 19:04] LABS: CEA 1.3 ng/mL (See Note)
[2023-12-19] MEDS: Normal Saline Flush 10 ML SYR IVP (08:11)
[2023-12-31] MEDS: Normal Saline Flush 10 ML SYR IVP (08:06)
[2023-12-31 08:38] LABS: Abs Immature Grans 0.01 10^3/uL (0.0-0.06); Absolute Basophil Count 0.05 10^3/uL (0.0-0.2); Absolute Eosinophil Count 0.19 10^3/uL (0.0-0.7); Absolute Lymphocyte Count 1.43 10^3/uL (1.2-3.4); Absolute Monocyte Count 0.42 10^3/uL (0.1-0.8); Absolute Neutrophil Count 2.72 10^3/uL (1.2-6.7); Eosinophils % 3.9 %; HCT 44.6 % (36.0-46.0); HGB 14.8 g/dL (11.2-15.7); Immature Grans % 0.2 %; Lymphocytes % 29.7 %; MCH 31.5 pg (27.0-33.0); MCHC 33.2 % (32.0-36.0); MCV 95 fL (80-95); Monocytes % 8.7 %; Neutrophils % 56.5 %; Platelet Count 189 10^3/uL (130-400); RDW 13.9 % (11.7-14.6); RDW-SD 47.8 fL; WBC 4.82 10^3/uL (4.4-10.8)
[2023-12-31 08:40] LABS: Bilirubin Negative (Negative); Blood Negative (Negative); Clarity Clear (Clear); Glucose Negative (Negative); Ketones Negative (Negative); Leukocyte Esterase Small (Negative); Nitrite Negative (Negative); Specific Gravity 1.025 (1.005-1.025); Urobilinogen 0.2 mg/dL (Up to 0.2); pH 5.5 (5-8)
[2023-12-31 08:49] LABS: Bacteria Rare HPF (Negative); C & S Indicated? No; Casts Negative LPF (Negative); Crystals Negative HPF (Negative); Epithelial Cells Few HPF (Negative); Mucus Trace (Negative); RBC 0-2 HPF (0-2)
[2023-12-31 09:00] LABS: ALT 19 U/L (14-59); AST 22 U/L (15-37); Albumin 3.6 g/dL (3.4-5.0); Alkaline Phosphatase 103 U/L (46-116); Anion Gap 7.2 mmol/L (3-11); BUN 26 mg/dL (7-18); Bilirubin, Total 0.41 mg/dL (0.2-1.0); CO2 28.8 mmol/L (21.0-32.0); CREATININE 0.7 mg/dL (0.55-1.02); Calcium 9.6 mg/dL (8.5-10.1); Chloride 109 mmol/L (98-107); Estimated GFR 85.76 (mL/min/1.73m2); Glucose 95 mg/dL (74-106); Potassium 4.3 mmol/L (3.5-5.1); Sodium 145 mmol/L (136-145); Total Protein 7.3 g/dL (6.4-8.2)
[2023-12-31 17:54] LABS: CEA 1.8 ng/mL (See Note)
[2024-01-02] MEDS: Normal Saline Flush 10 ML SYR IVP (09:01)
[2024-01-05] MEDS: Normal Saline Flush 10 ML SYR IVP (07:17)
== END 2024-01-06 23:59 | disposition home or self-care (01) ==
LOC: INF 01:10
PROVIDERS: PCP Nurse Practitioner Adult Health; Visit Provider Internal Medicine Hematology & Oncology
DX: C18.2 Malignant neoplasm of ascending colon (principal); K76.9 Liver disease, unspecified; C78.7 Secondary malignant neoplasm of liver and intrahepatic bile duct; Z45.2 Encounter for adjustment and management of vascular access device
CPT/HCPCS: 36415; 36591; 80053; 96523; 81003; 81015; 82378; 85025

== ENCOUNTER 2024-01-29 00:01 | Outpatient (RCR) | payer MEDICARE, SELFPAY ==
[2024-01-07 00:09] VITALS: BP 114/72; PULSE 86; RESP 14; TEMP 36.6
[2024-01-13] MEDS: Normal Saline Flush 10 ML SYR IVP (07:24)
[2024-01-13 07:27] LABS: Abs Immature Grans 0.01 10^3/uL (0.0-0.06); Absolute Basophil Count 0.05 10^3/uL (0.0-0.2); Absolute Eosinophil Count 0.29 10^3/uL (0.0-0.7); Absolute Lymphocyte Count 1.41 10^3/uL (1.2-3.4); Absolute Monocyte Count 0.51 10^3/uL (0.1-0.8); Absolute Neutrophil Count 2.81 10^3/uL (1.2-6.7); Eosinophils % 5.7 %; HCT 42.1 % (36.0-46.0); HGB 14.1 g/dL (11.2-15.7); Immature Grans % 0.2 %; Lymphocytes % 27.8 %; MCH 31.7 pg (27.0-33.0); MCHC 33.5 % (32.0-36.0); MCV 95 fL (80-95); MPV 9.7 fL (8.0-11.0); Neutrophils % 55.3 %; Platelet Count 182 10^3/uL (130-400); RBC 4.45 10^6/uL (3.93-5.22); RDW 14.4 % (11.7-14.6); WBC 5.08 10^3/uL (4.4-10.8)
[2024-01-13 07:30] LABS: Bilirubin Negative (Negative); Blood Negative (Negative); Clarity Clear (Clear); Glucose Negative (Negative); Ketones Negative (Negative); Leukocyte Esterase Trace (Negative); Nitrite Negative (Negative); Urobilinogen 0.2 mg/dL (Up to 0.2)
[2024-01-13 07:48] LABS: ALT 23 U/L (14-59); AST 17 U/L (15-37); Albumin 3.2 g/dL (3.4-5.0); Alkaline Phosphatase 102 U/L (46-116); Anion Gap 8.2 mmol/L (3-11); BUN 21 mg/dL (7-18); Bilirubin, Total 0.36 mg/dL (0.2-1.0); CO2 27.8 mmol/L (21.0-32.0); CREATININE 0.9 mg/dL (0.55-1.02); Calcium 9.3 mg/dL (8.5-10.1); Chloride 108 mmol/L (98-107); Estimated GFR 63.43 (mL/min/1.73m2); Glucose 144 mg/dL (74-106); Potassium 4.1 mmol/L (3.5-5.1); Sodium 144 mmol/L (136-145); Total Protein 6.7 g/dL (6.4-8.2)
[2024-01-13 19:54] LABS: CEA 1.4 ng/mL (See Note)
[2024-01-15] MEDS: Normal Saline Flush 10 ML SYR IVP (08:06)
[2024-01-27] MEDS: Normal Saline Flush 10 ML SYR IVP (07:10)
[2024-01-27 07:29] LABS: Bilirubin Negative (Negative); Blood Negative (Negative); Clarity Clear (Clear); Glucose Negative (Negative); Ketones Negative (Negative); Leukocyte Esterase Trace (Negative); Nitrite Negative (Negative); Specific Gravity 1.025 (1.005-1.025); Urobilinogen 0.2 mg/dL (Up to 0.2); pH 5.5 (5-8)
[2024-01-27 07:33] LABS: Abs Immature Grans 0.01 10^3/uL (0.0-0.06); Absolute Basophil Count 0.05 10^3/uL (0.0-0.2); Absolute Eosinophil Count 0.27 10^3/uL (0.0-0.7); Absolute Lymphocyte Count 1.17 10^3/uL (1.2-3.4); Absolute Monocyte Count 0.48 10^3/uL (0.1-0.8); Absolute Neutrophil Count 2.39 10^3/uL (1.2-6.7); Basophils % 1.1 %; Eosinophils % 6.2 %; HCT 41.4 % (36.0-46.0); HGB 14.2 g/dL (11.2-15.7); Immature Grans % 0.2 %; Lymphocytes % 26.8 %; MCH 31.8 pg (27.0-33.0); MCHC 34.3 % (32.0-36.0); MCV 93 fL (80-95); MPV 10.2 fL (8.0-11.0); Neutrophils % 54.7 %; Platelet Count 157 10^3/uL (130-400); RBC 4.46 10^6/uL (3.93-5.22); RDW 15.2 % (11.7-14.6); RDW-SD 51.2 fL; WBC 4.37 10^3/uL (4.4-10.8)
[2024-01-27 07:37] LABS: Bacteria Rare HPF (Negative); C & S Indicated? No; Casts 0-2 Hyaline LPF (Negative); Crystals Negative HPF (Negative); Epithelial Cells Few HPF (Negative); Mucus Trace (Negative); RBC Negative HPF (0-2)
[2024-01-27 07:44] LABS: ALT 20 U/L (14-59); AST 14 U/L (15-37); Albumin 3.3 g/dL (3.4-5.0); Alkaline Phosphatase 104 U/L (46-116); BUN 21 mg/dL (7-18); Bilirubin, Total 0.38 mg/dL (0.2-1.0); CREATININE 0.8 mg/dL (0.55-1.02); Calcium 8.9 mg/dL (8.5-10.1); Chloride 109 mmol/L (98-107); Estimated GFR 73.06 (mL/min/1.73m2); Glucose 128 mg/dL (74-106); Potassium 3.9 mmol/L (3.5-5.1); Sodium 143 mmol/L (136-145); Total Protein 6.8 g/dL (6.4-8.2)
[2024-01-27 17:52] LABS: CEA 1.4 ng/mL (See Note)
[2024-01-29 12:55] VITALS: BP 148/75; PULSE 69; RESP 16; TEMP 35.8; O2SAT 98
[2024-01-29] MEDS: Normal Saline Flush 10 ML SYR IVP (13:19)
== END 2024-02-05 23:59 | disposition home or self-care (01) ==
LOC: INF 00:01
PROVIDERS: PCP Nurse Practitioner Adult Health; Visit Provider Internal Medicine Hematology & Oncology
DX: C18.2 Malignant neoplasm of ascending colon (principal); K76.9 Liver disease, unspecified; C78.7 Secondary malignant neoplasm of liver and intrahepatic bile duct; E61.1 Iron deficiency; Z45.2 Encounter for adjustment and management of vascular access device
CPT/HCPCS: 36591; 80053; 96523; 81003; 81015; 82378; 85025

== ENCOUNTER 2024-02-18 00:19 | Outpatient (CLI) | payer MEDICARE, SELFPAY ==
--- NOTE | 2024-02-18 | DI.MRI_ITS ---
Exam(s) MR ABDOMEN WO/W EXAM: MR ABDOMEN WO/W CLINICAL HISTORY: COLON CANCER METS TO LIVER C18.9 C78.7 RESTAGING TECHNIQUE: Multiplanar multisequence MRI of the Abdomen was performed. CONTRAST MATERIAL: IV Contrast: 12 mL of Dotarem contrast administered. COMPARISON: CT CT CHEST/ABD/PEL W from 05/24/2023 XA XR FLOURO OR C-ARM <1 HR from 06/04/2023 MR MR ABDOMEN WO/W from 06/17/2023 MR MR ABDOMEN WO/W from 10/20/[address] CHEST W from 10/28/2023 MR MR ABDOMEN WO/W from 01/05/2024 FINDINGS: Lung bases: Unremarkable. Liver: No discrete liver lesions are visible on the current exam. The exam is mildly limited by motio n. No abnormal enhancing lesions. Pancreas: Unremarkable. Gallbladder and Bile Ducts: Unremarkable. Adrenals: Unremarkable. Kidneys: Unremarkable. Spleen: Unremarkable. Aorta: Unremarkable. Soft Tissues: Unremarkable. Bone: Degenerative changes and mild scoliosis in the spine. Lymph Nodes: Unremarkable. Stomach and bowel: Unremarkable. Peritoneal cavity: Unremarkable. No evidence of ascites. IMPRESSION: No liver lesions are visible on the current examination. No new findings. DATA REPOSITORY:
[2024-02-18] MEDS: Normal Saline - Diluent 50 ML VIAL 25 ML IJ ×2 (08:44→08:49)
[2024-02-18] MEDS: Gadoterate meglumine 20 ML VIAL 12 ML IVP (08:45)
[2024-02-18] MEDS: Omnipaque 350 MG/ML 100 ML BTL 70 ML IJ (08:50)
--- NOTE | 2024-02-18 09:00 | DI.CT_ITS ---
Exam(s) CT CHEST W EXAM: CT CHEST W CLINICAL HISTORY: COLON CANCER METS TO LIVER C18.9 C78.7 RESTAGING. TECHNIQUE: Multi planar reconstructions were performed. CONTRAST MATERIAL: Omnipaque 350; 75 cc COMPARISON: CT CT ABDOMEN PELVIS W from 05/01/[address] CHEST/ABD/PEL W from 05/24/[address] CHEST W from 08/19/[address] CHEST W from 01/05/2024 FINDINGS: CHEST: LUNGS: There 2 small sub cm nodules again noted, 1 in the inferior lingular segment of the left lung the other in the lateral basal segment of the right lower lobe just above the hemidiaphragm, both unc hanged from the CT scan August 2023 and both measuring 4 mm. There is also an unchanged 2-3 mm benign- appearing nodule in the lateral aspect of the right middle lobe. There are no new pulmonary nodules nor pleural effusions nor new infiltrates. No new findings in the trachea and mainstem bronchi. MEDIASTINUM: There is no hilar nor mediastinal adenopathy. Visualized thyroid unremarkable.Distal tip of the Port-A-Cath is at the SVC-RA junction. CARDIAC: Heart size upper normal. No pericardial effusion.Caliber of the thoracic aorta is within no rmal limits. No dissection. VISUALIZED UPPER ABDOMEN:There are no significant adrenal masses. OSSEOUS: No significant osseous lesions.No fractures. Schmorl's node invaginations in upper lumbar and lower thoracic vertebral endplates again noted.. IMPRESSION: 1. Continued stable appearance of the previously described small bilateral sub cm size lung nodules. There are no new lung nodules, infiltrates, nor pleural effusions. 2. There is no intrathoracic adenopathy. RADIATION DOSE DELIVERED: 87.54mGy.cm Total DLP DATA REPOSITORY: All CT scans at this facility are submitted to the National Radiology Data Registry (NRDR) Dose Index Registry (DIR) with the [employer] (ACR). RADIATION OPTIMIZATION: All CT scans at this facility use at least one of these dose optimization te chniques: automated exposure control; mA and/or kV adjustment per patient size (includes targeted exa ms where dose is matched to clinical indication); or iterative reconstruction.
== END 2024-02-18 00:39 ==
LOC: DI 00:19
PROVIDERS: PCP Nurse Practitioner Adult Health; Visit Provider Internal Medicine Hematology & Oncology
DX: C18.9 Malignant neoplasm of colon, unspecified (principal); C78.7 Secondary malignant neoplasm of liver and intrahepatic bile duct
CPT/HCPCS: 74183; 96523; 71260; J3490

== ENCOUNTER 2024-02-26 00:19 | Outpatient (RCR) | payer MEDICARE, SELFPAY ==
[2024-02-06 00:05] VITALS: BP 114/72; PULSE 86; RESP 14; TEMP 36.6
[2024-02-10] MEDS: Normal Saline Flush 10 ML SYR IVP (07:23)
[2024-02-10 07:29] LABS: Abs Immature Grans 0.01 10^3/uL (0.0-0.06); Absolute Basophil Count 0.04 10^3/uL (0.0-0.2); Absolute Eosinophil Count 0.29 10^3/uL (0.0-0.7); Absolute Monocyte Count 0.58 10^3/uL (0.1-0.8); Basophils % 0.9 %; Eosinophils % 6.4 %; HCT 42.5 % (36.0-46.0); HGB 14.3 g/dL (11.2-15.7); Immature Grans % 0.2 %; Lymphocytes % 28.8 %; MCH 31.8 pg (27.0-33.0); MCHC 33.6 % (32.0-36.0); MCV 94 fL (80-95); MPV 9.7 fL (8.0-11.0); Monocytes % 12.8 %; Neutrophils % 50.9 %; Platelet Count 173 10^3/uL (130-400); RDW 15.3 % (11.7-14.6); RDW-SD 53.1 fL; WBC 4.52 10^3/uL (4.4-10.8)
[2024-02-10 07:32] LABS: Bilirubin Negative (Negative); Blood Negative (Negative); Clarity Sl Cloudy (Clear); Glucose Negative (Negative); Ketones Negative (Negative); Leukocyte Esterase Small (Negative); Nitrite Negative (Negative); Specific Gravity 1.015 (1.005-1.025); Urobilinogen 0.2 mg/dL (Up to 0.2); pH 5.5 (5-8)
[2024-02-10 07:48] LABS: ALT 24 U/L (14-59); AST 19 U/L (15-37); Albumin 3.4 g/dL (3.4-5.0); Alkaline Phosphatase 123 U/L (46-116); Anion Gap 6.3 mmol/L (3-11); BUN 20 mg/dL (7-18); Bilirubin, Total 0.49 mg/dL (0.2-1.0); CO2 29.7 mmol/L (21.0-32.0); CREATININE 0.8 mg/dL (0.55-1.02); Calcium 9.3 mg/dL (8.5-10.1); Chloride 107 mmol/L (98-107); Estimated GFR 73.06 (mL/min/1.73m2); Glucose 108 mg/dL (74-106); Potassium 3.9 mmol/L (3.5-5.1); Sodium 143 mmol/L (136-145); Total Protein 6.9 g/dL (6.4-8.2)
[2024-02-10 19:22] LABS: CEA 1.6 ng/mL (See Note)
[2024-02-18] MEDS: Normal Saline Flush 10 ML SYR IVP (07:12)
[2024-02-24] MEDS: Normal Saline Flush 10 ML SYR IVP (07:17)
[2024-02-24 07:39] LABS: Abs Immature Grans 0.03 10^3/uL (0.0-0.06); Absolute Basophil Count 0.06 10^3/uL (0.0-0.2); Absolute Eosinophil Count 0.24 10^3/uL (0.0-0.7); Absolute Lymphocyte Count 1.69 10^3/uL (1.2-3.4); Absolute Neutrophil Count 2.96 10^3/uL (1.2-6.7); Basophils % 1.1 %; Eosinophils % 4.4 %; HCT 43.8 % (36.0-46.0); HGB 14.3 g/dL (11.2-15.7); Immature Grans % 0.5 %; Lymphocytes % 30.8 %; MCH 31.3 pg (27.0-33.0); MCHC 32.6 % (32.0-36.0); MCV 96 fL (80-95); MPV 10.2 fL (8.0-11.0); Monocytes % 9.1 %; Neutrophils % 54.1 %; Platelet Count 231 10^3/uL (130-400); RBC 4.57 10^6/uL (3.93-5.22); RDW 14.4 % (11.7-14.6); RDW-SD 50.5 fL; WBC 5.48 10^3/uL (4.4-10.8)
[2024-02-24 07:40] LABS: Bilirubin Negative (Negative); Blood Negative (Negative); Clarity Clear (Clear); Glucose Negative (Negative); Ketones Negative (Negative); Leukocyte Esterase Trace (Negative); Nitrite Negative (Negative); Specific Gravity 1.015 (1.005-1.025); Urobilinogen 0.2 mg/dL (Up to 0.2)
[2024-02-24 07:57] LABS: ALT 20 U/L (14-59); AST 18 U/L (15-37); Albumin 3.3 g/dL (3.4-5.0); Alkaline Phosphatase 98 U/L (46-116); Anion Gap 8.3 mmol/L (3-11); BUN 25 mg/dL (7-18); Bilirubin, Total 0.32 mg/dL (0.2-1.0); CO2 28.7 mmol/L (21.0-32.0); CREATININE 0.8 mg/dL (0.55-1.02); Calcium 9.2 mg/dL (8.5-10.1); Chloride 107 mmol/L (98-107); Estimated GFR 73.06 (mL/min/1.73m2); Glucose 98 mg/dL (74-106); Potassium 4.2 mmol/L (3.5-5.1); Sodium 144 mmol/L (136-145); Total Protein 6.8 g/dL (6.4-8.2)
[2024-02-24 09:15] LABS: Iron 67 ug/dL (50-170); Total Iron Binding Capacity 318 ug/dL (250-450); Transferrin Sat 21 % (15-50)
[2024-02-24 09:29] LABS: Ferritin 92 ng/mL (8-252)
[2024-02-24 18:10] LABS: CEA 1.8 ng/mL (See Note)
[2024-02-26] MEDS: Normal Saline Flush 10 ML SYR IVP ×2 (08:50→08:51)
--- NOTE | 2024-02-26 09:10 | NUR.NOTE ---
Nursing Note: Noted heparin flush order exists for this patient with [facility] but no directions could be found. This facility has instruction not to use heparin flushes for [facility] patients, and this order is unclear. Patient stated she does not get heparin flushes and declined the heparin anyway; however, this RN recommended patient reach out to her oncologist as soon as possible to notify them. Patient agreed and stated she will do so. Flushed with two 10mL Normal Saline as per standard procedure.
== END 2024-03-07 23:59 | disposition home or self-care (01) ==
LOC: INF 00:19
PROVIDERS: PCP Nurse Practitioner Adult Health; Visit Provider Internal Medicine Hematology & Oncology
DX: C18.2 Malignant neoplasm of ascending colon (principal); C78.7 Secondary malignant neoplasm of liver and intrahepatic bile duct; E61.1 Iron deficiency; Z45.2 Encounter for adjustment and management of vascular access device; K76.9 Liver disease, unspecified
CPT/HCPCS: 36591; 80053; 96523; 81003; 82378; 82728; 83540; 83550; 85025

== ENCOUNTER → 2024-03-15 13:10 | Outpatient (BNVA) | payer MEDICARE, SELFPAY | PROVIDERS: PCP Nurse Practitioner Adult Health; Referring Provider Nurse Practitioner Adult Health; Visit Provider Podiatrist | DX: L60.0 Ingrowing nail (principal); M79.672 Pain in left foot | CPT/HCPCS: 11750; 99214 ==

== ENCOUNTER → 2024-04-05 13:05 | Outpatient (BNVA) | payer MEDICARE, SELFPAY | PROVIDERS: PCP Nurse Practitioner Adult Health; Referring Provider Nurse Practitioner Adult Health; Visit Provider Podiatrist | DX: L60.0 Ingrowing nail (principal); M79.672 Pain in left foot | CPT/HCPCS: 99213 ==

== ENCOUNTER 2024-04-06 03:24 | Outpatient (RCR) | payer MEDICARE, SELFPAY ==
[2024-03-08 00:04] VITALS: BP 114/72; PULSE 86; RESP 14; TEMP 36.6
[2024-03-23] MEDS: Normal Saline Flush 10 ML SYR IVP (07:26)
[2024-03-23 07:51] LABS: Abs Immature Grans 0.01 10^3/uL (0.0-0.06); Absolute Basophil Count 0.04 10^3/uL (0.0-0.2); Absolute Eosinophil Count 0.26 10^3/uL (0.0-0.7); Absolute Monocyte Count 0.46 10^3/uL (0.1-0.8); Absolute Neutrophil Count 3.33 10^3/uL (1.2-6.7); Basophils % 0.7 %; Eosinophils % 4.6 %; HCT 44.6 % (36.0-46.0); HGB 14.7 g/dL (11.2-15.7); Immature Grans % 0.2 %; Lymphocytes % 28.1 %; MCH 31.4 pg (27.0-33.0); MCV 95 fL (80-95); MPV 10.7 fL (8.0-11.0); Monocytes % 8.1 %; Neutrophils % 58.3 %; Platelet Count 234 10^3/uL (130-400); RBC 4.68 10^6/uL (3.93-5.22); RDW 13.2 % (11.7-14.6); RDW-SD 45.8 fL
[2024-03-23 07:52] LABS: Bilirubin Negative (Negative); Blood Negative (Negative); Clarity Clear (Clear); Glucose 100 mg/dL (Negative); Ketones Negative (Negative); Leukocyte Esterase Small (Negative); Nitrite Negative (Negative); Urobilinogen 0.2 mg/dL (Up to 0.2); pH 5.5 (5-8)
[2024-03-23 08:06] LABS: ALT 20 U/L (14-59); AST 17 U/L (15-37); Albumin 3.4 g/dL (3.4-5.0); Alkaline Phosphatase 99 U/L (46-116); Anion Gap 1.6 mmol/L (3-11); BUN 18 mg/dL (7-18); Bilirubin, Total 0.35 mg/dL (0.2-1.0); CO2 33.4 mmol/L (21.0-32.0); CREATININE 0.7 mg/dL (0.55-1.02); Calcium 9.5 mg/dL (8.5-10.1); Chloride 109 mmol/L (98-107); Estimated GFR 85.76 (mL/min/1.73m2); Glucose 99 mg/dL (74-106); Potassium 3.8 mmol/L (3.5-5.1); Sodium 144 mmol/L (136-145)
[2024-03-23 19:04] LABS: CEA 1.2 ng/mL (See Note)
[2024-03-25] MEDS: Normal Saline Flush 10 ML SYR IVP (13:21)
[2024-04-06] MEDS: Normal Saline Flush 10 ML SYR IVP (07:20)
[2024-04-06 07:35] LABS: Abs Immature Grans 0.01 10^3/uL (0.0-0.06); Absolute Basophil Count 0.04 10^3/uL (0.0-0.2); Absolute Eosinophil Count 0.19 10^3/uL (0.0-0.7); Absolute Lymphocyte Count 1.55 10^3/uL (1.2-3.4); Absolute Monocyte Count 0.38 10^3/uL (0.1-0.8); Absolute Neutrophil Count 2.61 10^3/uL (1.2-6.7); Basophils % 0.8 %; HCT 45.8 % (36.0-46.0); HGB 15.1 g/dL (11.2-15.7); Immature Grans % 0.2 %; Lymphocytes % 32.4 %; MCH 31.8 pg (27.0-33.0); MCV 96 fL (80-95); MPV 10.1 fL (8.0-11.0); Monocytes % 7.9 %; Neutrophils % 54.7 %; Platelet Count 209 10^3/uL (130-400); RBC 4.75 10^6/uL (3.93-5.22); RDW 13.3 % (11.7-14.6); RDW-SD 46.9 fL; WBC 4.78 10^3/uL (4.4-10.8)
[2024-04-06 07:39] LABS: Bilirubin Negative (Negative); Blood Negative (Negative); Clarity Sl Cloudy (Clear); Glucose Negative (Negative); Ketones Negative (Negative); Leukocyte Esterase Small (Negative); Nitrite Negative (Negative); Urobilinogen 0.2 mg/dL (Up to 0.2); pH 5.5 (5-8)
[2024-04-06 07:43] LABS: Bacteria Rare HPF (Negative); Crystals Negative HPF (Negative); Epithelial Cells Few HPF (Negative); RBC 0-2 HPF (0-2)
[2024-04-06 07:44] LABS: C & S Indicated? No; Casts Negative LPF (Negative); Mucus Negative (Negative)
[2024-04-06 07:52] LABS: ALT 24 U/L (14-59); AST 19 U/L (15-37); Albumin 3.3 g/dL (3.4-5.0); Alkaline Phosphatase 93 U/L (46-116); Anion Gap 5.9 mmol/L (3-11); BUN 15 mg/dL (7-18); Bilirubin, Total 0.45 mg/dL (0.2-1.0); CO2 30.1 mmol/L (21.0-32.0); CREATININE 0.8 mg/dL (0.55-1.02); Calcium 9.2 mg/dL (8.5-10.1); Chloride 108 mmol/L (98-107); Estimated GFR 73.06 (mL/min/1.73m2); Glucose 122 mg/dL (74-106); Sodium 144 mmol/L (136-145); Total Protein 7.1 g/dL (6.4-8.2)
[2024-04-06 21:23] LABS: CEA 1.4 ng/mL (See Note)
== END 2024-04-07 23:59 | disposition home or self-care (01) ==
LOC: INF 03:24
PROVIDERS: PCP Nurse Practitioner Adult Health; Visit Provider Internal Medicine Hematology & Oncology
DX: C18.2 Malignant neoplasm of ascending colon (principal); K76.9 Liver disease, unspecified; C78.7 Secondary malignant neoplasm of liver and intrahepatic bile duct
CPT/HCPCS: 36415; 36591; 80053; 96523; 81003; 81015; 82378; 85025

== ENCOUNTER 2024-04-20 02:40 | Outpatient (CLI) | payer MEDICARE, SELFPAY ==
--- NOTE | 2024-04-20 | DI.MRI_ITS ---
Exam(s) MR ABDOMEN WO/W EXAM: MR ABDOMEN WO/W CLINICAL HISTORY: COLON CA METS TO LIVER, C18.9, C78.7 TECHNIQUE: Multiplanar multisequence MRI was performed with both pre and post contrast infused seque nces. Contrast injected sequences were performed following IV injection of 12 cc of Dotarem. COMPARISON: CT CT CHEST/ABD/PEL W from 05/24/2023 MR MR ABDOMEN WO/W from 10/20/2023 MR MR ABDOMEN WO/W from 01/05/[address] CHEST W from 02/18/2024 MR MR ABDOMEN WO/W from 02/18/2024 FINDINGS: VISUALIZED LUNG BASES: No pleural effusions evident. There is no ascites evident. LIVER: Liver size is normal. Mild motion artifact. There are no obvious enhancing lesions in the li claudio. No new areas of intrahepatic restricted diffusion. BILIARY: Gallbladder is contracted. The CBD is not dilated. PANCREAS: There is no evidence of pancreatic mass nor dilatation of the pancreatic duct. SPLEEN: Spleen is not enlarged and there are no intrasplenic lesions.Splenic and portal veins are pat ent ADRENALS: There are no significant adrenal masses. KIDNEYS: No solid renal masses. No hydronephrosis.No significant cysts ABDOMINAL AORTA: Not enlarged and there is no significant para-aortic adenopathy. ANTERIOR ABDOMINAL WALL/GI: There is no evidence of significant anterior abdominal wall hernia in the field of view of this study.Is no evidence of obvious bowel obstruction. OSSEOUS: There are no lytic osseous lesions in the field of view of this study. IMPRESSION: Stable findings with no evidence of new liver lesions. No ascites nor new mesenteric masses. DATA REPOSITORY:
--- NOTE | 2024-04-20 | DI.CT_ITS ---
Exam(s) CT CHEST W EXAM: CT CHEST W CLINICAL HISTORY: COLON CA METS TO LIVER, C18.9, C78.7. TECHNIQUE: Multi planar reconstructions were performed. CONTRAST MATERIAL: Omnipaque 350; 70 cc COMPARISON: CT CT CHEST W from 02/18/2024 FINDINGS: CHEST: LUNGS: There are no confluent infiltrates nor pleural effusions. No new ominous pulmonary nodules. There is a small 3 mm nodular density in the inferior lingular segment of the left lung adjacent to t he pericardiac fat, unchanged. Another similar size small nodule is seen in the right lung base late ral basal segment just above the hemidiaphragm, also unchanged. No new nodules evident. MEDIASTINUM: There is no hilar nor mediastinal adenopathy. Visualized thyroid unremarkable. CARDIAC: Heart size is upper normal. There is no pericardial effusion.Caliber of the thoracic aorta is within normal limits. Distal tip of the Port-A-Cath is in the lower SVC. VISUALIZED UPPER ABDOMEN:There are no significant adrenal masses. Possible concern here is appearanc e of the GE junction which appears slightly thickened. OSSEOUS: No significant osseous lesions.No fractures.. IMPRESSION: 1. Compared to prior CT scan of February 2024 there is continued stable appearance and size of the pr eviously described small bilateral sub cm lung nodules. There are no new pulmonary nodules, infiltra denilson, nor pleural effusions and there is no intrathoracic adenopathy. 2. A possible concern is the appearance of the GE junction which appears slightly thickened. Conside r endoscopy to rule out neoplasm at this level. RADIATION DOSE DELIVERED: 102.23mGy.cm Total DLP DATA REPOSITORY: All CT scans at this facility are submitted to the National Radiology Data Registry (NRDR) Dose Index Registry (DIR) with the [employer] (ACR). RADIATION OPTIMIZATION: All CT scans at this facility use at least one of these dose optimization te chniques: automated exposure control; mA and/or kV adjustment per patient size (includes targeted exa ms where dose is matched to clinical indication); or iterative reconstruction.
[2024-04-20] MEDS: Gadoterate meglumine 20 ML VIAL 12 ML IVP (11:49)
[2024-04-20] MEDS: Normal Saline - Diluent 50 ML VIAL 25 ML IJ ×2 (11:50→13:01)
[2024-04-20] MEDS: Omnipaque 350 MG/ML 100 ML BTL IJ (13:06)
== END 2024-04-20 03:00 ==
LOC: DI 02:40
PROVIDERS: PCP Nurse Practitioner Adult Health; Visit Provider Internal Medicine Hematology & Oncology
DX: C18.9 Malignant neoplasm of colon, unspecified (principal); C78.7 Secondary malignant neoplasm of liver and intrahepatic bile duct
CPT/HCPCS: 36591; 74183; 80053; 71260; 82378; 85025; J3490

== ENCOUNTER 2024-04-29 00:04 | Outpatient (RCR) | payer MEDICARE, SELFPAY ==
[2024-04-08] MEDS: Normal Saline Flush 10 ML SYR IVP (12:15)
[2024-04-20] MEDS: Normal Saline Flush 10 ML SYR IVP (10:35)
[2024-04-20 11:03] LABS: Abs Immature Grans 0.01 10^3/uL (0.0-0.06); Absolute Basophil Count 0.05 10^3/uL (0.0-0.2); Absolute Eosinophil Count 0.18 10^3/uL (0.0-0.7); Absolute Lymphocyte Count 1.48 10^3/uL (1.2-3.4); Absolute Monocyte Count 0.51 10^3/uL (0.1-0.8); Absolute Neutrophil Count 3.22 10^3/uL (1.2-6.7); Basophils % 0.9 %; Eosinophils % 3.3 %; HCT 45.6 % (36.0-46.0); Immature Grans % 0.2 %; Lymphocytes % 27.2 %; MCH 31.6 pg (27.0-33.0); MCHC 32.9 % (32.0-36.0); MCV 96 fL (80-95); MPV 10.3 fL (8.0-11.0); Monocytes % 9.4 %; Platelet Count 191 10^3/uL (130-400); RBC 4.75 10^6/uL (3.93-5.22); RDW 13.4 % (11.7-14.6); RDW-SD 47.5 fL; WBC 5.45 10^3/uL (4.4-10.8)
[2024-04-20 11:20] LABS: ALT 25 U/L (14-59); AST 17 U/L (15-37); Albumin 3.6 g/dL (3.4-5.0); Alkaline Phosphatase 92 U/L (46-116); Anion Gap 5.2 mmol/L (3-11); BUN 17 mg/dL (7-18); Bilirubin, Total 0.43 mg/dL (0.2-1.0); CO2 29.8 mmol/L (21.0-32.0); CREATININE 0.7 mg/dL (0.55-1.02); Calcium 9.6 mg/dL (8.5-10.1); Chloride 108 mmol/L (98-107); Estimated GFR 85.76 (mL/min/1.73m2); Glucose 96 mg/dL (74-106); Potassium 4.2 mmol/L (3.5-5.1); Sodium 143 mmol/L (136-145); Total Protein 7.1 g/dL (6.4-8.2)
[2024-04-20 22:03] LABS: CEA 1.3 ng/mL (See Note)
[2024-04-27] MEDS: Normal Saline Flush 10 ML SYR IVP (07:22)
[2024-04-27 07:31] LABS: Abs Immature Grans 0.01 10^3/uL (0.0-0.06); Absolute Basophil Count 0.05 10^3/uL (0.0-0.2); Absolute Eosinophil Count 0.22 10^3/uL (0.0-0.7); Absolute Lymphocyte Count 1.84 10^3/uL (1.2-3.4); Absolute Monocyte Count 0.53 10^3/uL (0.1-0.8); Eosinophils % 4.5 %; HCT 44.3 % (36.0-46.0); HGB 14.4 g/dL (11.2-15.7); Immature Grans % 0.2 %; Lymphocytes % 37.9 %; MCH 31.2 pg (27.0-33.0); MCHC 32.5 % (32.0-36.0); MCV 96 fL (80-95); MPV 10.5 fL (8.0-11.0); Monocytes % 10.9 %; Neutrophils % 45.5 %; Platelet Count 223 10^3/uL (130-400); RBC 4.61 10^6/uL (3.93-5.22); RDW 13.4 % (11.7-14.6); RDW-SD 47.2 fL; WBC 4.85 10^3/uL (4.4-10.8)
[2024-04-27 07:32] LABS: Bilirubin Negative (Negative); Blood Negative (Negative); Clarity Clear (Clear); Glucose Negative (Negative); Ketones Negative (Negative); Leukocyte Esterase Small (Negative); Nitrite Negative (Negative); Urobilinogen 0.2 mg/dL (Up to 0.2)
[2024-04-27 07:47] LABS: ALT 18 U/L (14-59); AST 18 U/L (15-37); Albumin 3.4 g/dL (3.4-5.0); Alkaline Phosphatase 93 U/L (46-116); Anion Gap 7.5 mmol/L (3-11); BUN 25 mg/dL (7-18); Bilirubin, Total 0.33 mg/dL (0.2-1.0); CO2 28.5 mmol/L (21.0-32.0); CREATININE 0.8 mg/dL (0.55-1.02); Calcium 9.3 mg/dL (8.5-10.1); Chloride 107 mmol/L (98-107); Estimated GFR 73.06 (mL/min/1.73m2); Glucose 94 mg/dL (74-106); Potassium 4.2 mmol/L (3.5-5.1); Sodium 143 mmol/L (136-145); Total Protein 6.8 g/dL (6.4-8.2)
[2024-04-27 18:23] LABS: CEA 1.2 ng/mL (See Note)
[2024-04-29 08:08] VITALS: TEMP 36.8
[2024-04-29] MEDS: Normal Saline Flush 10 ML SYR IVP ×2 (08:12→08:13)
== END 2024-05-05 23:59 | disposition home or self-care (01) ==
LOC: INF 00:04
PROVIDERS: PCP Nurse Practitioner Adult Health; Visit Provider Internal Medicine Hematology & Oncology
DX: C18.2 Malignant neoplasm of ascending colon (principal); K76.9 Liver disease, unspecified; C78.7 Secondary malignant neoplasm of liver and intrahepatic bile duct; E61.1 Iron deficiency
CPT/HCPCS: 36591; 80053; 96523; 81003; 82378; 85025

== ENCOUNTER → 2024-05-10 12:47 | Outpatient (BNVA) | payer MEDICARE, SELFPAY | PROVIDERS: PCP Nurse Practitioner Adult Health; Referring Provider Nurse Practitioner Adult Health; Visit Provider Surgery | DX: K31.89 Other diseases of stomach and duodenum (principal) | CPT/HCPCS: 99214 ==

== ENCOUNTER 2024-05-18 02:01 | Outpatient (RCR) | payer MEDICARE, SELFPAY ==
[2024-05-18] MEDS: Normal Saline Flush 10 ML SYR IVP (07:29)
[2024-05-18 07:34] LABS: Abs Immature Grans 0.01 10^3/uL (0.0-0.06); Absolute Basophil Count 0.06 10^3/uL (0.0-0.2); Absolute Eosinophil Count 0.25 10^3/uL (0.0-0.7); Absolute Lymphocyte Count 1.49 10^3/uL (1.2-3.4); Absolute Monocyte Count 0.36 10^3/uL (0.1-0.8); Absolute Neutrophil Count 1.85 10^3/uL (1.2-6.7); Basophils % 1.5 %; Eosinophils % 6.2 %; HCT 45.4 % (36.0-46.0); HGB 14.9 g/dL (11.2-15.7); Immature Grans % 0.2 %; Lymphocytes % 37.1 %; MCH 31.2 pg (27.0-33.0); MCHC 32.8 % (32.0-36.0); MCV 95 fL (80-95); MPV 10.5 fL (8.0-11.0); Platelet Count 234 10^3/uL (130-400); RBC 4.78 10^6/uL (3.93-5.22); RDW 13.6 % (11.7-14.6); RDW-SD 47.4 fL; WBC 4.02 10^3/uL (4.4-10.8)
[2024-05-18 07:38] LABS: Bilirubin Negative (Negative); Blood Negative (Negative); Clarity Clear (Clear); Glucose Negative (Negative); Ketones Negative (Negative); Leukocyte Esterase Moderate (Negative); Nitrite Negative (Negative); Specific Gravity 1.015 (1.005-1.025); Urobilinogen 0.2 mg/dL (Up to 0.2); pH 5.5 (5-8)
[2024-05-18 08:02] LABS: ALT 20 U/L (14-59); AST 19 U/L (15-37); Albumin 3.5 g/dL (3.4-5.0); Alkaline Phosphatase 85 U/L (46-116); Anion Gap 8.9 mmol/L (3-11); BUN 22 mg/dL (7-18); Bilirubin, Total 0.5 mg/dL (0.2-1.0); CO2 28.1 mmol/L (21.0-32.0); CREATININE 0.8 mg/dL (0.55-1.02); Calcium 9.3 mg/dL (8.5-10.1); Chloride 108 mmol/L (98-107); Estimated GFR 73.06 (mL/min/1.73m2); Glucose 117 mg/dL (74-106); Potassium 3.8 mmol/L (3.5-5.1); Sodium 145 mmol/L (136-145); Total Protein 6.8 g/dL (6.4-8.2)
[2024-05-18 17:49] LABS: CEA 1.4 ng/mL (See Note)
== END 2024-06-05 23:59 | disposition home or self-care (01) ==
LOC: INF 02:01
PROVIDERS: PCP Nurse Practitioner Adult Health; Visit Provider Internal Medicine Hematology & Oncology
DX: C18.2 Malignant neoplasm of ascending colon (principal); K76.9 Liver disease, unspecified; C78.7 Secondary malignant neoplasm of liver and intrahepatic bile duct
CPT/HCPCS: 36415; 80053; 96523; 81003; 82378; 85025

== ENCOUNTER 2024-06-07 02:12 | Outpatient (CLI) | payer MEDICARE, SELFPAY ==
--- NOTE | 2024-06-07 | DI.CT_ITS ---
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 Computer aided detection (CAD) was utilized. CONTRAST MATERIAL: Intravenous: Omnipaque 350Contrast volume:70 mL. COMPARISON: CT CT CHEST W from 04/20/2024 FINDINGS: Tracheobronchial tree: Patent where visualized. No evidence of bronchiectasis. Pulmonary parenchyma: No consolidation or dominant measurable mass. The nodule in the left lingula ba se is unchanged (series 8, image 102). There is also stable nodule in the right lung base just above the hemidiaphragm (series 8, image 121). The small 3 mm nodule in the lateral aspect of the right u pper lobe is stable (series 8, image 70). No new pulmonary nodules are present. Mediastinum and Elizabeth: No dominant adenopathy or fluid collection. The esophagus is unchanged in appea ines. Thyroid gland: Unremarkable. Pleura: No effusion or pneumothorax. Heart: The heart is not dilated. Coronary artery calcifications are present. No pericardial effusion. Aorta: Thoracic aorta non-dilated. Atherosclerotic calcification is present. No evidence of dissectio n. Pulmonary arteries: No pulmonary emboli are identified. Upper abdomen: There is a calcified granuloma in the spleen. Lymph nodes: Within normal limits. Bones: Within normal limits for the patient's age. No aggressive osseous lesions are identified. Tubes, Catheters, and Lines: There is a left-sided port in place. Soft tissues: Unremarkable. IMPRESSION: 1. Stable appearance of the chest. No new pulmonary nodules are present. 2. Stable appearance of the esophagus at the GE junction. RADIATION DOSE DELIVERED: 109.84mGy.cm Total DLP DATA REPOSITORY: All CT scans at this facility are submitted to the National Radiology Data Registry (NRDR) Dose Index Registry (DIR) with the [employer] (ACR). RADIATION OPTIMIZATION: All CT scans at this facility use at least one of these dose optimization te chniques: automated exposure control; mA and/or kV adjustment per patient size (includes targeted exa ms where dose is matched to clinical indication); or iterative reconstruction.
--- NOTE | 2024-06-07 | DI.MRI_ITS ---
Exam(s) MR ABDOMEN WO/W EXAM: MR ABDOMEN WO/W CLINICAL HISTORY: Stage IV colon CA with liver mets, C18.9, C78.7, on chemotherapy, restaging TECHNIQUE: Multiplanar multisequence MRI of the Abdomen was performed. CONTRAST MATERIAL: IV Contrast: 12 mL of Dotarem contrast administered. COMPARISON: MR MR ABDOMEN WO/W from 02/18/2024 MR MR ABDOMEN WO/W from 04/20/2024 FINDINGS: Lung bases: Unremarkable. Liver: No evidence of a hepatic mass. Pancreas: Unremarkable. No evidence of a pancreatic mass or peripancreatic fluid collection. Gallbladder and Bile Ducts: No evidence of cholelithiasis or biliary ductal dilatation. Adrenals: No evidence of an adrenal mass. Kidneys: Unremarkable. No evidence of a renal mass or obstruction. Spleen: Unremarkable. Bowel: No evidence of bowel wall thickening or obstruction. Aorta: No evidence of an aortic aneurysm. Soft Tissues: Unremarkable. Bone: There is a left-sided disc herniation at L1-L2. There is also a small left-sided disc herniati on at L3-L4. Lymph Nodes: Unremarkable. IMPRESSION: No evidence of a hepatic mass. DATA REPOSITORY:
[2024-06-07] MEDS: Gadoterate meglumine 20 ML VIAL 12 ML IVP (08:29)
[2024-06-07] MEDS: Normal Saline - Diluent 50 ML VIAL IJ ×2 (08:30→09:51)
[2024-06-07] MEDS: Omnipaque 350 MG/ML 100 ML BTL IJ (09:52)
== END 2024-06-07 02:32 ==
LOC: DI 02:12
PROVIDERS: PCP Nurse Practitioner Adult Health; Visit Provider Internal Medicine Hematology & Oncology
DX: C18.9 Malignant neoplasm of colon, unspecified (principal); C78.7 Secondary malignant neoplasm of liver and intrahepatic bile duct
CPT/HCPCS: 36591; 74183; 80053; 71260; 81003; 81015; 82378; 85025; J3490

== ENCOUNTER 2024-06-07 02:37 | Outpatient (RCR) | payer MEDICARE, SELFPAY ==
[2024-06-07] MEDS: Normal Saline Flush 10 ML SYR IVP (07:43)
[2024-06-07 08:04] LABS: Abs Immature Grans 0.02 10^3/uL (0.0-0.06); Absolute Basophil Count 0.04 10^3/uL (0.0-0.2); Absolute Eosinophil Count 0.35 10^3/uL (0.0-0.7); Absolute Lymphocyte Count 2.06 10^3/uL (1.2-3.4); Basophils % 0.7 %; HCT 44.1 % (36.0-46.0); HGB 14.7 g/dL (11.2-15.7); Immature Grans % 0.3 %; Lymphocytes % 35.1 %; MCHC 33.3 % (32.0-36.0); MCV 93 fL (80-95); MPV 11.3 fL (8.0-11.0); Monocytes % 6.8 %; Neutrophils % 51.1 %; Platelet Count 197 10^3/uL (130-400); RBC 4.74 10^6/uL (3.93-5.22); RDW 13.2 % (11.7-14.6); RDW-SD 45.4 fL; WBC 5.87 10^3/uL (4.4-10.8)
[2024-06-07 08:07] LABS: Bilirubin Negative (Negative); Blood Negative (Negative); Clarity Clear (Clear); Glucose Negative (Negative); Ketones Negative (Negative); Leukocyte Esterase Moderate (Negative); Nitrite Negative (Negative); Specific Gravity 1.015 (1.005-1.025); Urobilinogen 0.2 mg/dL (Up to 0.2)
[2024-06-07 08:14] LABS: Bacteria Negative HPF (Negative); C & S Indicated? No; Casts Negative LPF (Negative); Crystals Negative HPF (Negative); Epithelial Cells Few HPF (Negative); Mucus Negative (Negative); RBC 0-2 HPF (0-2)
[2024-06-07 08:26] LABS: ALT 21 U/L (14-59); AST 19 U/L (15-37); Albumin 3.5 g/dL (3.4-5.0); Alkaline Phosphatase 90 U/L (46-116); Anion Gap 6.4 mmol/L (3-11); BUN 22 mg/dL (7-18); Bilirubin, Total 0.4 mg/dL (0.2-1.0); CO2 30.6 mmol/L (21.0-32.0); CREATININE 0.8 mg/dL (0.55-1.02); Calcium 9.7 mg/dL (8.5-10.1); Chloride 107 mmol/L (98-107); Estimated GFR 73.06 (mL/min/1.73m2); Glucose 96 mg/dL (74-106); Potassium 4.3 mmol/L (3.5-5.1); Sodium 144 mmol/L (136-145); Total Protein 6.9 g/dL (6.4-8.2)
[2024-06-07 18:56] LABS: CEA 1.3 ng/mL (See Note)
== END 2024-07-05 23:59 | disposition home or self-care (01) ==
LOC: INF 02:37
PROVIDERS: PCP Nurse Practitioner Adult Health; Visit Provider Internal Medicine Hematology & Oncology
DX: C18.9 Malignant neoplasm of colon, unspecified (principal); C78.7 Secondary malignant neoplasm of liver and intrahepatic bile duct
CPT/HCPCS: 36591; 80053; 81003; 81015; 82378; 85025

== ENCOUNTER 2024-06-12 06:05 | Day surgery (SDC) | payer MEDICARE, SELFPAY ==
--- NOTE | 2024-06-11 08:10 | HPE_ITS ---
Assessment and Plan Assessment and plan (1) Mass of gastroesophageal junction: Status: Acute Assessment and plan: We reviewed the plan for diagnostic EGD today, and Elisha had the chance to ask any other questions. Otherwise there have been no significant interval changes to the history or physical, and we can proceed with EGD as planned. History of Present Illness History of Present Illness Chief Complaint: esophageal abnormality Narrative: Elisha is an 83-year-old woman with a medical history of metastatic colon adenocarcinoma. She has been followed down at the cancer center, and has undergone surveillance CT and MRI. Although there has been no evidence of any disease progression with regards to her colon cancer, there was an abnormality described at the GE junction. Specifically, the CT scan describes thickening in the area of the GE junction, and a recommendation was made for diagnostic EGD. Elisha tells me that her swallowing has been fine. She denies any major reflux type symptoms, and her previous dyspepsia seems pretty well-controlled with pantoprazole. PFSH All Active Problems Mass of gastroesophageal junction (Acute) . Hem/Onc 04/27/24 Pain in left foot (Acute) Iron deficiency (Acute) Malignant neoplasm of ascending colon (Acute) [facility] [place] Hem/Onc 12/17/23 Cancer, metastatic to liver (Acute ~11/2023) 12/03/23 Dr Smart, [facility] Hem/Onc Viral illness (Acute) Colon cancer (Chronic) Liver lesion (Acute ~04/2023) 06/02/23 Hem/Onc Postoperative seroma involving digestive system after digestive system procedure (Acute) DNR (do not resuscitate) (Acute) 2020 COLST: DNR/DNI,+ transfer, +treat with IV fluids and abx. Confirmed, see 05/04/23 Palliative Care Note. Adenocarcinoma, colon (Acute) metastatic 05/04/23 Hem/Onc Advanced care planning/counseling discussion (Acute) Pulmonary fibrosis (Acute) DVT prophylaxis (Acute) Ileus (Acute) Pre-diabetes (Acute ~03/2023) A1C 5.75% Esophagitis (Acute) Acute hemorrhagic gastritis (Acute ~09/2022) GI bleed due to NSAIDs (Acute ~09/2022) Generalized osteoarthritis (Acute) Subclinical hypothyroidism (Chronic 02/04/11) Lumbar radiculopathy, acute (Acute 06/12/14) 12/2022 Other and unspecified hyperlipidemia (Chronic 03/05/15) GERD (gastroesophageal reflux disease) (Chronic 05/07/14) Takes 2-week courses of omeprazole PRN with good relief for several months Eczema (Chronic 02/16/13) Hands Medical History Palliative care patient Colonic mass Paracolic abscess COVID Symptoms resolved 04/13/23 Iron deficiency anemia (~09/2022) Erythema migrans (Lyme disease) 1 week post tick bite, short-term stay per pt report .. but Doxy x 10 days started, ik BPPV (benign paroxysmal positional vertigo) BCC (basal cell carcinoma), face (06/11/16) and left medial ankle 10/2018 Right lower lateral neck - removed at 10/06/22 Surgical History History of abdominal paracentesis (~05/2023) H/O right hemicolectomy (05/01/23) perforated colon mass History of colonoscopy (~04/2023) History of esophagogastroduodenoscopy (~04/2023) Open Carpal Tunnel release no date given by pt.HE Exc BBC rgt forehead (06/22/16) Biopsy of breast pt did not state date.HE Family History Father Alcohol abuse Brother Bladder cancer Social History Smoking/Tobacco Use Status: Never Smoking risk assessment performed?: Yes Alcohol Intake: current Alcohol Intake frequency: 0-2 drinks per day Alcohol type: wine Drug use: Never Substance use type: does not use Adopted: No Caregiver/Support person: No Foster care: No Household members: spouse Housing: house Number of Children: 0 number of grandchildren: 0 Communication Needs: Corrective Lenses Education Level: college Do you need help understanding health information?: Never 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 Pets and animals: No Sexually active: No Do you think of yourself as: straight/heterosexual Current gender identity: male What is your relationship status?: How often do you talk on the phone with friends or family?: three or more times per week How often do you get together with friends or relatives?: three or more times per week How often do you attend jain or restoration services?: 4 or more times per year Do you belong to any clubs or organized social groups?: yes Panel score (0-1 are the most socially isolated patients): 4 What type of physical activity do you participate in: other Details: Arthritis Class 2x week Duration: 45-60 minutes/day Frequency: 1-2 times per week Romi/Mandaen: Confucianism Special romi needs: No Seatbelt use: always Helmet use: Yes (No Reason) Helmet use: never Drive intox or ride w/intox 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 Verified 06/12/24 06:47 INCREASED HR Home Medications ?Medication ?Instructions ?Recorded ?Confirmed ?Type Chemo treatment IV .Q3 Weeks 05/10/24 05/16/24 History pantoprazole 40 mg tablet,delayed 40 mg PO DAILY PRN 05/10/24 06/12/24 History release multivitamin (Daily Multi-Vitamin 1 tab PO DAILY 06/12/24 06/12/24 History tablet) Exam Const General: cooperative, healthy appearing and not in acute distress Neck Neck: normal visual inspection, no lymphadenopathy and supple Resp Effort & Inspection: normal respiratory effort Auscultation: clear to auscultation bilaterally Cardio Jugular venous pressure: no JVD Rate: regular rate Rhythm: regular rhythm Heart Sounds: S1 normal and S2 normal GI Inspection: normal to inspection Palpation: soft, no guarding, no hernias and nontender Percussion: normal to percussion Auscultation: normal bowel sounds Neuro General: patient alert, patient awake and patient oriented x3 Psych Appearance: grossly normal
--- NOTE | 2024-06-11 08:11 | W.PM.DSUDISC ---
Date of service: 06/12/24 Discharge Plan Disposition Patient Disposition: Home Condition: Good Discharge Details Reason For Visit: Diagnostic EGD Attending Provider: Florentino Duenas Primary Care Provider: Tiera Choudhury Home Meds and New Rx's Prescriptions: Continued pantoprazole 40 mg tablet,delayed release (DR/EC) 40 mg PO DAILY PRN Chemo treatment IV .Q3 Weeks Patient Comments: Patient states this was stopped 1 month ago. multivitamin [Daily Multi-Vitamin] Tablet 1 tab PO DAILY Discharge Instructions Instructions: Hiatal hernia Additional Instructions: Elisha, was great seeing you today, and I am glad that you have been feeling well. Your upper endoscopy went very smoothly. You do have a grade 3 hiatal hernia. This could account for the finding seen on the CT scan, and in the big picture of things, I do not think it has anything at all to worry about, nor would I recommend any specific surgical treatment for it. There is a little bit of reflux across her lower esophagus it is also consistent with gastroesophageal reflux disease, but I did not see any obvious signs of tumors, or anything else out of the ordinary. I did do some biopsies of this area to be certain. This biopsies will take about a week or 2 to get back, but once I have that information I will be in touch. If you need anything, or have any questions at all, please do not hesitate to call. 1. If tolerated, consume a soft, low fiber diet for 1-2 days[address] not [address], drink alcohol, operate machinery, make critical decisions, or do activities that require coordination or balance for 24 hours. 3. You may experience a sore throat for 24 to 48 hours. You may use throat lozenges or gargle with warm salt water to relieve the discomfort. 4. Because air was put into your stomach during the procedure, you may experience some belching. 5. Go directly to the emergency room if you notice any of the following: Develop chills (warm to touch), or if you have a thermometer and your temperature is above 101 Difficulty breathing or difficultly swallowing Persistent vomiting Severe abdominal pain, other than gas cramps Severe chest pain Black, tarry stools Any bleeding ? exceeding one tablespoon 6. Call your physician if the site where your intravenous was started becomes red, swollen, painful, and warm to touch. 7. Your physician has reviewed your pre-procedure medications. Please continue to take those medications as previously ordered. You will be given specific information/education regarding any changes to your medications before leaving. Activity:: Activity as Tolerated Diet:: As Tolerated Discharge Orders Discharge Orders: Discharge Order (Routine); Ordered 06/11/24 Ordered By: Florentino Duenas DS: Diagnosis Discharge Diagnosis (1) Mass of gastroesophageal junction: Status: Acute Asessment and Plan: Follow-up on biopsy results
--- NOTE | 2024-06-11 08:12 | W.PM.ENDDOP ---
Date of service: 06/12/24 Time of Service: 07:43 Endoscopy Report DATE OF PROCEDURE: 06/12/24 PRE-OP DIAGNOSIS: Esophageal abnormality POST-OP DIAGNOSIS: other (Grade 3 hiatal hernia) PROCEDURE: EGD with biopsies SURGEON: Florentino Duenas ANESTHESIA TYPE: General:No Airway ESTIMATED BLOOD LOSS: 5 PATHOLOGY: other (Biopsies of GE junction, biopsies of distal esophagus) COMPLICATIONS: None DISPOSITION: same day INDICATIONS: Elisha has been followed down at the cancer center, and has undergone surveillance CT and MRI. Although there has been no evidence of any disease progression with regards to her colon cancer, there was an abnormality described at the GE junction. Specifically, the CT scan describes thickening in the area of the GE junction, and a recommendation was made for diagnostic EGD. Elisha tells me that her swallowing has been fine. She denies any major reflux type symptoms, and her previous dyspepsia seems pretty well-controlled with pantoprazole. PROCEDURE START TIME: :29 PROCEDURE END TIME: :34 FINDINGS: Grade 3 hiatal hernia PROCEDURE DESCRIPTION: After the initiation of anesthesia, and with the assistance of a bite block, I advanced a standard gastroscope through the mouth past the hypopharynx and into the esophagus.? Under the direct vision of the scope, I advanced down the esophagus towards the stomach.? The upper, mid, lower esophagus were normal and healthy appearing. Narrowband imaging was used to assist with the analysis. There is evidence of a sliding hiatal hernia. I was able to advance down across the GE junction into the stomach proper. I insufflated into the rugae were obliterated. I performed retroflexion. Again seen is a hiatal hernia. This will grade 3 hernia. There is no evidence of any worrisome inflammation around the edge. The stomach mucosa was normal. There was no evidence of any mass, ulceration, or inflammation. I advanced down across the pylorus into the duodenum which was also normal. I then brought the camera back up to the GE junction. There is mild irregularity of the Z-line consistent with some reflux esophagitis. This was less than 1 cm in length. GE junction measures 38 cm from the incisors. Cold forceps biopsies were performed of the GE junction to rule out Hastings's esophagus, although the clinical features do not appear consistent with that. Given the abnormality seen on the CT scan, I also performed nondirected biopsies of the distal esophagus to rule out any pathology here. There was minimal bleeding from any of the biopsy sites. I advanced the camera down into the stomach 1 last time and emptied it. I then brought the camera out along the length of the esophagus 1 more time. No other abnormalities were appreciated.
[2024-06-12 06:28] VITALS: BP 181/70; PULSE 71; RESP 14; TEMP 36.3; O2SAT 98
[2024-06-12] MEDS: Lactated Ringers 1,000 ML 80 ML IV (06:43)
--- NOTE | 2024-06-12 07:10 | ANES.PREOP_ITS ---
General Info Date of Service Date Performed: 06/12/24 Height: 5 ft 2 in Weight: 60.951 kg Body Mass Index (BMI): 24.5 Surgical Procedure: Operation Date: 06/12/24 07:35 Proposed Procedure Side Surgeon p Gastroscopy Florentino Duenas MD Meds Allergies and Home Medications Allergies Allergy/AdvReac Type Severity Reaction Status Date / Time aspirin AdvReac ? Verified 06/12/24 06:47 INCREASED HR Home Medication ?Medication ?Instructions ?Recorded Chemo treatment IV .Q3 Weeks 05/10/24 pantoprazole 40 mg tablet,delayed 40 mg PO DAILY PRN 05/10/24 release multivitamin (Daily Multi-Vitamin 1 tab PO DAILY 06/12/24 tablet) Current Visit Medications: Current Medications Generic Name Dose Route Start Last Admin Trade Name Freq PRN Reason Stop Dose Admin Ringer's Solution 1,000 mls @ 80 mls/hr 06/12/24 06:00 06/12/24 06:43 IV 06/12/24 23:59 80 mls/hr INFUSION LYNDSEY Administration IV Miscellaneous Supplies 1 each 06/12/24 06:00 Iv Access IV 06/12/24 23:59 DIRECTED LYNDSEY Ondansetron HCl 4 mg 06/11/24 08:13 Ondansetron 4 Mg/2 Ml Vial IVP 07/11/24 08:12 Q4H PRN PRN Nausea / Vomiting Sodium Chloride 0 ml 06/12/24 06:00 Normal Saline Flush 10 Ml Syr IV 06/12/24 23:59 PRN PRN Sodium Chloride 0 ml 06/12/24 06:00 Normal Saline 10 Ml Vial IJ 06/12/24 23:59 DIRECTED PRN Sterile Water 0 ml 06/12/24 06:00 Water,Injection,Sterile 10 Ml Vial IJ 06/12/24 23:59 DIRECTED PRN PFSH Active Problems Active Problems: Problem Status Onset Code Mass of gastroesophageal junction Acute K31.89 Pain in left foot Acute M79.672 Iron deficiency Acute E61.1 Malignant neoplasm of ascending colon Acute C18.2 Cancer, metastatic to liver Acute ~11/2023 C78.7 Viral illness Acute B34.9 Colon cancer Chronic C18.9 Liver lesion Acute ~04/2023 K76.9 Postoperative seroma involving digestive system after digestive system procedure Acute K91.872 DNR (do not resuscitate) Acute Z66 Adenocarcinoma, colon Acute C18.9 Advanced care planning/counseling discussion Acute Z71.89 Pulmonary fibrosis Acute J84.10 DVT prophylaxis Acute Z29.9 Ileus Acute K56.7 Pre-diabetes Acute ~03/2023 R73.03 Esophagitis Acute K20.90 Acute hemorrhagic gastritis Acute ~09/2022 K29.01 GI bleed due to NSAIDs Acute ~09/2022 K92.2, T39.395A Generalized osteoarthritis Acute M15.9 Subclinical hypothyroidism Chronic 02/04/11 E03.9 Lumbar radiculopathy, acute Acute 06/12/14 M54.16 Other and unspecified hyperlipidemia Chronic 03/05/15 E78.5 GERD (gastroesophageal reflux disease) Chronic 05/07/14 K21.9 Eczema Chronic 02/16/13 L30.9 Medical History Medical History Palliative care patient Colonic mass Paracolic abscess COVID Symptoms resolved 04/13/23 Iron deficiency anemia (~09/2022) Erythema migrans (Lyme disease) 1 week post tick bite, short-term stay per pt report .. but Doxy x 10 days started, ik BPPV (benign paroxysmal positional vertigo) BCC (basal cell carcinoma), face (06/11/16) and left medial ankle 10/2018 Right lower lateral neck - removed at 10/06/22 Medical History Comments:: PT reports hx of hypoglycemia. Denies DM II. Surgical History Surgical History History of abdominal paracentesis (~05/2023) H/O right hemicolectomy (05/01/23) perforated colon mass History of colonoscopy (~04/2023) History of esophagogastroduodenoscopy (~04/2023) Open Carpal Tunnel release no date given by pt.HE Exc BBC rgt forehead (06/22/16) Biopsy of breast pt did not state date.HE Tobacco Smoking/Tobacco Use Status: Never Passive smoking exposure: No Alcohol Alcohol Intake: current Alcohol intake frequency: 0-2 drinks per day Alcohol type: wine Substance Use Substance use: Never Substance use type: does not use Vital Signs and Lab Results Vital Signs Most Recent Vital Signs in EMR: Most Recent Vital Signs Temp Pulse Resp BP Pulse Ox 36.3 C L 71 14 181/70 H 98 06/12/24 06:28 06/12/24 06:28 06/12/24 06:28 06/12/24 06:28 06/12/24 06:28 Lab Results Blood Type / Crossmatch: No Data to Display Complete Blood Count: White Blood Count 5.87 10^3/uL (4.4-10.8) 06/07/24 07:30 Red Blood Count 4.74 10^6/uL (3.93-5.22) 06/07/24 07:30 Hemoglobin 14.7 g/dL (11.2-15.7) 06/07/24 07:30 Hematocrit 44.1 % (36.0-46.0) 06/07/24 07:30 Platelet Count 197 10^3/uL (130-400) 06/07/24 07:30 Complete Metabolic Panel: Sodium 144 mmol/L (136-145) 06/07/24 07:30 Potassium 4.3 mmol/L (3.5-5.1) 06/07/24 07:30 Chloride 107 mmol/L (98-107) 06/07/24 07:30 Carbon Dioxide 30.6 mmol/L (21.0-32.0) 06/07/24 07:30 BUN 22 mg/dL (7-18) H 06/07/24 07:30 Creatinine 0.8 mg/dL (0.55-1.02) 06/07/24 07:30 Est GFR (CKD-EPI 2020) 73.06 (mL/min/1.73m2) 06/07/24 07:30 Calcium 9.7 mg/dL (8.5-10.1) 06/07/24 07:30 Albumin 3.5 g/dL (3.4-5.0) 06/07/24 07:30 Glucose 96 mg/dL (74-106) 06/07/24 07:30 Liver Function Panel: Alanine Aminotransferase (ALT/SGPT) 21 U/L (14-59) 06/07/24 07: 30 Aspartate Amino Transf (AST/SGOT) 19 U/L (15-37) 06/07/24 07:30 Coagulation Panel: No Data to Display Cardiac Panel: No Data to Display Arterial Blood Gas: No Data to Display Venous Blood Gas: No Data to Display Pancreas Panel: No Data to Display Thyroid Panel: No Data to Display Infectious Disease: No Data to Display Blood Cultures: No Data to Display Toxicology Panel: No Data to Display Imaging and Studies Imaging and Studies Study information below may be from another EMR and interpreted by another provider. Please see original notes in EMR for more complete details. EKG Summary: Conclusion Sinus rhythm...normal P axis, V-rate 50- 99 Borderline left axis deviation...QRS axis (-15,-29) Low voltage, precordial leads...precordial leads <1.0mV Otherwise normal ECG 09/23/22 Stress Test Summary: Impressions: Normal study after maximal exercise. Summary: Stress: Exercise capacity is above normal for age. 02/22/15 Anesthesia Assessment and Plan Anesthesia History Personal History: No History of Anesthesia Complications Family History: No Family History of Anesthesia Complications Exercise Tolerance Exercise Tolerance: Metabolic Equivalents>4 Pertinent Negatives Pertinent Negatives: No Symptoms of GERD, No Major Cardiovascular Symptoms or Complaints and No Major Pulmonary Symptoms or Complaints Cardiac & Pulmonary Exam Cardiac Exam: Normal S1/S2 Heart Sounds Pulmonary Exam: Clear Bilateral Breath Sounds Cardiac and Pulmonary Comment:: Post nasal gtt Implantable Cardiac Device Does patient have a Pacemaker or an ICD?: No Airway Exam Known Difficult Airway: No Mallampati Class: 3 Mouth Opening: Normal (> 3cm) Thyromental Distance: Less than 3 cm Neck Range of Motion: Full ROM Neck Circumference: Normal Teeth Condition: Normal Dentition ASA Classification ASA Score: ASA 2 Emergency Case?: No NPO Status NPO Status: NPO Clears >2 hours, Solids >8 hours Anesthesia Plan Resuscitation Status: Full Code Anesthesia Technique: General Anesthesia Airway Planned: Natural Airway Monitors Used: Standard Monitors
[2024-06-12 07:17] VITALS: BMI 24.5
--- NOTE | 2024-06-12 07:32 | ESO_PTH ---
PATIENT: Elisha Chowdhury LOC: [facility] U#:[id number] AGE/SX: 83/F ROOM: RE06/12/[address]: Florentino Duenas MD : [id number] BED: DIS: 06/12/2024 SPEC #: [id number] RECD: 06/12/24 12:22 STATUS: BLADIMIR RE #: [id number] ARTUR: 06/12/24 07:[address]: Florentino Duenas DEPT: Surgical Specimen RECD BY: Suellen Bee ENTERED: 06/12/24 12:23 SP TYPE: Avis LY DR: Tiera Choudhury APRN Tissues: 1 - ESOPHAGUS BIOPSY 2 - ESOPHAGUS BIOPSY Procedures: GROSS AND MICRO LEVEL 4 Comments: [id number]
[2024-06-12 07:40] VITALS: BP 131/63; PULSE 78; RESP 16; TEMP 36.4; O2SAT 97
--- NOTE | 2024-06-12 07:55 | W.ANESPOSTOP ---
Postoperative Evaluation Date, Time and Location Date Performed: 06/12/24 Time Performed: 07:41 Patient Location: Day Surgery Unit Vital Signs Most Recent Imported Vital Signs: Most Recent Vital Signs Temp Pulse Resp BP Pulse Ox 36.4 C L 78 16 131/63 97 06/12/24 07:40 06/12/24 07:40 06/12/24 07:40 06/12/24 07:40 06/12/24 07:40 Pain Score Most Recent Pain Score: Most Recent Pain Score Pain Level 0 06/12/24 07:40 Assessment Mental Status: Awake (Alert & Oriented to Patient Baseline) Airway and Respiratory Function: Patent airway with normal (patient baseline) respiratory exam Cardiovascular Function: Hemodynamically Stable Hydration Status: Adequately Hydrated Nausea & Vomiting: No Nausea or Vomiting Pain: Pt. Denies Any Pain Peripheral Nerve Block: Patient did not receive a nerve block
[2024-06-12 08:04] VITALS: BP 139/72; PULSE 72; RESP 18; TEMP 36.2; O2SAT 96
== END 2024-06-12 08:19 | disposition home or self-care (01) ==
PROVIDERS: PCP Nurse Practitioner Adult Health; Visit Provider Surgery
PROC: 0DJ68ZZ Inspection of Stomach, Via Natural or Artificial Opening Endoscopic (ICD-10-PCS; CPT 43235; principal; 2024-06-12 07:30)
DX: K31.89 Other diseases of stomach and duodenum (principal); K44.9 Diaphragmatic hernia without obstruction or gangrene; K22.89 Other specified disease of esophagus
CPT/HCPCS: 43239; 88305; J2003; J2704

== ENCOUNTER 2024-07-06 08:04 | Outpatient (RCR) | payer MEDICARE, SELFPAY ==
[2024-07-06] MEDS: Normal Saline Flush 10 ML SYR IVP (08:16)
== END 2024-08-05 23:59 | disposition home or self-care (01) ==
LOC: INF 08:04
PROVIDERS: PCP Nurse Practitioner Adult Health; Visit Provider Nurse Practitioner Adult Health
DX: Z45.2 Encounter for adjustment and management of vascular access device (principal)
CPT/HCPCS: 96523

== ENCOUNTER 2024-08-11 00:33 | Outpatient (CLI) | payer MEDICARE, SELFPAY ==
--- NOTE | 2024-08-11 | DI.MRI_ITS ---
Exam(s) MR ABDOMEN WO/W EXAM: MR ABDOMEN WO/W CLINICAL HISTORY: C18.2,C18.9,C78.7, Stage IV colon CA, liver metastasis TECHNIQUE: Multiplanar multisequence MRI was performed with both pre and post contrast infused seque nces. Contrast injected sequences were performed following IV injection of 12 cc of Dotarem. COMPARISON: MR MR ABDOMEN WO/W from 04/20/[address] CHEST W from 08/11/2024 FINDINGS: VISUALIZED LUNG BASES: No pleural effusions evident. There is no ascites evident. LIVER: Liver size remains normal. There are no new focal hepatic lesions. No new areas of restricte d diffusion. BILIARY: There is no obvious gallbladder pathology. The CBD is not dilated. PANCREAS: There is no evidence of pancreatic mass nor dilatation of the pancreatic duct. SPLEEN: Spleen is not enlarged and there are no significant intrasplenic lesions. Small focus of sig nal dropout in the anterior spleen corresponds to a benign calcified granuloma, as seen on CT scan. Splenic and portal veins are patent ADRENALS: There are no significant adrenal masses. KIDNEYS: No solid renal masses. No hydronephrosis.No cysts evident. ABDOMINAL AORTA: Not enlarged and there is no significant para-aortic adenopathy. ANTERIOR ABDOMINAL WALL/GI: There is no evidence of significant anterior abdominal wall hernia in the field of view of this study.Is no evidence of obvious bowel obstruction. OSSEOUS: There are no lytic osseous lesions in the field of view of this study. Incidentally noted is a prominent left-sided disc herniation at what is probably T12-L1 level. Anoth er disc herniation is seen on the left side at what appears to be L2-3 level. IMPRESSION: 1. No evidence of metastatic disease in the liver nor elsewhere in the abdomen. 2. Incidental note of multilevel disc herniations. 3. See separate chest CT scan dictation from today. DATA REPOSITORY:
[2024-08-11] MEDS: Gadoterate meglumine 20 ML VIAL IVP (08:24)
[2024-08-11] MEDS: Normal Saline - Diluent 50 ML VIAL 25 ML IJ ×2 (08:26→09:17)
[2024-08-11] MEDS: Omnipaque 350 MG/ML 100 ML BTL IJ (09:16)
--- NOTE | 2024-08-11 09:30 | DI.CT_ITS ---
Exam(s) CT CHEST W EXAM: CT CHEST W CLINICAL HISTORY: C18.2,C18.9,C78.7, Stage IV colon CA, liver metastasis. TECHNIQUE: Multi planar reconstructions were performed. CONTRAST MATERIAL: Omnipaque 350; 70 cc COMPARISON: CT CT CHEST W from 06/07/2024 FINDINGS: CHEST: LUNGS: There are no new lung nodules. The previously described small noncalcified 3 mm nodule in the inferior lingular segment of the left lung remains unchanged. Small previously described nodule in the right lung base just above the hemidiaphragm is also unchanged. In addition, the previously desc ribed small 2 millimeter nodule in the lateral aspect of the right upper lobe also appears unchanged. MEDIASTINUM: There is no hilar nor mediastinal adenopathy. The appearance of the GE junction of the stomach is similar to previous. CARDIAC: Heart size is upper normal. There is no pericardial effusion.Caliber of the thoracic aorta is within normal limits. VISUALIZED UPPER ABDOMEN:There are no significant adrenal masses. Partially visualized liver exhibit s no obvious lesions. Spleen size normal. OSSEOUS: No significant osseous lesions.Degenerative changes in the spinal column appear unchanged. Distal tip of the left subclavian Port-A-Cath remains in satisfactory position in the lower SVC.. IMPRESSION: 1. Compared to the prior CT scan of 06/07/2024 there is stable unchanged appearance of the 3 small no dular densities in the lung cuadra as described above. There are no new lung nodules, infiltrates, n or pleural effusions and there is no new intrathoracic adenopathy. 2. GE junction appearance is similar to previous. RADIATION DOSE DELIVERED: 91.18mGy.cm Total DLP DATA REPOSITORY: All CT scans at this facility are submitted to the National Radiology Data Registry (NRDR) Dose Index Registry (DIR) with the [employer] (A[employer]). RADIATION OPTIMIZATION: All CT scans at this facility use at least one of these dose optimization te chniques: automated exposure control; mA and/or kV adjustment per patient size (includes targeted exa ms where dose is matched to clinical indication); or iterative reconstruction.
== END 2024-08-11 00:53 ==
LOC: DI 00:34
PROVIDERS: PCP Nurse Practitioner Adult Health; Visit Provider Nurse Practitioner Family
DX: C18.2 Malignant neoplasm of ascending colon (principal); C78.7 Secondary malignant neoplasm of liver and intrahepatic bile duct
CPT/HCPCS: 36591; 74183; 80053; 71260; 82378; 85025; J3490

== ENCOUNTER 2024-08-11 00:49 | Outpatient (RCR) | payer MEDICARE, SELFPAY ==
[2024-08-11] MEDS: Normal Saline Flush 10 ML SYR IVP (07:31)
[2024-08-11 07:38] LABS: Abs Immature Grans 0.02 10^3/uL (0.0-0.06); Absolute Basophil Count 0.04 10^3/uL (0.0-0.2); Absolute Monocyte Count 0.37 10^3/uL (0.1-0.8); Absolute Neutrophil Count 3.27 10^3/uL (1.2-6.7); Basophils % 0.7 %; Eosinophils % 3.4 %; HCT 44.7 % (36.0-46.0); HGB 14.6 g/dL (11.2-15.7); Immature Grans % 0.3 %; Lymphocytes % 32.8 %; MCH 30.2 pg (27.0-33.0); MCHC 32.7 % (32.0-36.0); MCV 92 fL (80-95); MPV 10.7 fL (8.0-11.0); Monocytes % 6.4 %; Neutrophils % 56.4 %; Platelet Count 241 10^3/uL (130-400); RBC 4.84 10^6/uL (3.93-5.22); RDW 12.4 % (11.7-14.6); RDW-SD 42.5 fL
[2024-08-11 07:55] LABS: ALT 19 U/L (14-59); AST 21 U/L (15-37); Albumin 3.8 g/dL (3.4-5.0); Alkaline Phosphatase 79 U/L (46-116); Anion Gap 5.7 mmol/L (3-11); BUN 23 mg/dL (7-18); Bilirubin, Total 0.5 mg/dL (0.2-1.0); CO2 32.3 mmol/L (21.0-32.0); CREATININE 0.9 mg/dL (0.55-1.02); Calcium 9.5 mg/dL (8.5-10.1); Chloride 105 mmol/L (98-107); Estimated GFR 63.43 (mL/min/1.73m2); Glucose 101 mg/dL (74-106); Potassium 3.9 mmol/L (3.5-5.1); Sodium 143 mmol/L (136-145); Total Protein 7.1 g/dL (6.4-8.2)
[2024-08-11 19:58] LABS: CEA 0.9 ng/mL (See Note)
== END 2024-09-04 23:59 | disposition home or self-care (01) ==
LOC: INF 00:49
PROVIDERS: Nurse Practitioner Family; PCP Nurse Practitioner Adult Health; Visit Provider Internal Medicine Hematology & Oncology
DX: C18.2 Malignant neoplasm of ascending colon (principal); Z45.2 Encounter for adjustment and management of vascular access device
CPT/HCPCS: 36591; 80053; 82378; 85025

== ENCOUNTER 2024-09-29 16:22 | Outpatient (CLI) | payer MEDICARE, SELFPAY ==
--- NOTE | 2024-09-29 16:23 | DI.RAD_ITS ---
Exam(s) XR HIP RT COMPLETE AP PELVIS EXAM: XR HIP RT COMPLETE AP PELVIS CLINICAL HISTORY: right hip pain, M25.551. TECHNIQUE: 2D digital imaging was performed of the right hip. Two images were obtained. AP pelvis and lateral right hip views were obtained. COMPARISON: CT CT CHEST/ABD/PEL W from 05/24/2023 FINDINGS: BONES: No acute fracture is present. No bony destructive lesion is seen. There is a bump seen at the junction of the head and the neck the right femur suspicious for femoral acetabular impingement. JOINTS: No dislocation present. There is mild narrowing of the hip joints bilaterally. The sacroiliac joints and symphysis pubis are unremarkable. SOFT TISSUE: Vascular calcifications are present. IMPRESSION: Mild joint space narrowing of the hips bilaterally. DATA REPOSITORY: RADIATION DOSE DELIVERED:
== END 2024-09-29 16:42 ==
LOC: DI 16:23
PROVIDERS: PCP Nurse Practitioner Adult Health; Visit Provider Family Medicine
DX: M25.551 Pain in right hip (principal)
CPT/HCPCS: 73502

== ENCOUNTER 2024-10-19 03:39 | Outpatient (RCR) | payer MEDICARE, SELFPAY ==
[2024-10-19] MEDS: Normal Saline Flush 10 ML SYR IVP (08:27)
== END 2024-11-05 23:59 | disposition home or self-care (01) ==
LOC: INF 03:39
PROVIDERS: PCP Nurse Practitioner Adult Health; Visit Provider Internal Medicine Hematology & Oncology
DX: Z45.2 Encounter for adjustment and management of vascular access device (principal)
CPT/HCPCS: 96523

== ENCOUNTER 2024-11-09 02:59 | Outpatient (RCR) | payer MEDICARE, SELFPAY ==
[2024-11-09] MEDS: Normal Saline Flush 10 ML SYR IVP (13:12)
== END 2024-12-05 23:59 | disposition home or self-care (01) ==
LOC: INF 02:59
PROVIDERS: PCP Nurse Practitioner Adult Health; Visit Provider Internal Medicine Hematology & Oncology
DX: Z45.2 Encounter for adjustment and management of vascular access device (principal)
CPT/HCPCS: 96523

== ENCOUNTER 2024-11-16 03:04 | Outpatient (CLI) | payer MEDICARE, SELFPAY ==
--- NOTE | 2024-11-16 | DI.CT_ITS ---
Exam(s) CT CHEST W EXAM: CT CHEST W CLINICAL HISTORY: COLON CANCER C18.2 METS TO LIVER C18.9 SURVEILLANCE C78.7. TECHNIQUE: Multi planar reconstructions were performed. CONTRAST MATERIAL: Omnipaque 350; 70 cc COMPARISON: CT CT CHEST W from 08/11/2024 FINDINGS: CHEST: LUNGS: Is a tiny noncalcified granuloma noted in the right middle lobe. A small 2-3 mm nodule in lateral aspect of the right upper lobe is also unchanged. Previously described small nodular density in the right lung base just above the hemidiaphragm is also unchanged. In the left lung the previously described small noncalcified 3 mm nodule in the lingular segment remains unchanged No new lung nodules and there are no pleural effusions. MEDIASTINUM: There is no hilar nor mediastinal adenopathy. Visualized thyroid unremarkable. CARDIAC: Heart size is upper normal. No pericardial effusion. Caliber of thoracic aorta is within normal limits. \ VISUALIZED UPPER ABDOMEN:No adrenal masses. No splenomegaly. No ascites.T OSSEOUS: No significant osseous lesions.No fractures.. OTHER: Distal tip of the left supra clavi in Port-A-Cath is at the SVC-RA junction IMPRESSION: 1. Compared to the prior CT scan of 08/11/2024 there is unchanged size and appearance of the previously described small benign-appearing bilateral lung nodules. There are no new nodules, infiltrates, pleural effusions, nor new intrathoracic adenopathy. RADIATION DOSE DELIVERED: 121.17mGy.cm Total DLP DATA REPOSITORY: All CT scans at this facility are submitted to the National Radiology Data Registry (NRDR) Dose Index Registry (DIR) with the [employer] (A[employer]). RADIATION OPTIMIZATION: All CT scans at this facility use at least one of these dose optimization techniques: automated exposure control; mA and/or kV adjustment per patient size (includes targeted exams where dose is matched to clinical indication); or iterative reconstruction.
--- NOTE | 2024-11-16 | DI.MRI_ITS ---
Exam(s) MR ABDOMEN WO/W EXAM: MR ABDOMEN WO/W CLINICAL HISTORY: COLON CANCER C18.2 METS TO LIVER C18.9 C78.7 SURVEILLANCE TECHNIQUE: Multiplanar multisequence MRI was performed with both pre and post contrast infused sequences. Contrast injected sequences were performed following IV injection of 12 cc of Dotarem. COMPARISON: MR MR ABDOMEN WO/W from 08/11/[address] CHEST W from 11/16/2024 FINDINGS: VISUALIZED LUNG BASES: No pleural effusions evident. There is a tiny amount of perihepatic ascites LIVER: Liver size remains normal. There are no new discrete focal hepatic lesions. There are no obvious dilated intrahepatic ducts. BILIARY: Gallbladder is not well visualized and is probably contracted or surgically absent. The CBD is not dilated. PANCREAS: There is no evidence of pancreatic mass nor dilatation of the pancreatic duct. SPLEEN: Spleen is not enlarged and there are no significant intrasplenic lesions.Small focus of signal dropout in the spleen consistent with calcified granuloma, seen on prior CT scan. ADRENALS: There are no significant adrenal masses. KIDNEYS: No solid renal masses. No hydronephrosis.No cysts evident. ABDOMINAL AORTA: Not enlarged and there is no significant para-aortic adenopathy. ANTERIOR ABDOMINAL WALL/GI: There is no evidence of significant anterior abdominal wall hernia in the field of view of this study.Is no evidence of obvious bowel obstruction. OSSEOUS: There are no lytic osseous lesions in the field of view of this study. Previously described disc herniations again noted. IMPRESSION: 1. No new focal hepatic lesions evident. 2. There appears to be a tiny amount of fluid around the inferior aspect of the right hepatic lobe. No ascites elsewhere in the abdomen. No new mesenteric masses. 3. Incidental note again of multilevel disc protrusions. DATA REPOSITORY:
[2024-11-16] MEDS: Normal Saline - Diluent 50 ML VIAL IJ ×2 (08:21→09:02)
[2024-11-16] MEDS: Gadoterate meglumine 20 ML VIAL IVP (08:22)
[2024-11-16] MEDS: Normal Saline Flush 10 ML SYR IVP (09:02)
[2024-11-16] MEDS: Omnipaque 350 MG/ML 500 ML BTL-Imaging package IJ (09:04)
== END 2024-11-16 03:24 ==
PROVIDERS: PCP Nurse Practitioner Adult Health; Visit Provider Nurse Practitioner Family
DX: C18.2 Malignant neoplasm of ascending colon (principal)
CPT/HCPCS: 36591; 74183; 80053; 71260; 82378; 85025

== ENCOUNTER 2024-11-30 00:41 | Outpatient (RCR) | payer MEDICARE, SELFPAY ==
[2024-11-16] MEDS: Normal Saline Flush 10 ML SYR IVP (07:30)
[2024-11-16 08:04] LABS: Abs Immature Grans 0.03 10^3/uL (0.0-0.06); HCT 40.2 % (36.0-46.0); HGB 13.1 g/dL (11.2-15.7); Immature Grans % 0.5 %; MCH 29.8 pg (27.0-33.0); MCHC 32.6 % (32.0-36.0); MCV 92 fL (80-95); MPV 10.5 fL (8.0-11.0); Platelet Count 272 10^3/uL (130-400); RBC 4.39 10^6/uL (3.93-5.22); RDW 13.3 % (11.7-14.6); RDW-SD 45.2 fL; WBC 5.68 10^3/uL (4.4-10.8)
[2024-11-16 08:18] LABS: ALT 16 U/L (14-59); AST 18 U/L (15-37); Albumin 3.8 g/dL (3.4-5.0); Alkaline Phosphatase 78 U/L (46-116); Anion Gap 4.9 mmol/L (3-11); BUN 24 mg/dL (7-18); Bilirubin, Total 0.5 mg/dL (0.2-1.0); CO2 29.1 mmol/L (21.0-32.0); Calcium 9.4 mg/dL (8.5-10.1); Chloride 109 mmol/L (98-107); Glucose 93 mg/dL (74-106); Potassium 3.9 mmol/L (3.5-5.1); Sodium 143 mmol/L (136-145); Total Protein 6.7 g/dL (6.4-8.2)
[2024-11-16 22:50] LABS: CEA 3.5 ng/mL (See Note)
[2024-11-30] MEDS: Normal Saline Flush 10 ML SYR IVP (07:10)
[2024-11-30 07:30] LABS: Abs Immature Grans 0.02 10^3/uL (0.0-0.06); HCT 40.5 % (36.0-46.0); HGB 13.0 g/dL (11.2-15.7); Immature Grans % 0.4 %; MCH 29.3 pg (27.0-33.0); MCHC 32.1 % (32.0-36.0); MCV 91 fL (80-95); MPV 10.4 fL (8.0-11.0); Platelet Count 255 10^3/uL (130-400); RBC 4.44 10^6/uL (3.93-5.22); RDW 13.0 % (11.7-14.6); RDW-SD 43.8 fL; WBC 5.06 10^3/uL (4.4-10.8)
[2024-11-30 07:33] LABS: Glucose Negative (Negative)
[2024-11-30 07:39] LABS: C & S Indicated? No; RBC Negative HPF (0-2)
[2024-11-30 07:45] LABS: ALT 16 U/L (14-59); AST 17 U/L (15-37); Albumin 3.6 g/dL (3.4-5.0); Alkaline Phosphatase 73 U/L (46-116); Anion Gap 5.3 mmol/L (3-11); BUN 14 mg/dL (7-18); Bilirubin, Total 0.4 mg/dL (0.2-1.0); CO2 30.7 mmol/L (21.0-32.0); Calcium 9.3 mg/dL (8.5-10.1); Chloride 107 mmol/L (98-107); Glucose 105 mg/dL (74-106); Potassium 3.8 mmol/L (3.5-5.1); Sodium 143 mmol/L (136-145); Total Protein 6.9 g/dL (6.4-8.2)
[2024-11-30 18:49] LABS: CEA 4.5 ng/mL (See Note)
== END 2024-12-05 23:59 | disposition home or self-care (01) ==
LOC: INF 00:41
PROVIDERS: Nurse Practitioner Family; PCP Nurse Practitioner Adult Health; Visit Provider Internal Medicine Hematology & Oncology
DX: C18.2 Malignant neoplasm of ascending colon (principal); C18.9 Malignant neoplasm of colon, unspecified; Z45.2 Encounter for adjustment and management of vascular access device
CPT/HCPCS: 36591; 80053; 96523; 81003; 81015; 82378; 85025

== ENCOUNTER 2024-12-19 15:26 | Emergency (ER) | payer MEDICARE, SELFPAY ==
[2024-12-19 15:29] VITALS: BP 157/79; PULSE 85; RESP 16; TEMP 36.7; O2SAT 98
--- NOTE | 2024-12-19 15:30 | RT.EKG_ITS ---
APPROVED REPORT Exam: Resting ECG Reason for Exam: epigastric pain Patient Location: E HR:77 bpm ECG Measurements Heart Rate 77 AXIS MS 162 P 45 QRSd 107 QRS -22 QT 386 T 25 QTc 437 Conclusion Sinus rhythm...normal P axis, V-rate 60- 99 Probable left atrial enlargement...P >50mS, <-0.10mV V1 Low voltage, precordial leads...precordial leads <1.0mV No Occlusion MA
--- NOTE | 2024-12-19 15:35 | W.ED.GENAD ---
Discharge Plan Disposition Patient Disposition: Home Condition: Stable Discharge Details Clinical Impression: Gastritis, Right upper quadrant abdominal mass Primary Care Provider: Tiera Choudhury ED Provider: Baldomero Ta Home Meds and New Rx's Prescriptions: Continued Chemo treatment IV .q 3 mo pantoprazole 40 mg tablet,delayed release (DR/EC) 40 mg PO DAILY loratadine 10 mg tablet 10 mg PO DAILY Qty: 90 3RF multivitamin [Daily Multi-Vitamin] Tablet 1 tab PO DAILY Discharge Instructions Instructions: Colon and rectal cancer, Gastritis ED Additional Instructions: You were seen in the emergency department for your right sided abdominal pain, there is a new abdominal mass seen of the GI tract. Please call Dr. Smart's office and have them review the CT scan in the morning, you had a normal bowel movement today and 1 episode of vomiting you may have an element of gastritis due to taking excessive Aleve but you are on pantoprazole, please return for any complete constipation and lack of passing flatus, intractable nausea or vomiting, severe increased pain especially fever or any other emergent concerns. Referrals: Tiera Choudhury, [facility] [Primary Care Provider, Medicine] Alex Smart MD [ CONSULTING PHYSICIAN, Oncology] Discharge Data Discharge Date/Time-TO BE ENTERED AT DEPARTURE: 12/19/24 19:32 HPI General Date/Time Provider Initiated Documentation: 12/19/24 15:34. HPI Narrative: 84 year-old female presents to ED today by pov/ambulating with a chief complaint of epigsatric pain, stomach pain, and gastritis with onset for the past 3-4 weeks, vomited once today. Quality described as burning pain, no radiation to chest pain, shortness of breath, fever, cough, dizziness, sweating. Severity is described as moderate. Palliating factors include on pantoprazole. Provoking factors include notes that she's been taking a lot of advil lately for arthritis. Events leading up to the incident/Associated Symptoms: Patient has history of colon CA with clean scans but not declared in remission. Patient not anticoagulated. Related Data Home Medications ?Medication ?Instructions ?Recorded ?Confirmed multivitamin (Daily Multi-Vitamin 1 tab PO DAILY 06/12/24 11/30/24 tablet) pantoprazole 40 mg tablet,delayed 40 mg PO DAILY 09/07/24 11/30/24 release Chemo treatment IV .q 3 mo 09/29/24 11/30/24 loratadine 10 mg tablet 10 mg PO DAILY #90 tabs 09/29/24 11/30/24 Previous Rx's ?Medication ?Instructions ?Recorded loratadine 10 mg tablet 10 mg PO DAILY #90 tabs 09/29/24 Allergies Allergy/AdvReac Type Severity Reaction Status Date / Time aspirin AdvReac ? Verified 12/19/24 15:33 INCREASED HR General Stated Complaint: Abd Prob DEDE: 3 Review of Systems All systems reviewed & are unremarkable except as noted in HPI and below Exam Narrative Exam Narrative: GENERAL APPEARANCE: Well-nourished, non-toxic, awake and alert, atraumatic, mild acute distress. SKIN: Warm, pink, dry, intact, without rashes/lesions/ulcerations. HEAD: Normocephalic, atraumatic, normal hair distribution for gender/age. EYES: Normal conjunctiva, no exudates on lids/lashes. ENT: Nares patent, no circumoral cyanosis, no facial swelling NECK: Supple, trachea midline, painless cervical ROM. LUNGS/CHEST: Lungs CTA bilaterally- no rhonchi/rales/wheezes diffusely, non-labored respirations, normal A/P diameter, symmetrical expansion, no chest wall deformity HEART (CV/PV): Regular rate and rhythm without murmur, no peripheral edema, no JVD. ABDOMEN: Soft, non-distended, no guarding, epigastric tenderness without Arvizu's sign. MSK: Normal ROM, no swelling/deformity to bilateral UEs or LEs, moving all extremities without weakness, no cyanosis, spine midline without tenderness, normal curvature. NEURO: Mental Status AAOx4 - alert to person, place, time, events No facial droop, no forehead involvement. Motor: No focal weakness - strength 5/5 in bilateral UEs and LEs, proximal and distal, symmetric. Sensory: sensation intact to light touch globally. Gait normal: patient ambulated without ataxia into ED room. PSYCH: euthymic, cooperative, pleasant, appropriate speech Course Vital Signs Vital signs: Vital Signs Temperature 36.7 C 12/19/24 15:29 Pulse 85 12/19/24 15:29 Respiratory Rate 16 12/19/24 15:29 Blood Pressure 157/79 H 12/19/24 15:29 Pulse Oximetry 98 12/19/24 15:29 Temperature 36.7 C 12/19/24 15:29 Pulse 85 12/19/24 15:29 Respiratory Rate 16 12/19/24 15:29 Blood Pressure 157/79 H 12/19/24 15:29 Pulse Oximetry 98 12/19/24 15:29 Medical Decision Making This dictation utilizes [id number] dictation software and may contain unedited grammatical errors. 84 year-old female presents to ED today by pov/ambulating with a chief complaint of epigsatric pain, stomach pain, and gastritis with onset for the past 3-4 weeks, vomited once today. Quality described as burning pain, no radiation to chest pain, shortness of breath, fever, cough, dizziness, sweating. Severity is described as moderate. Palliating factors include on pantoprazole, notes normal bowel movement today. Provoking factors include notes that she's been taking a lot of advil lately for arthritis. Events leading up to the incident/Associated Symptoms: Patient has history of colon CA with clean scans but not declared in remission. Patients' medical history: Ileus, history of acute hemorrhagic gastritis, esophagitis, GERD, palliative care patient, colonic mass, metastatic cancer to liver, DNR. Family and social history: Noncontributory. Pertinent exam findings / vital signs include epigastric tenderness without Arvizu's sign, benign CP exam, neuro intact, nontoxic vitals, afebrile. Differential / pathologies of concern include gastritis, metastatic disease, atypical chest pain, PE. Diagnostic studies of: - CBC, CMP, D-dimer, troponin, lipase, magnesium, EKG, CTA chest PE study with CT ABD/pelvis with contrast. - CBC shows no leukocytosis, no anemia - CMP without actionable abnormality - Magnesium within normal limits - Troponin negative - Lipase within normal limits - D-dimer is 818 negative for years criteria but with the patient's risk factors we will perform CTA chest PE study - CTA chest PE study negative, CT ABD/pelvis with contrast shows a new 5 x 4.5 mass in the right abdomen with likely metastatic or recurrent tumor, no SBO, small amount of ascites - EKG without ischemic changes, no S1Q3T3 Interventions of: - 4 tablets of 5 mg oxycodone to go for breakthrough pain, recommend close follow-up by having her oncology team review the scan from today's visit. ED Course/Assessment/Plan: 84-year-old female presents with what she refers to as gastritis she has been taking lots of Tylenol for arthritis lately, she has history of colon cancer with reportedly clean scans lately but not declared in remission, atypical cardiac workup performed and negative, CT of the abdomen shows a new mass likely recurrent tumor or metastatic disease but her vitals are otherwise alternative pain control with 4 tabs of oxycodone to go, I see no need for admission to the hospital and her oncology team can review her scans from today's visit tomorrow to make recommendations, strict return criteria for any severe acute worsening of pain especially with fever intractable nausea or vomiting or any other emergent concerns. Findings not consistent with SBO, ACS, PE, mesenteric ischemia, pancreatitis, biliary colic. Disposition of right upper quadrant abdominal mass, gastritis. Patient verbalized understanding of the plan and return to ED criteria and engaged in shared decision making. Medical Records Medical records reviewed: Yes I reviewed the patient's medical records. Imaging Data Radiologic Study: Attestation: I personally reviewed and interpreted this imaging study as follows: Imaging: CT Scan Radiologist's impression: EXAM: CT CHEST PE ABD PELVIS W CLINICAL HISTORY: RUQ tenderness, elev d-dimer, active CA. TECHNIQUE: Imaging Protocol: Axial CT angiography was performed with multi-slice acquisition and multi-planar and/or 3D reconstructions. Computer aided detection (CAD) was utilized. CONTRAST MATERIAL: Intravenous: Omnipaque 350contrast volume:65 mL COMPARISON: CT CT CHEST/ABD/PEL W from 05/24/[address] CHEST W from 06/07/[address] CHEST W from 11/16/2024 FINDINGS: CHEST: Tracheobronchial tree: Patent where visualized. No evidence of bronchiectasis. Pulmonary parenchyma: There is no focal consolidation. No architectural distortion. There are no new pulmonary nodules. Pulmonary Arteries: No evidence of filling defect to suggest pulmonary emboli. Mediastinum and Elizabeth: No dominant adenopathy or fluid collection. The esophagus is unremarkable. There is a small hiatal hernia. Visualized thyroid gland: Unremarkable. Pleura: No effusion or pneumothorax. Heart: The heart is not dilated. Minimal coronary artery calcification is present. No pericardial effusion. Aorta: Thoracic aorta non-dilated. No evidence of dissection. Atherosclerotic calcification is present. Bones: Within normal limits for the patient's age. Soft tissues: Unremarkable. Tubes, Catheters, and Lines: There is a left chest port in place. ABDOMEN: Liver: Normal density. The previously seen hepatic lesions on the examination from 05/24/2023 are not visualized on the current examination. No definite hepatic lesions are seen. Portal, Superior Mesenteric, and Splenic Veins: Unremarkable. Gallbladder and Biliary Tract: There are no definite gallstones present. There are foci of increased density adjacent to the gallbladder in the gallbladder fossa. The appear to be outside of the gallbladder. There is no biliary ductal dilatation. Pancreas: Normal density, no abnormal calcifications or inflammatory process. Spleen: There are calcified granuloma in the spleen. Adrenals: No masses seen. Kidneys: Normal size, contour and axis. No radiodense stones or obstructive uropathy. No masses seen. Abdominal Aorta: Abdominal portion non-dilated. Atherosclerotic calcification is present. Bowel: The patient has had a prior right hemicolectomy. The anastomosis is seen in the central abdomen. There has been interval development of a mass in the right abdomen measuring 4.9 x 4.4 cm (series 28, images 41 through 53). It lies adjacent to or within loop of small bowel. There is resultant dilatation of the bowel proximally. The remainder of the small bowel is of normal caliber. There is a small hiatal hernia. Peritoneal Cavity: There is a small amount of abdominal pelvic ascites. No free air. Lymph Nodes: There is an enlarged 1.7 x 1.7 cm aortic caval lymph node. There are enlarged lymph nodes seen in the mesentery. The largest measures 1.0 cm in transverse diameter. Bones: Within normal limits for the patient's age. No aggressive osseous lesions are present. Soft Tissues: Unremarkable. PELVIS: Bladder: Symmetric distention, no gross wall thickening. Reproductive Organs: Unremarkable as visualized. Lymph Nodes: Within normal limits. Bones: Within normal limits. IMPRESSION: 1. There is a new 4.9 x 4.4 cm mass in the right abdomen with central hypodensity. Differential considerations include metastasis or adenopathy. Recurrent tumor should also be considered. There is resultant dilatation of the proximal bowel. 2. Small amount of abdominal and pelvic ascites. 3. Upper abdominal and mesenteric adenopathy. 4. There is no evidence of a pulmonary embolism, thoracic aortic dissection or aneurysm. 5. There is no significant change in the lungs compared to the prior examination. New pulmonary nodules. Lab Data Lab results reviewed: Yes I reviewed the patient's lab results. Labs: Laboratory Tests Range/Units 12/19/24 16:19 WBC (4.4-10.8) 10^3/uL 8.59 RBC (3.93-5.22) 10^6/uL 5.01 Hgb (11.2-15.7) g/dL 14.7 Hct (36.0-46.0) % 45.0 MCV (80-95) fL 90 MCH (27.0-33.0) pg 29.3 MCHC (32.0-36.0) % 32.7 RDW (11.7-14.6) % 12.7 Plt Count (130-400) 10^3/uL 334 MPV (8.0-11.0) fL 9.9 Immature Gran % % 0.2 Neutrophils % % 79.1 Lymphocytes % % 13.3 Monocytes % % 5.9 Eosinophils % % 1.2 Basophils % % 0.3 Nucleated RBC % (0.0-0.3) % 0.0 Absolute Neutrophils (1.2-6.7) 10^3/uL 6.79 H Absolute Lymphocytes (1.2-3.4) 10^3/uL 1.14 L Absolute Monocytes (0.1-0.8) 10^3/uL 0.51 Absolute Eosinophils (0.0-0.7) 10^3/uL 0.10 Absolute Basophils (0.0-0.2) 10^3/uL 0.03 D-Dimer (<500) ng/mlFEU 818 H Sodium (136-145) mmol/L 141 Potassium (3.5-5.1) mmol/L 3.6 Chloride (98-107) mmol/L 102 Carbon Dioxide (21.0-32.0) mmol/L 29.5 Anion Gap (3-11) mmol/L 9.5 BUN (7-18) mg/dL 13 Creatinine (0.55-1.02) mg/dL 0.8 Est GFR (CKD-EPI 2020) (mL/min/1.73m2) 72.61 Glucose (74-106) mg/dL 111 H Calcium (8.5-10.1) mg/dL 10.0 Magnesium (1.8-2.4) mg/dL 2.1 Total Bilirubin (0.2-1.0) mg/dL 0.6 AST (15-37) U/L 19 ALT (14-59) U/L 15 Alkaline Phosphatase (46-116) U/L 90 Troponin I (<or=51) ng/L 5 Total Protein (6.4-8.2) g/dL 7.5 Albumin (3.4-5.0) g/dL 3.8 Lipase (<78) U/L 52 Quality:[facility] Health Related Social Needs: Health related social needs details N/A PFSH All Active Problems (Updated 12/19/24 @ 18:54 by JOAN Shea) Right upper quadrant abdominal mass (Acute) Gastritis (Acute) Osteoarthritis of right hip (Acute) Right hip pain (Acute) Mass of gastroesophageal junction (Acute) [facility] 04/27/24 Iron deficiency (Acute) Cancer, metastatic to liver (Acute ~11/2023) 12/03/23 Dr Smart, [facility] Hem/Onc Liver lesion (Acute ~04/2023) 06/02/23 Hem/Onc DNR (do not resuscitate) (Acute) 2020 [facility]: DNR/DNI,+ transfer, +treat with IV fluids and abx. Confirmed, see 05/04/23 Palliative Care Note. Adenocarcinoma, colon (Chronic ~2022) metastatic 05/04/23 Hem/Onc Pulmonary fibrosis (Acute) Pre-diabetes (Acute ~03/2023) A1C 5.75% Generalized osteoarthritis (Acute) Subclinical hypothyroidism (Chronic 02/04/11) Lumbar radiculopathy, acute (Acute 06/12/14) 12/2022 Other and unspecified hyperlipidemia (Chronic 03/05/15) Eczema (Chronic 02/16/13) Hands Medical History (Updated 12/19/24 @ 18:54 by JOAN Shea) Pain in left foot Viral illness Postoperative seroma involving digestive system after digestive system procedure Ileus Acute hemorrhagic gastritis (~09/2022) Esophagitis GERD (gastroesophageal reflux disease) (05/07/14) Takes 2-week courses of omeprazole PRN with good relief for several months GI bleed due to NSAIDs (~09/2022) Iron deficiency anemia (~09/2022) Palliative care patient Colonic mass Paracolic abscess COVID Symptoms resolved 2/6/24 Erythema migrans (Lyme disease) 1 week post tick bite, short-term stay per pt report .. but Doxy x 10 days started, ik BPPV (benign paroxysmal positional vertigo) BCC (basal cell carcinoma), face (06/11/16) and left medial ankle 10/2018 Right lower lateral neck - removed at 10/06/22 Surgical History History of abdominal paracentesis (~05/2023) H/O right hemicolectomy (05/01/23) perforated colon mass History of colonoscopy (~04/2023) History of esophagogastroduodenoscopy (~06/2024) Open Carpal Tunnel release no date given by pt.HE Exc BBC rgt forehead (06/22/16) Biopsy of breast pt did not state date.HE Family History Father Alcohol abuse Brother Bladder cancer Social History Smoking/Tobacco Use Status: Never Smoking risk assessment performed?: Yes Alcohol Intake: current Alcohol Intake frequency: 0-2 drinks per day Alcohol type: wine Drug use: Never Substance use type: does not use Counseling given: No Adopted: No Caregiver/Support person: No Foster care: No Household members: spouse Housing: house Number of Children: 0 number of grandchildren: 0 Communication Needs: Corrective Lenses Education Level: college Do you need help understanding health information?: Never 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, 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, 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, 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 Pets and animals: No Sexually active: No Do you think of yourself as: straight/heterosexual Current gender identity: male What is your relationship status?: How often do you talk on the phone with friends or family?: three or more times per week How often do you get together with friends or relatives?: three or more times per week How often do you attend sikh or tenriism services?: 4 or more times per year Do you belong to any clubs or organized social groups?: yes Panel score (0-1 are the most socially isolated patients): 4 What type of physical activity do you participate in: other Details: Arthritis Class 2x week Duration: 45-60 minutes/day Frequency: 1-2 times per week Romi/Protestant: Yarsanism Special romi needs: No Seatbelt use: always Helmet use: Yes (No Reason) Helmet use: never Drive intox or ride w/intox reach lift truck driver: No Working smoke detector in home: Yes Fire extinguisher in home: Yes Carbon monox detector in home: Yes Do you feel safe at home: Yes Do you feel safe in your relationship?: Yes
[2024-12-19 16:28] LABS: Abs Immature Grans 0.02 10^3/uL (0.0-0.06); HCT 45.0 % (36.0-46.0); HGB 14.7 g/dL (11.2-15.7); Immature Grans % 0.2 %; MCH 29.3 pg (27.0-33.0); MCHC 32.7 % (32.0-36.0); MCV 90 fL (80-95); MPV 9.9 fL (8.0-11.0); Platelet Count 334 10^3/uL (130-400); RBC 5.01 10^6/uL (3.93-5.22); RDW 12.7 % (11.7-14.6); RDW-SD 41.3 fL; WBC 8.59 10^3/uL (4.4-10.8)
[2024-12-19 16:49] LABS: ALT 15 U/L (14-59); AST 19 U/L (15-37); Albumin 3.8 g/dL (3.4-5.0); Alkaline Phosphatase 90 U/L (46-116); Anion Gap 9.5 mmol/L (3-11); BUN 13 mg/dL (7-18); Bilirubin, Total 0.6 mg/dL (0.2-1.0); CO2 29.5 mmol/L (21.0-32.0); Calcium 10.0 mg/dL (8.5-10.1); Chloride 102 mmol/L (98-107); Estimated GFR 72.61 (mL/min/1.73m2); Glucose 111 mg/dL (74-106); Lipase 52 U/L (<78); Magnesium 2.1 mg/dL (1.8-2.4); Potassium 3.6 mmol/L (3.5-5.1); Sodium 141 mmol/L (136-145); Total Protein 7.5 g/dL (6.4-8.2); Troponin I 5 ng/L (<or=51)
[2024-12-19 16:57] LABS: D-Dimer 818 ng/mlFEU (<500)
--- NOTE | 2024-12-19 17:00 | DI.CT_ITS ---
Exam(s) CT CHEST PE ABD PELVIS W EXAM: CT CHEST PE ABD PELVIS W CLINICAL HISTORY: RUQ tenderness, elev d-dimer, active CA. TECHNIQUE: Imaging Protocol: Axial CT angiography was performed with multi- slice acquisition and multi-planar and/or 3D reconstructions. Computer aided detection (CAD) was utilized. CONTRAST MATERIAL: Intravenous: Omnipaque 350contrast volume:65 mL COMPARISON: CT CT CHEST/ABD/PEL W from 05/24/[address] CHEST W from 06/07/[address] CHEST W from 11/16/2024 FINDINGS: CHEST: Tracheobronchial tree: Patent where visualized. No evidence of bronchiectasis. Pulmonary parenchyma: There is no focal consolidation. No architectural distortion. There are no new pulmonary nodules. Pulmonary Arteries: No evidence of filling defect to suggest pulmonary emboli. Mediastinum and Elizabeth: No dominant adenopathy or fluid collection. The esophagus is unremarkable. There is a small hiatal hernia. Visualized thyroid gland: Unremarkable. Pleura: No effusion or pneumothorax. Heart: The heart is not dilated. Minimal coronary artery calcification is present. No pericardial effusion. Aorta: Thoracic aorta non-dilated. No evidence of dissection. Atherosclerotic calcification is present. Bones: Within normal limits for the patient's age. Soft tissues: Unremarkable. Tubes, Catheters, and Lines: There is a left chest port in place. ABDOMEN: Liver: Normal density. The previously seen hepatic lesions on the examination from 05/24/2023 are not visualized on the current examination. No definite hepatic lesions are seen. Portal, Superior Mesenteric, and Splenic Veins: Unremarkable. Gallbladder and Biliary Tract: There are no definite gallstones present. There are foci of increased density adjacent to the gallbladder in the gallbladder fossa. The appear to be outside of the gallbladder. There is no biliary ductal dilatation. Pancreas: Normal density, no abnormal calcifications or inflammatory process. Spleen: There are calcified granuloma in the spleen. Adrenals: No masses seen. Kidneys: Normal size, contour and axis. No radiodense stones or obstructive uropathy. No masses seen. Abdominal Aorta: Abdominal portion non-dilated. Atherosclerotic calcification is present. Bowel: The patient has had a prior right hemicolectomy. The anastomosis is seen in the central abdomen. There has been interval development of a mass in the right abdomen measuring 4.9 x 4.4 cm (series 28, images 41 through 53). It lies adjacent to or within loop of small bowel. There is resultant dilatation of the bowel proximally. The remainder of the small bowel is of normal caliber. There is a small hiatal hernia. Peritoneal Cavity: There is a small amount of abdominal pelvic ascites. No free air. Lymph Nodes: There is an enlarged 1.7 x 1.7 cm aortic caval lymph node. There are enlarged lymph nodes seen in the mesentery. The largest measures 1.0 cm in transverse diameter. Bones: Within normal limits for the patient's age. No aggressive osseous lesions are present. Soft Tissues: Unremarkable. PELVIS: Bladder: Symmetric distention, no gross wall thickening. Reproductive Organs: Unremarkable as visualized. Lymph Nodes: Within normal limits. Bones: Within normal limits. IMPRESSION: 1. There is a new 4.9 x 4.4 cm mass in the right abdomen with central hypodensity. Differential considerations include metastasis or adenopathy. Recurrent tumor should also be considered. There is resultant dilatation of the proximal bowel. 2. Small amount of abdominal and pelvic ascites. 3. Upper abdominal and mesenteric adenopathy. 4. There is no evidence of a pulmonary embolism, thoracic aortic dissection or aneurysm. 5. There is no significant change in the lungs compared to the prior examination. New pulmonary nodules. RADIATION DOSE DELIVERED: 432.28mGy.cm Total DLP DATA REPOSITORY: All CT scans at this facility are submitted to the National Radiology Data Registry (NRDR) Dose Index Registry (DIR) with the [employer] (ACR). RADIATION OPTIMIZATION: All CT scans at this facility use at least one of these dose optimization techniques: automated exposure control; mA and/or kV adjustment per patient size (includes targeted exams where dose is matched to clinical indication); or iterative reconstruction.
[2024-12-19 17:18] VITALS: BP 157/79; PULSE 85; RESP 16; TEMP 36.7; O2SAT 98
[2024-12-19] MEDS: Normal Saline Flush 10 ML SYR IVP (17:29)
[2024-12-19] MEDS: Normal Saline - Diluent 50 ML VIAL IJ (17:30)
[2024-12-19] MEDS: Omnipaque 350 MG/ML 100 ML BTL IJ (17:30)
[2024-12-19] MEDS: oxyCODONE 5 MG TAB 20 MG PO (19:28)
[2024-12-19 19:31] VITALS: BP 147/68; PULSE 94; RESP 18; O2SAT 98
== END 2024-12-19 19:32 | disposition home or self-care (01) ==
PROVIDERS: Emergency Provider Physician Assistant; PCP Nurse Practitioner Adult Health
DX: K29.70 Gastritis, unspecified, without bleeding (principal); R10.11 Right upper quadrant pain
CPT/HCPCS: 99285; 99284; 71275; 74177; 80053; 83690; 93005; 83735; 84484; 85025; 85379; 93010; J3490

== ENCOUNTER 2025-01-13 05:13 | Observation (INO) | payer MEDICARE, SELFPAY ==
[2025-01-13] VITALS (31 sets, daily range): BP systolic 109–145; BP diastolic 39–71; PULSE 73–100; RESP 16–18; TEMP 35.9–37.1; O2SAT 84–98
--- NOTE | 2025-01-13 05:37 | W.ED.GENAD ---
Discharge Plan Discharge Details Chief Complaint: Abd Prob Clinical Impression: Nausea & vomiting, Dehydration Primary Care Provider: Tiera Choudhury ED Provider: Baldomero Colindres Home Meds and New Rx's Prescriptions: No Action Chemo treatment IV .q 3 mo pantoprazole 40 mg tablet,delayed release (DR/EC) 40 mg PO DAILY loratadine 10 mg tablet 10 mg PO DAILY Qty: 90 3RF oxycodone 5 mg tablet 5 mg PO BID MDD 2 tabs PRN (Reason: pain) Qty: 30 0RF Rx Instructions: for cancer related pain multivitamin [Daily Multi-Vitamin] Tablet 1 tab PO DAILY HPI General Date/Time Provider Initiated Documentation: 01/13/25 05:15. HPI Narrative: This is a very pleasant 84-year-old female with a past medical history of inoperable colon cancer, who is currently a palliative care patient was scheduled for a hospice interview coming up, who is on regular pain management with oxycodone twice daily, was a CODE STATUS of DNR/DNI. Who presents today for abdominal pain and vomiting. Pain is sharp in nature and began at 9 PM and is located in the epigastric region. She suspects there might have been a small amount of blood in her vomit, but she denies any diarrhea. No fever or chills. No numbness or tingling. States no other complaints at this time. Related Data Home Medications Medication Instructions Recorded Confirmed multivitamin (Daily Multi-Vitamin 1 tab PO DAILY 06/12/24 01/08/25 tablet) pantoprazole 40 mg tablet,delayed 40 mg PO DAILY 09/07/24 01/08/25 release Chemo treatment IV .q 3 mo 09/29/24 01/08/25 loratadine 10 mg tablet 10 mg PO DAILY #90 tabs 09/29/24 01/08/25 oxycodone 5 mg tablet 5 mg PO BID PRN pain #30 tabs 01/12/25 Previous Rx's Medication Instructions Recorded loratadine 10 mg tablet 10 mg PO DAILY #90 tabs 09/29/24 oxycodone 5 mg tablet 5 mg PO BID PRN pain #30 tabs 01/12/25 Allergies Allergy/AdvReac Type Severity Reaction Status Date / Time aspirin AdvReac ? Verified 01/05/25 13:04 INCREASED HR General Stated Complaint: Abd Prob DEDE: 3 Exam Narrative Exam Narrative: 1.Const: Well-nourished, Well-developed, appearing stated age 2.Eyes: PERRL, no conjunctival injection, and symmetrical lids. 3.ENT: Atraumatic external nose and ears. Moist MM. Neck: Symmetric, trachea midline, No thyromegaly. 4.CVS: +S1/S2, Peripheral pulses 2+ and equal in all extremities. Brisk capillary refill in all extremities. 5.RESP: Unlabored respiratory effort. Clear to auscultation bilaterally. No wheezes rales or rhonchi 6.GI: Soft, mild epigastric discomfort on palpation. Bowel sounds present. No guarding or rebound. 7.MSK: Normocephalic/Atraumatic, Extremities w/o deformity or ttp No cyanosis or clubbing, Normal movement of all extremities 8.Skin: Warm, Dry. No rashes or lesions. 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 Sensation grossly intact, no focal neurologic deficits. 10.Psych: (AAO) x3. Appropriate mood and affect Course Vital Signs Vital signs: Vital Signs Temperature 35.9 C L 01/13/25 05:16 Pulse 100 H 01/13/25 05:16 Respiratory Rate 18 01/13/25 05:16 Pulse Oximetry 94 01/13/25 05:16 Temperature 35.9 C L 01/13/25 05:16 Temperature Source Tympanic 01/13/25 05:16 Pulse 100 H 01/13/25 05:16 Respiratory Rate 18 01/13/25 05:16 Blood Pressure 145/55 H 01/13/25 05:23 Blood Pressure Mean 85 01/13/25 05:23 Blood Pressure Position Sitting 01/13/25 05:16 Pulse Oximetry 94 01/13/25 05:16 Oxygen Delivery Method Room Air 01/13/25 05:16 Oxygen Flow Rate 0 01/13/25 05:16 Pain Level 8 01/13/25 05:16 Lab/Test Results Lab/Test Results: Laboratory Tests Range/Units 01/13/25 05:21 Sodium Cancelled Potassium Cancelled Chloride Cancelled Carbon Dioxide Cancelled Anion Gap Cancelled BUN Cancelled Creatinine Cancelled Est GFR (CKD-EPI 2020) Cancelled Glucose Cancelled Calcium Cancelled Medical Decision Making This is a very pleasant 84-year-old female with a past medical history of inoperable colon cancer, who is currently a palliative care patient was scheduled for a hospice interview coming up, who is on regular pain management with oxycodone twice daily, was a CODE STATUS of DNR/DNI. Who presents today for abdominal pain and vomiting. Pain is sharp in nature and began at 9 PM and is located in the epigastric region. She suspects there might have been a small amount of blood in her vomit, but she denies any diarrhea. No fever or chills. No numbness or tingling. States no other complaints at this time. Exam demonstrates mild tenderness in the epigastrium, no guarding or rebound. Bowel sounds present, not hypertympanic. Differential includes obstruction, pain secondary to cancer, pancreatitis, or gallbladder pathology. I did discuss with the patient what her goals were, she states her primary goals are to be rehydrated, have the pain control, and have her nausea control. We can accomplish this with milligram of Dilaudid, liter IV fluids, and Zofran. I did discuss risks and benefits of imaging and labs, patient consents for imaging and labs at this time. Will get CT imaging to rule out obstruction, will get basic labs to look for electrolyte abnormalities. Will monitor closely and reassess. 7:14 AM Laboratory workup is returned, no white count or bandemia, electrolytes normal, lipase normal. Patient is feeling much better, but is still slightly nauseous. Will add Reglan. We we will perform gentle p.o. trial with ice chips. Still pending CT imaging. Patient will be signed out to my colleague for follow-up and CT scan. Quality:SDOH Health Related Social Needs: Health related social needs details N/A PFSH All Active Problems (Updated 01/13/25 @ 07:15 by Baldomero Colindres DO) Dehydration (Acute) Nausea & vomiting (Acute) ACP (advance care planning) (Acute) Right upper quadrant abdominal mass (Acute) Gastritis (Acute) Palliative care patient (Acute) Osteoarthritis of right hip (Acute) Right hip pain (Acute) Mass of gastroesophageal junction (Acute) [facility] 04/27/24 Iron deficiency (Acute) Cancer, metastatic to liver (Acute ~11/2023) 12/03/23 Dr Smart, [facility] Hem/Onc Liver lesion (Acute ~04/2023) 06/02/23 Hem/Onc DNR (do not resuscitate) (Acute) 2020 [facility]: DNR/DNI,+ transfer, +treat with IV fluids and abx. Confirmed, see 05/04/23 Palliative Care Note. Adenocarcinoma, colon (Chronic ~2022) metastatic 05/04/23 Hem/Onc Pulmonary fibrosis (Acute) Pre-diabetes (Acute ~03/2023) A1C 5.75% Generalized osteoarthritis (Acute) Subclinical hypothyroidism (Chronic 02/04/11) Lumbar radiculopathy, acute (Acute 06/12/14) 12/2022 Other and unspecified hyperlipidemia (Chronic 03/05/15) Eczema (Chronic 02/16/13) Hands Medical History (Updated 01/13/25 @ 07:15 by Baldomero Colindres DO) Pain in left foot Viral illness Postoperative seroma involving digestive system after digestive system procedure Ileus Acute hemorrhagic gastritis (~09/2022) Esophagitis GERD (gastroesophageal reflux disease) (05/07/14) Takes 2-week courses of omeprazole PRN with good relief for several months GI bleed due to NSAIDs (~09/2022) Iron deficiency anemia (~09/2022) Colonic mass Paracolic abscess COVID Symptoms resolved 04/13/23 Erythema migrans (Lyme disease) 1 week post tick bite, short-term stay per pt report .. but Doxy x 10 days started, ik BPPV (benign paroxysmal positional vertigo) BCC (basal cell carcinoma), face (06/11/16) and left medial ankle 10/2018 Right lower lateral neck - removed at 10/06/22 Surgical History (Updated 01/11/25 @ 13:35 by Sharda Cadet RN) S/P fine needle biopsy (~01/01/25) periduodenal mass [id number] [facility] [place] History of abdominal paracentesis (~05/2023) H/O right hemicolectomy (05/01/23) perforated colon mass History of colonoscopy (~04/2023) History of esophagogastroduodenoscopy (~06/2024) Open Carpal Tunnel release no date given by pt.HE Exc BBC rgt forehead (06/22/16) Biopsy of breast pt did not state date.HE Family History Father Alcohol abuse Brother Bladder cancer Social History Smoking/Tobacco Use Status: Never Smoking risk assessment performed?: Yes Alcohol Intake: current Alcohol Intake frequency: 0-2 drinks per day Alcohol type: wine Drug use: Never Substance use type: does not use Counseling given: No Adopted: No Caregiver/Support person: No Foster care: No Household members: spouse Housing: house Number of Children: 0 number of grandchildren: 0 Communication Needs: Corrective Lenses Education Level: college Do you need help understanding health information?: Never 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, 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, 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, 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 Pets and animals: No Sexually active: No Do you think of yourself as: straight/heterosexual Current gender identity: male What is your relationship status?: How often do you talk on the phone with friends or family?: three or more times per week How often do you get together with friends or relatives?: three or more times per week How often do you attend samaritan or gnosticism services?: 4 or more times per year Do you belong to any clubs or organized social groups?: yes Panel score (0-1 are the most socially isolated patients): 4 What type of physical activity do you participate in: other Details: Arthritis Class 2x week Duration: 45-60 minutes/day Frequency: 1-2 times per week Romi/Congregational: Hoahaoism Special romi needs: No Seatbelt use: always Helmet use: Yes (No Reason) Helmet use: never Drive intox or ride w/intox driver starting gate: No Working smoke detector in home: Yes Fire extinguisher in home: Yes Carbon monox detector in home: Yes Do you feel safe at home: Yes Do you feel safe in your relationship?: Yes
[2025-01-13] MEDS: HYDROmorphone 2 MG/ML SYR 1 MG IVP (06:03)
[2025-01-13] MEDS: Lactated Ringers 1,000 ML 1000 ML IV (06:04)
[2025-01-13] MEDS: Ondansetron 4 MG/2 ML VIAL IVP (06:04)
[2025-01-13] MEDS: Normal Saline-STERILE FIELD 0.9% 10 ML SYR (06:05)
[2025-01-13 06:07] LABS: Abs Immature Grans 0.04 10^3/uL (0.0-0.06); HCT 44.4 % (36.0-46.0); HGB 14.2 g/dL (11.2-15.7); Immature Grans % 0.5 %; MCH 29.5 pg (27.0-33.0); MCHC 32.0 % (32.0-36.0); MCV 92 fL (80-95); MPV 10.4 fL (8.0-11.0); Platelet Count 291 10^3/uL (130-400); RBC 4.81 10^6/uL (3.93-5.22); RDW 12.4 % (11.7-14.6); RDW-SD 42.4 fL; WBC 8.76 10^3/uL (4.4-10.8)
[2025-01-13 06:31] LABS: ALT 16 U/L (14-59); AST 23 U/L (15-37); Albumin 3.5 g/dL (3.4-5.0); Alkaline Phosphatase 81 U/L (46-116); Anion Gap 13.9 mmol/L (3-11); BUN 12 mg/dL (7-18); Bilirubin, Total 0.7 mg/dL (0.2-1.0); CO2 26.1 mmol/L (21.0-32.0); Calcium 9.4 mg/dL (8.5-10.1); Chloride 100 mmol/L (98-107); Glucose 127 mg/dL (74-106); Lipase 16 U/L (<78); Potassium 3.7 mmol/L (3.5-5.1); Sodium 140 mmol/L (136-145); Total Protein 6.7 g/dL (6.4-8.2)
[2025-01-13] MEDS: Omnipaque 350 MG/ML 100 ML BTL IJ (06:39)
[2025-01-13] MEDS: Normal Saline - Diluent 50 ML VIAL IJ (06:39)
[2025-01-13] MEDS: Normal Saline Flush 10 ML SYR IVP ×3 (06:40→08:00)
--- NOTE | 2025-01-13 06:41 | DI.CT_ITS ---
Exam(s) CT ABDOMEN PELVIS W EXAM: CT ABDOMEN PELVIS W CLINICAL HISTORY: hx colon CA, vomiting, r/o obstruction TECHNIQUE: Imaging Protocol: Axial computed tomography images with coronal and sagittal reformatted images were created and reviewed. CONTRAST MATERIAL: Intravenous: Omnipaque 350 Contrast volume:75 mL Oral: No COMPARISON: CT CT CHEST PE ABD PELVIS W from 12/19/2024 FINDINGS: ABDOMEN: Lung Bases: There is atelectasis in the lung bases. Liver: Normal density. No measurable mass. Portal, Superior Mesenteric, and Splenic Veins: Unremarkable. Gallbladder and Biliary Tract: No radiodense calculus or dilation. Pancreas: Normal density, no abnormal calcifications or inflammatory process. Spleen: Calcified granuloma are seen in the spleen. Adrenals: No masses seen. Kidneys: Normal size, contour and axis. No radiodense stones or obstructive uropathy. No masses seen. Abdominal Aorta: Abdominal portion non-dilated. Atherosclerotic calcification is present. Bowel: The patient has had a prior right colectomy. In seen a mass in the right abdomen. It measures 5.4 x 4.9 cm. It has increased in size compared to the prior examination. There is a central hypodensity which may represent necrosis. The findings are suspicious for metastatic disease. The adjacent small bowel shows wall thickening. There is dilatation of the small bowel suggesting obstruction. This appears to be proximal to the mass in the involved small bowel. Note is also made of thickening of the wall of the distal stomach and proximal duodenum. This portion of the bowel lies adjacent to the abdominal mass. Peritoneal Cavity: There is a trace amount of free fluid in the pelvis. No free air. Lymph Nodes: There are enlarged lymph nodes seen in the abdomen. There is an enlarged aortocaval lymph node again noted and enlarged mesenteric lymph nodes present. Bones: Within normal limits for the patient's age. Soft Tissues: Postsurgical changes in the anterior abdominal wall. PELVIS: Bladder: Symmetric distention, no gross wall thickening. Reproductive Organs: Unremarkable as visualized. Lymph Nodes: Within normal limits. Bones: Within normal limits for the patient's age. IMPRESSION: 1. Findings consistent with a small-bowel obstruction in the right lower quadrant. This lies adjacent to the mesenteric mass/metastasis. 2. Interval increase in size of the mesenteric mass in the right lower quadrant with abdominal pelvic adenopathy consistent with progression of disease. 3. Wall thickening of the stomach, duodenum and small bowel which are adjacent to the mesenteric mass in the right lower quadrant. Tumor involvement or associated infection/inflammation should be considered. 4. Trace amount of pelvic ascites. 5. The preliminary [facility] report was reviewed. RADIATION DOSE DELIVERED: 382.65mGy.cm Total DLP DATA REPOSITORY: All CT scans at this facility are submitted to the National Radiology Data Registry (NRDR) Dose Index Registry (DIR) with the [employer] (ACR). RADIATION OPTIMIZATION: All CT scans at this facility use at least one of these dose optimization techniques: automated exposure control; mA and/or kV adjustment per patient size (includes targeted exams where dose is matched to clinical indication); or iterative reconstruction.
--- NOTE | 2025-01-13 07:50 | DI.[facility]_ITS ---
Addendum created by Amanda Vinson MD on 01/13/2025 7:51:46 AM EST: THIS REPORT CONTAINS FINDINGS THAT MAY BE CRITICAL TO PATIENT CARE. The findings were verbally communicated via telephone conference at 7:50 AM EST on 01/13/[address] Jackson. The findings were acknowledged and understood. Initial report created on 01/13/2025 7:50:22 AM EST: PROCEDURE INFORMATION: Exam: CT Abdomen And Pelvis With Contrast Exam date and time: 01/13/2025 6:10 AM Age: 84 years old Clinical indication: Prior surgery; Surgery date: 6+ months; Surgery type: Hemicolectomy; HX colon CA, vomiting, R/O obstruction TECHNIQUE: Imaging protocol: Computed tomography of the abdomen and pelvis with contrast. Radiation optimization: All CT scans at this facility use at least one of these dose optimization techniques: automated exposure control; mA and/or kV adjustment per patient size (includes targeted exams where dose is matched to clinical indication); or iterative reconstruction. Contrast material: [id number]; Contrast volume: 75 ml; Contrast route: INTRAVENOUS (IV); COMPARISON: CT CHEST PE ABD PELVIS W 12/19/2024 5:19 PM FINDINGS: Lungs: Mild dependent hypoventilatory changes. No pleural effusions. Liver: Unremarkable. Gallbladder and biliary ducts: Unremarkable. No calcified gallstones. No intrahepatic or extrahepatic biliary ductal dilation. Pancreas: Unremarkable. Spleen: Normal in size. Contains a small calcified granuloma. Adrenal glands: Unremarkable. Kidneys and ureters: Unremarkable. No hydronephrosis or hydroureter. Stomach and bowel: The stomach is not overtly distended. There are multiple dilated and fluid-filled loops of proximal and mid small bowel measuring up to 3.8 cm in diameter, consistent with small bowel obstruction. There is a transition point in small bowel caliber in the right lower quadrant (see coronal images 30-36, axial images 69-75). Distal small bowel loops are largely decompressed. There is a 6.4 cm x 5.3 cm x 4.4 cm heterogeneously enhancing irregular solid mass in the right lower quadrant mesentery (measured on axial image 47 and sagittal image 33), consistent with metastasis. This is inseparable from adjacent small bowel loops. This mass has increased in size since 12/19/2024, previously 5.3 cm x 4.5 cm x 4.3 cm. Postsurgical changes from right hemicolectomy are again noted, within ileocolic anastomosis near midline in the upper pelvis. The large bowel is normal in caliber. Appendix: Surgically absent. Intraperitoneal space: Very mild pelvic ascites. No organized fluid collection. No pneumoperitoneum. Retroperitoneal space: No retroperitoneal collection or mass. Vasculature: Moderate atherosclerotic vascular calcifications. Normal caliber abdominal aorta. Lymph nodes: Multiple enlarged right lower quadrant mesenteric lymph nodes compatible with keegan metastases, increased in size since 12/19/2024, with patient services representative measurements including a 1.8 cm x 1.1 cm lymph node on axial image 49 and a 1.9 cm x 1.6 cm lymph node on axial image 54. A precaval lymph node measuring 1.2 cm x 1.5 cm on axial image 47 has slightly enlarged in the interim, previously 1 cm x 1.5 cm. An enlarged aortocaval lymph node measuring 1.6 cm x 1.9 cm on axial image 32 previously measured 1.5 cm x 1.7 cm. Urinary bladder: Unremarkable. Reproductive: Unremarkable as visualized. Bones/joints: Diffuse osseous demineralization. Degenerative changes. Slight thoracolumbar dextroscoliosis. No lytic or blastic osseous lesions. Soft tissues: Vertical midline infraumbilical ventral abdominal wall surgical scar. Two small midline supraumbilical fat-containing hernias. Rectus diastasis. IMPRESSION: 1. Small bowel obstruction with a transition point in the right lower quadrant. 2. Interval enlargement of a right lower quadrant mesenteric mass and mesenteric and retroperitoneal lymph nodes since 12/19/2024, consistent with progression of metastatic disease. 3. Very mild pelvic ascites. 4. Additional stable chronic and incidental findings are discussed in the body of the report. Dictated and Authenticated by: Amanda Vinson MD. Orderin Jens Alexandre MD
[2025-01-13] MEDS: Metoclopramide 10 MG/2 ML VIAL IVP (07:51)
--- NOTE | 2025-01-13 08:07 | HPE_ITS ---
Date of service: 01/13/25 Time of Service: 08:07 Assessment and Plan Assessment and plan (1) SBO (small bowel obstruction): Status: Acute Assessment and plan: - Patient with small bowel as seen on abdominal imaging - This is secondary to progression of her overall metastatic colon cancer - Patient expressed wishes to be rehydrated, and has been in the trailing sips of water in the emergency department - In the event that she is unable to tolerate fluids, it appears small bowel obstruction is worse, will have to have discussion with patient as surgery is not an option, and placing NG tube, may prolong suffering - At this time patient will have full liquid diet, and if she is able to tolerate plan will be to discharge and hopefully be set up with hospice as soon as Wednesday (2) Nausea & vomiting: Status: Acute Assessment and plan: - Secondary to small bowel obstruction and inoperable colon cancer as noted above History of Present Illness History of Present Illness Chief Complaint: nausea, vomiting Narrative: 84-year-old female with past medical history of inoperable metastatic colon cancer currently seen by palliative care and had been scheduled to meet with hospice next week presents to the emergency department complaints abdominal pain and vomiting. She states that she has sharp abdominal pain that began about 9 PM the night prior and is in the middle of her abdomen. She also states that she was vomiting and may have had a very small amount of blood in her vomit. She denies diarrhea, headache, lightheadedness, fever. In the emergency department patient was noted to have normal vital signs, normal CBC and normal CMP. Patient did have CT abdomen pelvis that showed small bowel obstruction of the right lower quadrant that lies adjacent to mesenteric mass/metastasis. Patient was trialed on clear liquids in the emergency department was not reported to have had any difficulty. At which time emergency room provider paged hospitalist for admission for patient with small bowel obstruction that may not resolve on its own and may require discussion of transitioning to comfort measures only. Review of Systems All systems reviewed & are unremarkable except as noted in HPI and below PFSH All Active Problems (Updated 01/13/25 @ 09:14 by DANI CHÁVEZ) SBO (small bowel obstruction) (Acute) Dehydration (Acute) Nausea & vomiting (Acute) ACP (advance care planning) (Acute) Right upper quadrant abdominal mass (Acute) Gastritis (Acute) Palliative care patient (Acute) Osteoarthritis of right hip (Acute) Right hip pain (Acute) Mass of gastroesophageal junction (Acute) [facility] 04/27/24 Iron deficiency (Acute) Cancer, metastatic to liver (Acute ~11/2023) 12/03/23 Dr Smart, [facility] Liver lesion (Acute ~04/2023) 06/02/23 Hem/Onc DNR (do not resuscitate) (Acute) 2020 COLST: DNR/DNI,+ transfer, +treat with IV fluids and abx. Confirmed, see 05/04/23 Palliative Care Note. Adenocarcinoma, colon (Chronic ~2022) metastatic 05/04/23 Hem/Onc Pulmonary fibrosis (Acute) Pre-diabetes (Acute ~03/2023) A1C 5.75% Generalized osteoarthritis (Acute) Subclinical hypothyroidism (Chronic 02/04/11) Lumbar radiculopathy, acute (Acute 06/12/14) 12/2022 Other and unspecified hyperlipidemia (Chronic 03/05/15) Eczema (Chronic 02/16/13) Hands Medical History (Updated 01/13/25 @ 09:14 by DANI CHÁVEZ) Pain in left foot Viral illness Postoperative seroma involving digestive system after digestive system procedure Ileus Acute hemorrhagic gastritis (~09/2022) Esophagitis GERD (gastroesophageal reflux disease) (05/07/14) Takes 2-week courses of omeprazole PRN with good relief for several months GI bleed due to NSAIDs (~09/2022) Iron deficiency anemia (~09/2022) Colonic mass Paracolic abscess COVID Symptoms resolved 04/13/23 Erythema migrans (Lyme disease) 1 week post tick bite, short-term stay per pt report .. but Doxy x 10 days started, ik BPPV (benign paroxysmal positional vertigo) BCC (basal cell carcinoma), face (06/11/16) and left medial ankle 10/2018 Right lower lateral neck - removed at 10/06/22 Surgical History (Updated 01/11/25 @ 13:35 by Sharda Cadet RN) S/P fine needle biopsy (~01/01/25) periduodenal [id number] [facility] [place] of abdominal paracentesis (~05/2023) H/O right hemicolectomy (05/01/23) perforated colon mass History of colonoscopy (~04/2023) History of esophagogastroduodenoscopy (~06/2024) Open Carpal Tunnel release no date given by pt.HE Exc BBC rgt forehead (06/22/16) Biopsy of breast pt did not state date.HE Family History Father Alcohol abuse Brother Bladder cancer Social History Smoking/Tobacco Use Status: Never Smoking risk assessment performed?: Yes Alcohol Intake: current Alcohol Intake frequency: 0-2 drinks per day Alcohol type: wine Drug use: Never Substance use type: does not use Counseling given: No Adopted: No Caregiver/Support person: No Foster care: No Household members: spouse Housing: house Number of Children: 0 number of grandchildren: 0 Communication Needs: Corrective Lenses Education Level: college Do you need help understanding health information?: Never 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, 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, 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, 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 Pets and animals: No Sexually active: No Do you think of yourself as: straight/heterosexual Current gender identity: male What is your relationship status?: How often do you talk on the phone with friends or family?: three or more times per week How often do you get together with friends or relatives?: three or more times per week How often do you attend jainism or anabaptist services?: 4 or more times per year Do you belong to any clubs or organized social groups?: yes Panel score (0-1 are the most socially isolated patients): 4 What type of physical activity do you participate in: other Details: Arthritis Class 2x week Duration: 45-60 minutes/day Frequency: 1-2 times per week Romi/Zoroastrian: Druze Special romi needs: No Seatbelt use: always Helmet use: Yes (No Reason) Helmet use: never Drive intox or ride w/intox sales route driver helper: No Working smoke detector in home: Yes Fire extinguisher in home: Yes Carbon monox detector in home: Yes Do you feel safe at home: Yes Do you feel safe in your relationship?: Yes Meds Allergies and Home Medications Allergies Allergy/AdvReac Type Severity Reaction Status Date / Time NSAIDS (Non-Steroidal AdvReac Unknown Other (See Verified 01/13/25 09:04 Anti-Inflamma Comment) aspirin AdvReac ? Verified 01/13/25 09:03 INCREASED HR Home Medications Medication Instructions Recorded Confirmed Type pantoprazole 40 mg tablet,delayed 40 mg PO DAILY 09/0701/13/25 History release loratadine 10 mg tablet 10 mg PO DAILY #90 tabs 09/0601/13/25 Rx oxycodone 5 mg tablet 5 mg PO BID PRN pain #30 tab s 01/12/25 01/13/25 Rx Exam Narrative Exam Narrative: well appearing older female sitting up in the chair in no acute distress, AOx4, heart RRR, lungs CTAB, abdomen with mild diffuse tenderness to palpation Results Labs 01/13/25 05:55 01/13/25 05:55 Labs: Laboratory Results - last 24 hr 01/13/25 01/13/25 05:21 05:55 WBC 8.76 RBC 4.81 Hgb 14.2 Hct 44.4 MCV 92 MCH 29.5 MCHC 32.0 RDW 12.4 Plt Count 291 MPV 10.4 Immature Gran % 0.5 Neutrophils % 88.0 Lymphocytes % 5.3 Monocytes % 5.7 Eosinophils % 0.2 Basophils % 0.3 Nucleated RBC % 0.0 Absolute Neutrophils 7.71 H Absolute Lymphocytes 0.46 L Absolute Monocytes 0.50 Absolute Eosinophils 0.02 Absolute Basophils 0.03 Sodium Cancelled 140 Potassium Cancelled 3.7 Chloride Cancelled 100 Carbon Dioxide Cancelled 26.1 Anion Gap Cancelled 13.9 H BUN Cancelled 12 Creatinine Cancelled 0.6 Est GFR (CKD-EPI 2020) Cancelled 88.45 Glucose Cancelled 127 H Calcium Cancelled 9.4 Total Bilirubin 0.7 AST 23 ALT 16 Alkaline Phosphatase 81 Total Protein 6.7 Albumin 3.5 Lipase 16 Last Vital Signs Temp 96.7 F L 01/13/25 05:16 Pulse 94 H 01/13/25 07:56 Resp 18 01/13/25 05:16 BP 138/55 L 01/13/25 05:31 Pulse Ox 95 01/13/25 07:56 Time Spent Time spent with Patient: >75 minutes Time was spent: preparing to see the patient(eg.review tests), obtaining and/or reviewing separately otained hiistory, ordering medications,tests, procedures, referring, communicating with other health manager urgent care, indepentently interpreting results, counseling the patient and care coordination
--- NOTE | 2025-01-13 09:21 | W.PC.ACHO ---
Registration Status: ADM QUANG Primary Language: Preferred Language: Macedonian ED Information & Data Chief Complaint Abd Prob 01/13/25 05:40 Triage Note Pt arrives to the ED with 01/13/25 05:16 complaints of intermittent severe abd pain. Pt reports she has inoperable colon cancer. Endorses vomiting, denies diarrhea. Medical / Surgical History (Last Updated 09/07/24 @ 13:55 by Tiera Choudhury NP) Pain in left foot Viral illness Postoperative seroma involving digestive system after digestive system procedure Ileus Acute hemorrhagic gastritis (~09/2022) Esophagitis GERD (gastroesophageal reflux disease) (05/07/14) GI bleed due to NSAIDs (~09/2022) Iron deficiency anemia (~09/2022) Colonic mass Paracolic abscess COVID Erythema migrans (Lyme disease) BPPV (benign paroxysmal positional vertigo) BCC (basal cell carcinoma), face (06/11/16) (Last Updated 01/11/25 @ 13:35 by Sharda Cadet RN) S/P fine needle biopsy (~01/01/25) History of abdominal paracentesis (~05/2023) H/O right hemicolectomy (05/01/23) History of colonoscopy (~04/2023) History of esophagogastroduodenoscopy (~06/2024) Open Carpal Tunnel release Exc BBC rgt forehead (06/22/16) Biopsy of breast Most Recent Vital Signs Temperature 37.1 C 01/13/25 08:54 Temperature Source Tympanic 01/13/25 05:16 Pulse 92 H 01/13/25 08:54 Respiratory Rate 18 01/13/25 05:16 Blood Pressure 134/53 L 01/13/25 08:54 Blood Pressure Mean 63 01/13/25 08:54 Blood Pressure Position Sitting 01/13/25 05:16 Pulse Oximetry 96 01/13/25 08:54 Oxygen Delivery Method Room Air 01/13/25 08:37 Oxygen Flow Rate 0 01/13/25 08:37 Pain Level 1 01/13/25 08:54 Allergies NSAIDS (Non-Steroidal Anti-Inflamma Adverse Reaction (Unknown, Verified 01/13/25 09:04) Other (See Comment) aspirin Adverse Reaction (Verified 01/13/25 09:03) ? INCREASED HR Precautions Isolation Standard precaution 01/13/25 05:21 Active Medications Generic Name Dose Route Start Last Admin Trade Name Geoffq PRN Reason Stop Dose Admin Iohexol 100 ml 01/13/25 06:30 01/13/25 06:39 Omnipaque 350 Mg/Ml 100 Ml Btl IJ 02/12/25 23:59 75 ml DIRECTED LYNDSEY Administration Sodium Chloride 0 ml 01/13/25 08:30 01/13/25 07:54 Normal Saline Flush 10 Ml Syr IVP 10 ml BID LYNDSEY Administration Sodium Chloride 50 ml 01/13/25 06:30 01/13/25 06:39 Normal Saline - Diluent 50 Ml Vial IJ 50 ml DIRECTED LYNDSEY Administration Sodium Chloride 0 ml 01/13/25 06:23 01/13/25 06:40 Normal Saline Flush 10 Ml Syr IVP 10 ml PRN PRN Administration IV IV Catheter Type [Subclavian] Port-a-cath (single) IV Catheter Gauge [Subclavian] 20 Diagnostics 01/13/25 01/13/25 Range/Units 05:55 05:21 WBC 8.76 (4.4-10.8) 10^3/uL RBC 4.81 (3.93-5.22) 10^6/uL Hgb 14.2 (11.2-15.7) g/dL Hct 44.4 (36.0-46.0) % MCV 92 (80-95) fL MCH 29.5 (27.0-33.0) pg MCHC 32.0 (32.0-36.0) % RDW 12.4 (11.7-14.6) % Plt Count 291 (130-400) 10^3/uL MPV 10.4 (8.0-11.0) fL Immature Gran % 0.5 % Neutrophils % 88.0 % Lymphocytes % 5.3 % Monocytes % 5.7 % Eosinophils % 0.2 % Basophils % 0.3 % Nucleated RBC % 0.0 (0.0-0.3) % Absolute Neutrophils 7.71 H (1.2-6.7) 10^3/uL Absolute Lymphocytes 0.46 L (1.2-3.4) 10^3/uL Absolute Monocytes 0.50 (0.1-0.8) 10^3/uL Absolute Eosinophils 0.02 (0.0-0.7) 10^3/uL Absolute Basophils 0.03 (0.0-0.2) 10^3/uL Sodium 140 Cancelled Potassium 3.7 Cancelled Chloride 100 Cancelled Carbon Dioxide 26.1 Cancelled Anion Gap 13.9 H Cancelled BUN 12 Cancelled Creatinine 0.6 Cancelled Est GFR (CKD-EPI 2020) 88.45 Cancelled Glucose 127 H Cancelled Calcium 9.4 Cancelled Total Bilirubin 0.7 (0.2-1.0) mg/dL AST 23 (15-37) U/L ALT 16 (14-59) U/L Alkaline Phosphatase 81 (46-116) U/L Total Protein 6.7 (6.4-8.2) g/dL Albumin 3.5 (3.4-5.0) g/dL Lipase 16 (<78) U/L Intake and Output - 24 Hour Total 01/13/25 05:13 thru 01/13/25 07:23 Intake Total 1000 Balance 1000 Weight 59.874 kg Intake: IV 1000 Falls Risk Assessment History of Falls No History 01/13/25 05:21 Contributing Factors No Factors 01/13/25 05:21 Ambulatory Aids Independent 01/13/25 05:21 Tubes/Lines None 01/13/25 05:21 Gait Evaluation No gait disturbance 01/13/25 05:21 Cognition No cognitive impairment 01/13/25 05:21 Fall Total Score 0 01/13/25 05:21 Level of Risk Standard/Low Risk 01/13/25 05:21 Problems (Last Updated 09/07/24 @ 13:55 by Tiera Choudhury NP) SBO (small bowel obstruction) (Acute) Nausea & vomiting (Acute) Attestation Statement: By documenting the first initial, last name, and credentials of the reporting nurse below, both parties acknowledge that all relevant information regarding the patient handoff has been communicated, and that all questions have been addressed to ensure continuity and safety of care. Additional Patient Information/Comments: Pt arrived to floor via wheelchair. Pt was settled into room by nurse. Oriented to room and call oconnell left within reach. Pt asked for ice chips which were brought to her. Port accessed in ED. Report Received From: [facility]
--- NOTE | 2025-01-13 13:16 | PHA.REVIEW2 ---
Pharmacy Admission Review Admission Clinical Review Admission Pharmacy Review: SBO (small bowel obstruction) (Acute) Nausea & vomiting (Acute) NSAIDS (Non-Steroidal Anti-Inflamma Adverse Reaction (Unknown, Verified 01/13/25 09:04) Other (See Comment) aspirin Adverse Reaction (Verified 01/13/25 09:03) ? INCREASED HR Resuscitation Status DNR/DNI Height 5 ft 2 in Weight 59.874 kg Comments Comments/Follow Ups: Possible discharge per H+P? Pharmacy Admission Review Renal Dosing Renal Dosing: BUN 12 mg/dL (7-18) 01/13/25 05:55 Creatinine 0.6 mg/dL (0.55-1.02) 01/13/25 05:55 Medications needing adjustments: Reviewed (CrCl 39.58 mL/min) List of meds needing interventions: Current medications are okay Anticoagulation Anticoagulation: Hgb 14.2 g/dL (11.2-15.7) 01/13/25 05:55 Hct 44.4 % (36.0-46.0) 01/13/25 05:55 Plt Count 291 10^3/uL (130-400) 01/13/25 05:55 Creatinine 0.6 mg/dL (0.55-1.02) 01/13/25 05:55 DVT Prophylaxis: Reviewed (none ordered at this time) Relevant Labs Relevant Labs: Sodium 140 mmol/L (136-145) 01/13/25 05:55 Potassium 3.7 mmol/L (3.5-5.1) 01/13/25 05:55 Chloride 100 mmol/L (98-107) 01/13/25 05:55 Electrolytes, C-Reactive P, ESR: Reviewed Cardiac Review BP, HR, EF%: Reviewed (BP and HR WNL) QTc Review QTc: Reviewed (437 from 12/19/24 - most recent EKG on file) IV to PO Switch IV Medications: Reviewed Home Meds Home Med List reviewed: Reviewed Relevent Home Meds Not ordered & why?: loratadine, oxycodone (PRN) and pantoprazole Current Meds Current Medication Order Review: Reviewed Comments Comments/Follow Ups: Possible discharge per H+P?
[2025-01-14 06:30] LABS: HCT 37.3 % (36.0-46.0); HGB 12.2 g/dL (11.2-15.7); MCH 28.6 pg (27.0-33.0); MCHC 32.7 % (32.0-36.0); MCV 88 fL (80-95); MPV 10.7 fL (8.0-11.0); Platelet Count 284 10^3/uL (130-400); RBC 4.26 10^6/uL (3.93-5.22); RDW 12.4 % (11.7-14.6); RDW-SD 39.5 fL; WBC 4.91 10^3/uL (4.4-10.8)
[2025-01-14 06:43] LABS: Anion Gap 8.7 mmol/L (3-11); BUN 9 mg/dL (7-18); CO2 28.3 mmol/L (21.0-32.0); Calcium 8.8 mg/dL (8.5-10.1); Chloride 104 mmol/L (98-107); Glucose 73 mg/dL (74-106); Magnesium 1.9 mg/dL (1.8-2.4); Potassium 3.4 mmol/L (3.5-5.1); Sodium 141 mmol/L (136-145)
[2025-01-14 07:26] VITALS: BP 125/55; PULSE 78; RESP 16; TEMP 37; O2SAT 97
[2025-01-14] MEDS: Normal Saline Flush 10 ML SYR IVP (08:54)
--- NOTE | 2025-01-14 10:25 | PDOC.CMDIS ---
Date of service: 01/14/25 Time of Service: 10:27 LACE Index Scoring Tool Questions: Length of Stay (in days): 1 Was the patient admitted via the E.D.?: Yes Comorbidities: Any Tumor E.D. Visits: 2 Answers: Total Score: 8 Risk of Readmission: Low Risk Care Management Discharge Plan Reason for Hospitalization: SBO, Inoperable Colon CA Discharge Plan: Elisha will be discharged home today and will continue with her plan for a hospice consult on Wednesday. It is recommended she follow up with her community providers and discharge plan of care. She will transport home via private vehicle by her . Patient/Family Education Needs: Review of discharge instructions, activity, limitations, and plan of care. Discuss ask me three. Services Needed at Discharge: Home Health Care Services (Hospice) SDOH Health Related Social Needs: Health related social needs details N/A
--- NOTE | 2025-01-14 10:26 | W.PM.PROGNOT ---
Objective Last Vital Signs Temp 37.0 C 01/14/25 07:26 Pulse 78 01/14/25 07:26 Resp 16 01/14/25 07:26 BP 125/55 L 01/14/25 07:26 Pulse Ox 97 01/14/25 07:26 Laboratory Results - last 24 hr 01/14/25 06:08 WBC 4.91 RBC 4.26 Hgb 12.2 D Hct 37.3 MCV 88 D MCH 28.6 MCHC 32.7 RDW 12.4 Plt Count 284 MPV 10.7 Sodium 141 Potassium 3.4 L Chloride 104 Carbon Dioxide 28.3 Anion Gap 8.7 BUN 9 Creatinine 0.6 Est GFR (CKD-EPI 2020) 88.45 Glucose 73 L Calcium 8.8 Magnesium 1.9
--- NOTE | 2025-01-14 12:52 | W.PM.DS.N ---
Date of service: 01/14/25 Time of Service: 08:00 DS: Diagnosis Discharge Diagnosis (1) SBO (small bowel obstruction): Status: Resolved (2) Nausea & vomiting: Status: Resolved Discharge Plan Disposition Patient Disposition: Home Condition: Fair Discharge Details Reason For Visit: SBO, Inoperable Colon CA Admit Date/Time: 01/13/25 08:07 Admit Provider: Dannie Orta Attending Provider: Dannie Orta Primary Care Provider: Tiera Choudhury Hospital Course Hospital Course: Elisha Chowdhury is an 84 year old woman presenting January 13 with nausea and vomiting, in the setting of inoperable cancer. She was admitted for possible SBO. She improved overnight and is now tolerating PO intake. She is safe to return home at this time. Home Meds and New Rx's Prescriptions: Continued pantoprazole 40 mg tablet,delayed release (DR/EC) 40 mg PO DAILY loratadine 10 mg tablet 10 mg PO DAILY Qty: 90 3RF oxycodone 5 mg tablet 5 mg PO BID MDD 2 tabs PRN (Reason: pain) Qty: 30 0RF Rx Instructions: for cancer related pain No Action morphine concentrate 100 mg/5 mL (20 mg/mL) solution See Rx Instructions PO Q1H PRN MDD 24 ml Qty: 30 0RF Rx Instructions: 0.25-1.0 ml orally every 1 hour, as needed; HOSPICE lorazepam 1 mg tablet 1 mg PO Q4H PRN (Reason: anxiety) Qty: 6 5RF Rx Instructions: hospice hyoscyamine sulfate 0.125 mg tablet,disintegrating 0.125 mg PO Q4H PRN Qty: 24 3RF Rx Instructions: hospice Discharge Instructions Instructions: Nausea and vomiting in adults Stand Alone Forms: Portal Information Referrals: Tiera Choudhury, ARCHITECTURAL MANAGER [Primary Care Provider, Medicine] Referral Note: Your pcp will call you with an appointment, if you have not heard from them within a few days please reach out to them. Activity:: Activity as Tolerated Equipment/Supplies:: No Equipment Needed Diet:: As Tolerated Discharge Orders Discharge Orders: Discharge Order (Routine); Ordered 01/14/25 Ordered By: Quentin Mendoza Discharge Data Discharge Date/Time-TO BE ENTERED AT DEPARTURE: 01/14/25 13:50 DS: Summary Time Spent with Patient providing and/or coordinating discharge services: Less than 30 minutes Status at Discharge Functional status at discharge: independent ambulation Overall status at discharge: patient is back to baseline Mental Status: mental status grossly normal Speech and Movement: speech and movement normal Mood: congruent mood Affect: normal affect Quality:SDOH Health Related Social Needs: Health related social needs details N/A Exam Narrative Exam Narrative: General: This is a pleasant man in no distress HEENT: Normocephalic, atraumatic CV: RRR Resp: CTAB Abd: soft, NTND MSK: voluntary motion x4 Neuro: awake, alert, no focal deficits Psych Mental Status: mental status grossly normal Speech and Movement: speech and movement normal Mood: congruent mood Affect: normal affect DS: Data Vitals/I&O Vitals and I&O: Vital Signs Temperature 37.0 C 01/14/25 07:26 Temperature Source Temporal Artery Scan 01/14/25 07:26 Pulse 78 01/14/25 07:26 Respiratory Rate 16 01/14/25 07:26 Respiratory Effort Normal 01/13/25 09:36 Respiratory Depth Normal 01/13/25 09:36 Respiratory Pattern Normal 01/13/25 09:36 Blood Pressure 125/55 L 01/14/25 07:26 Blood Pressure Mean 78 01/14/25 07:26 Blood Pressure Position Sitting 01/13/25 05:16 Pulse Oximetry 97 01/14/25 07:26 Oxygen Delivery Method Room Air 01/14/25 07:26 Oxygen Flow Rate 0 01/14/25 07:26 Pain Level 2 01/14/25 08:47 Intake & Output 01/13/25 01/14/25 01/14/25 23:59 11:59 23:59 Intake Total 880 / 1910 540 / 540 Output Total 250 / 250 600 / 800 200 / 800 Balance 630 / 1660 -60 / -260 -200 / -260 Intake: IV 30 / 1060 60 / 60 Oral 850 / 850 480 / 480 Output: Urine 250 / 250 600 / 800 200 / 800 Other: Urine Color Yellow Yellow Yellow Urine Appearance Clear Clear Clear Urine Odor Normal None None Comment Pt voids ind. into the toilet. pt voided in the toliet unknown amount measured Stool Size Small Stool Characteristics Formed Hard Data Completed and Pending Pending Labs at Discharge: 01/13/25 01/13/25 01/14/25 05:21 05:55 06:08 WBC 8.76 4.91 RBC 4.81 4.26 Hgb 14.2 12.2 D Hct 44.4 37.3 MCV 92 88 D MCH 29.5 28.6 MCHC 32.0 32.7 RDW 12.4 12.4 Plt Count 291 284 MPV 10.4 10.7 Immature Gran % 0.5 Neutrophils % 88.0 Lymphocytes % 5.3 Monocytes % 5.7 Eosinophils % 0.2 Basophils % 0.3 Nucleated RBC % 0.0 Absolute Neutrophils 7.71 H Absolute Lymphocytes 0.46 L Absolute Monocytes 0.50 Absolute Eosinophils 0.02 Absolute Basophils 0.03 Sodium Cancelled 140 141 Potassium Cancelled 3.7 3.4 L Chloride Cancelled 100 104 Carbon Dioxide Cancelled 26.1 28.3 Anion Gap Cancelled 13.9 H 8.7 BUN Cancelled 12 9 Creatinine Cancelled 0.6 0.6 Est GFR (CKD-EPI 2020) Cancelled 88.45 88.45 Glucose Cancelled 127 H 73 L Calcium Cancelled 9.4 8.8 Magnesium 1.9 Total Bilirubin 0.7 AST 23 ALT 16 Alkaline Phosphatase 81 Total Protein 6.7 Albumin 3.5 Lipase 16 PFSH All Active Problems (Updated 01/16/25 @ 14:21 by Jordyn Baeza MD) Hospice care patient (Acute) Dehydration (Acute) ACP (advance care planning) (Acute) Right upper quadrant abdominal mass (Acute) Gastritis (Acute) Palliative care patient (Acute) Osteoarthritis of right hip (Acute) Right hip pain (Acute) Mass of gastroesophageal junction (Acute) [facility] 04/27/24 Iron deficiency (Acute) Cancer, metastatic to liver (Acute ~11/2023) 12/03/23 Dr Smart, [facility] Hem/Onc Liver lesion (Acute ~04/2023) 06/02/23 Hem/Onc DNR (do not resuscitate) (Acute) 2020 [facility]: DNR/DNI,+ transfer, +treat with IV fluids and abx. Confirmed, see 05/04/23 Palliative Care Note. Adenocarcinoma, colon (Chronic ~2022) metastatic 05/04/23 Hem/Onc Pulmonary fibrosis (Acute) Pre-diabetes (Acute ~03/2023) A1C 5.75% Generalized osteoarthritis (Acute) Subclinical hypothyroidism (Chronic 02/04/11) Lumbar radiculopathy, acute (Acute 06/12/14) 12/2022 Other and unspecified hyperlipidemia (Chronic 03/05/15) Eczema (Chronic 02/16/13) Hands Medical History (Updated 01/16/25 @ 14:21 by Jordyn Baeza MD) Pain in left foot Viral illness Postoperative seroma involving digestive system after digestive system procedure Ileus Acute hemorrhagic gastritis (~09/2022) Esophagitis GERD (gastroesophageal reflux disease) (05/07/14) Takes 2-week courses of omeprazole PRN with good relief for several months GI bleed due to NSAIDs (~09/2022) Iron deficiency anemia (~09/2022) Colonic mass Paracolic abscess COVID Symptoms resolved 04/13/23 Erythema migrans (Lyme disease) 1 week post tick bite, short-term stay per pt report .. but Doxy x 10 days started, ik BPPV (benign paroxysmal positional vertigo) BCC (basal cell carcinoma), face (06/11/16) and left medial ankle 10/2018 Right lower lateral neck - removed at 10/06/22 Surgical History (Updated 01/11/25 @ 13:35 by Sharda Cadet RN) S/P fine needle biopsy (~01/01/25) periduodenal mass [id number] [place] History of abdominal paracentesis (~05/2023) H/O right hemicolectomy (05/01/23) perforated colon mass History of colonoscopy (~04/2023) History of esophagogastroduodenoscopy (~06/2024) Open Carpal Tunnel release no date given by pt.HE Exc BBC rgt forehead (06/22/16) Biopsy of breast pt did not state date.HE Family History Father Alcohol abuse Brother Bladder cancer Social History Smoking/Tobacco Use Status: Never Smoking risk assessment performed?: Yes Alcohol Intake: current Alcohol Intake frequency: 0-2 drinks per day Alcohol type: wine Drug use: Never Substance use type: does not use Counseling given: No Adopted: No Caregiver/Support person: No Foster care: No Household members: spouse Housing: house Number of Children: 0 number of grandchildren: 0 Communication Needs: Corrective Lenses Education Level: college Do you need help understanding health information?: Never 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, 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, 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, 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 Pets and animals: No Sexually active: No Do you think of yourself as: straight/heterosexual Current gender identity: male What is your relationship status?: How often do you talk on the phone with friends or family?: three or more times per week How often do you get together with friends or relatives?: three or more times per week How often do you attend scientology or restoration services?: 4 or more times per year Do you belong to any clubs or organized social groups?: yes Panel score (0-1 are the most socially isolated patients): 4 What type of physical activity do you participate in: other Details: Arthritis Class 2x week Duration: 45-60 minutes/day Frequency: 1-2 times per week Romi/Protestant: Gnosticist Special romi needs: No Seatbelt use: always Helmet use: Yes (No Reason) Helmet use: never Drive intox or ride w/intox wagon driver salesperson: No Working smoke detector in home: Yes Fire extinguisher in home: Yes Carbon monox detector in home: Yes Do you feel safe at home: Yes Do you feel safe in your relationship?: Yes Time Spent with Patient Time Spent with Patient: <45 minutes Time was spent: preparing to see the patient(eg.review tests), obtaining and/or reviewing separately otained hiistory, ordering medications,tests, procedures, referring, communicating with other health critical care technician, indepentently interpreting results, counseling the patient and care coordination
== END 2025-01-14 13:50 | disposition home or self-care (01) ==
LOC: ER 07:41 → MS 09:13
PROVIDERS: Student in an Organized Health Care Education/Training Program; Admitting Provider Family Medicine; Emergency Provider General Practice; PCP Nurse Practitioner Adult Health; Responsible Provider Family Medicine; Visit Provider Family Medicine
DX: K56.609 Unspecified intestinal obstruction, unspecified as to partial versus complete obstruction (principal); R11.2 Nausea with vomiting, unspecified; E86.0 Dehydration; E61.1 Iron deficiency; Z66 Do not resuscitate; Z51.5 Encounter for palliative care; C78.7 Secondary malignant neoplasm of liver and intrahepatic bile duct; C78.6 Secondary malignant neoplasm of retroperitoneum and peritoneum; Z90.49 Acquired absence of other specified parts of digestive tract; C18.9 Malignant neoplasm of colon, unspecified; R73.03 Prediabetes; J84.10 Pulmonary fibrosis, unspecified; M15.9 Polyosteoarthritis, unspecified; E03.9 Hypothyroidism, unspecified; K29.70 Gastritis, unspecified, without bleeding
CPT/HCPCS: 00123; 36415; 80048; 80053; 83690; 85027; 96361; 96374; 96375; 99285; 74177; 83735; 85025; 99223; 99238; G0378; J1171; J2405; J2765; J3490